=== PATIENT | male | born 1960 | race Caucasian/White ===

== ENCOUNTER → 2023-04-11 08:13 | Outpatient (CLI) | payer OTHER, SELFPAY ==
--- NOTE | ~2023-04-11 | XR_ITS ---
XR abdomen/kub 1V 04/11/2023 08:33 Indication: Microscopic hematuria Procedure: KUB Comparison: No prior studies for comparison. Findings: Bowel pattern nonobstructive. Moderate colonic fecal loading. No renal stones are seen. The re are are brachytherapy seeds in the expected location of the prostate bed. No sclerotic lesions. Mo derate lumbar spondylosis. Impression: 1: No acute abdominal abnormality. Reviewed, dictated and finalized at location [facility] [employer] Impression: 1: No acute abdominal abnormality.
--- NOTE | ~2023-04-11 | CT_ITS ---
CT of the Abdomen and Pelvis: Indication: Microscopic hematuria Technique: 2.5 mm axial scans were obtained through the abdomen and pelvis prior to and following in travenous administration of 130 cc of Omnipaque 350. Dose reduction technique was used on this scan b y utilizing automated exposure control and iterative reconstruction technique. The dose-length produc t (DLP) was 1596.80 mGy-cm. Findings: Scans through the lung bases are unremarkable. The liver, spleen, pancreas, gallbladder, adrenals and kidneys are within normal limits. There are at herosclerotic calcifications of the aorta. No lymphadenopathy. No bowel obstruction or bowel wall thickening. There is no evidence to suggest acute appendicitis. Images through the pelvis were performed. Urinary bladder unremarkable. Prostate gland radiation seed s present. No ascites. Impression: No distinct etiology for hematuria identified. Prostate gland radiation seeds. Reviewed, dictated and finalized at [facility]. [employer] Impression: No distinct etiology for hematuria identified. Prostate gland radiation seeds.
[2023-04-11 09:06] LABS: Estimated Glomerular Filt Rate > 60
== END ==
PROVIDERS: PCP Urology; Visit Provider Urology
DX: R31.29 Other microscopic hematuria (principal)
CPT/HCPCS: 74018; 74178; Q9967

== ENCOUNTER 2024-07-03 05:47 | Observation (INO) | payer MEDICARE, OTHER, SELFPAY ==
[2024-07-03] VITALS (45 sets, daily range): BP systolic 129–225; BP diastolic 68–93; PULSE 76–106; RESP 14–29; TEMP 36.6–36.9; O2SAT 90–99; BMI 28.3
--- NOTE | ~2024-07-03 | XR_ITS ---
EXAMINATION: XR chest 2V 07/03/2024 06:37 INDICATION: Shortness of breath and chest pain PROCEDURE: 2 view chest COMPARISON: 12/19/2005 FINDINGS: The lungs are clear. The cardiomediastinal silhouette is within normal limits. There are no pleural effusions. There is no pneumothorax suspected. IMPRESSION: 1: NO ACUTE CARDIOPULMONARY DISEASE. Reviewed, dictated and finalized at location A. ATOLOGIST MANAGING PARTNER
--- NOTE | ~2024-07-03 | CT_ITS ---
EXAMINATION: CTA chest PE protocol DATE: 07/04/2024 09:23 INDICATION: Chest pain and shortness of breath TECHNIQUE: Computed tomography (CT) pulmonary angiogram of the chest was performed with 100 mL Omnipa que-350 intravenous contrast. Additional 3D reconstructions utilizing coronal maximum intensity proje ction (MIP) were performed. Automated exposure control and iterative reconstruction technique were em ployed. The dose-length product was 296.17 mGy-cm. COMPARISON: None FINDINGS: No pulmonary embolism. There is diffuse bronchial wall thickening in both lungs. Mild at dependent pr edominant mosaic attenuation with some linear opacities in both lungs without significant associated septal line thickening and with favor atelectasis over pneumonia or mild pulmonary edema. No pleural effusion. Heart size normal. Atherosclerotic coronary artery calcifications. No pericardial effusion. Thoracic aortic caliber with no dissection. Visualized upper abdomen is unremarkable. Mild thoracic spondylosis with bridging osteophytes at multiple levels consistent with diffuse idiopathic skeletal hyperostosis (DISH). IMPRESSION: 1. Bilateral diffuse mild bronchial wall thickening which could be seen with bronchitis/bronchiolitis , reactive air disease/asthma or related to mild pulmonary edema. 2. Dependent predominant mosaic attenuation with mild groundglass opacities and would favor atelectas is over mild pulmonary edema or pneumonia. 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 Bilateral diffuse mild bronchial wall thickening which could be seen with br onchitis/bronchiolitis, reactive air disease/asthma or related to mild pulmonar y edema. 2. Dependent predominant mosaic attenuation with mild groundglass opacities and would favor atelectasis over mild pulmonary edema or pneumonia.
--- OUTSIDE RECORDS SUMMARY | 2024-07-03 05:49 | XMS_ITS | Referral Summary ---
Author Organization [facility] B Address [address] [place] [address] Care Team Providers Care Outside Sales Consultant Name Role Phone Dev Burrell MD Unavailable Phillip Schafer MD Unavailable [phone] Star Ellis MD Unavailable Ally Mcghee MD Primary Care Provider [phone] Mary Anne Rodriguez MD Unavailable [phone] Dimitrios Mccrary MD Unavailable [phone] Encounters Date Type Department Care Team Description 07/02/2024 Telephone [facility] Surgery [address] [facility] [address] Floor 1 [place] [address] Dimitrios Mccrary MD 07/01/2024 1:11 PM LOADING SHOVEL OILER - 07/02/2024 10:58 AM LOADING SHOVEL OILER Hospital Encounter [facility] [address] [place] [address] Dimitrios Mccrary MD Atherosclerosis of 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 (HCC) (Primary Dx) Discharge Disposition: Discharge to home or self care 07/01/2024 3:00 PM LOADING SHOVEL OILER - 07/01/2024 5:30 PM LOADING SHOVEL OILER Surgery [facility] Operating [facility] [place] [phone] Dimitrios Mccrary MD AIF Angiogram, Right Leg Run off, Angioplasty Right Popliteal Artery 07/01/2024 3:09 PM LOADING SHOVEL OILER Anesthesia Event [facility] [address] [place] [phone] Venecia Hennessy DO Devuono, Lauren Falvey, NP 06/22/2024 12:15 PM LOADING SHOVEL OILER Pre-Admission Testing [facility] Pre Anesthesia Testing [address] [place] [phone] Preoperative testing (Primary Dx) 06/19/2024 Telephone [facility] Surgery [address] [place] [phone] Dimitrios Mccrary MD Med Management 06/16/2024 11:00 AM LOADING SHOVEL OILER Ancillary Procedure [facility] Surgery [address] [place] [phone] Encounter for surgical aftercare following surgery on the circulatory system 06/16/2024 11:45 AM LOADING SHOVEL OILER Office Visit [facility] Surgery [address] [place] [phone] Eliseo Hyde PA Atherosclerosis of 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 (HCC); Claudication (HCC) 05/13/2024 Orders Only [facility] Surgery [address] [place] [phone] Dimitrios Mccrary MD Encounter for surgical aftercare following surgery on the circulatory system (Primary Dx) 05/13/2024 11:00 AM LOADING SHOVEL OILER Office Visit [facility] Surgery [address] [place] [phone] Dimitrios Mccrary MD Atherosclerosis of muckleshoot artery of left lower extremity with intermittent claudication (HCC) (Primary Dx) 04/30/2024 5:33 AM LOADING SHOVEL OILER - 05/03/2024 2:15 PM LOADING SHOVEL OILER Hospital Encounter [address] [place] [phone] Dimitrios Mccrary MD Atherosclerosis of muckleshoot artery of left lower extremity with intermittent claudication (HCC) Discharge Disposition: Discharge to home or self care 04/30/2024 7:30 AM LOADING SHOVEL OILER - 04/30/2024 12:00 PM LOADING SHOVEL OILER Surgery [facility] [address] [place] [phone] Dimitrios Mccrary MD Left Femoral Artery Endarterectomy, Left Iliac Artery Stent, Left AIF and Ateriogram 04/30/2024 7:48 AM LOADING SHOVEL OILER Anesthesia Event [facility] [address] [place] [phone] Wilma Manjarrez MD Czajkowski, Lesly June, NP 04/15/2024 Documentation [facility] [address] [place] [phone] Ligia Sun PA lower extremity vein mapping results 04/09/2024 11:45 AM LOADING SHOVEL OILER Pre-Admission Testing [facility] Pre Anesthesia Testing [address] [place] [phone] Preop testing (Primary Dx) 04/07/2024 11:19 AM LOADING SHOVEL OILER - 04/07/2024 5:13 PM LOADING SHOVEL OILER Emergency [facility] [address] [place] [phone] Richard Armstrong MD Dizziness (Primary Dx); Episode of hypertension; Urine leukocytes Discharge Disposition: Discharge to home or self care 04/07/2024 9:30 AM LOADING SHOVEL OILER Procedure visit [facility] [address] [place] [phone] Irradiation cystitis with hematuria; Soft tissue radionecrosis 04/06/2024 8:00 AM LOADING SHOVEL OILER Ancillary Procedure [facility] Surgery [address] [phone] Claudication of lower extremity (HCC); Preop examination 04/06/2024 9:30 AM LOADING SHOVEL OILER Procedure visit [facility] [address] [place] [phone] Irradiation cystitis with hematuria; Soft tissue radionecrosis 04/03/2024 9:30 AM LOADING SHOVEL OILER Procedure visit [facility] [place] [phone] Irradiation cystitis with hematuria; Soft tissue radionecrosis from Last 3 Months Allergies No known active allergies Medications metFORMIN (GLUCOPHAGE) 500 mg tablet Take 2 tablets (1,000 mg total) by mouth 2 (two) times a day with meals Active glipiZIDE (GLUCOTROL) 10 mg tabletIndications :type 2 diabetes mellitus Take 1 tablet (10 mg total) by mouth every morning Active gabapentin (NEURONTIN) 300 mg capsule Take 1 capsule (300 mg total) by mouth nightly Active aspirin 81 mg enteric coated tablet Take 1 tablet (81 mg total) by mouth nightly Active cilostazoL (PLETAL) 100 mg tabletIndications :Intermittent Claudication Take 1 tablet (100 mg total) by mouth 2 (two) times a day Active clopidogreL (PLAVIX) 75 mg tablet Take 1 tablet (75 mg total) by mouth every morning Active ciprofloxacin (CIPRO) 500 mg tablet Take 1 tablet (500 mg total) by mouth 2 (two) times a day Active tamsulosin (FLOMAX) 0.4 mg extended release capsule Take 1 capsule (0.4 mg total) by mouth nightly Active Active Problems Problem Noted Date Diagnosed Date Dizziness 04/07/2024 Episode of hypertension 04/07/2024 Urine leukocytes 04/07/2024 Atherosclerosis of muckleshoot ar eric of left lower extremity with intermittent claudication 03/26/2024 Preop examination 03/25/2024 Cystitis 01/04/2024 Hematuria 11/09/2023 History of prostate cancer 11/09/2023 Urinary retention 11/09/2023 Stricture of bulbous urethra in male 07/08/2023 Perineal lump 05/08/2023 Microscopic hematuria 05/08/2023 Claudication of lower extremity 04/08/2023 Assessment & Plan (03/25/2024 9:38 AM LOADING SHOVEL OILER): Debilitating left calf claudication with evidence of left ileo-femoral disease and SFA/popliteal stenosis. We discussed revascularization with left femoral endarterectomy, possible left iliac stent, possible left SFA/popliteal endoluminal intervention and possible fem-distal bypass. He understands and accepts the risks of surgery including infection, bleeding, arterial thrombosis, the potential for urgent reoperation and the remote risk of amputation. He consents to the procedure. We will plan to consult his Urologist, Dr. Castaneda, for assistance with his Matute catheter as needed. Atherosclerosis of muckleshoot ar eric of both lower extremities with intermittent claudication 04/08/2023 Overview (09/11/2023): Last Assessment & Plan: He has debilitating bilateral calf claudication and would like to have a more active lifestyle. He's failed a trial of Pletal with a walking regimen. We'll plan AIF angiogram with possible right SFA intervention. He understands the risks including bleeding, infection, renal insufficiency, recurrent disease requiring further intervention, lower extremity ischemia requiring urgent revascularization for limb salvage, remote risk of limb loss and need for alf follow-up. Assessment & Plan (06/17/2024 11:05 AM LOADING SHOVEL OILER): He has a progressive right in-stent popliteal artery stenosis based on velocity criteria and change in distal right leg waveforms with progressive symptoms of right calf claudication. We recommend AIF angiogram with possible right popliteal artery intervention. Assessment & Plan (10/14/2023 9:51 AM CDT): He has debilitating bilateral calf claudication and would like to have a more active lifestyle. He's failed a year+ long trial of Pletal with a walking regimen. Waveforms suggest right SFA disease and left iliofemoral disease. His left toe-brachial index is 0.24. We'll plan AIF angiogram with possible right SFA intervention/possible left iliac intervention. He understands the risks including bleeding, infection, renal insufficiency, recurrent disease requiring further intervention, lower extremity ischemia requiring urgent revascularization for limb salvage, remote risk of limb loss and need for alf follow-up. He understands the potential need for lifelong Plavix therapy if stents are placed. Assessment & Plan (04/08/2023 12:58 PM LOADING SHOVEL OILER): He has debilitating bilateral calf claudication and would like to have a more active lifestyle. He's failed a trial of Pletal with a walking regimen. We'll plan AIF angiogram with possible right SFA intervention. He understands the risks including bleeding, infection, renal insufficiency, recurrent disease requiring further intervention, lower extremity ischemia requiring urgent revascularization for limb salvage, remote risk of limb loss and need for oil heaterman follow-up. Atherosclerosis of muckleshoot ar eric of right lower extremity with intermittent claudication 04/08/2023 Carpal tunnel syndrome on right 08/15/2021 Overview (08/15/2021): Added automatically from request for surgery [id number] Lesion of right ulnar nerve 08/15/2021 Overview (08/15/2021): Added automatically from request for surgery [id number] Cubital tunnel syndrome on left 07/21/2021 Overview (07/21/2021): Added automatically from request for surgery [id number] Carpal tunnel syndrome on left 07/21/2021 Overview (07/21/2021): Added automatically from request for surgery [id number] Vascular disease 06/25/2021 Overweight with body mass index (BMI) 25.0-29.9 10/13/2015 Type 2 diabetes mellitus wit hout complication, without long-term current use of insulin ([facility]) 07/11/2011 Overview (09/11/2023): DMII WO CMP UNCNTRLD Prostate cancer 01/26/2009 Cancer Staging:Clinical stage from 01/26/2009:Stage III(T3a, N0, M0, G3-G4) - Signed by Dev Burrell MD on 04/23/2018 Immunizations Immunization Administration Dates Next Due Influenza, Unspecified 03/01/2022 Pneumococcal Conjugate PCV 13 01/12/2021 Tdap 01/12/2021 Social History Tobacco Use Types Packs/Day Years Used Date Smoking Tobacco: Former Cigarettes 2 57.2 S tarted: 1968 Passive Smoke Exposure: Past Smokeless Tobacco: Never Tobacco Cessation:Counseling Given: Not Answered Comments:Over 20 years ago Alcohol Use Standard Drinks/Week Comments No 0 (1 standard drink = 0.6 oz pur e alcohol) [facility] Utilities Answer Date Recorded In the past 12 months has th e electric, gas, oil, or water company threatened to shut off services in your home? No 05/01/2024 Social Connection and Isolat ion Panel [NHANES] Answer Date Recorded In a typical week, how many times do you talk on the phone with family, friends, or neighbors? More than three times a week 05/01/2024 How often do you get togethe r with friends or relatives? More than three times a week 05/01/2024 How often do you attend chur ch or voodoo services? More than 4 times per year 05/01/2024 Do you belong to any clubs o r organizations such as jehovah's witness groups, unions, fraternal or athletic groups, or school groups? No 05/01/2024 How often do you attend meet ings of the clubs or organizations you belong to? Never 05/01/2024 Are you , , di vorced, , never , or living with a partner? 05/01/2024 AUDIT-C Answer Date Recorded Q1: How often do you have a drink containing alc ohol? 2-4 times a month 06/22/2024 Q2: How many drinks containi ng alcohol do you have on a typical day when you are drinking? 1 or 2 06/22/2024 Q3: How often do you have si x or more drinks on one occasion? Never 06/22/2024 Overall Financial Resource Strain (CARDIA) Answe r Date Recorded How hard is it for you to pa y for the very basics like food, housing, medical care, and heating? Not very hard 05/01/2024 Hunger Vital Sign Answer Date Recorded Within the past 12 months, y ou worried that your food would run out before you got the money to buy more. Never true 05/01/20 24 Within the past 12 months, t he food you bought just didn't last and you didn't have money to get more. Never true 05/01/2024 PRAPARE - Transportation Answer Date Re corded In the past 12 months, has l ack of transportation kept you from medical appointments or from getting medications? No 04/06 In the past 12 months, has l ack of transportation kept you from meetings, work, or from getting things needed for daily living? No 05/01/2024 Housing Stability Vital Sign Answer Crow e Recorded In the last 12 months, was t here a time when you were not able to pay the mortgage or rent on time? No 05/01/2024 In the past 12 months, how m any times have you moved where you were living? 1 05/01/2024 At any time in the past 12 m [facility], were you homeless or living in a nursing home (including now)? No 05/01/2024 Personal Safety Answer Date Recorded Have you ever been in or are you currently in a harmful physical or emotional relationship or is someone making you feel afraid or unsafe? Denies 07/01/2024 Sex and Gender Information Value Date Recorded Sex Assigned at Not on file Legal Sex Male 2:12 AM LOADING SHOVEL OILER Gender Identity Not on file Sexual Orientation Not on file Last Filed Vital Signs Vital Sign Reading Time Taken Comments Blood Pressure 162/87 07/02/2024 8:27 AM LOADING SHOVEL OILER Pulse 72 07/02/2024 8:27 AM LOADING SHOVEL OILER Temperature 36.2 C (97.1 F) 07/02/2024 8:27 AM LOADING SHOVEL OILER Respiratory Rate 15 07/02/2024 8:27 AM LOADING SHOVEL OILER Oxygen Saturation 98% 07/02/2024 8:27 AM LOADING SHOVEL OILER Inhaled Oxygen Concentration - - Weight 78.6 kg (173 lb 4.5 oz) 07/01/2024 1:20 P M LOADING SHOVEL OILER Height 170.2 cm (5' 7 ) 07/01/2024 1:20 PM LOADING SHOVEL OILER Body Mass Index 27.14 07/01/2024 1:20 PM LOADING SHOVEL OILER Plan of Treatment Not on file Medical Devices Implanted Type Area C D Reactor Operator Device Identifier Shelf Expiration Date Model / Serial / Lot [employer] Viabahn 6mm 25cm 120cm Flexible Self Expand Radiopaque Stent [id number] - [id number] - [id number] Implanted:Qty: 1 on 10/31/2023 by Dimitrios Mccrary MD at [facility] Stent Right: Superficial Femoral Artery [employer] 06/04/2025 [id number] / [id number] / [employer] Viabahn 6mm 6fr 10cm 120cm Delivery System Superficial Femoral [id number] - [id number] - [id number] Implanted:Qty: 1 on 10/31/2023 by Dimitrios Mccrary MD at [facility] Stent Right: Superficial Femoral Artery [employer] 01/05/2025 [id number] / [id number] / Medtronic Inc Protege Everflex 5mm .079in 40mm 120cm Otw Delivery System Self [id number] - [id number] Implanted:Qty: 1 on 10/31/2023 by Dimitrios Mccrary MD at [facility] Stent Right: Popleteal Artery Med[employer] Inc 12/19/2024 [id number] / / [id number] Ar[employer] Ar-2324 Bcm Swivelock 4.75mm 24.5mm Self Punch Vent Shoulder [place] Suture - [id number] Implanted:Qty: 1 on 04/18/2022 by Dg Martins MD at [facility] Left: Shoulder [employer] [id number] 04/04/2025 A [id number] / / [id number] [employer] Set Implant Arthrex Fibertak Biceps Sterile Latex Free Ar-3670 - [id number] Implanted:Qty: 1 on 04/18/2022 by Dg Martins MD at [facility] Left: Shoulder [employer] Inc [id number] 08/03/2026 A R-3670 / / [id number] [employer]ife Inc Graft Patch Patch Vascular Repair 0.8x8cm 0.8x8cm Pfp0.8x8 - [id number] Implanted:Qty: 1 on 04/30/2024 by Dimitrios Mccrary MD at [facility] Left: Femoral [employer] 11/01/2025 PFP0. 8X8 / / [id number] Description:Bovine pericardi um patch Bard Peripheral Vascular Lifestent 8mm 6fr 60mm 80cm Self Expand Catheter Helical [id number] - [id number] Implanted:Qty: 1 on 04/30/2024 by Dimitrios Mccrary MD at [facility] Left: Common Iliac Artery Bard Peripheral Vascular 08/26/2025 [id number] / / [id number] Procedures Procedure Name Priority Date/Time Associated Diagnosis Comments POCT GLUCOSE DEVICE Routine 07/02/2024 6 :18 AM LOADING SHOVEL OILER EGFR Routine 07/02/2024 5:13 AM LOADING SHOVEL OILER CBC WITHOUT DIFFERENTIAL Routine 07/02/2024 5:13 AM LOADING SHOVEL OILER BASIC METABOLIC PANEL Routine 07/02/2024 5:13 AM LOADING SHOVEL OILER POCT GLUCOSE DEVICE Routine 07/01/2024 9 :03 PM LOADING SHOVEL OILER POCT ACTIVATED CLOTTING TIME, LOW RANGE Routine 07/01/2024 7:33 PM LOADING SHOVEL OILER POCT ACTIVATED CLOTTING TIME, LOW RANGE Routine 07/01/2024 6:31 PM LOADING SHOVEL OILER POCT ACTIVATED CLOTTING TIME, LOW RANGE Routine 07/01/2024 5:34 PM LOADING SHOVEL OILER POCT ACTIVATED CLOTTING TIME, LOW RANGE Routine 07/01/2024 4:31 PM LOADING SHOVEL OILER POCT GLUCOSE DEVICE Routine 07/01/2024 4 :27 PM LOADING SHOVEL OILER ANGIOGRAM LOWER EXTREMITY RIGHT IP Routine 07/01/2024 4:24 PM LOADING SHOVEL OILER SC AN PROCEDURE PLACEHOLDER Routine 07/01/2024 3:32 PM LOADING SHOVEL OILER SC AN ELECTIVE SUPRAGLOTTIC AIRWAY Routine 07/01/2024 3:32 PM LOADING SHOVEL OILER ARTERIOGRAM AORTA ILIAC - FEMORAL 07/01/2024 3:09 PM LOADING SHOVEL OILER Atherosclerosis of 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 (HCC) POCT GLUCOSE DEVICE Routine 07/01/2024 1 :34 PM LOADING SHOVEL OILER EGFR Routine 06/22/2024 2:09 PM LOADING SHOVEL OILER Preoperative testing BASIC METABOLIC PANEL Routine 06/22/2024 2:09 PM LOADING SHOVEL OILER Preoperative testing DIFFERENTIAL AUTO Routine 06/22/2024 1:2 6 PM LOADING SHOVEL OILER Preoperative testing CBC WITH AUTO DIFFERENTIAL Routine 06/22/2024 1:26 PM LOADING SHOVEL OILER Preoperative testing TYPE AND SCREEN Routine 06/22/2024 1:26 PM LOADING SHOVEL OILER Preoperative testing PROTIME-INR Routine 06/22/2024 1:26 PM LOADING SHOVEL OILER Preoperative testing APTT Routine 06/22/2024 1:26 PM LOADING SHOVEL OILER Preoperative testing HEMOGLOBIN A1C Routine 06/22/2024 1:26 PM LOADING SHOVEL OILER Preoperative testing US ARTERIAL DUPLEX LOWER EXTREMITY RIGHT LIMITED Schedule Routine, Read Routine (OP Routine) 06/16/2024 12:05 PM LOADING SHOVEL OILER Encounter for surgical aftercare following surgery on the circulatory system US ARTERIAL DOPPLER LOWER EXTREMITY BILATERAL Schedule Routine, Read Routine (OP Routine) 06/16/2024 12:05 PM LOADING SHOVEL OILER Encounter for surgical aftercare following surgery on the circulatory system POCT GLUCOSE DEVICE Routine 05/03/2024 11:58 AM LOADING SHOVEL OILER POCT GLUCOSE DEVICE Routine 05/03/2024 8 :09 AM LOADING SHOVEL OILER POCT GLUCOSE DEVICE Routine 05/03/2024 3 :14 AM LOADING SHOVEL OILER POCT GLUCOSE DEVICE Routine 05/02/2024 11:29 PM LOADING SHOVEL OILER POCT GLUCOSE DEVICE Routine 05/02/2024 8 :17 PM LOADING SHOVEL OILER POCT GLUCOSE DEVICE Routine 05/02/2024 4 :26 PM LOADING SHOVEL OILER POCT GLUCOSE DEVICE Routine 05/02/2024 12:26 PM LOADING SHOVEL OILER EGFR Routine 05/02/2024 11:13 AM LOADING SHOVEL OILER DIFFERENTIAL AUTO Routine 05/02/2024 11:13 AM LOADING SHOVEL OILER COMPREHENSIVE METABOLIC PANEL Routine 05/02/2024 11:13 AM LOADING SHOVEL OILER CBC WITH AUTO DIFFERENTIAL Routine 05/02/2024 11:13 AM LOADING SHOVEL OILER POCT GLUCOSE DEVICE Routine 05/02/2024 7 :45 AM LOADING SHOVEL OILER EGFR Routine 05/02/2024 5:21 AM LOADING SHOVEL OILER DIFFERENTIAL AUTO Routine 05/02/2024 5:2 1 AM LOADING SHOVEL OILER COMPREHENSIVE METABOLIC PANEL Routine 05/02/2024 5:21 AM LOADING SHOVEL OILER CBC WITH AUTO DIFFERENTIAL Routine 05/02/2024 5:21 AM LOADING SHOVEL OILER POCT GLUCOSE DEVICE Routine 05/02/2024 4 :01 AM LOADING SHOVEL OILER POCT GLUCOSE DEVICE Routine 05/02/2024 12:57 AM LOADING SHOVEL OILER POCT GLUCOSE DEVICE Routine 05/01/2024 9 :10 PM LOADING SHOVEL OILER POCT GLUCOSE DEVICE Routine 05/01/2024 6 :30 PM LOADING SHOVEL OILER POCT GLUCOSE DEVICE Routine 05/01/2024 4 :34 PM LOADING SHOVEL OILER POCT GLUCOSE DEVICE Routine 05/01/2024 11:49 AM LOADING SHOVEL OILER POCT GLUCOSE DEVICE Routine 05/01/2024 7 :32 AM LOADING SHOVEL OILER ECG 12-LEAD Routine 05/01/2024 5:06 AM LOADING SHOVEL OILER EGFR Routine 05/01/2024 4:34 AM LOADING SHOVEL OILER BASIC METABOLIC PANEL Routine 05/01/2024 4:34 AM LOADING SHOVEL OILER CBC WITHOUT DIFFERENTIAL Routine 05/01/2024 4:34 AM LOADING SHOVEL OILER POCT GLUCOSE DEVICE Routine 05/01/2024 3 :50 AM LOADING SHOVEL OILER POCT GLUCOSE DEVICE Routine 05/01/2024 12:37 AM LOADING SHOVEL OILER POCT GLUCOSE DEVICE Routine 04/30/2024 9 :24 PM LOADING SHOVEL OILER POCT GLUCOSE DEVICE Routine 04/30/2024 4 :21 PM LOADING SHOVEL OILER CBC WITHOUT DIFFERENTIAL STAT 04/30/2024 12:08 PM LOADING SHOVEL OILER POCT GLUCOSE DEVICE Routine 04/30/2024 11:18 AM LOADING SHOVEL OILER ANGIOGRAM LOWER EXTREMITY LEFT IP Routine 04/30/2024 10:45 AM LOADING SHOVEL OILER SURGICAL PATHOLOGY Routine 04/30/2024 10:44 AM LOADING SHOVEL OILER Atherosclerosis of [place] artery of left lower extremity with intermittent claudication (HCC) SC AN PROCEDURE PLACEHOLDER Routine 04/30/2024 8:12 AM LOADING SHOVEL OILER SC AN ELECTIVE ENDOTRACHEAL AIRWAY Routine 04/30/2024 8:12 AM LOADING SHOVEL OILER ENDARTERECTOMY WITH AIF INTERVENTION - FEMORAL ARTERY 04/30/2024 7:47 AM LOADING SHOVEL OILER Atherosclerosis of [place] artery of left lower extremity with intermittent claudication (HCC) POCT GLUCOSE DEVICE Routine 04/30/2024 7 :43 AM LOADING SHOVEL OILER B CHECK SAMPLE STAT 04/30/2024 6:25 AM LOADING SHOVEL OILER PROTIME-INR Routine 04/09/2024 12:38 PM LOADING SHOVEL OILER Preop testing APTT Routine 04/09/2024 12:38 PM LOADING SHOVEL OILER Preop testing HEMOGLOBIN A1C Routine 04/09/2024 12:38 PM LOADING SHOVEL OILER Preop testing EGFR Routine 04/09/2024 12:37 PM LOADING SHOVEL OILER Preop testing BASIC METABOLIC PANEL Routine 04/09/2024 12:37 PM LOADING SHOVEL OILER Preop testing TYPE AND SCREEN Routine 04/09/2024 12:25 PM LOADING SHOVEL OILER Preop testing URINALYSIS, MICROSCOPIC ONLY STAT 04/07/2024 1:00 PM LOADING SHOVEL OILER URINALYSIS AND REFLEX TO MICROSCOPIC AND CULTURE STAT 04/07/2024 1:00 [address] SHOV[address]ER CT HEAD WO CONTRAST ED 04/07/2024 12:59 PM LOADING SHOVEL OILER EGFR STAT 04/07/2024 12:28 PM LOADING SHOVEL OILER DIFFERENTIAL AUTO STAT 04/07/2024 12:28 PM LOADING SHOVEL OILER TROPONIN T HIGH-SENSITIVITY SERIES (BASELINE, 2HR, 4HR, 6HR) STAT 04/07/2024 12:28 PM LOADING SHOVEL OILER COMPREHENSIVE METABOLIC PANEL STAT 04/07/2024 12:28 PM LOADING SHOVEL OILER CBC WITH AUTO DIFFERENTIAL STAT 04/07/2024 12:28 PM LOADING SHOVEL OILER ECG 12-LEAD STAT 04/07/2024 10:29 AM LOADING SHOVEL OILER POCT GLUCOSE DEVICE Routine 04/07/2024 9 :52 AM LOADING SHOVEL OILER POCT GLUCOSE DEVICE Routine 04/07/2024 9 :20 AM LOADING SHOVEL OILER POCT GLUCOSE DEVICE Routine 04/06/2024 11:05 AM LOADING SHOVEL OILER US VEIN MAPPING DUPLEX LOWER EXTREMITY BILATERAL Schedule Routine, Read Routine (OP Routine) 04/06/2024 10:17 AM LOADING SHOVEL OILER Claudication of lower extremity (HCC) Preop examination POCT GLUCOSE DEVICE Routine 04/06/2024 9 :14 AM LOADING SHOVEL OILER POCT GLUCOSE DEVICE Routine 04/03/2024 11:13 AM LOADING SHOVEL OILER POCT GLUCOSE DEVICE Routine 04/03/2024 11:07 AM LOADING SHOVEL OILER POCT GLUCOSE DEVICE Routine 04/03/2024 9 :19 AM LOADING SHOVEL OILER POCT GLUCOSE DEVICE Routine 04/03/2024 9 :09 AM LOADING SHOVEL OILER CTA ABDOMINAL AORTA AND BILATERAL ILIOFEMORAL RUNOFF Schedule Routine, Read Routine (OP Routine) 01/18/2024 10:50 AM CDT Atherosclerosis of [place] artery of left lower extremity with intermittent claudication (HCC) PSA, TOTAL AND FREE Routine 04/13/2023 12:18 PM LOADING SHOVEL OILER from Last 3 Months or Most Recently Relevant to Health Maintenance Results * (ABNORMAL) POCT glucose (07/02/2024 6:18 AM LOADING SHOVEL OILER) [facility] Glucose, POC 221(H) 70 - 199 mg/dL Comment: For Glucose values <35 mg/dl when Hematocrit is >60 mg/dl,the test may not accurately detect significant hypoglycemia,and testing in the Laboratory should be considered if clinically indicated. Blood 07/02/2024 6:18 AM LOADING SHOVEL OILER 07/02/2024 6:18 AM LOADING SHOVEL OILER us Dimitrios Mccrary MD LAB POCT ORDERABLES - DEVICE F inal Result [facility] [address] Department [place] [address] * eGFR (07/02/2024 5:13 AM LOADING SHOVEL OILER) [facility] eGFR >90 >=60 mL/min/1. 73 m2 Comment: Interpretive Data Reference Interval Normal >/= 90 mL/min/1.73m2 Mildly decreased* 60 - 89 mL/min/1.73m2 Mildly to moderately decreased 45 - 59 mL/min/1.73m2 Moderately to severely decreased 30 - 44 mL/min/1.73m2 Severely decreased 15 - 29 mL/min/1.73m2 Kidney Failure < 15 mL/min/1.73m2 *Relative to young adult level Estimated glomerular filtration rate is determined by the 2020 CKD-EPI equation recommended by the National Kidney Foundation (A Unifying Approach to GFR Estimation: Recommendations of the NKF-ASK Task Force on Reassessing the Inclusion of Race in Diagnosing Kidney Disease, JASN 2020). The CKD-EPI equation should not be used for patients with unstable renal function and has not been validated in children and those over 70. Current interpretive data was last reviewed 2021. Blood 07/02/2024 5:13 AM LOADING SHOVEL OILER 07/02/2024 5:28 AM LOADING SHOVEL OILER us Dimitrios Mccrary MD LAB BLOOD ORDERABLES Final Res ult [facility] [address] Department [place] [address] * (ABNORMAL) CBC without differential (07/02/2024 5:13 AM LOADING SHOVEL OILER) [facility] WBC 6.4 3.8 - 9.9 K/cumm Hgb 12.0(L) 13.0 - 17.5 g/dL [facility] Hct 36.5(L) 38.9 - 50.3 % [facility] Plt 156 150 - 400 K/cumm [facility] MPV 11.5 9.1 - 12.3 fL [facility] RBC 4.11(L) 4.30 - 5.80 M/cumm [facility] MCV 88.8 81.3 - 96.4 fL [facility] MCH 29.2 27.1 - 33.3 pg [facility] MCHC 32.9 32.3 - 35.7 g/dL [facility] RDW CV 12.3 11.1 - 14.9 % [facility] RDW SD 40.4 35.7 - 48.1 fL [facility] NRBC abs 0.00 0.00 - 0.01 K/cumm [facility] Blood 07/02/2024 5:13 AM LOADING SHOVEL OILER 07/02/2024 5:29 AM LOADING SHOVEL OILER us Dimitrios Mccrary MD LAB BLOOD ORDERABLES Final Res ult [facility] [address] Department [place] [address] * (ABNORMAL) Basic metabolic panel (07/02/2024 5:13 AM LOADING SHOVEL OILER) Sodium 136 135 - 145 mmol/L Potassium, pl 4.4 3.3 - 4.9 mmol/L [facility] Chloride 100 97 - 110 mmol/L [facility] CO2 24 22 - 32 mmol/L [facility] Anion gap 12 2 - 15 mmol/L [facility] BUN 14 6 - 25 mg/dL [facility] Creatinine 0.90 0.80 - 1.30 mg/dL [facility] Glucose 280(H) 70 - 199 mg/dL [facility] Comment: Interpretive Data Fasting glucose >/= 126 mg/dl is diagnostic for diabetes. Fasting is defined as no caloric intake for at least 8 hours. Fasting glucose between 100 mg/dl to 125 mg/dl is diagnostic of prediabetes. In a patient with classic symptoms of hyperglycemia or hyperglycemic crisis, a random glucose >/= 200 mg/dl is diagnostic for diabetes. In the absence of unequivocal hyperglycemia, results should be confirmed by repeat testing. The classification and Diagnosis of Diabetes Diabetes Care 202; 46: S19-S40. Current interpretive data was last revised 2022. Calcium 8.8 8.5 - 10.3 mg/dL [facility] Blood 07/02/2024 5:13 AM LOADING SHOVEL OILER 07/02/2024 5:28 AM LOADING SHOVEL OILER us Dimitrios Mccrary MD LAB BLOOD ORDERABLES Final Res ult Performing Organization Address [facility] de Phone Number [facility] [address] [facility] [place] [address] * POCT glucose (07/01/2024 9:03 PM LOADING SHOVEL OILER) [facility] Glucose, POC 193 70 - 199 mg/dL Comment: For Glucose values <35 mg/dl when Hematocrit is >60 mg/dl,the test may not accurately detect significant hypoglycemia,and testing in the Laboratory should be considered if clinically indicated. Blood 07/01/2024 9:03 PM LOADING SHOVEL OILER 07/01/2024 9:03 PM LOADING SHOVEL OILER Result Sidra Mccrary MD LAB POCT ORDERABLES - DEVICE F inal Result Performing Organization Address [facility] de Phone Number [facility] [address] [facility] [place] [address] * POCT Activated clotting time, low range (07/01/2024 7:33 PM LOADING SHOVEL OILER) ACT 164 123 - 168 sec Blood 07/01/2024 7:33 PM LOADING SHOVEL OILER 07/01/2024 7:33 PM LOADING SHOVEL OILER Result Sidra Mccrary MD LAB POCT ORDERABLES - DEVICE F inal Result Performing Organization Address [facility] de Phone Number [facility] [address] [facility] [place] [address] * (ABNORMAL) POCT Activated clotting time, low range (07/01/2024 6:31 PM LOADING SHOVEL OILER) ACT 181(H) 123 - 168 sec Blood 07/01/2024 6:31 PM LOADING SHOVEL OILER 07/01/2024 6:31 PM LOADING SHOVEL OILER Result Sidra Mccrary MD LAB POCT ORDERABLES - DEVICE F inal Result Performing Organization Address [facility] Co de Phone Number [facility] [address] [place], [place] [phone] * (ABNORMAL) POCT Activated clotting time, low range (07/01/2024 5:34 PM LOADING SHOVEL OILER) ACT 197(H) 123 - 168 sec Blood 07/01/2024 5:34 PM LOADING SHOVEL OILER 07/01/2024 5:34 PM LOADING SHOVEL OILER us Dimitrios Mccrary MD LAB POCT ORDERABLES - DEVICE F inal Result Performing Organization Address [facility] Co de Phone Number [facility] [address] [facility] [place] [address] * (ABNORMAL) POCT Activated clotting time, low range (07/01/2024 4:31 PM LOADING SHOVEL OILER) ACT 255(H) 123 - 168 sec Blood 07/01/2024 4:31 PM LOADING SHOVEL OILER 07/01/2024 4:31 PM LOADING SHOVEL OILER us Dimitrios Mccrary MD LAB POCT ORDERABLES - DEVICE F inal Result Performing Organization Address [facility] Co de Phone Number [facility] [address] [place] [address] * POCT glucose (07/01/2024 4:27 PM LOADING SHOVEL OILER) [facility] Glucose, POC 97 70 - 199 mg/dL Comment: For Glucose values <35 mg/dl when Hematocrit is >60 mg/dl,the test may not accurately detect significant hypoglycemia,and testing in the Laboratory should be considered if clinically indicated. Blood 07/01/2024 4:27 PM LOADING SHOVEL OILER 07/01/2024 4:27 PM LOADING SHOVEL OILER us Dimitrios Mccrary MD LAB POCT ORDERABLES - DEVICE F inal Result [facility] [address] Department [place] [address] * IR Angiogram Lower Extremity Right (07/01/2024 4:24 PM LOADING SHOVEL OILER) Narrative KATELYN BRAVOMAGE - 07/01/2024 4:25 PM LOADING SHOVEL OILER The images from this study are not interpreted by Radiology. Please refer to the physician's procedure / OR operative note. us Dimitrios Mccrary MD IMG IR PROCEDURES Final Result Performing Organization Address [facility] Co de Phone Number CONS THIERRY * SC AN ELECTIVE SUPRAGLOTTIC AIRWAY, SC AN PROCEDURE PLACEHOLDER (07/01/2024 3:32 PM LOADING SHOVEL OILER) Narrative Gurwinder Villasenor CRNA - 07/01/2024 3:32 PM LOADING SHOVEL OILER Gurwinder Villasenor CRNA 07/01/2024 3:33 PM Airway Patient location: OR Urgency: elective Date/time: 07/01/2024 3:16 PM Indications for airway management: anesthesia Difficult airway: no Staff: Supervising provider: Venecia Hennessy DO Placed by: RESEARCH SOFTWARE ENGINEER: Gurwinder Villasenor CRNA Emergent airway documentation: Risks and benefits discussed: yes Consent obtained: yes Consent given by: patient Airway prep: Preoxygenated: yes Patient position: sniffing Mask difficulty assessment: 1 - vent by mask Sedation level during airway: GA Final airway details: Final airway type: supraglottic airway Final supraglottic airway: IGel SGA size: 4 Number of attempts: 1 Venecia Hennessy DO ANESTHESIA ORDERABLES Final Result * POCT glucose (07/01/2024 1:34 PM LOADING SHOVEL OILER) Glucose, POC 129 70 - 199 mg/dL Comment: For Glucose values <35 mg/dl when Hematocrit is >60 mg/dl,the test may not accurately detect significant hypoglycemia,and testing in the Laboratory should be considered if clinically indicated. Blood 07/01/2024 1:34 PM LOADING SHOVEL OILER 07/01/2024 1:34 PM LOADING SHOVEL OILER us Dimitrios Mccrary MD LAB POCT ORDERABLES - DEVICE F inal Result Performing Organization Address [facility] Co de Phone Number [facility] [address] [place] [address] * eGFR (06/22/2024 2:09 PM LOADING SHOVEL OILER) eGFR 90 >=60 mL/min/1. 73 m2 Comment: Interpretive Data Reference Interval Normal >/= 90 mL/min/1.73m2 Mildly decreased* 60 - 89 mL/min/1.73m2 Mildly to moderately decreased 45 - 59 mL/min/1.73m2 Moderately to severely decreased 30 - 44 mL/min/1.73m2 Severely decreased 15 - 29 mL/min/1.73m2 Kidney Failure < 15 mL/min/1.73m2 *Relative to young adult level Estimated glomerular filtration rate is determined by the 2020 CKD-EPI equation recommended by the National Kidney Foundation (A Unifying Approach to GFR Estimation: Recommendations of the NKF-ASK Task Force on Reassessing the Inclusion of Race in Diagnosing Kidney Disease, JASN 2020). The CKD-EPI equation should not be used for patients with unstable renal function and has not been validated in children and those over 70. Current interpretive data was last reviewed 2021. Blood 06/22/2024 2:09 PM LOADING SHOVEL OILER 06/22/2024 2:09 PM LOADING SHOVEL OILER us Christy Macdonald VINYL TOP INSTALLER LAB BLOOD ORDERABLES Fi nal Result Performing Organization Address [facility]/ZIP Co de Phone Number [facility] [address] Department [employer] [place], [place] [id number] * (ABNORMAL) Basic metabolic panel (06/22/2024 2:09 PM LOADING SHOVEL OILER) Pathologist [facility] Sodium 142 135 - 145 mmol/L Potassium, pl 5.4(H) 3.3 - 4.9 mmol/L [facility] Chloride 107 97 - 110 mmol/L [facility] CO2 24 22 - 32 mmol/L [facility] Anion gap 11 2 - 15 mmol/L [facility] BUN 15 6 - 25 mg/dL [facility] Creatinine 0.94 0.80 - 1.30 mg/dL [facility] Glucose 98 70 - 199 mg/dL [facility] Comment: Interpretive Data Fasting glucose >/= 126 mg/dl is diagnostic for diabetes. Fasting is defined as no caloric intake for at least 8 hours. Fasting glucose between 100 mg/dl to 125 mg/dl is diagnostic of prediabetes. In a patient with classic symptoms of hyperglycemia or hyperglycemic crisis, a random glucose >/= 200 mg/dl is diagnostic for diabetes. In the absence of unequivocal hyperglycemia, results should be confirmed by repeat testing. The classification and Diagnosis of Diabetes Diabetes Care 202; 46: S19-S40. Current interpretive data was last revised 2022. Calcium 9.6 8.5 - 10.3 mg/dL [facility] Blood 06/22/2024 2:09 PM LOADING SHOVEL OILER 06/22/2024 2:09 PM LOADING SHOVEL OILER us Christy Macdonald NP LAB BLOOD ORDERABLES Fi nal Result [facility] [address] Department [place] [address] * Differential, auto (06/22/2024 1:26 PM LOADING SHOVEL OILER) Neutrophil abs 3.0 1.5 - 6.5 K/cumm Imm gran abs 0.0 0.0 - 0.1 K/cumm [facility] Lymphocyte abs 1.8 0.8 - 3.3 K/cumm [facility] Monocyte abs 0.5 0.2 - 0.8 K/cumm [facility] Eosinophil abs 0.3 0.0 - 0.5 K/cumm [facility] Basophil abs 0.1 0.0 - 0.1 K/cumm [facility] Neutrophil pct 52.8 % [facility] Comment: Interpretive Data Percent cell count reference ranges are not reported, since discordance with absolute values may lead to misinterpretation of CBC data. Current Interpretive Data was last revised on 2017. Imm gran pct 0.4 % [facility] Comment: Interpretive Data Percent cell count reference ranges are not reported, since discordance with absolute values may lead to misinterpretation of CBC data. Current Interpretive Data was last revised on 2017. Lymphocyte pct 31.9 % [facility] Comment: Interpretive Data Percent cell count reference ranges are not reported, since discordance with absolute values may lead to misinterpretation of CBC data. Current Interpretive Data was last revised on 2017. Monocyte pct 9.1 % [facility] Comment: Interpretive Data Percent cell count reference ranges are not reported, since discordance with absolute values may lead to misinterpretation of CBC data. Current Interpretive Data was last revised on 2017. Eosinophil pct 4.9 % [facility] Comment: Interpretive Data Percent cell count reference ranges are not reported, since discordance with absolute values may lead to misinterpretation of CBC data. Current Interpretive Data was last revised on 2017. Basophil pct 0.9 % [facility] Comment: Interpretive Data Percent cell count reference ranges are not reported, since discordance with absolute values may lead to misinterpretation of CBC data. Current Interpretive Data was last revised on 2017. Blood 06/22/2024 1:26 PM LOADING SHOVEL OILER 06/22/2024 1:26 PM LOADING SHOVEL OILER us Christy Macdonald NP LAB BLOOD ORDERABLES Fi nal Result [facility] [address] Department of Laboratories [place], [place] [phone] * CBC with auto differential (06/22/2024 1:26 PM LOADING SHOVEL OILER) WBC 5.7 3.8 - 9.9 K/cumm Hgb 13.1 13.0 - 17.5 g/dL [facility] Hct 40.4 38.9 - 50.3 % [facility] Plt 192 150 - 400 K/cumm [facility] MPV 10.9 9.1 - 12.3 fL [facility] RBC 4.47 4.30 - 5.80 M/cumm [facility] MCV 90.4 81.3 - 96.4 fL [facility] MCH 29.3 27.1 - 33.3 pg [facility] MCHC 32.4 32.3 - 35.7 g/dL [facility] RDW CV 12.3 11.1 - 14.9 % [facility] RDW SD 40.4 35.7 - 48.1 fL [facility] NRBC abs 0.00 0.00 - 0.01 K/cumm [facility] Blood 06/22/2024 1:26 PM LOADING SHOVEL OILER 06/22/2024 1:26 PM LOADING SHOVEL OILER Christy Macdonald NP LAB BLOOD ORDERABLES Fi nal Result Performing Organization Address [facility] Co de Phone Number [facility] [address] [place] [address] * aPTT (06/22/2024 1:26 PM LOADING SHOVEL OILER) aPTT 37 28 - 38 sec Comment: Interpretive Data Heparin therapeutic range: 66.0 - 100.0 seconds. Range based on correlation with therapeutic heparin activity range of 0.3 - 0.7 Units/mL. Current interpretive data was last revised on 2023. Blood 06/22/2024 1:26 PM LOADING SHOVEL OILER 06/22/2024 1:26 PM LOADING SHOVEL OILER Christy Macdonald NP LAB BLOOD ORDERABLES Fi nal Result Performing Organization Address [facility] Co de Phone Number [facility] [address] [place] [address] * Protime-INR (06/22/2024 1:26 PM LOADING SHOVEL OILER) PT 11.6 9.7 - 13.0 sec INR 1.07 0.90 - 1.20 [facility] Comment: Interpretive data Oral anticoagulant therapeutic ranges: Venous thromboembolism prophylaxis or treatment: 2.0-3.0 CARDIOLOGY Standard range: 2.0-3.0 High-intensity range: 2.5-3.5 Refer to indication-specific guidelines for appropriate target ranges for prosthetic heart valve replacement. Current interpretive data was last revised on 2019. Blood 06/22/2024 1:26 PM LOADING SHOVEL OILER 06/22/2024 1:26 PM LOADING SHOVEL OILER Christy Macdonald NP LAB BLOOD ORDERABLES Fi nal Result Performing Organization Address [facility] Co de Phone Number [facility] [address] [facility] [employer] [place], [place] [phone] * Type and screen (06/22/2024 1:26 PM LOADING SHOVEL OILER) Pathologist [facility] ABO Rh O Positive Simón, indirect Negative [facility] Blood 06/22/2024 1:26 PM LOADING SHOVEL OILER 06/22/2024 1:49 PM LOADING SHOVEL OILER Narrative [facility] - 06/22/2024 2:35 PM LOADING SHOVEL OILER Is this test being ordered in advance for a procedure?->Yes Expected date of procedure:->07/01/24 Has the patient been transfused in the past 3 months?->No Christy Macdonald NP LAB BLOOD BANK TEST ORD ERABLES Final Result Performing Organization Address [facility] de Phone Number [facility] [address] [facility] [employer] [place], [place] [phone] * (ABNORMAL) Hemoglobin A1c (06/22/2024 1:26 PM LOADING SHOVEL OILER) Pathologist [facility] Hgb A1C 8.2(H) 4.0 - 5.6 % Estimated Average Glucose 189 mg/dL [facility] Comment: The ADA recommends reporting an estimated Average Glucose (eAG) with all Hemoglobin A1c results using the equation derived from a study of 507 normal and diabetic adults. Minority populations were underrepresented and children were not included. (Diabetes Care 31:0400-9412, 2008). The eAG is not equivalent to a fasting glucose. Blood 06/22/2024 1:26 PM LOADING SHOVEL OILER 06/22/2024 1:26 PM LOADING SHOVEL OILER us Christy Macdonald VINYL TOP INSTALLER LAB BLOOD ORDERABLES Fi nal Result [facility] [address] Department [place] [address] * US Arterial Duplex Lower Extremity Right Limited (06/16/2024 12:05 PM LOADING SHOVEL OILER) Anatomical Region Laterality Modality Vascular Right Ultrasound 06/16/2024 11:1 0 AM LOADING SHOVEL OILER Narrative 06/19/2024 3:30 PM LOADING SHOVEL OILER [facility] [employer] [facility] - Department of Vascular Surgery, Vascular Laboratory [address] [place] [id number] [place] Lower Extremity Arterial Duplex Report Patient Name: ALLY WISEMAN D : 1960 Study Date: 06/16/2024 11:10:55 AM Gender: M Tech: [facility] Location: [facility] Provider: DIMITRIOS MCCRARY Quality: Adequate Order Provider: DIMITRIOS MCCRARY PROCEDURES: Arterial Report: Right Lower Extremity Arterial Duplex Exam. INDICATIONS: [id number] Encounter for surgical aftercare following surgery on the circulatory system. MEASUREMENTS: Right Value Units Rt ASSISTIVE TECHNOLOGY TRAINER Dst PSV 175 cm/s Rt Profunda Prx PSV 421 cm/s Rt Superficial Femoral Prx PSV 146 cm/s Rt Superficial Femoral Mid PSV 58 cm/s Rt Superficial Femoral Dst PSV 58 cm/s Rt Pop Prx PSV 161 cm/s Rt Popliteal Artery Above Stenosis 161 cm/s Rt Popliteal Artery At Stenosis 476 cm/s Rt Post Tibial Mid PSV 13 cm/s Rt Ant Tibial Mid PSV 98 cm/s Rt Peroneal Mid PSV 62 cm/s Right Value Units FINDINGS: Performing Boat Cleaner: Dalila Hernandez, RVT, RDMS, RDCS, ACS. Right Common Femoral: The right common femoral waveform is multiphasic. Right Profunda: The right profunda waveform is multiphasic. Systolic velocity ratio in the right profunda femoral artery is 2.3 which is consistent with a 50-75% stenosis. Right Proximal Superficial Femoral Artery: The right proximal femoral artery waveform is multiphasic. Right Mid Superficial Femoral Artery: The right mid femoral artery waveform is multiphasic. Right Distal Superficial Femoral Artery: The right distal femoral artery waveform is multiphasic. PATENT SFA STENT WITH NO STENOSIS. Right Popliteal: Systolic velocity ratio in the right popliteal artery is 3 which is consistent with a 50-75% stenosis. STENOSIS IS WITHIN POPLITEAL STENT. Right Posterior Tibial: The right posterior tibial waveform is monophasic. Right Anterior Tibial: The right anterior tibial waveform is monophasic. Right Peroneal: The right peroneal artery waveform is monophasic. CONCLUSIONS: 1. A 50-75% stenosis is noted on the right: profunda femoral artery. 2. >50% stenosis within right popliteal artery stent (mid stent). 3. See SHEEBA report. HISTORY: 10-31-23 angioplasty and stent RT SFA and popliteal artery 04-30-24 LT femoral endarterectomy, LT iliac stent. PREVIOUS STUDIES: Previous study on 03-25-24 US revealed distal to RT popliteal stent 282 cm/s, RT SHEEBA 0.99, LT BOAT CLEANER SHEEBA 0.48, LT MONTY SHEEBA 0.72. DISCLAIMER: The study images and the final report will be retained in the patient chart by the Vascular Laboratory for the legally required time period. This chart constitutes the legal record of any testing performed. ATTESTATION: I have reviewed and interpreted the pertinent images and measurements of this study. I attest to the conclusions in the final report that is provided above. Electronically Signed By: Dimitrios Mccrary MD FACS 06/19/2024 3:28:44 PM LOADING SHOVEL OILER Procedure Note Dimitrios Mccrary MD - 06/19/2024 [facility] - Department of Vascular Surgery,Vascular Laboratory [address] [place], [place] [id number] [place] Lower Extremity Arterial Duplex Report Patient Name: ALLY WISEMAN D : 1960 Study Date: 06/16/2024 11:10:55 AM Gender: M Tech: DALILA Location: [facility] Provider: DIMITRIOS MCCRARY Quality: Adequate Order Provider: DIMITRIOS MCCRARY PROCEDURES: Arterial Report: Right Lower Extremity Arterial Duplex Exam. INDICATIONS: [id number] Encounter for surgical aftercare following surgery on thecirculatory system. MEASUREMENTS: Right Value Units Rt ASSISTIVE TECHNOLOGY TRAINER Dst PSV 175 cm/s Rt Profunda Prx PSV 421 cm/s Rt Superficial Femoral Prx PSV 146 cm/s Rt Superficial Femoral Mid PSV 58 cm/s Rt Superficial Femoral Dst PSV 58 cm/s Rt Pop Prx PSV 161 cm/s Rt Popliteal Artery Above Stenosis 161 cm/s Rt Popliteal Artery At Stenosis 476 cm/s Rt Post Tibial Mid PSV 13 cm/s Rt Ant Tibial Mid PSV 98 cm/s Rt Peroneal Mid PSV 62 cm/s Right Value Units FINDINGS: Performing Boat Cleaner: Dalila Hernandez, RVT, RDMS, RDCS, ACS. Right Common Femoral: The right common femoral waveform is multiphasic. Right Profunda: The right profunda waveform is multiphasic. Systolic velocity ratio in theright profunda femoral artery is 2.3 which is consistent with a 50-75% stenosis. Right Proximal Superficial Femoral Artery: The right proximal femoral artery waveform is multiphasic. Right Mid Superficial Femoral Artery: The right mid femoral artery waveform is multiphasic. Right Distal Superficial Femoral Artery: The right distal femoral artery waveform is multiphasic. PATENT SFA STENT WITH NO STENOSIS. Right Popliteal: Systolic velocity ratio in the right popliteal artery is 3 which isconsistent with a 50-75% stenosis. STENOSIS IS WITHIN POPLITEAL STENT. Right Posterior Tibial: The right posterior tibial waveform is monophasic. Right Anterior Tibial: The right anterior tibial waveform is monophasic. Right Peroneal: The right peroneal artery waveform is monophasic. CONCLUSIONS: 1. A 50-75% stenosis is noted on the right: profunda femoral artery. 2. >50% stenosis within right popliteal artery stent (mid stent). 3. See SHEEBA report. HISTORY: 10-31-23 angioplasty and stent RT SFA and popliteal artery 04-30-24 LT femoral endarterectomy, LT iliac stent. PREVIOUS STUDIES: Previous study on 03-25-24 US revealed distal to RT popliteal stent 282cm/s, RT SHEEBA 0.99, LT BOAT CLEANER SHEEBA 0.48, LT MONTY SHEEBA 0.72. DISCLAIMER: The study images and the final report will be retained in the patientchart by the Vascular Laboratory for the legally required time period. This chartconstitutes the legal record of any testing performed. ATTESTATION: I have reviewed and interpreted the pertinent images and measurements ofthis study. I attest to the conclusions in the final report that is provided above. Electronically Signed By: Dimitrios Mccrary MD FACS 06/19/2024 3:28:44 PM LOADING SHOVEL OILER us Dimitrios Mccrary MD IMG US PROCEDURES Final Result * US Arterial Doppler Lower Extremity Bilateral (06/16/2024 12:05 PM LOADING SHOVEL OILER) Anatomical Region Laterality Modality Vascular Bilateral Ultrasound 06/16/2024 11:2 8 AM LOADING SHOVEL OILER Narrative 06/19/2024 3:35 PM LOADING SHOVEL OILER [facility] - Department of Vascular Surgery, Vascular Laboratory [address] [place] [address] Lower Extremity Arterial Doppler Report Patient Name: ALLY WISEMAN D : 1960 Study Date: 06/16/2024 11:28:00 AM Gender: M Tech: Dalila Hernandez RVT, CHARY, RDM Location: [facility] Provider: DIMITRIOS MCCRARY Quality: Adequate Order Provider: DIMITRIOS MCCRARY PROCEDURES: Arterial Report: Bilateral lower extremity arterial Doppler exam at rest. INDICATIONS: Z48.812 Encounter for surgical aftercare following surgery on the circulatory system. MEASUREMENTS: Right Value Units Left Value Units Rt Brachial Pressure 184 mmHg Lt Brachial Pressure 196 mmHg Rt BOAT CLEANER Pressure 164 mmHg Lt BOAT CLEANER Pressure 162 mmHg Rt DPA Pressure 182 mmHg Lt DPA Pressure 157 mmHg Rt 1st Digit Pressure 94 mmHg Lt 1st Digit Pressure 104 mmHg Rt PT SHEEBA Resting 0.84 Lt PT SHEEBA Resting 0.83 Rt AT SHEEBA Resting 0.93 Lt AT SHEEBA Resting 0.8 Rt Digit/Arm Index 0.48 Lt Digit/Arm Index 0.53 Right Value Units Left Value Units FINDINGS: Performing Boat Cleaner: Dalila Hernandez RVT, VANNESA, RDCS, ACS. Right Common Femoral Artery Analysis: The common femoral artery waveform is monophasic with preserved sharp upstroke. Right Popliteal Artery Analysis: The popliteal artery waveform is monophasic with preserved sharp upstroke. Right Posterior Tibial Artery Analysis: The posterior tibial waveform is monophasic. Right Anterior Tibial Artery Analysis: The anterior tibial waveform is monophasic. Left Common Femoral Artery Analysis: The common femoral artery waveform is multiphasic. Left Popliteal Artery Analysis: The popliteal waveform is multiphasic. Left Posterior Tibial Artery Analysis: The posterior tibial artery waveform is monophasic with preserved sharp upstroke. Left Anterior Tibial Artery Analysis: The anterior tibial waveform is BARELY multiphasic. CONCLUSIONS: 1. The above listed right Ankle/Brachial Index at rest is within normal limits (for reference, normal resting SHEEBA is 0.90 - 1.4; SHEEBA >1.4 due to non-compressible arteries is not diagnostic). SHEEBA MAY BE FALSELY ELEVATED. 2. The above listed left Ankle/Brachial Index at rest is consistent with moderate peripheral arterial disease - claudication, (for reference, claudication range is 0.50 -0.89). 3. Bilateral Digit/Arm Indices are abnormal (for reference, abnormal CHRISTIANO is <0.6). HISTORY: 10-31-23 angioplasty and stent RT SFA and popliteal artery 04-30-24 LT femoral endarterectomy, LT iliac stent. PREVIOUS STUDIES: Previous study on 03-25-24 US revealed distal to RT popliteal stent 282 cm/s, RT SHEEBA 0.99, LT BOAT CLEANER SHEEBA 0.48, LT MONTY SHEEBA 0.72. DISCLAIMER: The study images and the final report will be retained in the patient chart by the Vascular Laboratory for the legally required time period. This chart constitutes the legal record of any testing performed. ATTESTATION: I have reviewed and interpreted the pertinent images and measurements of this study. I attest to the conclusions in the final report that is provided above. Electronically Signed By: Dimitrios Mccrary MD FACS 06/19/2024 3:35:21 PM LOADING SHOVEL OILER Procedure Note Dimitrios Mccrary MD - 06/19/2024 [facility] - Department of Vascular Surgery,Vascular Laboratory [address] [place] [id number] Lower Extremity Arterial Doppler Report Patient Name: ALLY WISEMAN D : 1960 Study Date: 06/16/2024 11:28:00 AM Gender: M Tech: Dalila Hernandez RVT, CHARY, HARLEEN Location: [facility] Provider: DIMITRIOS MCCRARY Quality: Adequate Order Provider: DIMITRIOS MCCRARY PROCEDURES: Arterial Report: Bilateral lower extremity arterial Doppler exam at rest. INDICATIONS: Z48.812 Encounter for surgical aftercare following surgery on thecirculatory system. MEASUREMENTS: Right Value Units Left Value Units Rt Brachial Pressure 184 mmHg Lt Brachial Pressure 196 mmHg Rt BOAT CLEANER Pressure 164 mmHg Lt BOAT CLEANER Pressure 162 mmHg Rt DPA Pressure 182 mmHg Lt DPA Pressure 157 mmHg Rt 1st Digit Pressure 94 mmHg Lt 1st Digit Pressure 104 mmHg Rt PT SHEEBA Resting 0.84 Lt PT SHEEBA Resting 0.83 Rt AT SHEEBA Resting 0.93 Lt AT SHEEBA Resting 0.8 Rt Digit/Arm Index 0.48 Lt Digit/Arm Index 0.53 Right Value Units Left Value Units FINDINGS: Performing Boat Cleaner: Dalila Hernandez RVT, VANNESA, RDCS, ACS. Right Common Femoral Artery Analysis: The common femoral artery waveform is monophasic with preserved sharpupstroke. Right Popliteal Artery Analysis: The popliteal artery waveform is monophasic with preserved sharpupstroke. Right Posterior Tibial Artery Analysis: The posterior tibial waveform is monophasic. Right Anterior Tibial Artery Analysis: The anterior tibial waveform is monophasic. Left Common Femoral Artery Analysis: The common femoral artery waveform is multiphasic. Left Popliteal Artery Analysis: The popliteal waveform is multiphasic. Left Posterior Tibial Artery Analysis: The posterior tibial artery waveform is monophasic with preserved sharpupstroke. Left Anterior Tibial Artery Analysis: The anterior tibial waveform is BARELY multiphasic. CONCLUSIONS: 1. The above listed right Ankle/Brachial Index at rest is within normallimits (for reference, normal resting SHEEBA is 0.90 - 1.4; SHEEBA >1.4 due tonon-compressible arteries is not diagnostic). SHEEBA MAY BE FALSELY ELEVATED. 2. The above listed left Ankle/Brachial Index at rest is consistent withmoderate peripheral arterial disease - claudication, (for reference, claudicationrange is 0.50 -0.89). 3. Bilateral Digit/Arm Indices are abnormal (for reference, abnormal DAIis <0.6). HISTORY: 10-31-23 angioplasty and stent RT SFA and popliteal artery 04-30-24 LT femoral endarterectomy, LT iliac stent. PREVIOUS STUDIES: Previous study on 03-25-24 US revealed distal to RT popliteal stent 282cm/s, RT SHEEBA 0.99, LT BOAT CLEANER SHEEBA 0.48, LT MONTY SHEEBA 0.72. DISCLAIMER: The study images and the final report will be retained in the patientchart by the Vascular Laboratory for the legally required time period. This chartconstitutes the legal record of any testing performed. ATTESTATION: I have reviewed and interpreted the pertinent images and measurements ofthis study. I attest to the conclusions in the final report that is provided above. Electronically Signed By: Dimitrios Mccrary MD [facility] 06/19/2024 3:35:21 PM LOADING SHOVEL OILER Dimitrios Mccrary MD IMG US PROCEDURES Final Result * (ABNORMAL) POCT glucose (05/03/2024 11:58 AM LOADING SHOVEL OILER) Glucose, POC 226(H) 70 - 199 mg/dL Comment: For Glucose values <35 mg/dl when Hematocrit is >60 mg/dl,the test may not accurately detect significant hypoglycemia,and testing in the Laboratory should be considered if clinically indicated. Glucose comment 1 RN/MD Notified [facility] Blood 05/03/2024 11:5 8 AM LOADING SHOVEL OILER 05/03/2024 11:58 AM LOADING SHOVEL OILER Dimitrios Mccrary MD LAB POCT ORDERABLES - DEVICE F inal Result Performing Organization Address [facility] Co de Phone Number [facility] [address] [employer] [place] [address] * POCT glucose (05/03/2024 8:09 AM LOADING SHOVEL OILER) Glucose, POC 168 70 - 199 mg/dL Comment: For Glucose values <35 mg/dl when Hematocrit is >60 mg/dl,the test may not accurately detect significant hypoglycemia,and testing in the Laboratory should be considered if clinically indicated. Blood 05/03/2024 8:09 AM LOADING SHOVEL OILER 05/03/2024 8:09 AM LOADING SHOVEL OILER Dimitrios Mccrary MD LAB POCT ORDERABLES - DEVICE F inal Result Performing Organization Address City/[facility]/ZIP Co de Phone Number [facility] [address] [place] [place] [address] * POCT glucose (05/03/2024 3:14 AM LOADING SHOVEL OILER) Glucose, POC 196 70 - 199 mg/dL Comment: For Glucose values <35 mg/dl when Hematocrit is >60 mg/dl,the test may not accurately detect significant hypoglycemia,and testing in the Laboratory should be considered if clinically indicated. Blood 05/03/2024 3:14 AM LOADING SHOVEL OILER 05/03/2024 3:14 AM LOADING SHOVEL OILER Dimitrios Mccrary MD LAB POCT ORDERABLES - DEVICE F inal Result Performing Organization Address [facility] Co de Phone Number [facility] [address] [employer] [place] [employer] [place] [address] * POCT glucose (05/02/2024 11:29 PM LOADING SHOVEL OILER) Glucose, POC 184 70 - 199 mg/dL Comment: For Glucose values <35 mg/dl when Hematocrit is >60 mg/dl,the test may not accurately detect significant hypoglycemia,and testing in the Laboratory should be considered if clinically indicated. Blood 05/02/2024 11:2 9 PM LOADING SHOVEL OILER 05/02/2024 11:29 PM LOADING SHOVEL OILER Dimitrios Mccrary MD LAB POCT ORDERABLES - DEVICE F inal Result Performing Organization Address [facility] de Phone Number [facility] [address] [facility] [place] [employer] [place] [address] * (ABNORMAL) POCT glucose (05/02/2024 8:17 PM LOADING SHOVEL OILER) Glucose, POC 215(H) 70 - 199 mg/dL Comment: For Glucose values <35 mg/dl when Hematocrit is >60 mg/dl,the test may not accurately detect significant hypoglycemia,and testing in the Laboratory should be considered if clinically indicated. Blood 05/02/2024 8:17 PM LOADING SHOVEL OILER 05/02/2024 8:17 PM LOADING SHOVEL OILER Dimitrios Mccrary MD LAB POCT ORDERABLES - DEVICE F inal Result Performing Organization Address [facility] Co de Phone Number [facility] [address] [facility] [place] [employer] [place] [address] * (ABNORMAL) POCT glucose (05/02/2024 4:26 PM LOADING SHOVEL OILER) Glucose, POC 307(H) 70 - 199 mg/dL Comment: For Glucose values <35 mg/dl when Hematocrit is >60 mg/dl,the test may not accurately detect significant hypoglycemia,and testing in the Laboratory should be considered if clinically indicated. Blood 05/02/2024 4:26 PM LOADING SHOVEL OILER 05/02/2024 4:26 PM LOADING SHOVEL OILER us Dimitrios Mccrary MD LAB POCT ORDERABLES - DEVICE F inal Result Performing Organization Address [facility] de Phone Number [facility] [address] Department of Laboratories [place], [place] [id number] * (ABNORMAL) POCT glucose (05/02/2024 12:26 PM LOADING SHOVEL OILER) [facility] Glucose, POC 317(H) 70 - 199 mg/dL Comment: For Glucose values <35 mg/dl when Hematocrit is >60 mg/dl,the test may not accurately detect significant hypoglycemia,and testing in the Laboratory should be considered if clinically indicated. Blood 05/02/2024 12:2 6 PM LOADING SHOVEL OILER 05/02/2024 12:26 PM LOADING SHOVEL OILER us Dimitrios Mccrary MD LAB POCT ORDERABLES - DEVICE F inal Result Performing Organization Address [facility] de Phone Number [facility] [address] [employer] [place] [employer] [place] [address] * eGFR (05/02/2024 11:13 AM LOADING SHOVEL OILER) [facility] eGFR >90 >=60 mL/min/1. 73 m2 Comment: Interpretive Data Reference Interval Normal >/= 90 mL/min/1.73m2 Mildly decreased* 60 - 89 mL/min/1.73m2 Mildly to moderately decreased 45 - 59 mL/min/1.73m2 Moderately to severely decreased 30 - 44 mL/min/1.73m2 Severely decreased 15 - 29 mL/min/1.73m2 Kidney Failure < 15 mL/min/1.73m2 *Relative to young adult level Estimated glomerular filtration rate is determined by the 2020 CKD-EPI equation recommended by the National Kidney Foundation (A Unifying Approach to GFR Estimation: Recommendations of the NKF-ASK Task Force on Reassessing the Inclusion of Race in Diagnosing Kidney Disease, JASN 2020). The CKD-EPI equation should not be used for patients with unstable renal function and has not been validated in children and those over 70. Current interpretive data was last reviewed 2021. Blood 05/02/2024 11:1 3 AM LOADING SHOVEL OILER 05/02/2024 12:13 PM LOADING SHOVEL OILER us Vale Diaz NP LAB BLOOD ORDERABLES Fin al Result [facility] [address] Department of Laboratories [place], [place] [id number] * (ABNORMAL) Differential, auto (05/02/2024 11:13 AM LOADING SHOVEL OILER) Neutrophil abs 3.5 1.5 - 6.5 K/cumm Imm gran abs 0.0 0.0 - 0.1 K/cumm [facility] Lymphocyte abs 2.2 0.8 - 3.3 K/cumm [facility] Monocyte abs 0.9(H) 0.2 - 0.8 K/cumm [facility] Eosinophil abs 0.4 0.0 - 0.5 K/cumm [facility] Basophil abs 0.1 0.0 - 0.1 K/cumm [facility] Neutrophil pct 49.5 % [facility] Comment: Interpretive Data Percent cell count reference ranges are not reported, since discordance with absolute values may lead to misinterpretation of CBC data. Current Interpretive Data was last revised on 2017. Imm gran pct 0.3 % [facility] Comment: Interpretive Data Percent cell count reference ranges are not reported, since discordance with absolute values may lead to misinterpretation of CBC data. Current Interpretive Data was last revised on 2017. Lymphocyte pct 31.4 % [facility] Comment: Interpretive Data Percent cell count reference ranges are not reported, since discordance with absolute values may lead to misinterpretation of CBC data. Current Interpretive Data was last revised on 2017. Monocyte pct 13.1 % [facility] Comment: Interpretive Data Percent cell count reference ranges are not reported, since discordance with absolute values may lead to misinterpretation of CBC data. Current Interpretive Data was last revised on 2017. Eosinophil pct 5.0 % [facility] Comment: Interpretive Data Percent cell count reference ranges are not reported, since discordance with absolute values may lead to misinterpretation of CBC data. Current Interpretive Data was last revised on 2017. Basophil pct 0.7 % [facility] Comment: Interpretive Data Percent cell count reference ranges are not reported, since discordance with absolute values may lead to misinterpretation of CBC data. Current Interpretive Data was last revised on 2017. Blood 05/02/2024 11:1 3 AM LOADING SHOVEL OILER 05/02/2024 12:13 PM LOADING SHOVEL OILER us Vale Diaz NP LAB BLOOD ORDERABLES Fin al Result [facility] [address] Department [place] [address] * (ABNORMAL) CBC with auto differential (05/02/2024 11:13 AM LOADING SHOVEL OILER) WBC 7.0 3.8 - 9.9 K/cumm Hgb 11.4(L) 13.0 - 17.5 g/dL [facility] Hct 34.8(L) 38.9 - 50.3 % [facility] Plt 144(L) 150 - 400 K/cumm [facility] MPV 11.8 9.1 - 12.3 fL [facility] RBC 3.75(L) 4.30 - 5.80 M/cumm [facility] MCV 92.8 81.3 - 96.4 fL [facility] MCH 30.4 27.1 - 33.3 pg [facility] MCHC 32.8 32.3 - 35.7 g/dL [facility] RDW CV 13.0 11.1 - 14.9 % [facility] RDW SD 44.1 35.7 - 48.1 fL [facility] NRBC abs 0.00 0.00 - 0.01 K/cumm [facility] Blood 05/02/2024 11:1 3 AM LOADING SHOVEL OILER 05/02/2024 12:13 PM LOADING SHOVEL OILER us Vale Diaz NP LAB BLOOD ORDERABLES Fin al Result [facility] [address] Department [place] [address] * (ABNORMAL) Comprehensive metabolic panel (05/02/2024 11:13 AM LOADING SHOVEL OILER) Sodium 139 135 - 145 mmol/L Potassium, pl 4.4 3.3 - 4.9 mmol/L [facility] Chloride 105 97 - 110 mmol/L [facility] CO2 23 22 - 32 mmol/L [facility] Anion gap 11 2 - 15 mmol/L [facility] BUN 14 6 - 25 mg/dL [facility] Creatinine 0.80 0.80 - 1.30 mg/dL [facility] Glucose 276(H) 70 - 199 mg/dL [facility] Comment: Interpretive Data Fasting glucose >/= 126 mg/dl is diagnostic for diabetes. Fasting is defined as no caloric intake for at least 8 hours. Fasting glucose between 100 mg/dl to 125 mg/dl is diagnostic of prediabetes. In a patient with classic symptoms of hyperglycemia or hyperglycemic crisis, a random glucose >/= 200 mg/dl is diagnostic for diabetes. In the absence of unequivocal hyperglycemia, results should be confirmed by repeat testing. The classification and Diagnosis of Diabetes Diabetes Care 2021; 46: S19-S40. Current interpretive data was last revised 2022. Calcium 8.4(L) 8.5 - 10.3 mg/dL [facility] Bilirubin, total 0.5 0.1 - 1.2 mg/dL [facility] Protein, pl 6.3(L) 6.5 - 8.5 g/dL [facility] Albumin 3.6 3.5 - 5.0 g/dL [facility] Alk phos 91 40 - 130 Units/L [facility] ALT 17 7 - 55 Units/L [facility] AST 16 10 - 50 Units/L [facility] Blood 05/02/2024 11:1 3 AM LOADING SHOVEL OILER 05/02/2024 12:13 PM LOADING SHOVEL OILER Vale Diaz NP LAB BLOOD ORDERABLES Fin al Result Performing Organization Address [facility] Co de Phone Number [facility] [address] Department [place] [address] * POCT glucose (05/02/2024 7:45 AM LOADING SHOVEL OILER) Glucose, POC 136 70 - 199 mg/dL Comment: For Glucose values <35 mg/dl when Hematocrit is >60 mg/dl,the test may not accurately detect significant hypoglycemia,and testing in the Laboratory should be considered if clinically indicated. Blood 05/02/2024 7:45 AM LOADING SHOVEL OILER 05/02/2024 7:45 AM LOADING SHOVEL OILER Dimitrios Mccrary MD LAB POCT ORDERABLES - DEVICE F inal Result Performing Organization Address [facility] Co de Phone Number [facility] [address] Department [place] [address] * eGFR (05/02/2024 5:21 AM LOADING SHOVEL OILER) eGFR >90 >=60 mL/min/1. 73 m2 Comment: Interpretive Data Reference Interval Normal >/= 90 mL/min/1.73m2 Mildly decreased* 60 - 89 mL/min/1.73m2 Mildly to moderately decreased 45 - 59 mL/min/1.73m2 Moderately to severely decreased 30 - 44 mL/min/1.73m2 Severely decreased 15 - 29 mL/min/1.73m2 Kidney Failure < 15 mL/min/1.73m2 *Relative to young adult level Estimated glomerular filtration rate is determined by the 2020 CKD-EPI equation recommended by the National Kidney Foundation (A Unifying Approach to GFR Estimation: Recommendations of the NKF-ASK Task Force on Reassessing the Inclusion of Race in Diagnosing Kidney Disease, JASN 2020). The CKD-EPI equation should not be used for patients with unstable renal function and has not been validated in children and those over 70. Current interpretive data was last reviewed 2021. Blood 05/02/2024 5:21 AM LOADING SHOVEL OILER 05/02/2024 6:02 AM LOADING SHOVEL OILER Vale Diaz VINYL TOP INSTALLER LAB BLOOD ORDERABLES Fin al Result [facility] [address] Department [place] [address] * Differential, auto (05/02/2024 5:21 AM LOADING SHOVEL OILER) Neutrophil abs 3.8 1.5 - 6.5 K/cumm Imm gran abs 0.0 0.0 - 0.1 K/cumm [facility] Lymphocyte abs 2.3 0.8 - 3.3 K/cumm [facility] Monocyte abs 0.8 0.2 - 0.8 K/cumm [facility] Eosinophil abs 0.3 0.0 - 0.5 K/cumm [facility] Basophil abs 0.0 0.0 - 0.1 K/cumm [facility] Neutrophil pct 52.0 % [facility] Comment: Interpretive Data Percent cell count reference ranges are not reported, since discordance with absolute values may lead to misinterpretation of CBC data. Current Interpretive Data was last revised on 2017. Imm gran pct 0.3 % [facility] Comment: Interpretive Data Percent cell count reference ranges are not reported, since discordance with absolute values may lead to misinterpretation of CBC data. Current Interpretive Data was last revised on 2017. Lymphocyte pct 31.2 % [facility] Comment: Interpretive Data Percent cell count reference ranges are not reported, since discordance with absolute values may lead to misinterpretation of CBC data. Current Interpretive Data was last revised on 2017. Monocyte pct 11.6 % [facility] Comment: Interpretive Data Percent cell count reference ranges are not reported, since discordance with absolute values may lead to misinterpretation of CBC data. Current Interpretive Data was last revised on 2017. Eosinophil pct 4.3 % [facility] Comment: Interpretive Data Percent cell count reference ranges are not reported, since discordance with absolute values may lead to misinterpretation of CBC data. Current Interpretive Data was last revised on 2017. Basophil pct 0.6 % [facility] Comment: Interpretive Data Percent cell count reference ranges are not reported, since discordance with absolute values may lead to misinterpretation of CBC data. Current Interpretive Data was last revised on 2017. Blood 05/02/2024 5:21 AM LOADING SHOVEL OILER 05/02/2024 6:02 AM LOADING SHOVEL OILER Vale Diaz NP LAB BLOOD ORDERABLES Fin al Result [facility] [address] Department [place] [address] * (ABNORMAL) CBC with auto differential (05/02/2024 5:21 AM LOADING SHOVEL OILER) WBC 7.3 3.8 - 9.9 K/cumm Hgb 11.1(L) 13.0 - 17.5 g/dL [facility] Hct 33.9(L) 38.9 - 50.3 % [facility] Plt 147(L) 150 - 400 K/cumm [facility] MPV 11.9 9.1 - 12.3 fL [facility] RBC 3.64(L) 4.30 - 5.80 M/cumm [facility] MCV 93.1 81.3 - 96.4 fL [facility] MCH 30.5 27.1 - 33.3 pg [facility] MCHC 32.7 32.3 - 35.7 g/dL [facility] RDW CV 12.8 11.1 - 14.9 % [facility] RDW SD 43.8 35.7 - 48.1 fL [facility] NRBC abs 0.00 0.00 - 0.01 K/cumm [facility] Blood 05/02/2024 5:21 AM LOADING SHOVEL OILER 05/02/2024 6:02 AM LOADING SHOVEL OILER Vale Diaz NP LAB BLOOD ORDERABLES Fin al Result [facility] [address] Department [place] [address] * (ABNORMAL) Comprehensive metabolic panel (05/02/2024 5:21 AM LOADING SHOVEL OILER) Sodium 140 135 - 145 mmol/L Potassium, pl 3.9 3.3 - 4.9 mmol/L [facility] Chloride 106 97 - 110 mmol/L [facility] CO2 25 22 - 32 mmol/L [facility] Anion gap 9 2 - 15 mmol/L [facility] BUN 17 6 - 25 mg/dL [facility] Creatinine 0.87 0.80 - 1.30 mg/dL [facility] Glucose 186 70 - 199 mg/dL [facility] Comment: Interpretive Data Fasting glucose >/= 126 mg/dl is diagnostic for diabetes. Fasting is defined as no caloric intake for at least 8 hours. Fasting glucose between 100 mg/dl to 125 mg/dl is diagnostic of prediabetes. In a patient with classic symptoms of hyperglycemia or hyperglycemic crisis, a random glucose >/= 200 mg/dl is diagnostic for diabetes. In the absence of unequivocal hyperglycemia, results should be confirmed by repeat testing. The classification and Diagnosis of Diabetes Diabetes Care 202; 46: S19-S40. Current interpretive data was last revised 2022. Calcium 8.4(L) 8.5 - 10.3 mg/dL [facility] Bilirubin, total 0.3 0.1 - 1.2 mg/dL [facility] Protein, pl 6.3(L) 6.5 - 8.5 g/dL [facility] Albumin 3.6 3.5 - 5.0 g/dL [facility] Alk phos 96 40 - 130 Units/L [facility] ALT 17 7 - 55 Units/L [facility] AST 14 10 - 50 Units/L [facility] Blood 05/02/2024 5:21 AM LOADING SHOVEL OILER 05/02/2024 6:02 AM LOADING SHOVEL OILER Vale Diaz NP LAB BLOOD ORDERABLES Fin al Result Performing Organization Address [facility] Co de Phone Number [facility] [address] [facility] [place] [address] * POCT glucose (05/02/2024 4:01 AM LOADING SHOVEL OILER) Glucose, POC 174 70 - 199 mg/dL Comment: For Glucose values <35 mg/dl when Hematocrit is >60 mg/dl,the test may not accurately detect significant hypoglycemia,and testing in the Laboratory should be considered if clinically indicated. Blood 05/02/2024 4:01 AM LOADING SHOVEL OILER 05/02/2024 4:01 AM LOADING SHOVEL OILER Dimitrios Mccrary MD LAB POCT ORDERABLES - DEVICE F inal Result Performing Organization Address [facility] Co de Phone Number [facility] [address] [facility] [place] [address] * (ABNORMAL) POCT glucose (05/02/2024 12:57 AM LOADING SHOVEL OILER) Glucose, POC 279(H) 70 - 199 mg/dL Comment: For Glucose values <35 mg/dl when Hematocrit is >60 mg/dl,the test may not accurately detect significant hypoglycemia,and testing in the Laboratory should be considered if clinically indicated. Blood 05/02/2024 12:5 7 AM LOADING SHOVEL OILER 05/02/2024 12:57 AM LOADING SHOVEL OILER Dimitrios Mccrary MD LAB POCT ORDERABLES - DEVICE F inal Result Performing Organization Address [facility] Co de Phone Number [facility] [address] [facility] [place] [address] * (ABNORMAL) POCT glucose (05/01/2024 9:10 PM LOADING SHOVEL OILER) Glucose, POC 298(H) 70 - 199 mg/dL Comment: For Glucose values <35 mg/dl when Hematocrit is >60 mg/dl,the test may not accurately detect significant hypoglycemia,and testing in the Laboratory should be considered if clinically indicated. Blood 05/01/2024 9:10 PM LOADING SHOVEL OILER 05/01/2024 9:10 PM LOADING SHOVEL OILER us Dimitrios Mccrary MD LAB POCT ORDERABLES - DEVICE F inal Result Performing Organization Address [facility] Co de Phone Number [facility] [address] [facility] [place] [address] * (ABNORMAL) POCT glucose (05/01/2024 6:30 PM LOADING SHOVEL OILER) Glucose, POC 278(H) 70 - 199 mg/dL Comment: For Glucose values <35 mg/dl when Hematocrit is >60 mg/dl,the test may not accurately detect significant hypoglycemia,and testing in the Laboratory should be considered if clinically indicated. Blood 05/01/2024 6:30 PM LOADING SHOVEL OILER 05/01/2024 6:30 PM LOADING SHOVEL OILER us Dimitrios Mccrary MD LAB POCT ORDERABLES - DEVICE F inal Result Performing Organization Address [facility] de Phone Number [facility] [address] [facility] [place] [address] * (ABNORMAL) POCT glucose (05/01/2024 4:34 PM LOADING SHOVEL OILER) Glucose, POC 303(H) 70 - 199 mg/dL Comment: For Glucose values <35 mg/dl when Hematocrit is >60 mg/dl,the test may not accurately detect significant hypoglycemia,and testing in the Laboratory should be considered if clinically indicated. Blood 05/01/2024 4:34 PM LOADING SHOVEL OILER 05/01/2024 4:34 PM LOADING SHOVEL OILER us Dimitrios Mccrary MD LAB POCT ORDERABLES - DEVICE F inal Result Performing Organization Address [facility] Co de Phone Number [facility] [address] [place] [address] * (ABNORMAL) POCT glucose (05/01/2024 11:49 AM LOADING SHOVEL OILER) Glucose, POC 274(H) 70 - 199 mg/dL Comment: For Glucose values <35 mg/dl when Hematocrit is >60 mg/dl,the test may not accurately detect significant hypoglycemia,and testing in the Laboratory should be considered if clinically indicated. Blood 05/01/2024 11:4 9 AM LOADING SHOVEL OILER 05/01/2024 11:49 AM LOADING SHOVEL OILER Dimitrios Mccrary MD LAB POCT ORDERABLES - DEVICE F inal Result Performing Organization Address [facility] Co de Phone Number [facility] [address] [facility] [employer] [place], [place] [id number] * (ABNORMAL) POCT glucose (05/01/2024 7:32 AM LOADING SHOVEL OILER) Glucose, POC 231(H) 70 - 199 mg/dL Comment: For Glucose values <35 mg/dl when Hematocrit is >60 mg/dl,the test may not accurately detect significant hypoglycemia,and testing in the Laboratory should be considered if clinically indicated. Blood 05/01/2024 7:32 AM LOADING SHOVEL OILER 05/01/2024 7:32 AM LOADING SHOVEL OILER Dimitrios Mccrary MD LAB POCT ORDERABLES - DEVICE F inal Result Performing Organization Address [facility] Co de Phone Number [facility] [address] [facility] [place] [address] * ECG 12 lead (05/01/2024 5:06 AM LOADING SHOVEL OILER) 05/01/2024 5:06 AM LOADING SHOVEL OILER Narrative [facility] - 05/01/2024 8:42 AM LOADING SHOVEL OILER Vent Rate: 92 bpm RR Interval: 646 msec SC Interval: 154 msec QRS Duration: 108 msec QT Interval: 332 msec QTC Interval: 382 msec P-R-T [place]: 1 - -22 - 52 degrees IMPRESSION: SINUS RHYTHM WITH SINUS ARRHYTHMIA INFERIOR MYOCARDIAL INFARCTION , PROBABLY OLD ABNORMAL ECG Electronically Signed By: Lucas Truong MD PhD us Francisco RKAUSE ECG ORDERABLES Final Result Performing Organization Address City/[facility]/ZIP Co de Phone Number [facility] * eGFR (05/01/2024 4:34 AM LOADING SHOVEL OILER) eGFR >90 >=60 mL/min/1. 73 m2 Comment: Interpretive Data Reference Interval Normal >/= 90 mL/min/1.73m2 Mildly decreased* 60 - 89 mL/min/1.73m2 Mildly to moderately decreased 45 - 59 mL/min/1.73m2 Moderately to severely decreased 30 - 44 mL/min/1.73m2 Severely decreased 15 - 29 mL/min/1.73m2 Kidney Failure < 15 mL/min/1.73m2 *Relative to young adult level Estimated glomerular filtration rate is determined by the 2020 CKD-EPI equation recommended by the National Kidney Foundation (A Unifying Approach to GFR Estimation: Recommendations of the NKF-ASK Task Force on Reassessing the Inclusion of Race in Diagnosing Kidney Disease, JASN 2020). The CKD-EPI equation should not be used for patients with unstable renal function and has not been validated in children and those over 70. Current interpretive data was last reviewed 2021. Blood 05/01/2024 4:34 AM LOADING SHOVEL OILER 05/01/2024 5:38 AM LOADING SHOVEL OILER us Dimitrios Mccrary MD LAB BLOOD ORDERABLES Final Res ult Performing Organization Address City/[facility]/ZIP Co de Phone Number [facility] [address] Department [place] [address] * (ABNORMAL) CBC without differential (05/01/2024 4:34 AM LOADING SHOVEL OILER) Pathologist [facility] WBC 9.5 3.8 - 9.9 K/cumm Hgb 12.5(L) 13.0 - 17.5 g/dL [facility] Hct 37.8(L) 38.9 - 50.3 % [facility] Plt 174 150 - 400 K/cumm [facility] MPV 11.7 9.1 - 12.3 fL [facility] RBC 4.11(L) 4.30 - 5.80 M/cumm [facility] MCV 92.0 81.3 - 96.4 fL [facility] MCH 30.4 27.1 - 33.3 pg [facility] MCHC 33.1 32.3 - 35.7 g/dL [facility] RDW CV 12.7 11.1 - 14.9 % [facility] RDW SD 43.3 35.7 - 48.1 fL [facility] NRBC abs 0.00 0.00 - 0.01 K/cumm [facility] Blood 05/01/2024 4:34 AM LOADING SHOVEL OILER 05/01/2024 5:38 AM LOADING SHOVEL OILER us Dimitrios Mccrary MD LAB BLOOD ORDERABLES Final Res ult [facility] [address] Department [place] [address] * (ABNORMAL) Basic metabolic panel (05/01/2024 4:34 AM LOADING SHOVEL OILER) Sodium 137 135 - 145 mmol/L Potassium, pl 4.2 3.3 - 4.9 mmol/L [facility] Chloride 103 97 - 110 mmol/L [facility] CO2 22 22 - 32 mmol/L [facility] Anion gap 12 2 - 15 mmol/L [facility] BUN 22 6 - 25 mg/dL [facility] Creatinine 0.86 0.80 - 1.30 mg/dL [facility] Glucose 298(H) 70 - 199 mg/dL [facility] Comment: Interpretive Data Fasting glucose >/= 126 mg/dl is diagnostic for diabetes. Fasting is defined as no caloric intake for at least 8 hours. Fasting glucose between 100 mg/dl to 125 mg/dl is diagnostic of prediabetes. In a patient with classic symptoms of hyperglycemia or hyperglycemic crisis, a random glucose >/= 200 mg/dl is diagnostic for diabetes. In the absence of unequivocal hyperglycemia, results should be confirmed by repeat testing. The classification and Diagnosis of Diabetes Diabetes Care 2021; 46: S19-S40. Current interpretive data was last revised 2022. Calcium 8.6 8.5 - 10.3 mg/dL [facility] Blood 05/01/2024 4:34 AM LOADING SHOVEL OILER 05/01/2024 5:38 AM LOADING SHOVEL OILER Dimitrios Mccrary MD LAB BLOOD ORDERABLES Final Res ult Performing Organization Address [facility] Co de Phone Number [facility] [address] [facility] [place] [address] * (ABNORMAL) POCT glucose (05/01/2024 3:50 AM LOADING SHOVEL OILER) Glucose, POC 240(H) 70 - 199 mg/dL Comment: For Glucose values <35 mg/dl when Hematocrit is >60 mg/dl,the test may not accurately detect significant hypoglycemia,and testing in the Laboratory should be considered if clinically indicated. Blood 05/01/2024 3:50 AM LOADING SHOVEL OILER 05/01/2024 3:50 AM LOADING SHOVEL OILER Dimitrios Mccrary MD LAB POCT ORDERABLES - DEVICE F inal Result Performing Organization Address [facility] de Phone Number [facility] [address] [facility] [employer] [place], [place] [id number] * (ABNORMAL) POCT glucose (05/01/2024 12:37 AM LOADING SHOVEL OILER) Glucose, POC 348(H) 70 - 199 mg/dL Comment: For Glucose values <35 mg/dl when Hematocrit is >60 mg/dl,the test may not accurately detect significant hypoglycemia,and testing in the Laboratory should be considered if clinically indicated. Blood 05/01/2024 12:3 7 AM LOADING SHOVEL OILER 05/01/2024 12:37 AM LOADING SHOVEL OILER Dimitrios Mccrary MD LAB POCT ORDERABLES - DEVICE F inal Result Performing Organization Address [facility] Co de Phone Number [facility] [address] [facility] [place] [address] * (ABNORMAL) POCT glucose (04/30/2024 9:24 PM LOADING SHOVEL OILER) Glucose, POC 405(H) 70 - 199 mg/dL Comment: For Glucose values <35 mg/dl when Hematocrit is >60 mg/dl,the test may not accurately detect significant hypoglycemia,and testing in the Laboratory should be considered if clinically indicated. Blood 04/30/2024 9:24 PM LOADING SHOVEL OILER 04/30/2024 9:24 PM LOADING SHOVEL OILER us Dimitrios Mccrary MD LAB POCT ORDERABLES - DEVICE F inal Result Performing Organization Address [facility] Co de Phone Number [facility] [address] [place] [address] * (ABNORMAL) POCT glucose (04/30/2024 4:21 PM LOADING SHOVEL OILER) [facility] Glucose, POC 211(H) 70 - 199 mg/dL Comment: For Glucose values <35 mg/dl when Hematocrit is >60 mg/dl,the test may not accurately detect significant hypoglycemia,and testing in the Laboratory should be considered if clinically indicated. Blood 04/30/2024 4:21 PM LOADING SHOVEL OILER 04/30/2024 4:21 PM LOADING SHOVEL OILER us Dimitrios Mccrary MD LAB POCT ORDERABLES - DEVICE F inal Result Performing Organization Address [facility] Co de Phone Number [facility] [address] [place] [address] * (ABNORMAL) CBC without differential (04/30/2024 12:08 PM LOADING SHOVEL OILER) [facility] WBC 6.9 3.8 - 9.9 K/cumm Hgb 12.5(L) 13.0 - 17.5 g/dL [facility] Hct 37.4(L) 38.9 - 50.3 % [facility] Plt 164 150 - 400 K/cumm [facility] MPV 11.3 9.1 - 12.3 fL [facility] RBC 4.13(L) 4.30 - 5.80 M/cumm [facility] MCV 90.6 81.3 - 96.4 fL [facility] MCH 30.3 27.1 - 33.3 pg [facility] MCHC 33.4 32.3 - 35.7 g/dL [facility] RDW CV 12.5 11.1 - 14.9 % [facility] RDW SD 41.6 35.7 - 48.1 fL [facility] NRBC abs 0.00 0.00 - 0.01 K/cumm [facility] Blood 04/30/2024 12:0 8 PM LOADING SHOVEL OILER 04/30/2024 12:27 PM LOADING SHOVEL OILER Dimitrios Mccrary MD LAB BLOOD ORDERABLES Final Res ult Performing Organization Address [facility]/ZIP Co de Phone Number [facility] [address] [place] [address] * (ABNORMAL) POCT glucose (04/30/2024 11:18 AM LOADING SHOVEL OILER) [facility] Signature Glucose, POC 206(H) 70 - 199 mg/dL Comment: For Glucose values <35 mg/dl when Hematocrit is >60 mg/dl,the test may not accurately detect significant hypoglycemia,and testing in the Laboratory should be considered if clinically indicated. Blood 04/30/2024 11:1 8 AM LOADING SHOVEL OILER 04/30/2024 11:18 AM LOADING SHOVEL OILER Dimitrios Mccrary MD LAB POCT ORDERABLES - DEVICE F inal Result Performing Organization Address [facility]/ZIP Co de Phone Number [facility] [address] [place] [address] * IR Angiogram Lower Extremity Left (04/30/2024 10:45 AM LOADING SHOVEL OILER) Narrative CONS [facility]IMAGE - 04/30/2024 10:45 AM LOADING SHOVEL OILER The images from this study are not interpreted by Radiology. Please refer to the physician's procedure / OR operative note. us Dimitrios Mccrary MD IMG IR PROCEDURES Final Result [facility] * Surgical pathology (04/30/2024 10:44 AM LOADING SHOVEL OILER) Tissue (Artery, plaque Atherosclerotic) 04/30/2024 10:44 AM LOADING SHOVEL OILER Comment:Placed in formalin a t the end of case Narrative PATHOLOGY [facility] - 05/01/2024 9:07 AM LOADING SHOVEL OILER [address] [address] Tele: Ruth Juan MD - Senior Linux Engineer Note to Patients: This report may contain a detailed description of human tissue sent by a health care provider to the laboratory for pathologic evaluation. The content of this report is essential for diagnosis and may provide important critical findings. This information may be unfamiliar to patients to review without a medical professional present. It is advised that the patient review this report in the presence of a health care provider who can answer questions and explain the details. SURGICAL PATHOLOGY REPORT Patient Name: ALLY WISEMAN JRYao Address: [address] [place] [id number] Gender: M : 1960 (Age: 63) Service: Vascular Location: [place] [address], Hospital #: [id number] Patient Type: [facility] IN[facility]IENT Taken: 04/30/2024 Received 04/30/2024 Reported: 05/01/2024 Physician(s): Lisseth Robbins M.D. DIAGNOSIS: Artery, left femoral-endarterectomy: - Calcific arteriosclerosis b/05/01/2024 09:07 Examining Pathologist: Greg Lam M.D. Report Reviewed and Electronically Signed By Grge Lam M.D. SPECIMEN TYPE: A: LEFT FEMORAL PLAQUE CLINICAL IMPRESSION AND HISTORY: Atherosclerosis of [place] artery of left lower extremity with intermittent claudication GROSS DESCRIPTION: Received in formalin labeled ALLY WISEMAN and left femoral plaque are multiple roldan partially calcified tissue fragments, 3 x 1 x 0.3 cm in aggregate. The specimen is sectioned and market survey representative sections are submitted in A 1 following decalcification. jxi/04/30/2024 12:38 BARRY MICROSCOPIC DESCRIPTION: Calcified plaque material is noted. Clerical Data Follows A; [id number] REPORT IMAGES AND/OR SCANNED DOCUMENTS ONLY VIEWABLE IN PDF FORMAT The immunohistochemical test(s) cited in this report, if any, was developed and its performance characteristics determined by [facility] Department. It has not been cleared or approved by the U.S. Food and Drug Administration. The FDA has determined that such clearance or approval is not necessary. This test is used for clinical purposes. It should not be regarded as investigational or for research. [facility] is certified under the Clinical Laboratory Improvement Amendments of 1988 (CLIA) as qualified to perform high complexity testing. Immunostains were performed on formalin-fixed paraffin embedded tissue using a polymer diaminobenzidine chromogen detection system. Antibodies used may include clone SP1 (rabbit monoclonal, estrogen receptor), clone 1E2 (rabbit monoclonal progesterone receptor), Ki-67 (rabbit monoclonal, 30-9), CD117 (rabbit polyclonal, c-kit), and anti-Her-2/phyllis (4B5) (rabbit monoclonal primary antibody). In the event that immunohistochemistry or special stains have been performed, attending physician has confirmed appropriateness of controls. Frozen section, operating room consultation, gross examination and dissection, and case sign out may have been performed in part or completely in the following laboratories: [facility], [address] [place] [address], [address] [place] [address]. us Dimitrios Mccrary MD LAB PATHOLOGY ORDERABLES Final Result PATHOLOGY [facility] Laboratory Receiving [address] [place] [address] * SC AN ELECTIVE ENDOTRACHEAL AIRWAY, SC AN PROCEDURE PLACEHOLDER (04/30/2024 8:12 AM LOADING SHOVEL OILER) Narrative Janis Belle CRNA - 04/30/2024 8:12 AM LOADING SHOVEL OILER Janis Belle CRNA 04/30/2024 8:12 AM Airway Patient location: OR Urgency: elective Indications for airway management: anesthesia Difficult airway: no Staff: Placed by: RESEARCH SOFTWARE ENGINEER: Janis Belle CRNA Airway prep: Preoxygenated: yes Patient position: sniffing Mask difficulty assessment: 1 - vent by mask Sedation level during airway: GA Final airway details: Final airway type: endotracheal airway Tube type: ETT ETT size: 8.0 mm Cuffed: yes Technique used for successful ETT placement: direct laryngoscopy Devices/Methods used in placement: stylet Insertion site: oral Blade type: Pete Blade size: 4 Cormack-Lehane (direct): grade IIa - partial view of glottis Cuff volume: 6 mL Cuff inflated with: air ETT to lips: 22 cm Placement verified by: auscultation and CO2 detection Airway secured with: silk tape Number of attempts: 1 us Wilma Manjarrez MD ANESTHESIA ORDERABLES Final R esult * (ABNORMAL) POCT glucose (04/30/2024 7:43 AM LOADING SHOVEL OILER) [facility] Glucose, POC 212(H) 70 - 199 mg/dL Comment: For Glucose values <35 mg/dl when Hematocrit is >60 mg/dl,the test may not accurately detect significant hypoglycemia,and testing in the Laboratory should be considered if clinically indicated. Blood 04/30/2024 7:43 AM LOADING SHOVEL OILER 04/30/2024 7:43 AM LOADING SHOVEL OILER us Dimitrios Mccrary MD LAB POCT ORDERABLES - DEVICE F inal Result Performing Organization Address City/[facility] Co de Phone Number [facility] [address] Department [place] [address] * Check Sample (04/30/2024 6:25 AM LOADING SHOVEL OILER) ABO Rh O Positive MBC HCLL OTHER 04/30/2024 6:25 AM LOADING SHOVEL OILER 04/30/2024 7:08 AM LOADING SHOVEL OILER us Gabriela Meneses VINYL TOP INSTALLER LAB BLOOD ORDERABLES Fi nal Result Performing Organization Address City/State/[facility] Co de Phone Number [facility] [address] [facility] [place] [address] MBC * aPTT (04/09/2024 12:38 PM LOADING SHOVEL OILER) aPTT 34 28 - 38 sec Comment: Interpretive Data Heparin therapeutic range: 66.0 - 100.0 seconds. Range based on correlation with therapeutic heparin activity range of 0.3 - 0.7 Units/mL. Current interpretive data was last revised on 2023. Blood 04/09/2024 12:3 8 PM LOADING SHOVEL OILER 04/09/2024 12:38 PM LOADING SHOVEL OILER Gabriela Meneses VINYL TOP INSTALLER LAB BLOOD ORDERABLES Fi nal Result Performing Organization Address [facility] de Phone Number [facility] [address] [facility] [place] [address] * Protime-INR (04/09/2024 12:38 PM LOADING SHOVEL OILER) Pathologist [facility] PT 11.7 9.7 - 13.0 sec INR 1.08 0.90 - 1.20 [facility] Comment: Interpretive data Oral anticoagulant therapeutic ranges: Venous thromboembolism prophylaxis or treatment: 2.0-3.0 CARDIOLOGY Standard range: 2.0-3.0 High-intensity range: 2.5-3.5 Refer to indication-specific guidelines for appropriate target ranges for prosthetic heart valve replacement. Current interpretive data was last revised on 2019. Blood 04/09/2024 12:3 8 PM LOADING SHOVEL OILER 04/09/2024 12:38 PM LOADING SHOVEL OILER Gabriela Meneses VINYL TOP INSTALLER LAB BLOOD ORDERABLES Fi nal Result Performing Organization Address [facility] Co de Phone Number [facility] [address] [facility] [place] [address] * (ABNORMAL) Hemoglobin A1c (04/09/2024 12:38 PM LOADING SHOVEL OILER) Hgb A1C 8.9(H) 4.0 - 5.6 % Estimated Average Glucose 209 mg/dL [facility] Comment: The ADA recommends reporting an estimated Average Glucose (eAG) with all Hemoglobin A1c results using the equation derived from a study of 507 normal and diabetic adults. Minority populations were underrepresented and children were not included. (Diabetes Care 31:6178-2080, 2008). The eAG is not equivalent to a fasting glucose. Blood 04/09/2024 12:3 8 PM LOADING SHOVEL OILER 04/09/2024 12:38 PM LOADING SHOVEL OILER us Gabriela Meneses NP LAB BLOOD ORDERABLES Fi nal Result Performing Organization Address City/[facility]/ZIP Co de Phone Number [facility] [address] Department [place] [address] * eGFR (04/09/2024 12:37 PM LOADING SHOVEL OILER) eGFR >90 >=60 mL/min/1. 73 m2 Comment: Interpretive Data Reference Interval Normal >/= 90 mL/min/1.73m2 Mildly decreased* 60 - 89 mL/min/1.73m2 Mildly to moderately decreased 45 - 59 mL/min/1.73m2 Moderately to severely decreased 30 - 44 mL/min/1.73m2 Severely decreased 15 - 29 mL/min/1.73m2 Kidney Failure < 15 mL/min/1.73m2 *Relative to young adult level Estimated glomerular filtration rate is determined by the 2020 CKD-EPI equation recommended by the National Kidney Foundation (A Unifying Approach to GFR Estimation: Recommendations of the NKF-ASK Task Force on Reassessing the Inclusion of Race in Diagnosing Kidney Disease, JASN 2020). The CKD-EPI equation should not be used for patients with unstable renal function and has not been validated in children and those over 70. Current interpretive data was last reviewed 2021. Blood 04/09/2024 12:3 7 PM LOADING SHOVEL OILER 04/09/2024 12:37 PM LOADING SHOVEL OILER us Gabriela Meneses NP LAB BLOOD ORDERABLES Fi nal Result [facility] [address] Department [place] [address] * Basic metabolic panel (04/09/2024 12:37 PM LOADING [employer]OVEL [employer]ILER) Sodium 140 135 - 145 mmol/L Potassium, pl 4.8 3.3 - 4.9 mmol/L [facility] Chloride 103 97 - 110 mmol/L [facility] CO2 26 22 - 32 mmol/L [facility] Anion gap 11 2 - 15 mmol/L [facility] BUN 17 6 - 25 mg/dL [facility] Creatinine 0.81 0.80 - 1.30 mg/dL [facility] Glucose 191 70 - 199 mg/dL [facility] Comment: Interpretive Data Fasting glucose >/= 126 mg/dl is diagnostic for diabetes. Fasting is defined as no caloric intake for at least 8 hours. Fasting glucose between 100 mg/dl to 125 mg/dl is diagnostic of prediabetes. In a patient with classic symptoms of hyperglycemia or hyperglycemic crisis, a random glucose >/= 200 mg/dl is diagnostic for diabetes. In the absence of unequivocal hyperglycemia, results should be confirmed by repeat testing. The classification and Diagnosis of Diabetes Diabetes Care 2021; 46: S19-S40. Current interpretive data was last revised 2022. Calcium 9.6 8.5 - 10.3 mg/dL [facility] Blood 04/09/2024 12:3 7 PM [employer] 04/09/2024 12:37 PM [employer] Gabriela Meneses NP LAB BLOOD ORDERABLES Fi nal Result [facility] [address] Department [place] [address] * Type and screen (04/09/2024 12:25 PM [employer]ING [employer]EL [employer]ILER) ABO Rh O Positive Simón, indirect Negative [facility] Blood 04/09/2024 12:2 5 PM [employer] 04/09/2024 12:40 PM [employer]ING [employer]EL [employer]ER Narrative [facility] - 04/09/2024 1:24 PM [employer]ING [employer]ER Is this test being ordered in advance for a procedure?->Yes Expected date of procedure:->04/30/24 Has the patient been transfused in the past 3 months?->No Gabriela Monterroso Margarettemonsepatrick ESQUEDA LAB BLOOD BANK TEST ORD ERABLES Final Result Performing Organization Address City/[facility]/ZIP Co de Phone Number [facility] [address] Department [place] [address] * (ABNORMAL) Urinalysis reflex to microscopic and culture Urine (04/07/2024 1:00 PM [employer]ING [employer]EL [employer]ILER) Color, ur Yellow Yellow Clarity, ur Clear Clear [facility] Specific gravity, ur 1.022 1.003 - 1.030 [facility] pH, urine 6.5 [facility] Comment: Interpretive Data U rine pH is affected by diet, medications, systemic acid-base disturbances, and renal tubular function. pH may affect urinary stone formation. For example, urine pH below 6.0 may help reduce the tendency for calcium phosphate stones and pH greater than 6.0 may reduce the tendency for uric acid stone formation. Source: [facility] Current Interpretive Data was last revised on 2017 Protein, ur ql 2+(A) Negative [facility] Glucose, ur ql 4+(A) Negative [facility] Ketones, ur Negative Negative [facility] Bilirubin, ur Negative Negative [facility] Blood, ur 1+(A) Negative [facility] Urobilinogen, ur <2.0 <2.0 mg/dL [facility] Nitrite, ur Positive(A) Negative [facility] Leukocyte esterase, ur Negative Negative [facility] UA reflex comment Reflex to microscopic UA will be performed. [facility] Urine 04/07/2024 1:00 PM [employer] 04/07/2024 1:23 PM [employer] Richard Armstrong MD LAB MICROBIOLOGY - GENERAL ORDERABLES Final Result Performing Organization Address City/[facility]/ZIP Co de Phone Number [facility] [address] [place] [address] * (ABNORMAL) Urinalysis, microscopic only (04/07/2024 1:00 PM LO[employer]) WBC, ur 6-10(A) 0 - 5 /HPF RBC, ur 6-10(A) 0 - 2 /HPF [facility] Bacteria, ur Trace(A) [facility] Mucous, ur Present(A) [facility] Culture Reflex Comment Reflex conditions for urine culture (WBC >10) not met. [facility] Urine 04/07/2024 1:00 PM [employer] 04/07/2024 1:22 PM LO[employer]ING [employer]ER us Richard Armstrong MD LAB URINE ORDERABLES Final Result [facility] [address] Department [place] [address] * CT Head WO Contrast (04/07/2024 12:59 PM LOADING [employer]ILER) Anatomical Region Laterality Modality Head and Neck N/A Computed Tomogra phy 04/07/2024 1:07 PM [employer] Impressions 04/07/2024 1:07 PM LOADING SH[employer]EL OIL[employer] No CT evidence of acute intracranial abnormality. Electronically signed by: Porfirio De Paz M.D. Narrative 04/07/2024 1:07 PM [employer] EXAM:CT HEAD WO CONTRAST INDICATION: Dizziness, persistent/recurrent, cardiac or vascular cause suspected COMPARISON: None TECHNIQUE: Standard noncontrast axial CT sections through the head. FINDINGS: Brain Parenchyma: Mild periventricular and subcortical white matter hypoattenuation, likely chronic microvascular ischemic changes. Mild parenchymal volume loss. No acute hemorrhage. No loss of brand-white matter differentiation. No mass, mass effect, or midline shift. Calcifications of the cavernous internal carotid arteries bilaterally. Ventricles and Sulci: Normal for age. Extra-Axial Spaces: No extra-axial fluid collection. Orbits: Intact. Paranasal Sinuses: Mild mucosal thickening of the ethmoid air cells. Mastoid Air Cells: Trace right mastoid fluid. Cranium: Intact. Extracranial Soft Tissues: No acute abnormality. Procedure Note Porfirio De Paz MD - 04/07/2024 EXAM:CT HEAD WO CONTRAST INDICATION: Dizziness, persistent/recurrent, cardiac or vascular cause suspected COMPARISON: None TECHNIQUE: Standard noncontrast axial CT sections through the head. FINDINGS: Brain Parenchyma: Mild periventricular and subcortical white matter hypoattenuation, likely chronic microvascular ischemic changes. Mild parenchymal volume loss. No acute hemorrhage. No loss of brand-white matter differentiation. No mass, mass effect, or midline shift. Calcifications of the cavernous internal carotid arteries bilaterally. Ventricles and Sulci: Normal for age. Extra-Axial Spaces: No extra-axial fluid collection. Orbits: Intact. Paranasal Sinuses: Mild mucosal thickening of the ethmoid air cells. Mastoid Air Cells: Trace right mastoid fluid. Cranium: Intact. Extracranial Soft Tissues: No acute abnormality. IMPRESSION: No CT evidence of acute intracranial abnormality. Electronically signed by: Porfirio De Paz M.D. Richard Armstrong MD IMG CT PROCEDURES Final Re sult * Troponin T high-sensitivity series (baseline, 2hr, 4hr, 6hr) (04/07/2024 12:28 PM LOADING SH[employer]EL [employer]ILER) [facility] Trop T hs 11 <=22 ng/L Comment: Interpretive Data For further hscTnT resources including the diagnostic algorithm and an aid in interpretation, copy and paste this link: https://nrl.testcatalog.org/show/hsTrop Current Interpretive Data last revised 2020. Blood 04/07/2024 12:2 8 PM [employer] 04/07/2024 12:41 PM [employer]ER Scott Wagner MD LAB BLOOD ORDERABLES Final R esult [facility] [address] Department [place] [address] * eGFR (04/07/2024 12:28 PM LOADING [employer]EL [employer]ILER) [facility] eGFR >90 >=60 mL/min/1. 73 m2 Comment: Interpretive Data Reference Interval Normal >/= 90 mL/min/1.73m2 Mildly decreased* 60 - 89 mL/min/1.73m2 Mildly to moderately decreased 45 - 59 mL/min/1.73m2 Moderately to severely decreased 30 - 44 mL/min/1.73m2 Severely decreased 15 - 29 mL/min/1.73m2 Kidney Failure < 15 mL/min/1.73m2 *Relative to young adult level Estimated glomerular filtration rate is determined by the 2020 CKD-EPI equation recommended by the National Kid[employer] (A Unifying Approach to GFR Estimation: Recommendations of the NKF-ASK Task Force on Reassessing the Inclusion of Race in Diagnosing Kidney Disease, JASN 202). The CKD-EPI equation should not be used for patients with unstable renal function and has not been validated in children and those over 70. Current interpretive data was last reviewed 2021. Blood 04/07/2024 12:2 8 PM [employer]ER 04/07/2024 12:41 PM [employer]ER us Scott Wagner MD LAB BLOOD ORDERABLES Final R esult [facility] [address] Department [place] [address] * Differential, auto (04/07/2024 12:28 PM LO[employer]ER) Neutrophil abs 3.6 1.5 - 6.5 K/cumm Imm gran abs 0.0 0.0 - 0.1 K/cumm [facility] Lymphocyte abs 1.4 0.8 - 3.3 K/cumm [facility] Monocyte abs 0.7 0.2 - 0.8 K/cumm [facility] Eosinophil abs 0.2 0.0 - 0.5 K/cumm [facility] Basophil abs 0.1 0.0 - 0.1 K/cumm [facility] Neutrophil pct 60.2 % [facility] Comment: Interpretive Data Percent cell count reference ranges are not reported, since discordance with absolute values may lead to misinterpretation of CBC data. Current Interpretive Data was last revised on 2017. Imm gran pct 0.3 % [facility] Comment: Interpretive Data Percent cell count reference ranges are not reported, since discordance with absolute values may lead to misinterpretation of CBC data. Current Interpretive Data was last revised on 2017. Lymphocyte pct 23.7 % [facility] Comment: Interpretive Data Percent cell count reference ranges are not reported, since discordance with absolute values may lead to misinterpretation of CBC data. Current Interpretive Data was last revised on 2017. Monocyte pct 12.0 % [facility] Comment: Interpretive Data Percent cell count reference ranges are not reported, since discordance with absolute values may lead to misinterpretation of CBC data. Current Interpretive Data was last revised on 2017. Eosinophil pct 3.0 % [facility] Comment: Interpretive Data Percent cell count reference ranges are not reported, since discordance with absolute values may lead to misinterpretation of CBC data. Current Interpretive Data was last revised on 2017. Basophil pct 0.8 % [facility] Comment: Interpretive Data Percent cell count reference ranges are not reported, since discordance with absolute values may lead to misinterpretation of CBC data. Current Interpretive Data was last revised on 2017. Blood 04/07/2024 12:2 8 PM [employer]ER 04/07/2024 12:41 PM [employer]ER us Scott Wagner MD LAB BLOOD ORDERABLES Final R esult [facility] [address] Department [place] [address] * CBC with auto differential (04/07/2024 12:28 PM LO[employer]ER) WBC 5.9 3.8 - 9.9 K/cumm Hgb 13.9 13.0 - 17.5 g/dL [facility] Hct 41.3 38.9 - 50.3 % [facility] Plt 171 150 - 400 K/cumm [facility] MPV 10.8 9.1 - 12.3 fL [facility] RBC 4.62 4.30 - 5.80 M/cumm [facility] MCV 89.4 81.3 - 96.4 fL [facility] MCH 30.1 27.1 - 33.3 pg [facility] MCHC 33.7 32.3 - 35.7 g/dL [facility] RDW CV 12.7 11.1 - 14.9 % [facility] RDW SD 41.5 35.7 - 48.1 fL [facility] NRBC abs 0.00 0.00 - 0.01 K/cumm [facility] Blood (Blood, Venous) 04/07/2024 12:28 PM [employer]ER 04/07/2024 12:41 PM [employer]ER us Scott Wagner MD LAB BLOOD ORDERABLES Final R esult [facility] [address] Department [place] [address] * (ABNORMAL) Comprehensive metabolic panel (04/07/2024 12:28 PM LO[employer]ING [employer]ILER) Sodium 136 135 - 145 mmol/L Potassium, pl 5.1(H) 3.3 - 4.9 mmol/L [facility] Comment:Hemolyzed; potassium value may be falsely elevated by as much as 0.3 - 0.5 mmol/L. Suggest redraw and reanalysis Chloride 102 97 - 110 mmol/L [facility] CO2 16(L) 22 - 32 mmol/L [facility] Anion gap 18(H) 2 - 15 mmol/L [facility] BUN 15 6 - 25 mg/dL [facility] Creatinine 0.70(L) 0.80 - 1.30 mg/dL [facility] Glucose 192 70 - 199 mg/dL [facility] Comment: Interpretive Data Fasting glucose >/= 126 mg/dl is diagnostic for diabetes. Fasting is defined as no caloric intake for at least 8 hours. Fasting glucose between 100 mg/dl to 125 mg/dl is diagnostic of prediabetes. In a patient with classic symptoms of hyperglycemia or hyperglycemic crisis, a random glucose >/= 200 mg/dl is diagnostic for diabetes. In the absence of unequivocal hyperglycemia, results should be confirmed by repeat testing. The classification and Diagnosis of Diabetes Diabetes Care 2021; 46: S19-S40. Current interpretive data was last revised 2022. Calcium 9.2 8.5 - 10.3 mg/dL [facility] Bilirubin, total 0.6 0.1 - 1.2 mg/dL [facility] Protein, pl 7.2 6.5 - 8.5 g/dL [facility] Albumin 4.0 3.5 - 5.0 g/dL [facility] Alk phos 104 40 - 130 Units/L [facility] ALT 21 7 - 55 Units/L [facility] AST 29 10 - 50 Units/L [facility] Comment:Slightly Hemolyzed S pecimen Blood 04/07/2024 12:2 8 PM [employer]ER 04/07/2024 12:41 PM LO[employer]ER us Scott Wagner MD LAB BLOOD ORDERABLES Final R esult Performing Organization Address City/[facility] Co de Phone Number [facility] [address] Department [place] [address] * ECG 12 lead (04/07/2024 10:29 AM LO[employer]ING [employer]ILER) 04/07/2024 10:2 9 AM [employer]ER Narrative [facility] - 04/07/2024 8:05 PM LO[employer]ING [employer]EL [employer]ER Vent Rate: 82 bpm RR Interval: 724 msec SC Interval: 158 msec QRS Duration: 103 msec QT Interval: 335 msec QTC Interval: 374 msec P-R-T [place]: 1 - -40 - 71 degrees IMPRESSION: SINUS RHYTHM LEFT AXIS DEVIATION [QRS AXIS < -30] POOR R WAVE PROGRESSION NONSPECIFIC T-WAVE ABNORMALITY ABNORMAL ECG Electronically Signed By: Caleb Roger MD us Richard Armstrong MD ECG ORDERABLES Final Resu lt Performing Organization Address [facility] Co de Phone Number [facility] Likelii [facility] * (ABNORMAL) POCT glucose (04/07/2024 9:52 AM LO[employer]ING [employer]ILER) Glucose, POC 206(H) 70 - 199 mg/dL Comment: For Glucose values <35 mg/dl when Hematocrit is >60 mg/dl,the test may not accurately detect significant hypoglycemia,and testing in the Laboratory should be considered if clinically indicated. Blood 04/07/2024 9:52 AM [employer]ER 04/07/2024 9:52 AM [employer]ER Reina Boyle NP LAB POCT ORDERABLES - DEVIC E Final Result Performing Organization Address [facility] de Phone Number [facility] [address] [place] [address] * (ABNORMAL) POCT glucose (04/07/2024 9:20 AM LOADING [employer]ILER) Glucose, POC 268(H) 70 - 199 mg/dL Comment: For Glucose values <35 mg/dl when Hematocrit is >60 mg/dl,the test may not accurately detect significant hypoglycemia,and testing in the Laboratory should be considered if clinically indicated. Blood 04/07/2024 9:20 AM [employer]ER 04/07/2024 9:20 AM [employer]ER Reina Boyle NP LAB POCT ORDERABLES - DEVIC E Final Result Performing Organization Address [facility] de Phone Number [facility] [address] [place] [address] * (ABNORMAL) POCT glucose (04/06/2024 11:05 AM LOADING SH[employer]EL OILER) Glucose, POC 202(H) 70 - 199 mg/dL Comment: For Glucose values <35 mg/dl when Hematocrit is >60 mg/dl,the test may not accurately detect significant hypoglycemia,and testing in the Laboratory should be considered if clinically indicated. Blood 04/06/2024 11:0 5 AM [employer]EL [employer]ILER 04/06/2024 11:05 AM LO[employer]ER Reina Boyle NP LAB POCT ORDERABLES - DEVIC E Final Result Performing Organization Address [facility] de Phone Number [facility] [address] [facility] [place] [address] * US Vein Mapping Duplex Lower Extremity Bilateral (04/06/2024 10:17 AM LOADING SH[employer]EL OILER) Anatomical Region Laterality Modality Vascular Bilateral Ultrasound 04/06/2024 8:03 AM LO[employer]ING SH[employer]EL [employer]ILER Narrative 04/09/2024 6:57 [address] SH[employer]ER [facility] - Department of Vascular Surgery, Vascular Laboratory [address] [place] [address] Lower Extremity Vein Mapping Report Patient Name: ALLY WISEMAN D : 1960 (63y 6m) Study Date: 04/06/2024 8:03:23 AM Gender: M Boat Cleaner: DALILA Location: [facility] Provider: ELISEO HYDE Quality: Adequate Order Provider: ELISEO HYDE PROCEDURES: Mapping Report: Bilateral Lower Extremity Saphenous Vein Mapping. INDICATIONS: I73.9 Peripheral vascular disease, unspecified and Z01.818 Encounter for other preprocedural examination. Measurements: Right Leg Left Leg Measurement Value Units Measurement Value Units Rt Sapheno-Femoral Junction 0.58 cm Lt Sapheno-Femoral Junction 0.61 cm Rt Great Saphenous Thigh - Proximal 0.40 cm Lt Great Saphenous Thigh - Proximal 0.37 cm Rt Great Saphenous Thigh - Mid 0.32 cm Lt Great Saphenous Thigh - Mid 0.28 cm Rt Great Saphenous Thigh - Distal 0.31; BRANCH cm Lt Great Saphenous Thigh - Distal 0.20; BRANCH cm Rt Great Saphenous Knee 0.35 cm Lt Great Saphenous Knee 0.25 cm Rt Great Saphenous Calf - Proximal 0.31 cm Lt Great Saphenous Calf - Proximal 0.19 cm Rt Great Saphenous Calf - Mid 0.30; BRANCH cm Lt Great Saphenous Calf - Mid 0.18 cm Rt Great Saphenous Calf - Distal 0.22; BRANCH cm Lt Great Saphenous Calf - Distal 0.17; BRANCH cm Rt Small Saphenous Proximal 0.29 cm Lt Small Saphenous Proximal 0.14 cm Rt Small Saphenous Mid 0.29 cm Lt Small Saphenous Mid 0.21; BRANCH cm Rt Small Saphenous Distal 0.26 cm Lt Small Saphenous Distal 0.19; BRANCH cm - FINDINGS: Performing Boat Cleaner: Dalila Hernandez, MARLEY, RDMS, RDCS, ACS. Bilateral: The common femoral, femoral, popliteal veins were evaluated with compression maneuvers. No evidence of deep vein thrombus by duplex, proximal to the calf. Noninvasive venous studies cannot rule out an isolated calf vein obstruction. Duplex imaging of bilateral great and small saphenous veins reveals the cross-sectional measurements noted above. No evidence of superficial vein thrombus. CONCLUSIONS: 1. Duplex imaging of bilateral great and small saphenous veins reveals the cross-sectional measurements noted above. No evidence of superficial vein thrombus. HISTORY: PAD. PREVIOUS STUDIES: No previous studies for comparison. DISCLAIMER: The study images and the final report will be retained in the patient chart by the Vascular Laboratory for the legally required time period. This chart constitutes the legal record of any testing performed. ATTESTATION: I have reviewed and interpreted the pertinent images and measurements of this study. I attest to the conclusions in the final report that is provided above. Electronically Signed By: Dimitrios Mccrary MD [facility] 04/09/2024 6:56:05 PM LOADING [employer]EL [employer]ER Procedure Note Dimitrios Mccrary MD - 04/09/2024 [facility] - Department of Vascular Surgery,Vascular Laboratory [address] [place] [address] Lower Extremity Vein Mapping Report Patient Name: ALLY WISEMAN D : 1960 (63y 6m) Study Date: 04/06/2024 8:03:23 AM Gender: M Boat Cleaner: DALILA Location: [facility] Provider: ELISEO HYDE Quality: Adequate Order Provider: ELISEO HYDE PROCEDURES: Mapping Report: Bilateral Lower Extremity Saphenous Vein Mapping. INDICATIONS: I73.9 Peripheral vascular disease, unspecified and Z01.818 Encounter forother preprocedural examination. Measurements: Right LegLeft Leg Measurement Value UnitsMeasurement Value Units Rt Sapheno-Femoral Junction 0.58 cm LtSapheno-Femoral Junction 0.61 cm Rt Great Saphenous Thigh - Proximal 0.40 cm Lt GreatSaphenous Thigh - Proximal 0.37 cm Rt Great Saphenous Thigh - Mid 0.32 cm Lt GreatSaphenous Thigh - Mid 0.28 cm Rt Great Saphenous Thigh - Distal 0.31; BRANCH cm Lt GreatSaphenous Thigh - Distal 0.20; BRANCHcm Rt Great Saphenous Knee 0.35 cm Lt GreatSaphenous Knee 0.25 cm Rt Great Saphenous Calf - Proximal 0.31 cm Lt GreatSaphenous Calf - Proximal 0.19 cm Rt Great Saphenous Calf - Mid 0.30; BRANCH cm Lt GreatSaphenous Calf - Mid 0.18 cm Rt Great Saphenous Calf - Distal 0.22; BRANCH cm Lt GreatSaphenous Calf - Distal 0.17; BRANCHcm Rt Small Saphenous Proximal 0.29 cm Lt SmallSaphenous Proximal 0.14 cm Rt Small Saphenous Mid 0.29 cm Lt SmallSaphenous Mid 0.21; BRANCH cm Rt Small Saphenous Distal 0.26 cm Lt SmallSaphenous Distal 0.19; BRANCH cm - FINDINGS: Performing Boat Cleaner: Dalila Hernandez, RVT, RDMS, RDCS, ACS. Bilateral: The common femoral, femoral, popliteal veins were evaluatedwith compression maneuvers. No evidence of deep vein thrombus by duplex, proximal to thecalf. Noninvasive venous studies cannot rule out an isolated calf vein obstruction. Dupleximaging of bilateral great and small saphenous veins reveals the cross- sectionalmeasurements noted above. No evidence of superficial vein thrombus. CONCLUSIONS: 1. Duplex imaging of bilateral great and small saphenous veins reveals the cross-sectional measurements noted above. No evidence of superficial veinthrombus. HISTORY: PAD. PREVIOUS STUDIES: No previous studies for comparison. DISCLAIMER: The study images and the final report will be retained in the patientchart by the Vascular Laboratory for the legally required time period. This chartconstitutes the legal record of any testing performed. ATTESTATION: I have reviewed and interpreted the pertinent images and measurements ofthis study. I attest to the conclusions in the final report that is provided above. Electronically Signed By: Dimitrios Mccrary MD [facility] 04/09/2024 6:56:05 PM LOADING [employer]EL [employer]ILER Eliseo KRAUSE IMG US PROCEDURES Fin al Result * (ABNORMAL) POCT glucose (04/06/2024 9:14 AM LOADING SH[employer]EL [employer]ILER) Glucose, POC 235(H) 70 - 199 mg/dL Comment: For Glucose values <35 mg/dl when Hematocrit is >60 mg/dl,the test may not accurately detect significant hypoglycemia,and testing in the Laboratory should be considered if clinically indicated. Blood 04/06/2024 9:14 AM [employer]EL [employer]ILER 04/06/2024 9:14 AM LO[employer]ING SH[employer]EL OILER Reina Boyle NP LAB POCT ORDERABLES - DEVIC E Final Result Performing Organization Address [facility] Co de Phone Number [facility] [address] [facility] [place] [address] * POCT glucose (04/03/2024 11:13 AM LOADING SH[employer]EL OILER) Glucose, POC 123 70 - 199 mg/dL Comment: For Glucose values <35 mg/dl when Hematocrit is >60 mg/dl,the test may not accurately detect significant hypoglycemia,and testing in the Laboratory should be considered if clinically indicated. Blood 04/03/2024 11:1 3 AM LO[employer] SH[employer]EL OILER 04/03/2024 11:13 AM LOADING SH[employer]EL OILER Reina Boyle NP LAB POCT ORDERABLES - DEVIC E Final Result Performing Organization Address City/[facility] Co de Phone Number [facility] [address] [facility] [place] [address] * (ABNORMAL) POCT glucose (04/03/2024 11:07 AM LOADING SHOVEL OILER) Glucose, POC 212(H) 70 - 199 mg/dL Comment: For Glucose values <35 mg/dl when Hematocrit is >60 mg/dl,the test may not accurately detect significant hypoglycemia,and testing in the Laboratory should be considered if clinically indicated. Blood 04/03/2024 11:0 7 AM [employer] SH[employer]EL OILER 04/03/2024 11:07 AM LOADING SHOVEL OILER us Reina Boyle NP LAB POCT ORDERABLES - DEVIC E Final Result Performing Organization Address [facility] Co de Phone Number [facility] [address] [facility] [employer] [place], [place] [id number] * (ABNORMAL) POCT glucose (04/03/2024 9:19 AM LOADING SHOVEL OILER) Glucose, POC 317(H) 70 - 199 mg/dL Comment: For Glucose values <35 mg/dl when Hematocrit is >60 mg/dl,the test may not accurately detect significant hypoglycemia,and testing in the Laboratory should be considered if clinically indicated. Blood 04/03/2024 9:19 AM LOADING SHOVEL OILER 04/03/2024 9:19 AM LOADING SHOVEL OILER Reina Boyle NP LAB POCT ORDERABLES - DEVIC E Final Result Performing Organization Address [facility] de Phone Number [facility] [address] [facility] [place] [address] * (ABNORMAL) POCT glucose (04/03/2024 9:09 AM LOADING SHOVEL OILER) Glucose, POC 222(H) 70 - 199 mg/dL Comment: For Glucose values <35 mg/dl when Hematocrit is >60 mg/dl,the test may not accurately detect significant hypoglycemia,and testing in the Laboratory should be considered if clinically indicated. Blood 04/03/2024 9:09 AM LOADING SHOVEL OILER 04/03/2024 9:09 AM LOADING SHOVEL OILER Reina Boyle NP LAB POCT ORDERABLES - DEVIC E Final Result Performing Organization Address [facility] Co de Phone Number [facility] [address] [facility] [employer] [place], [place] [id number] * CTA Abdominal Aorta And Bilateral Iliofemoral Runoff (01/18/2024 10:50 AM CDT) Anatomical Region Laterality Modality Body Bilateral Computed Tomogra phy 01/20/2024 9:40 AM CDT Impressions 01/21/2024 8:15 AM CDT 1. Right lower extremity: Patent right superficial femoral artery stent and patent but severely narrowed popliteal artery stent. Additional multifocal disease throughout the lower extremity. There is three-vessel arterial inflow at the level of the ankle, though note is made of an occluded proximal posterior tibial artery with distal reconstitution. 2. Left lower extremity: Severe inflow disease with severe stenosis of the proximal external iliac artery and common femoral artery which is nearly occluded and multifocal severe stenosis throughout the left lower extremity. There is three vessel arterial inflow at the level of the ankle, though the distal posterior tibial/proximal plantar artery demonstrates severe stenosis/occlusion. Dictated by: Cuauhtemoc Landa MD, PHD The radiology attending physician has personally reviewed this study, and had reviewed and/or edited this written report and agrees with it. Electronically signed by: Jodi Gregory M.D. Narrative 01/21/2024 8:15 AM CDT EXAMINATION: CT ANGIOGRAPHY OF THE ABDOMEN, PELVIS, AND LOWER EXTREMITIES WITHOUT AND WITH CONTRAST HISTORY: Claudication TECHNIQUE: CT angiography of the abdomen, pelvis, and lower extremities was performed prior to and following the uneventful intravenous administration of 120 ml Optiray-350. Vascular 3D images were generated on a dedicated workstation and also reviewed. COMPARISON: CT abdomen pelvis 01/04/2024 FINDINGS: VASCULAR FINDINGS: Abdominal Aorta and Branches: Extensive calcified atherosclerotic disease noted. Celiac axis: no significant stenosis SMA: At least moderate stenosis at the origin and noncalcified atherosclerotic disease JONNY: Moderate proximal stenosis Right renal vessels: no significant stenosis. 2 right renal arteries are noted. Left renal vessels: 2 left renal arteries are noted. Mild stenosis of the inferior artery origin. Ectasia noted at the origin of the superior artery. Infrarenal aorta: no significant stenosis. No aneurysm. Pelvic Vessels: R. Common iliac artery: Mild multifocal stenosis R. External iliac artery: Mild multifocal stenosis R. Internal iliac artery: Moderate stenosis at the origin L. Common iliac artery: Mild multifocal stenosis L. External iliac artery: Severe stenosis at the origin L. Internal iliac artery: Occluded Right Lower Extremity: R. Common femoral artery: Mild stenosis R. Profunda femoris artery: Severe stenosis/focal occlusion at the origin with reconstitution, patent distally R. Superficial femoral artery: Patent stent with severe adjacent calcified atherosclerosis and severe narrowing of the [place] vessel distally R. Popliteal artery: Multifocal severe narrowing with patent but narrowed stent R. Anterior tibial artery: Dense calcifications at the origin limiting evaluation, otherwise patent R. Tibioperoneal trunk: no significant stenosis R. Posterior tibial artery: Occluded proximally with thready distal reconstitution with multifocal severe narrowing, but patent at the ankle R. Peroneal artery: no significant stenosis R. Dorsalis pedis artery: no significant stenosis R. Plantar artery: no significant stenosis Left Lower Extremity: L. Common femoral artery: Severe near complete occlusion of the distal common femoral L. Profunda femoris artery: Severe narrowing proximally, patent distally L. Superficial femoral artery: Severe narrowing at the origin with multifocal moderate-severe narrowing distally L. Popliteal artery: Multifocal narrowing, up to severe L. Anterior tibial artery: Severe narrowing at the origin, patent distally L. Tibioperoneal trunk: Mild stenosis L. Posterior tibial artery: Occluded proximally with distal reconstitution with multifocal moderate stenosis. Severe stenosis/occlusion at the ankle L. Peroneal artery: Multifocal mild-moderate stenosis, patent at the ankle L. Dorsalis pedis artery: no significant stenosis L. Plantar artery: Multifocal narrowing NON-VASCULAR FINDINGS: Minimal left basilar atelectasis. No pleural effusion. Normal heart size and no pericardial effusion. Liver surface nodularity suggestive of fibrosis. The gallbladder is normal. No biliary duct dilation. Pancreas, spleen, adrenal glands are normal. Kidneys enhance symmetrically with no hydronephrosis. Urinary bladder is normal. Brachytherapy seeds are present prostate. Colonic diverticulosis is noted without evidence of diverticulitis. The appendix, small bowel, and stomach are normal. No abdominal or pelvic lymphadenopathy. No intra-abdominal free air or free fluid. Lower extremity soft tissues are normal. No suspicious osseous lesion. Procedure Note Jodi Gregory MD - 01/21/2024 EXAMINATION: CT ANGIOGRAPHY OF THE ABDOMEN, PELVIS, AND LOWER EXTREMITIES WITHOUT AND WITH CONTRAST HISTORY: Claudication TECHNIQUE: CT angiography of the abdomen, pelvis, and lower extremities was performed prior to and following the uneventful intravenous administration of 120 ml Optiray-350. Vascular 3D images were generated on a dedicated workstation and also reviewed. COMPARISON: CT abdomen pelvis 01/04/2024 FINDINGS: VASCULAR FINDINGS: Abdominal Aorta and Branches: Extensive calcified atherosclerotic disease noted. Celiac axis: no significant stenosis SMA: At least moderate stenosis at the origin and noncalcified atherosclerotic disease JONNY: Moderate proximal stenosis Right renal vessels: no significant stenosis. 2 right renal arteries are noted. Left renal vessels: 2 left renal arteries are noted. Mild stenosis of the inferior artery origin. Ectasia noted at the origin of the superior artery. Infrarenal aorta: no significant stenosis. No aneurysm. Pelvic Vessels: R. Common iliac artery: Mild multifocal stenosis R. External iliac artery: Mild multifocal stenosis R. Internal iliac artery: Moderate stenosis at the origin L. Common iliac artery: Mild multifocal stenosis L. External iliac artery: Severe stenosis at the origin L. Internal iliac artery: Occluded Right Lower Extremity: R. Common femoral artery: Mild stenosis R. Profunda femoris artery: Severe stenosis/focal occlusion at the origin with reconstitution, patent distally R. Superficial femoral artery: Patent stent with severe adjacent calcified atherosclerosis and severe narrowing of the [place] vessel distally R. Popliteal artery: Multifocal severe narrowing with patent but narrowed stent R. Anterior tibial artery: Dense calcifications at the origin limiting evaluation, otherwise patent R. Tibioperoneal trunk: no significant stenosis R. Posterior tibial artery: Occluded proximally with thready distal reconstitution with multifocal severe narrowing, but patent at the ankle R. Peroneal artery: no significant stenosis R. Dorsalis pedis artery: no significant stenosis R. Plantar artery: no significant stenosis Left Lower Extremity: L. Common femoral artery: Severe near complete occlusion of the distal common femoral L. Profunda femoris artery: Severe narrowing proximally, patent distally L. Superficial femoral artery: Severe narrowing at the origin with multifocal moderate-severe narrowing distally L. Popliteal artery: Multifocal narrowing, up to severe L. Anterior tibial artery: Severe narrowing at the origin, patent distally L. Tibioperoneal trunk: Mild stenosis L. Posterior tibial artery: Occluded proximally with distal reconstitution with multifocal moderate stenosis. Severe stenosis/occlusion at the ankle L. Peroneal artery: Multifocal mild-moderate stenosis, patent at the ankle L. Dorsalis pedis artery: no significant stenosis L. Plantar artery: Multifocal narrowing NON-VASCULAR FINDINGS: Minimal left basilar atelectasis. No pleural effusion. Normal heart size and no pericardial effusion. Liver surface nodularity suggestive of fibrosis. The gallbladder is normal. No biliary duct dilation. Pancreas, spleen, adrenal glands are normal. Kidneys enhance symmetrically with no hydronephrosis. Urinary bladder is normal. Brachytherapy seeds are present prostate. Colonic diverticulosis is noted without evidence of diverticulitis. The appendix, small bowel, and stomach are normal. No abdominal or pelvic lymphadenopathy. No intra-abdominal free air or free fluid. Lower extremity soft tissues are normal. No suspicious osseous lesion. IMPRESSION: 1. Right lower extremity: Patent right superficial femoral artery stent and patent but severely narrowed popliteal artery stent. Additional multifocal disease throughout the lower extremity. There is three-vessel arterial inflow at the level of the ankle, though note is made of an occluded proximal posterior tibial artery with distal reconstitution. 2. Left lower extremity: Severe inflow disease with severe stenosis of the proximal external iliac artery and common femoral artery which is nearly occluded and multifocal severe stenosis throughout the left lower extremity. There is three vessel arterial inflow at the level of the ankle, though the distal posterior tibial/proximal plantar artery demonstrates severe stenosis/occlusion. Dictated by: Cuauhtemoc Landa MD, PHD The radiology attending physician has personally reviewed this study, and had reviewed and/or edited this written report and agrees with it. Electronically signed by: Jodi Gregory M.D. Dimitrios Mccrary MD IM CT PROCEDURES Final Result * PSA, total and free (04/13/2023 12:18 PM LOADING SHOVEL OILER) PSA-free <0.1 ng/mL [facility] PSA-Total <0.10 <=4.5 ng/mL [facility] PSA-Free/Total Ratio See Footnote [facility] Comment: Ratio was not calculated because free PSA is less than 0.1 ng/mL. Ratio not calculated because clinical usefulness is not defined except in range of total PSA 4.0-10.0 ng/mL. ADDITIONAL INFORMATION The testing method is an electrochemiluminescence assay manufactured by [employer] and performed on the Modular or Senia system. Values obtained with different assay methods or kits may be different and cannot be used interchangeably. Test results cannot be interpreted as absolute evidence for the presence or absence of malignant disease. Test Performed by: [facility] [address] [place] [address] Brimming Machine Operator: Goyo Ramirez M.D. Ph.D.; CLIA# [id number] Blood 04/13/2023 12:1 8 PM LO[employer]ING [employer]EL [employer]ILER 04/13/2023 12:18 PM LOADING SHOVEL OILER us Jay Bolanos MD PhD LAB BLOOD ORDERABLE S Final Result [facility] [address] Department [place] [address] from Last 3 Months or Most Recently Relevant to Health Maintenance Insurance [facility] CHOICE PLUS MEDICARE [facility] MEDICARE [facility] Advance Directives For more information, please contact: [phone] * Full Code (Latest Code Status on File) Date Activated Date Inactivated Comments 07/01/2024 8:43 PM 07/02/2024 3:04 PM * Full Code Date Activated Date Inactivated Comments 04/30/2024 3:06 PM 05/03/2024 6:15 PM * Full Code Date Activated Date Inactivated Comments 11/09/2023 8:17 PM 11/11/2023 5:13 PM * Full Code Date Activated Date Inactivated Comments 10/31/2023 10:09 PM 11/01/2023 5:07 PM * Full Code Date Activated Date Inactivated Comments 05/09/2023 6:04 PM 05/10/2023 5:52 PM Care Teams Outside Sales Consultant Relationship Specialty [place] [id number] [facility] [address] [place] [address] PCP - General Family Practice 12/18/21 Dev Burrell MD [address] [place] [address] Consulting Physician Radiation Oncology 04/24/18 [place] [address] [address] Urology 04/24/18 [place] [address] [place] [address] Urology 04/24/18 [place] [address] [facility] [address] [place] [address] Consulting Physician Urology 04/13/23 Dimitrios Mccrary MD [address] [facility] [address] [place] [address] Surgeon Vascular Surgery 11/01/23
--- OUTSIDE RECORDS SUMMARY | 2024-07-03 05:49 | XMS_ITS | Clinical Summary ---
Author Organization [facility] System Address [address] [place] [address] Care Team Providers Care Dive Master Name Role Phone Nacho Mcghee MD Primary Care Provider [phone] Allergies No known active allergies Medications ONETOUCH VERIO test strip Use as directed 06/11/2018 Active sildenafil (VIAGRA) 100 MG tabletIndicatio ns:Male erectile disorder of organic origin Take 1 tablet (100 mg total) by mouth daily as needed for Erectile Dysfunction. 30 tablet 5 04/13/2021 Active aspirin EC (ECOTRIN) 81 MG tablet Take 1 tablet (81 mg total) by mouth daily. Active cilostazol 50 MG tablet Take 1 tablet (50 mg total) by mouth every 12 (twelve) hours. Active gabapentin 300 MG capsule Take 1 capsule (300 mg total) by mouth daily. 07/06/2021 Active meloxicam (MOBIC) 15 MG tablet 09/20/2021 Active LORazepam (ATIVAN) 1 MG tablet TAKE 1 TABLET BY MOUTH 1 HOUR BEFORE MRI DIRECTED 11/06/2023 Active clopidogrel (PLAVIX) 75 MG tablet Take 1 tablet (75 mg total) by mouth daily. 11/02/2023 11/02/19 25 Active glipiZIDE XL (GLUCOTROL XL) 10 MG 24 hr tabletIndicatio ns:Type 2 diabetes mellitus with hyperglycemia, without long-term current use of insulin (CMS/HCC HHS/HCC) TAKE 1 TABLET DAILY WITH BREAKFAST, DO NOT BREAK OR CRUSH TABLET 90 tablet 1 12/13/2023 Active metFORMIN (GLUCOPHAGE) 500 MG tabletIndicatio ns:Type 2 diabetes mellitus with hyperglycemia, without long-term current use of insulin ([facility]) TAKE 2 TABLETS TWICE A DAY WITH MEALS 360 tablet 3 03/02/2024 Active ondansetron (ZOFRAN) 4 MG tablet TAKE 1-2 TABLETS BY MOUTH EVERY 6 HOURS NEEDED FOR NAUSEA OR VOMITING 01/05/2024 Active hyoscyamine (LEVSIN/SL) 0.125 MG SL tablet DISSOLVE 1 TABLET UNDER THE TONGUE EVERY 4 HOURS NEEDED FOR CRAMPING 01/05/2024 Active HYDROcodone-jamie taminophen (NORCO) 5-325 MG tablet TAKE 1-2 TABLETS BY MOUTH EVERY 6 HOURS NEEDED FOR PAIN 01/05/2024 Active Active Problems Problem Noted Date Diagnosed Date Stricture of 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 Atherosclerosis of [place] of right lower extremity with intermittent claudication 04/08/2023 Lesion of right ulnar nerve 08/15/2021 Overview (02/27/2022): Added automatically from request for surgery [id number] Carpal tunnel syndrome on left 07/21/2021 Overview (02/27/2022): Added automatically from request for surgery [id number] Cubital tunnel syndrome on left 07/21/2021 Overview (02/27/2022): Added automatically from request for surgery [id number] Vascular disease 06/25/2021 Claudication of both lower extremities 2 Abnormal ankle brachial index (SHEEBA) 05/24/2021 History of prostate cancer 09/30/2020 Chronic left shoulder pain 09/30/2020 Diabetic peripheral neuropathy ([facility]) 06/08/2019 Type 2 diabetes mellitus wit h hyperglycemia, without long-term current use of insulin ([facility]) 06/08/2019 BMI 26.0-26.9,adult 10/13/2015 Overview (08/27/2018): Transitioned From: BMI 29.0-29.9,adult Medication management 10/13/2015 Overview (08/27/2018): Transitioned From: skilled nursing use of drug Lipoma of left lower extremity 03/16/2015 Osteopenia 03/23/2013 Male erectile disorder of organic origin 013 Essential hypertension 05/05/2012 Hypertriglyceridemia 03/18/2012 Resolved Problems Problem Noted Date Diagnosed Date Resolved Date Prostate cancer ([facility]) 10/30/2013 09/30/2020 Encounters Date Type Department Care Team Description 06/29/2024 Scan Cardia INFO SRVCS Scanned, Doc Med Group 06/26/2024 11:14 AM BLENDER MACHINE OPERATOR - 06/26/2024 11:59 PM [facility] Hospital Encounter [facility] [address] [place] [address] Christy Macdonald NP Discharge Disposition: Home or Self Care (Routine Discharge) 06/26/2024 Orders Only [facility] [address] [place] [address] Christy Macdonald NP 06/26/2024 Travel 06/01/2024 Telephone [facility] Family & Internal Medicine [facility] [address] [place] [address] Nacho Mcghee MD Forms (Parking placard) 05/14/2024 Telephone [facility] Family & Internal Medicine [facility] [id number] [place] [phone] Nacho Mcghee MD Concerns 05/12/2024 1:50 PM BLENDER MACHINE OPERATOR - 05/12/2024 11:59 PM BLENDER MACHINE OPERATOR Hospital Encounter [facility] [address] [place] [address] Mary Anne Rodriguez MD Discharge Disposition: Home or Self Care (Routine Discharge) 05/12/2024 Orders Only [facility] [address] [place] [address] Mary Anne Rodriguez MD 05/12/2024 Travel 05/03/2024 Scan [facility] HE[facility] INFO SRVCS Scanned, Doc Med Group 04/30/2024 Scan [facility] INFO SRVCS Scanned, Doc Med Group Pathology (SCAN) 04/13/2024 4:00 PM BLENDER MACHINE OPERATOR Office Visit [facility] Family & Internal Medicine [address] [phone] Nacho Mcghee MD ER F/U (He has been in a hyperbaric chamber 5 days a week for 2 hours each day due to chronic hematuria and left lower extremity decreased circulation then pt felt very dizzy ) 04/13/2024 Scan [facility] INFO SRVCS Scanned, Doc Med Group 04/13/2024 Travel 04/07/2024 Scan [facility]ALTH INFO SRVCS Scanned, Doc Med Group from Last 3 Months Immunizations Name Administration Dates Next Due Influenza Adult (Generic) 03/01/2022 Pneumococcal (Prevnar 13) 01/12/2021 Tdap (Adacel) 01/12/2021 Family History Medical History Relation Comments No Known Problems Father Diabetes Mother None Mother Relation Status Comments Father Alive Mother Social History Tobacco Use Types Packs/Day Years Used Date Smoking Tobacco: Never Cigarettes 1 30 Smokeless Tobacco: Never Tobacco Cessation:Counseling Given: No Alcohol Use Standard Drinks/Week Comments Yes 0 (1 standard drink = 0.6 oz pur e alcohol) socially AUDIT-C Answer Date Recorded Frequency of Alcohol Consumption Never 01/06/2019 Average Number of Drinks Not on file 019 Frequency of Binge Drinking Not on file 07/2018 PHQ-2 Answer Date Recorded PHQ-2 Score - If the patient scores above 3, please move on to questions 3-9 0 08/18/2021 Sex and Gender Information Value Date Recorded Sex Assigned at Male 08/12/2023 8:04 AM CDT Legal Sex Male 1:42 AM CDT Gender Identity Male 08/12/2023 8:04 AM CDT Sexual Orientation Not on file Last Filed Vital Signs Vital Sign Reading Time Taken Comments Blood Pressure 158/78 04/13/2024 4:01 PM BLENDER MACHINE OPERATOR Pulse 91 04/13/2024 4:01 PM BLENDER MACHINE OPERATOR Temperature 36.6 C (97.8 F) 04/13/2024 4:01 PM BLENDER MACHINE OPERATOR Respiratory Rate 16 04/13/2024 4:01 PM BLENDER MACHINE OPERATOR Oxygen Saturation 100% 04/13/2024 4:01 PM BLENDER MACHINE OPERATOR Inhaled Oxygen Concentration - - Weight 78.5 kg (173 lb) 04/13/2024 4:01 PM BLENDER MACHINE OPERATOR Height 171.5 cm (5' 7.5 ) 04/13/2024 4:01 PM BLENDER MACHINE OPERATOR Body Mass Index 26.7 04/13/2024 4:01 PM BLENDER MACHINE OPERATOR Plan of Treatment Health Maintenance Due Date Last Done Comments ASCVD Statin 1958 Kidney Health Evaluation 1960 Diabetes: Retinopathy Eye Exam 1976 Hepatitis C 1976 Zoster Vaccines (1 of 2) 2008 RSV Immunization or 60+ Years (1 - Risk 60-74 years 1-dose series) 2018 Pneumococcal Vaccine: 65+ Years (2 of 2 - PPSV23 or PCV20) 03/09/2021 01/12/2021 Pneumococcal Vaccine: Pediatrics (0 to 5 Years) and At-Risk Patients (6 to 64 Years) (2 of 2 - PPSV23 or PCV20) 03/09/2021 01/12/2021 ASCVD LDL 02/27/2023 02/27/2022, 05/2 05/2020, 10/10/2015 Lipid Panel 02/27/2023 02/27/2022, 2020 COVID-19 Vaccine ( season) 2024 03/27/2021, 07/22/2020, 07/01/2020 Influenza Adult (#1) 2024 03/01/2022 PHQ-2 (Physician [place]) 05/06/2024 Hemoglobin A1C 12/20/2024 06/22/2024, 12/0 09/2023, 12/05/2023, Additional history exists Colorectal Cancer Screening Colonoscopy (10 Years) 11/12/2029 11/13/2019, 11/13/2019 DTaP, Tdap and Td Vaccines (2 - Td or Tdap) 01/12/2031 01/12/2021 Meningococcal B Vaccine Aged Out No l onger eligible based on patient's age to complete this topic Meningococcal Vaccine Aged Out No shade jessica eligible based on patient's age to complete this topic RSV Immunizations Under 20 Months Aged Out No longer eligible based on patient's age to complete this topic Procedures Procedure Name Priority Date/Time Associated Diagnosis Comments BASIC METABOLIC PANEL Routine 06/26/2024 11:20 AM BLENDER MACHINE OPERATOR Preop examination URINE BACTERIA CULTURE Routine 05/12/2024 2:10 PM BLENDER MACHINE OPERATOR Urinary frequency URINALYSIS MICRO ONLY Routine 05/12/2024 2:10 PM BLENDER MACHINE OPERATOR HC URINALYSIS AUTO W/O MICRO Routine 05/12/2024 2:10 PM BLENDER MACHINE OPERATOR PATHOLOGY GENERIC (SCAN ORDER) 04/30/2024 HEMOGLOBIN, GLYCOSYLATED Routine 12/05/2023 Type 2 diabetes mellitus with hyperglycemia, without long-term current use of insulin ([facility]) LIPID PANEL Routine 02/27/2022 9:40 AM CDT Hypertriglyceridemia Essential hypertension COLONOSCOPY GENERIC (SCAN ORDER) Routine 11/13/2019 from Last 3 Months or Most Recently Relevant to Health Maintenance Results * (ABNORMAL) BASIC METABOLIC PANEL (06/26/2024 11:20 AM BLENDER MACHINE OPERATOR) GLUCOSE 194(H) 70 - 99 MG/DL 06/26/2024 11:54 AM BLENDER MACHINE OPERATOR [facility] BUN 22(H) 7 - 18 MG/DL 06/26/2024 11:54 AM [facility] CREATININE S/P/B 1.08 0.7 - 1.3 MG/DL 06/26/2024 11:54 AM [facility] SODIUM S/P/B 140 136 - 145 MMOL/L 06/26/2024 11:54 AM [facility] POTASSIUM S/P/B 4.6 3.5 - 5.1 MMOL/L 06/26/2024 11:54 AM [facility] CHLORIDE S/P/B 102 100 - 108 MMOL/L 06/26/2024 11:54 AM [facility] CO2 26.8 21 - 32 MMOL/L 06/26/2024 11:54 AM [facility] CALCIUM S/P/B 9.6 8.5 - 10.1 MG/DL 06/26/2024 11:54 AM [facility] ANION GAP 11.2 5 - 15 MMOL/L 06/26/2024 11:54 AM [facility] BUN CREATININE RATIO 20.4 6 - 26 06/26/2024 11:54 AM [facility] GFR ESTIMATE 76(L) >90 ML/MIN/1.7 3 M2 06/26/2024 11:54 AM [facility] Comment: NOTE: eGFR is not calculated for patients <18 years of age. This is an estimated GFR calculation using the new CKD EPI creatinine equation without race and so does not require a correction factor for race. This estimated GFR should not be used for calculating drug doses. 06/26/2024 11:2 0 AM [facility] us Christy Macdonald NP LABORATORY Final Result [facility] [address] [place] [address], [place] [phone] * (ABNORMAL) URINALYSIS (05/12/2024 2:10 PM BLENDER MACHINE OPERATOR) COLOR (U) YELLOW 05/13/2024 9:31 AM [facility] TRANSPARENCY HAZY 05/13/2024 9:31 AM [facility] SPECIFIC GRAVITY (U) 1.020 1.000 - 1.030 05/13/2024 9:31 AM [facility] U PH 7.0 5.0 - 9.0 05/13/2024 9:31 AM [facility] LEUKOCYTES (U) NEGATIVE NEGATIVE 05/13/2024 9:31 AM [facility] NITRITES NEGATIVE NEGATIVE 05/13/2024 9:31 AM [facility] PROTEIN RANDOM (U) TRACE(A) NEGATIVE 05/13/2024 9:31 AM [facility] GLUCOSE (U) 3+(A) NEGATIVE 05/13/2024 9:31 AM [facility] KETONES MG/DL (U) NEGATIVE NEGATIVE 05/13/2024 9:31 AM [facility] BILIRUBIN (U) NEGATIVE NEGATIVE 05/13/2024 9:31 AM [facility] BLOOD (U) 1+(A) NEGATIVE 05/13/2024 9:31 AM [facility] 05/12/2024 2:10 PM BLENDER MACHINE OPERATOR us Mary Anne Rodriguez MD URINE ORDERABLES Final Result [facility] [address] [place] [address], [place] [phone] * (ABNORMAL) URINE BACTERIA CULTURE (05/12/2024 2:10 PM BLENDER MACHINE OPERATOR) SPEC DESCRIPTION URINE, UNSPECIFIED 05/12/2024 2:18 PM BLENDER MACHINE OPERATOR [facility] SPECIAL REQUESTS NO SPECIAL REQUEST 05/12/2024 2:18 PM BLENDER MACHINE OPERATOR [facility] CULTURE RESULT >100,000 COL/ML STAPHYLOCOCCUS SAPROPHYTICUS : STAPHYLOCOCCUS SAPROPHYTICUS URINE ISOLATES TYPICALLY RESPOND TO CONCENTRATIONS ACHIEVED IN URINE OF ANTIMICROBIAL AGENTS COMMONLY USED TO TREAT UNCOMPLICATED URINARY TRACT INFECTIONS SUCH NITROFURANTOIN, TRIMETH/SULFA, OR A FLUOROQUINOLONE. SUSCEPTIBILITIES ARE NOT ROUTINELY PERFORMED. (A) 05/15/2024 8:05 AM BLENDER MACHINE OPERATOR [facility] URINE SPECIMEN / Unknown 05/12/2024 2:10 PM BLENDER MACHINE OPERATOR 05/12/2024 2:28 PM BLENDER MACHINE OPERATOR Mary Anne Rodriguez MD MICROBIOLOGY - GENERAL ORDERABLE S Final Result [facility] [address] [place] [address], [place] [phone] [facility] [address] [place] [address], [place] [phone] * URINALYSIS MICRO ONLY (05/12/2024 2:10 PM BLENDER MACHINE OPERATOR) WBC/HPF 0-5 0 - 5 /HPF 05/13/2024 9:31 AM BLENDER MACHINE OPERATOR [facility] RBC/HPF 0-5 0 - 5 /HPF 05/13/2024 9:31 AM BLENDER MACHINE OPERATOR [facility] EPI/HPF FEW /HPF 05/13/2024 9:31 AM BLENDER MACHINE OPERATOR [facility] CRYSTALS (U) MODERATE /HPF 05/13/2024 9:31 AM BLENDER MACHINE OPERATOR [facility] Comment:AMORPHOUS MATERIAL 05/12/2024 2:10 PM BLENDER MACHINE OPERATOR us Mary Anne Rodriguez MD URINE ORDERABLES Final Result [facility] () [facility] [address] [place] [address], * PATHOLOGY GENERIC (SCAN ORDER) (04/30/2024) 04/30/2024 us Doc Med Group Scanned SCANNING Final Resu lt * (ABNORMAL) LIPID PANEL (02/27/2022 9:40 AM CDT) CHOLESTEROL 178 <200 mg/dL [facility] HDL 31(L) > OR = 40 mg/dL [facility] TRIGLYCERIDES 289(H) <150 mg/dL [facility] Comment: If a non-fasting specimen was collected, consider repeat triglyceride testing on a fasting specimen if clinically indicated. Merissa et al. J. of Clin. Lipidol. 2015;9:129-169. LDL (CALCULATED) 106(H) mg/dL (calc) [facility] Comment: Reference range: <100 Desirable range <100 mg/dL for primary prevention; <70 mg/dL for patients with CHD or diabetic patients with > or = 2 CHD risk factors. LDL-C is now calculated using the Ulisses-Owens calculation, which is a validated novel method providing better accuracy than the Friedewald equation in the estimation of LDL-C. Ulisses SS et al. HUDSON. 2013;310(19): 3194-5890 (http://education.[employer]/faq/OYY480) CHOL/HDL RATIO 5.7(H) <5.0 (calc) [facility] NON HDL CHOLESTEROL 147(H) <130 mg/dL (calc) [facility] Comment: For patients with diabetes plus 1 major ASCVD risk factor, treating to a non-HDL-C goal of <100 mg/dL (LDL-C of <70 mg/dL) is considered a therapeutic option. 02/27/2022 9:40 AM CDT 02/28/2022 7:11 AM CDT us Nacho Mcghee MD LABORATORY Final Resul t [facility] [address] [phone] * COLONOSCOPY (11/13/2019) us Documents Scanned SCANNING Final Result [facility] from Last 3 Months or Most Recently Relevant to Health Maintenance Insurance [facility] Care Teams Dive Master Relationship Specialty [place] [address] [place] [address] PCP - General FAMILY PRACTICE 08/18/21
--- OUTSIDE RECORDS SUMMARY | 2024-07-03 05:49 | XMS_ITS | Encounter Summary ---
Author Organization [facility] Address [address] [place] [address] Care Team Providers Care Laborer Car Barn Name Role Phone Nacho Mcghee MD Primary Care Provider [phone] Encounter Details Date Type Department Care Team (Latest Contact Info) Description 06/29/2024 Scan [facility] HEALTH INFO SRVCS Scanned, Doc Med Group Social History Tobacco Use Types Packs/Day Years Used Date Smoking Tobacco: Never Cigarettes 1 30 Smokeless Tobacco: Never Alcohol Use Standard Drinks/Week Comments Yes 0 [...] AM CDT Sexual Orientation Not on file documented as of this encounter Plan of Treatment Not on file documented as of this encounter Visit Diagnoses Not on filedocumented in this encounter Care Teams Laborer Car Barn Relationship Specialty [place] [address] [place] [address] PCP - General FAMILY PRACTICE 08/18/21 documented as of this encounter
--- OUTSIDE RECORDS SUMMARY | 2024-07-03 05:49 | XMS_ITS | Encounter Summary ---
Author Organization [facility] Address [address] [place] [address] Phone Care Team Providers Care Telephone Switchboard Operator Name Role Phone Dev Burrell MD Unavailable Phillip Schafer MD Unavailable [phone] Star Ellis MD Unavailable [phone] Nacho Mcghee MD Primary Care Provider [phone] Mary Anne Rodriguez MD Unavailable [phone] Dimitrios Mccrary MD Unavailable [phone] Encounter Details Date Type Department Care Team (Late st Contact Info) Description 07/02/[address] [facility] [address] [place] [phone] Dimitrios Mccrary MD [address] [place] [address] Social History Tobacco Use Types Packs/Day Years Used Date Smoking Tobacco: Former Cigarettes 2 57.2 S tarted: 1968 Passive Smoke Exposure: Past Smokeless Tobacco: Never Comments:Over 20 years ago Alcohol Use Standard Drinks/Week Comments No 0 (1 standard drink = 0.6 oz pur e alcohol) [facility] Utilities Answer Date Recorded In the past [...] often do you attend chur ch or denominational services? More than 4 times per year 05/01/2024 Do you belong to any clubs o r organizations such as scientologist groups, unions, fraternal or athletic groups, or [...] time in the past 12 m [facility], were you homeless or living in a alf (including now)? No 05/01/2024 Personal Safety Answer Date Recorded Have you ever been in or are you currently in a harmful physical or emotional relationship or is someone making you feel afraid or unsafe? Denies 07/01/2024 Sex and Gender Information Value Date Recorded Sex Assigned at Not on file Legal Sex Male 2:12 AM CHEMICAL PROCESS OPERATOR Gender Identity Not on file Sexual Orientation Not on file documented as of this encounter Miscellaneous Notes * Telephone Encounter - Jolynn Herreramonse - 07/02/2024 10:53 AM CST Received call from pt to schedule POV. She can be reached at [phone]. ICAL PROCESS OPERATOR documented in this encounter Plan of Treatment Not on file documented as of this encounter Visit Diagnoses Not on filedocumented in this encounter Care Teams Telephone Switchboard Operator Relationship Specialty [place] [address] [address] PCP - General Family Practice 12/18/21 Dev Burrell MD [address] [place] [address] Consulting Physician Radiation Oncology 04/24/18 [place] [address] [place] [address] Urology 04/24/18 [place] [address] [place] [address] Urology 04/24/18 [place] [address] [place] [address] Consulting Physician Urology 04/13/23 Dimitrios Mccrary MD [address] [place] [address] Surgeon Vascular Surgery 11/01/23 documented as of this encounter
--- OUTSIDE RECORDS SUMMARY | 2024-07-03 05:49 | XMS_ITS ---
Author Organization [facility] Address [address] [place] [address] Care Team Providers Care Cork Molder Name Role Phone Dev Burrell MD Unavailable Phillip Schafer MD Unavailable [phone] Star Ellis MD Unavailable [phone] Nacho Mcghee MD Primary Care Provider [phone] Mary Anne Rodriguez MD Unavailable [phone] Dimitrios Mccrary MD Unavailable [phone] Active Problems Problem Noted Date Diagnosed Date Dizziness 04/07/2024 Episode of hypertension 04/07/2024 Urine leukocytes 04/07/2024 Atherosclerosis of [place] of left lower extremity with intermittent claudication 03/26/2024 Preop examination 03/25/2024 Cystitis 01/04/2024 Hematuria 11/09/2023 History of prostate cancer 11/09/2023 Urinary retention 11/09/2023 Stricture of bulbous urethra in male 07/08/2023 Perineal lump 05/08/2023 Microscopic hematuria 05/08/2023 Claudication of lower extremity 04/08/2023 Assessment & Plan (03/25/2024 9:38 AM HYDRO EXCAVATION OPERATOR): Debilitating left calf claudication with evidence of [...] his Mat[place] catheter as needed. Atherosclerosis of [place] of both lower extremities with [...] risk of limb loss and need for terminal supervisor follow-up. Assessment & Plan (06/17/2024 11:05 AM HYDRO EXCAVATION OPERATOR): He has a progressive right in-stent popliteal [...] risk of limb loss and need for terminal supervisor follow-up. He understands the potential need for lifelong Plavix therapy if stents are placed. Assessment & Plan (04/08/2023 12:58 PM HYDRO EXCAVATION OPERATOR): He has debilitating bilateral calf claudication and [...] risk of limb loss and need for terminal supervisor follow-up. Atherosclerosis of [place] of right lower extremity with intermittent claudication 04/08/2023 Carpal tunnel syndrome on right 08/15/2021 Overview (08/15/2021): Added automatically from request for surgery [id number] Lesion of right ulnar nerve 08/15/2021 Overview (08/15/2021): Added automatically from request for surgery [id number] Cubital tunnel syndrome on left 07/21/2021 Overview (07/21/2021): Added automatically from request for surgery [id number] Carpal tunnel syndrome on left 07/21/2021 Overview (07/21/2021): Added automatically from request for surgery [id number] Vascular disease 06/25/2021 Overweight with body mass index (BMI) 25.0-29.9 10/13/2015 Type 2 diabetes mellitus wit hout complication, without long-term current use of insulin ([facility]) 07/11/2011 Overview (09/11/2023): DMII WO CMP UNCNTRLD Prostate cancer 01/26/2009 Cancer Staging:Clinical stage from 01/26/2009:Stage III(T3a, N0, M0, G3-G4) - Signed by Dev Burrell MD on 04/23/2018 Current Treatment and Therapy Plans No current plan information found. Past Treatment and Therapy Plans No past plan information found. Radiation Treatments * Course MOBAP_MQ 04/13/2017 - 04/13/2017 Treatment Period Energy Fraction Dose Fractions Total Dose Plans Planned Prostate+sv 04/13/2017 - 04/13/2017 400 20 / 8,000 Reference Points Delivered MQ_Prostate+sv 04/13/2017 - 04/13/2017 4,000 Lifetime Dose Tracking * Chemical Lifetime Dose Automatic Entry Manual Entr y Fluoro Time 40.883 minutes 40.883 minutes 0 minutes Air kerma at the reference point (Ka,r) 1,463.566 mGy 1,463.566 mGy 0 mGy
--- OUTSIDE RECORDS SUMMARY | 2024-07-03 05:50 | XMS_ITS | Encounter Summary ---
Author Organization [facility] Healthcare Address [address] [place] [address] Care Team Providers Care Migration Specialist Name Role Phone Dev Burrell MD Unavailable [phone] Phillip Schafer MD Unavailable [phone] Star Ellis MD Unavailable [phone] Nacho Mcghee MD Primary Care Provider [phone] Mary Anne Rodriguez MD Unavailable [phone] Dimitrios Mccrary MD Unavailable [phone] Reason for Visit * Auth/Cert (Routine) Specialty Diagnoses / Procedures Referred By Judah martinez Referred To Contact Diagnoses 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 (HCC) [I70.211] Procedures MI REVSC OPN/PRQ FEM/POP W/STNT/ANGIOP SM VSL CHG ANGIOGRAPHY EXTREMITY UNILATERAL RS&I AIF Angiograma, possible Right Leg Intervention Referral ID Status Reason Start Date Expiration Date Visits Re quested Visits Authorized [id number] 1 1 Encounter Details Date Type Department Care Team (Latest Contact Info) Description 07/01/2024 1:11 PM ANALYTICAL RESEARCH CHEMIST - 07/02/2024 10:58 AM ANALYTICAL RESEARCH CHEMIST Hospital Encounter [id number] [place] [address] Dimitrios Mccrary MD [address] [place] [address] 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 More than 4 times per year 05/01/2024 Do you belong to any clubs o r organizations such as faith groups, unions, fraternal or athletic groups, or [...] any time in the past 12 m [facility], were you homeless or living in a chcf (including now)? No 05/01/2024 Personal Safety Answer Date Recorded Have you ever been in or are you currently in a harmful physical or emotional relationship or is someone making you feel afraid or unsafe? Denies 07/01/2024 Sex and Gender Information Value Date Recorded Sex Assigned at Not on file Legal Sex Male 2:12 AM ANALYTICAL RESEARCH CHEMIST Gender Identity Not on file Sexual Orientation Not on file documented as of this encounter Last Filed Vital Signs Vital Sign Reading Time Taken Comments Blood Pressure 162/87 07/02/2024 8:27 AM ANALYTICAL RESEARCH CHEMIST Pulse 72 07/02/2024 8:27 AM ANALYTICAL RESEARCH CHEMIST Temperature 36.2 C (97.1 F) 07/02/2024 8:27 AM ANALYTICAL RESEARCH CHEMIST Respiratory Rate 15 07/02/2024 8:27 AM ANALYTICAL RESEARCH CHEMIST Oxygen Saturation 98% 07/02/2024 8:27 AM ANALYTICAL RESEARCH CHEMIST Inhaled Oxygen Concentration - - Weight 78.6 kg (173 lb 4.5 oz) 07/01/2024 1:20 P M ANALYTICAL RESEARCH CHEMIST Height 170.2 cm (5' 7 ) 07/01/2024 1:20 PM ANALYTICAL RESEARCH CHEMIST Body Mass Index 27.14 07/01/2024 1:20 PM ANALYTICAL RESEARCH CHEMIST documented in this encounter Functional Status * Audit-C Score Answer Date of Assessment Author 2 06/22/2024 12:41 PM ANALYTICAL RESEARCH CHEMIST Angelina Azevedo RN * Question Answer Date of Assessment Author Q1: How often do you have a drink containing alcohol? 2-4 times a month 06/22/2024 12:41 PM Angelina Smith RN Q2: How many drinks containing alcohol do you have on a typical day when you are drinking? 1 or 2 06/22/2024 12:41 PM Angelina Smith RN Q3: How often do you have six or more drinks on one occasion? Never 06/22/2024 12:41 PM Angelina Smith RN documented as of this encounter Discharge Summaries * Azalea Kim PA - 07/02/2024 10:58 AM CST Inpatient Discharge Summary BRIEF OVERVIEW Admitting Provider: Dimitrios Mccrary MD Discharge Provider: No att. 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 DETAILS OF HOSPITAL STAY Presenting Problem/History of Present Illness: Patient is a 63 y.o. male patient of Nacho Mcghee MD He is status post left femoral endarterectomy and left iliac artery stent performed on April 30, 2024. He's had prior angioplasty and stent right superficial femoral artery and popliteal artery performed on October 31, 2023. He describes progressive right calf claudication occurring over the past month or so. He denies left leg symptoms. He remains on DAPT. Hospital Course: On 07/01/2024, Nacho underwent an AIF with right leg Runoff and Angioplasty of right popliteal artery with 4 mm standard balloon followed by 4 mm paclitaxel balloon with Dr. Dimitrios Mccrary. For further details, see operative report. Patient tolerated procedure well without complications and was taken to the surgical floor for recovery in stable condition. Patient remained hemodynamically and neurologically stable throughout admission. On 07/02/24, pt was ready/appropriate for discharge home. Groin was soft, incision(s) was/were clean, dry, and intact. Wound care instructions are listed below. Pain was well controlled. Patient's diet was advanced and they were tolerating regular diet prior to dis charge. Patient was ambulating independently, and voiding spontaneously prior to discharge. Remainder of hospital course was uneventful. Patient was discharged with instructions to follow up with surgeon in 2-3 weeks for postoperative check. Active Issues Requiring Follow-up: None Test Results Pending at Discharge: None Operative Procedures Performed: Procedure(s): AIF Angiogram, Right Leg Run off, Angioplasty Right Popliteal Artery Other Procedures: None Pertinent Test Results: None Discharge Details Physical Exam at Discharge: Discharge Condition: good Pulse: 72 Resp: 15 BP: 162/87 Temp: 36.2 ??C (97.1 ??F) Weight: 78.6 kg (173 lb 4.5 oz) Pertinent Exam Findings at Discharge: Physical Exam Constitutional: Appearance: Normal appearance. HENT: Head: Normocephalic and atraumatic. Eyes: Pupils: Pupils are equal, round, and reactive to light. Cardiovascular: Rate and Rhythm: Normal rate and regular rhythm. Pulmonary: Effort: Pulmonary effort is normal. Breath sounds: Normal breath sounds. Abdominal: General: Abdomen is flat. Palpations: Abdomen is soft. Musculoskeletal: Cervical back: Normal range of motion and neck supple. Skin: General: Skin is warm and dry. Comments: Groin puncture wound covered in clean and dry dressing. Neurological: General: No focal deficit present. Mental Status: He is alert and oriented to person, place, and time. Discharge Disposition: Discharge to home or self care Code Status at Discharge: Full Discharge Instructions: Activity Instructions Discharge Activity: Driving restrictions -Do not drive for 2 weeks until after follow up appointment with Dr. Mccrary Discharge Activity: Walking -You may walk as tolerated and climb stairs. Diet Instructions Adult Discharge Diet Diet Type: Return to previous diet Other Instructions Call provider for: Peripheral Interventions -You see any new blood on your bandage. Your groin puncture opens or has a steady stream of blood coming from it. If any of these things happen, lie down, put pressure on the site, and get help IMMEDIATELY -You have a lot of pain under your bandage, in your abdomen or in your back -Your foot becomes cold, numb or weak. Your foot changes color or tingles -Your leg becomes swollen, red, and painful -You have trouble breathing all of a sudden -You have a temperature greater than 101 degrees F Post-Discharge Dressing Care - You make shower, but please keep incision dry for 3 days. Post-Discharge Dressing Care -You may leave your incision open to air Discharge Medications: Current Medications TAKE these medications aspirin 81 mg enteric coated tablet Take 1 tablet (81 mg total) by mouth nightly cilostazoL 100 mg tablet Take 1 tablet (100 mg total) by mouth 2 (two) times a day For: intermittent claudication, a painful and temporary blockage of blood vessels Commonly known as: PLETAL ciprofloxacin 500 mg tablet Take 1 tablet (500 mg total) by mouth 2 (two) times a day Commonly known as: CIPRO clopidogreL 75 mg tablet Take 1 tablet (75 mg total) by mouth every morning Commonly known as: PLAVIX gabapentin 300 mg capsule Take 1 capsule (300 mg total) by mouth nightly Commonly known as: NEURONTIN glipiZIDE 10 mg tablet Take 1 tablet (10 mg total) by mouth every morning For: type 2 diabetes mellitus Commonly known as: GLUCOTROL metFORMIN 500 mg tablet Take 2 tablets (1,000 mg total) by mouth 2 (two) times a day with meals Commonly known as: GLUCOPHAGE tamsulosin 0.4 mg extended release capsule Take 1 capsule (0.4 mg total) by mouth nightly Commonly known as: FLOMAX Outpatient Follow-Up: Contact Information for Follow-ups Dimitrios Mccrary MD Specialty: Vascular Surgery, General Surgery Relationship: Surgeon [address] [address] Next Steps: Follow up Instructions: Follow up with Dr. Mccrary in 2-3 weeks, please call [phone] to make an appointment. Questions: Instructions for follow-up (appointment date and time): Follow up with Dr. Mccrary in 2-3 weeks, please call [phone] to make an appointment. To provider: DIMITRIOS MCCRARY YTICAL RESEARCH CHEMIST documented in this encounter Medications at Time of Discharge aspirin 81 mg enteric coated tablet Take 1 tablet (81 mg total) by mouth nightly cilostazoL (PLETAL) 100 mg tabletIndications: Intermittent Claudication Take 1 tablet (100 mg total) by mouth 2 (two) times a day ciprofloxacin (CIPRO) 500 mg tablet Take 1 tablet (500 mg total) by mouth 2 (two) times a day clopidogreL (PLAVIX) 75 mg tablet Take 1 tablet (75 mg total) by mouth every morning gabapentin (NEURONTIN) 300 mg capsule Take 1 capsule (300 mg total) by mouth nightly glipiZIDE (GLUCOTROL) 10 mg tabletIndications: type 2 diabetes mellitus Take 1 tablet (10 mg total) by mouth every morning metFORMIN (GLUCOPHAGE) 500 mg tablet Take 2 tablets (1,000 mg total) by mouth 2 (two) times a day with meals tamsulosin (FLOMAX) 0.4 mg extended release capsule Take 1 capsule (0.4 mg total) by mouth nightly documented as of this encounter Discharge Disposition Disposition Code Departure Means Destination Comment s Discharge to home or self care documented in this encounter H&P Notes * Dimitrios Mccrary MD - 07/01/2024 10:28 AM CST Nacho Moon Jr. HISTORY AND PHYSICAL 07/01/2024 OV: I have personally taken a history, examined the patient and determined the assessmentand plan as outlined below. Chief Complaint. Right calf pain HPI. Patient is a 63 y.o. male patient of Nacho Mcghee MD He is status post left femoral endarterectomy and left iliac artery stent performed on April 30, 2024. He's had prior angioplasty and stent right superficial femoral artery and popliteal artery performed on October 31, 2023. He describes progressive right calf claudication occurring over the past month or so. He denies left leg symptoms. He remains on DAPT. 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 (HCC) Hyperlipidemia Hypertension IBS (irritable bowel syndrome) Malignant neoplasm of prostate (HCC) Type 2 diabetes mellitus (HCC) Past Surgical History: Procedure Laterality Date AORTIC ILIAC FEMORIAL ANGIOGRAM INTERVENTION Right x3 BRACHYTHERAPY prostate CARPAL TUNNEL RELEASE Bilateral CYSTOSCOPY W/ INTERNAL URETHROTOMY 08/21/2023 Direct Vision Internal Urethrotomy ROTATOR CUFF REPAIR Bilateral HOME MEDICATIONS : aspirin 81 mg enteric coated tablet cilostazoL (PLETAL) 100 mg tablet ciprofloxacin (CIPRO) 500 mg tablet clopidogreL (PLAVIX) 75 mg tablet gabapentin (NEURONTIN) 300 mg capsule glipiZIDE (GLUCOTROL) 10 mg tablet metFORMIN (GLUCOPHAGE) 500 mg tablet tamsulosin (FLOMAX) 0.4 mg extended release capsule No Known Allergies Social History Tobacco Use Smoking status: Former Current packs/day: 2.00 Average packs/day: 2.0 packs/day for 57.2 years (114.3 ttl pk-yrs) Types: Cigarettes Start date: 1967 Passive exposure: Past Smokeless tobacco: Never Tobacco comments: Over 20 years ago Substance and Sexual Activity Drug use: Never Sexual activity: Defer Alcohol Use: Not At Risk (06/22/2024) AUDIT-C Frequency of Alcohol Consumption: 2-4 times a month Average Number of Drinks: 1 or 2 Frequency of Binge Drinking: Never Recent Concern: Alcohol Use - Alcohol Misuse (04/30/2024) AUDIT-C Frequency of Alcohol Consumption: 2-3 times a week Average Number of Drinks: 3 or 4 Frequency of Binge Drinking: Never Family History Family history unknown: Yes Review of Systems. Otherwise negative for cardiac, pulmonary, GI, G.U.,musculoskeletal, skin, neurological, psychiatric, endocrine, hematologic, lymphatic, HEENT symptoms except as otherwise stated. Physical Exam. Well-developed, well nourished white male in no acute distress. Carotid upstrokes are full and brisk. There are no carotid bruits. Radial pulses are symmetric. Sclera are clear. The thyroid is not enlarged. There is no cervical lymphadenopathy. Chest is clear. Cardiac exam shows a regular rate and rhythm. There are no murmurs, rubs or gallops. The abdomen is soft and not tender. There are no masses or aneurysms. Femoral pulses are two plus bilaterally. There is no femoral lymphadenopathy. There are palpable pulses all the way down bilaterally. There's no swelling. Both feet arepink and warm without ischemic lesion. There are no gross neurological deficits. Radiology and Laboratory. Lower extremity arterial Doppler demonstrates an SHEEBA on the right of 0.93. The left SHEEBA is 0.83. The right toe pressure is 94 and the left is 104. Right leg duplex scan demonstrates a popliteal stenosis with a PSV of 4.76 m/s. In March 2024, the [place] right popliteal artery distal to the stent had a velocity of 2.82 m/s. Impression and Recommendations. He has a progressive right in-stent popliteal artery stenosis basedon velocity criteria and change in distal right leg waveforms with progressive symptoms of right calf claudication. I recommend AIF angiogram with possible right popliteal artery intervention. He wants to proceed. He understands the risks of bleeding, infection, arterial thrombosis, renal insufficiency, possibility of urgent surgery, remote possibility of limb amputation and need for serial follow-up. He consents to the procedure. Dimitrios Mccrary MD, FACS YTICAL RESEARCH CHEMIST documented in this encounter Miscellaneous Notes * Plan of Care - Ginger Azevedo RN - 07/02/2024 10:43 AM CST Problem: Lack of Knowledge Goal: Ability to develop a pain control plan will improve Outcome: Progressing Flowsheets (Taken 07/02/2024 1042) Ability to develop a pain control plan will improve: Explain causes of pain and how long pain can be expected to last Educate pain scale for assessing level of pain Problem: Medication Goal: Satisfaction with pain management medication regimen will improve Outcome: Progressing Flowsheets (Taken 07/02/2024 1042) Satisfaction with pain management medication regimen will improve: Assess satisfaction with pain management regimen Goals: Clinical Goals for the Shift: vss, pain control Summary: vss, pt denies c/I pain, L groin soft, clean, dry and intact YTICAL RESEARCH CHEMIST * Op Note - Dimitrios Mccrary MD - 07/01/2024 3:00 PM CST OPERATIVE REPORT SURGEON Dimitrios Mccrary MD I was present for the entire operation. No surgical corsetier was scrubbed on the case. Surgical Team: Surgeons and Role: * Dimitrios Mccrary MD - Primary Anesthesiologist: Venecia Hennessy DO; Catarina Larose MD BLOOD BANK CALENDAR CONTROL CLERK: Gurwinder Villasenor CRNA; Lissette Guerra CRNA; David Paniagua CRNA Boiler Tester: Karyn Laguerre RN Scrub: Juan David Jimenez [facility] Boiler Tester: Poly Salazar RN PREOPERATIVE DIAGNOSIS Right leg claudication POSTOPERATIVE DIAGNOSIS Same PROCEDURE 1. AIF with right leg Runoff 2. Angioplasty of right popliteal artery with 4 mm standard balloon followed by 4 mm paclitaxel balloon IMPLANTS Nothing was implanted during the procedure ANESTHESIA General. COMPLICATIONS None. BRIEF CLINICAL HISTORY He is a 63 y.o. year old patient of Nacho Savage MD with severe peripheral vascular disease. He is status post a left femoral endarterectomy left iliac artery stent in April. He has had prior angioplasty and stenting of his right superficial femoral and popliteal artery in October. He has developed progressive right calf claudication over the last month. Lower extremity arterial Doppler show an ankle-brachial index on the right of 0.93 and on the left of 0.83. Duplex scan shows a high-grade right popliteal stenosis with a peak systolic velocity of 4.76 m/sec. In March, the peaksystolic velocity in the popliteal was 2.82 m/sec. I have recommended an angiogram and possible inte rvention. He comes in for that procedure.. FINDINGS Aortography demonstrated the aorta to be widely patent. Both renal arteries were widely patent. Right leg: The right common iliac artery was widely patent. The right internal external iliac arteries were widely patent. The right common femoral artery had some irregular stenoses but no high-grade lesions. The profundus femoral artery were large vessels and collateralized down the leg. The superficial femoral artery was patent. There was a stent in the superficial femoral artery beginning just below the lesser trochanter and extending down to the end of the adductor canal. It was widely patent. The popliteal artery from the adductor canal to just below the joint space was irregular. Therewas a previously placed stent across the joint which had a high-grade in stent stenosis. There was also a stenosis in the popliteal artery just beyond the previously placed SFA stent. There was 2 vessel runoff below the knee. Left leg: The left common iliac artery had a previously placed stent that was widely patent. The more distal vessels were not studied in the absence of symptoms. In summary, the right leg ischemia secondary to severe disease in the popliteal artery both above the knee and in a previously placed right popliteal stent. I thought we could intervene percutaneously. The disease was angioplastied with a 4 mm standard balloon followed by a 4 mm paclitaxel balloon.Final images demonstrated marked improvement in the stenosis with good flow down the leg. He tolerated the procedure well. He received a total of 22.5 cc of Optiray. PROCEDURE The patient was prepped and draped in a standard fashion under general anesthesia. Sterile ultrasound exam of the left femoral artery was performed and saved images were recorded for placement in thepatient's medical record. The femoral artery was patent with evidence of a previous left femoral end arterectomy and patch angioplasty. Under continuous ultrasound guidance and local anesthetic, micropuncture access was obtained to the mid left common femoral artery with direct visualization of needle entry into the patent vessel. A guidewire was passed. The guidewire tract was dilated with a 5 Chilean sheath and introducer. The angiogram catheter was passed over the wire and positioned at the 1st lumbar vertebral body. An aortogram was performed. The catheter was pulled down to the aortic bifurcation and used to select the right common iliac artery and advanced over a wire to the right distal external iliac artery. An angiogram of the right leg was then performed using digital subtraction angiography in a sequential fashion the groin to the foot. We then upsized the sheath to a long 5 Chilean sheath was placed up and over the bifurcation. Using puff injections through the sheath we localized the right popliteal stenosis and passed a wire across it. We then heparinized the patient with 5000 units of heparin. We positioned a 4 mm x 150 mm balloon extending from the previous SFA stent above the knee down to the distal end of the popliteal stent across the knee. It was inflated to nominal atmospheres for 2 minutes. Follow-up angiograms were performed. We then positioned a 4 mm x 150 mm paclitaxel balloon across the angioplasty site and inflated to nominal atmospheres for 3 minutes. Follow-up angiograms were performed. The sheath was pulled back and exchanged for short 5 Chilean sheath. It was sewn in place. Sterile dressings were applied. The patient was transferred to recovery in good condition. DIMITRIOS MCCRARY MD YTICAL RESEARCH CHEMIST documented in this encounter Plan of Treatment Not on file documented as of this encounter Procedures Procedure Name Priority Date/Time Associated Diagnosis Comments POCT GLUCOSE DEVICE Routine 07/02/2024 6 :18 AM ANALYTICAL RESEARCH CHEMIST EGFR Routine 07/02/2024 5:13 AM ANALYTICAL RESEARCH CHEMIST CBC WITHOUT DIFFERENTIAL Routine 07/02/2024 5:13 AM ANALYTICAL RESEARCH CHEMIST BASIC METABOLIC PANEL Routine 07/02/2024 5:13 AM ANALYTICAL RESEARCH CHEMIST POCT GLUCOSE DEVICE Routine 07/01/2024 9 :03 PM ANALYTICAL RESEARCH CHEMIST POCT ACTIVATED CLOTTING TIME, LOW RANGE Routine 07/01/2024 7:33 PM ANALYTICAL RESEARCH CHEMIST POCT ACTIVATED CLOTTING TIME, LOW RANGE Routine 07/01/2024 6:31 PM ANALYTICAL RESEARCH CHEMIST POCT ACTIVATED CLOTTING TIME, LOW RANGE Routine 07/01/2024 5:34 PM ANALYTICAL RESEARCH CHEMIST POCT ACTIVATED CLOTTING TIME, LOW RANGE Routine 07/01/2024 4:31 PM ANALYTICAL RESEARCH CHEMIST POCT GLUCOSE DEVICE Routine 07/01/2024 4 :27 PM ANALYTICAL RESEARCH CHEMIST ANGIOGRAM LOWER EXTREMITY RIGHT IP Routine 07/01/2024 4:24 PM ANALYTICAL RESEARCH CHEMIST ARTERIOGRAM AORTA ILIAC - FEMORAL 07/01/2024 3:09 PM ANALYTICAL RESEARCH CHEMIST Atherosclerosis of [place]neb[place] artery of right lower extremity with intermittent claudication (HCC) POCT GLUCOSE DEVICE Routine 07/01/2024 1 :34 PM ANALYTICAL RESEARCH CHEMIST documented in this encounter Results * (ABNORMAL) POCT glucose (07/02/2024 6:18 AM ANALYTICAL RESEARCH CHEMIST) [facility] Signature Glucose, POC 221(H) 70 - 199 mg/dL Comment: For Glucose values <35 mg/dl when Hematocrit is >60 mg/dl,the test may not accurately detect significant hypoglycemia,and testing in the Laboratory should be considered if clinically indicated. Blood 07/02/2024 6:18 AM ANALYTICAL RESEARCH CHEMIST 07/02/2024 6:18 AM ANALYTICAL RESEARCH CHEMIST us Dimitrios Mccrary MD LAB POCT ORDERABLES - DEVICE F inal Result Performing Organization Address [facility] Co de Phone Number [facility] [address] [place] [address] * eGFR (07/02/2024 5:13 AM ANALYTICAL RESEARCH CHEMIST) eGFR >90 >=60 mL/min/1. 73 m2 Comment: [...] data was last reviewed 2021. Blood 07/02/2024 5:1 3 AM ANALYTICAL RESEARCH CHEMIST 07/02/2024 5:28 AM ANALYTICAL RESEARCH CHEMIST us Dimitrios Mccrary MD LAB BLOOD ORDERABLES Final Res ult Performing Organization Address [facility]/ZIP Co de Phone Number [facility] [address] [place] [address] * (ABNORMAL) CBC without differential (07/02/2024 5:13 AM ANALYTICAL RESEARCH CHEMIST) Pathologist [facility] WBC 6.4 3.8 - 9.9 K/cumm Hgb 12.0(L) 13.0 - 17.5 g/dL [facility] Hct 36.5(L) 38.9 - 50.3 % [facility] Plt 156 150 - 400 K/cumm [facility] MPV 11.5 9.1 - 12.3 fL [facility] RBC 4.11(L) 4.30 - 5.80 M/cumm [facility] MCV 88.8 81.3 - 96.4 fL [facility] [facility] MCH 29.2 27.1 - 33.3 pg [facility] MCHC 32.9 32.3 - 35.7 g/dL [facility] RDW CV 12.3 11.1 - 14.9 % [facility] RDW SD 40.4 35.7 - 48.1 fL [facility] NRBC abs 0.00 0.00 - 0.01 K/cumm [facility] Blood 07/02/2024 5:13 AM ANALYTICAL RESEARCH CHEMIST 07/02/2024 5:29 AM ANALYTICAL RESEARCH CHEMIST us Dimitrios Mccrary MD LAB BLOOD ORDERABLES Final Res ult [facility] [address] Department [place] [address] * (ABNORMAL) Basic metabolic panel (07/02/2024 5:13 AM ANALYTICAL RESEARCH CHEMIST) Sodium 136 135 - 145 mmol/L Potassium, pl 4.4 3.3 - 4.9 mmol/L [facility] Chloride 100 97 - 110 mmol/L [facility] CO2 24 22 - 32 mmol/L [facility] Anion gap 12 2 - 15 mmol/L [facility] BUN 14 6 - 25 mg/dL [facility] Creatinine 0.90 0.80 - 1.30 mg/dL [facility] Glucose 280(H) 70 - 199 mg/dL [facility] Comment: Interpretive Data Fasting glucose >/= 126 [...] 2022. Calcium 8.8 8.5 - 10.3 mg/dL [facility] Blood 07/02/2024 5:13 AM ANALYTICAL RESEARCH CHEMIST 07/02/2024 5:28 AM ANALYTICAL RESEARCH CHEMIST Dimitrios Mccrary MD LAB BLOOD ORDERABLES Final Res ult Performing Organization Address [facility] Co de Phone Number [facility] [address] Department of [place] [place], [place] [id number] * POCT glucose (07/01/2024 9:03 PM ANALYTICAL RESEARCH CHEMIST) [facility] Glucose, POC 193 70 - 199 mg/dL Comment: For Glucose values <35 mg/dl when Hematocrit is >60 mg/dl,the test may not accurately detect significant hypoglycemia,and testing in the Laboratory should be considered if clinically indicated. Blood 07/01/2024 9:03 PM ANALYTICAL RESEARCH CHEMIST 07/01/2024 9:03 PM ANALYTICAL RESEARCH CHEMIST Dimitrios Mccrary MD LAB POCT ORDERABLES - DEVICE F inal Result Performing Organization Address [facility] Co de Phone Number [facility] [address] Department of [place] [place], [place] [phone] * POCT Activated clotting time, low range (07/01/2024 7:33 PM ANALYTICAL RESEARCH CHEMIST) ACT 164 123 - 168 sec Blood 07/01/2024 7:33 PM ANALYTICAL RESEARCH CHEMIST 07/01/2024 7:33 PM ANALYTICAL RESEARCH CHEMIST Dimitrios Mccrary MD LAB POCT ORDERABLES - DEVICE F inal Result Performing Organization Address [facility] Co de Phone Number [facility] [address] Department of [place], [place] [phone] * (ABNORMAL) POCT Activated clotting time, low range (07/01/2024 6:31 PM ANALYTICAL RESEARCH CHEMIST) ACT 181(H) 123 - 168 sec Blood 07/01/2024 6:31 PM ANALYTICAL RESEARCH CHEMIST 07/01/2024 6:31 PM ANALYTICAL RESEARCH CHEMIST us Dimitrios Mccrary MD LAB POCT ORDERABLES - DEVICE F inal Result Performing Organization Address [facility] de Phone Number [facility] [address] [facility] [place], [place] [phone] * (ABNORMAL) POCT Activated clotting time, low range (07/01/2024 5:34 PM ANALYTICAL RESEARCH CHEMIST) ACT 197(H) 123 - 168 sec Blood 07/01/2024 5:34 PM ANALYTICAL RESEARCH CHEMIST 07/01/2024 5:34 PM ANALYTICAL RESEARCH CHEMIST Result [facility] us Dimitrios Mccrary MD LAB POCT ORDERABLES - DEVICE F inal Result Performing Organization Address [facility] de Phone Number [facility] [address] [place] [address] * (ABNORMAL) POCT Activated clotting time, low range (07/01/2024 4:31 PM ANALYTICAL RESEARCH CHEMIST) [facility] Signature ACT 255(H) 123 - 168 sec Blood 07/01/2024 4:31 PM ANALYTICAL RESEARCH CHEMIST 07/01/2024 4:31 PM ANALYTICAL RESEARCH CHEMIST Result [facility] us Dimitrios Mccrary MD LAB POCT ORDERABLES - DEVICE F inal Result Performing Organization Address [facility] de Phone Number [facility] [address] [facility] [place], [place] [phone] * POCT glucose (07/01/2024 4:27 PM ANALYTICAL RESEARCH CHEMIST) [facility] Glucose, POC 97 70 - 199 mg/dL Comment: For Glucose values <35 mg/dl when Hematocrit is >60 mg/dl,the test may not accurately detect significant hypoglycemia,and testing in the Laboratory should be considered if clinically indicated. Blood 07/01/2024 4:27 PM ANALYTICAL RESEARCH CHEMIST 07/01/2024 4:27 PM ANALYTICAL RESEARCH CHEMIST Result [facility] us Dimitrios Mccrary MD LAB POCT ORDERABLES - DEVICE F inal Result Performing Organization Address [facility] Co de Phone Number [facility] [address] Department [place] [address] * IR Angiogram Lower Extremity Right (07/01/2024 4:24 PM ANALYTICAL RESEARCH CHEMIST) Narrative CONS SCIMAGE - 07/01/2024 4:25 PM ANALYTICAL RESEARCH CHEMIST The images from this study are not interpreted by Radiology. Please refer to the physician's procedure / OR operative note. us Dimitrios Mccrary MD IMG IR PROCEDURES Final Result Performing Organization Address [facility] Co ri Phone Number [facility] * POCT glucose (07/01/2024 1:34 PM ANALYTICAL RESEARCH CHEMIST) [facility] Glucose, POC 129 70 - 199 mg/dL Comment: For Glucose values <35 mg/dl when Hematocrit is >60 mg/dl,the test may not accurately detect significant hypoglycemia,and testing in the Laboratory should be considered if clinically indicated. Blood 07/01/2024 1:34 PM ANALYTICAL RESEARCH CHEMIST 07/01/2024 1:34 PM ANALYTICAL RESEARCH CHEMIST Result [facility] us Dimitrios Mccrary MD LAB POCT ORDERABLES - DEVICE F inal Result Performing Organization Address [facility] Co de Phone Number [facility] [address] Department [place] [address] documented in this encounter Visit Diagnoses Diagnosis Atherosclerosis of [place] artery of right lower extremity with intermittent claudication (HCC)- Primary Atherosclerosis of [place] artery of right lower extremity with intermittent claudication (HCC) documented in this encounter Admitting Diagnoses Diagnosis Atherosclerosis of [place] artery of right lower extremity with intermittent claudication (HCC) documented in this encounter Administered Medications Inactive Administered Medications - up to 3 most recent administrations Medication Order MAR Action Action Date Dose Rate Site acetaminophen (TYLENOL) tablet 1,000 mg 1,000 mg, oral, Once, On Sat07/01/24 at 1400, For 1 dose, Pre-Op, Indications: Pre-Emptive AnalgesiaIndications:Pre-Em ptive Analgesia Given 07/01/2024 1:32 PM ANALYTICAL RESEARCH CHEMIST 1,000 mg aspirin enteric coated tablet 81 mg 81 mg, oral, Nightly, First dose on Sat07/01/24 at 2115, Do not crush, chew, cut, dissolve, open or otherwise manipulate tablet/capsule. Given 07/01/2024 9:00 PM ANALYTICAL RESEARCH CHEMIST 81 mg ceFAZolin (ANCEF) 1 gram/10 mL in sterile water (premix) 1,000 mg 1,000 mg, intravenous, at 200 mL/hr, Administer over 3 Minutes, Every 8 hours, First dose on Sat07/01/24 at 2200, For 2 doses, Start 8 hours after pre-op dose., Indications: Prophylaxis, SurgicalIndications:Prophyl axis, Surgical Given 07/02/2024 5:30 AM ANALYTICAL RESEARCH CHEMIST 1,000 mg 200 mL/hr Given 07/01/2024 9:15 PM ANALYTICAL RESEARCH CHEMIST 1,000 mg 200 mL/hr cilostazoL (PLETAL) tablet 100 mg 100 mg, oral, 2 times daily, First dose on Sat07/01/24 at 2115, Indications: Intermittent ClaudicationIndications:Intermittent Claudication Given 07/02/2024 9:23 AM ANALYTICAL RESEARCH CHEMIST 100 mg Given 07/01/2024 9:07 PM ANALYTICAL RESEARCH CHEMIST 100 mg clopidogreL (PLAVIX) tablet 75 mg 75 mg, oral, Every morning, First dose on Rosa 07/02/24 at 0900 Given 07/02/2024 9:23 AM ANALYTICAL RESEARCH CHEMIST 75 mg dextrose (D10W) 10% bolus 250 mL 250 mL, intravenous, at 1,000 mL/hr, Administer over 15 Minutes, Every 15 min PRN, blood glucose less than 70 mg/dL and UNABLE to swallow/take PO glucose/juice., Starting on Sat07/01/24 at 2042, After treatment for hypoglycemia, recheck BG followed by treatment every 15 minutes until the BG is greater than 100 mg/dL. Then check BG 1 hour post treatment. If BG is less than 100 mg/dL, repeat Q15 minute BG checks and treatment. Call MD for each episode of hypoglycemia., Indications: hypoglycemic disorderIndications:hypogly cemic disorder dextrose (GLUTOSE) 40 % gel 15 g 15 g, oral, Every 15 min PRN, low blood sugar, blood glucose less than 70 mg/dL, Starting on Sat07/01/24 at 2042, If patient is alert and able to eat/drink, give 15 gm glucose or one juice (4 fluid ounces) NOT ORANGE JUICE. After treatment for hypoglycemia, recheck BG followed by treatment every 15 minutes until the BG is greater than 100 mg/dL. Then check BG 1 hour post-treatment. If BG is less than 100 mg/dL, repeat Q15 minute BG checks and treatment. Call MD for each episode of hypoglycemia. RUBBERIZING MECHANIC STATES GLUTOSE-15 CONTAINS GLUCOSE 40% W/W (50% W/V), Indications: hypoglycemic disorderIndications:hypogly cemic disorder dimenhyDRINATE (DRAMAMINE) tablet 25 mg 25 mg, oral, Once, On Sat07/01/24 at 1400, For 1 dose, Pre-Op, Indications: Prevention of Nausea and VomitingIndications:Prevent ion of Nausea and Vomiting Given 07/01/2024 1:32 PM ANALYTICAL RESEARCH CHEMIST 25 mg enoxaparin (LOVENOX) syringe 40 mg 40 mg, subcutaneous, Daily (for enoxaparin), First dose on Sat07/01/24 at 2114, Indications: Deep Vein Thrombosis PreventionIndications:Deep Vein Thrombosis Prevention Given 07/01/2024 9:00 PM ANALYTICAL RESEARCH CHEMIST 40 mg Left Lower Abdomen gabapentin (NEURONTIN) capsule 300 mg 300 mg, oral, Once, On Sat07/01/24 at 1400, For 1 dose, Pre-Op, Indications: Pre-Emptive AnalgesiaIndications:Pre-Em ptive Analgesia Given 07/01/2024 1:33 PM ANALYTICAL RESEARCH CHEMIST 300 mg insulin lispro (HumaLOG, ADMELOG) 100 unit/mL injection 0-5 Units 0-5 Units, subcutaneous, 3 times daily with meals, First dose on Sat07/02/24 at 0800, Blood glucose mg/dL: 149 or less: No insulin 150-199: add 1 unit 200-249: add 2 units 250-299: add 3 units 300-349: add 4 units and notify physician for adjustment of insulin orders. 350-399: add 5 units and notify physician for adjustment of insulin orders. Over 400: Notify physician for adjustment of insulin orders. Do NOT hold for NPO Status, Indications: Stress HyperglycemiaIndications:St ress Hyperglycemia Given 07/02/2024 6:22 AM ANALYTICAL RESEARCH CHEMIST 2 Units Left Lower Abdomen labetaloL (NORMODYNE,TRANDATE) injection 5 mg 5 mg, intravenous, at 30 mL/hr, Administer over 2 Minutes, Every 10 min PRN, high blood pressure, Starting on Sat07/01/24 at 1841, For 4 doses, Phase I, Max cumulative dose 20 mg. Dose if systolic blood pressure greater than 180 AND heart rate greater than 70. Given 07/01/2024 7:55 PM ANALYTICAL RESEARCH CHEMIST 5 mg 30 mL/hr Given 07/01/2024 7:40 PM ANALYTICAL RESEARCH CHEMIST 5 mg 30 mL/hr Given 07/01/2024 6:48 PM ANALYTICAL RESEARCH CHEMIST 5 mg 30 mL/hr oxyCODONE (ROXICODONE) tablet 5 mg 5 mg, oral, Every 4 hours PRN, 2nd line for pain, Starting on Sat07/01/24 at 2043, May administer 1 hour after 1st line analgesic agent for uncontrolled or increasing pain., Indications: PainIndications:Pain Given 07/02/2024 10:52 AM ANALYTICAL RESEARCH CHEMIST 5 mg Given 07/02/2024 4:20 AM ANALYTICAL RESEARCH CHEMIST 5 mg Given 07/02/2024 12:24 AM ANALYTICAL RESEARCH CHEMIST 5 mg oxyCODONE (ROXICODONE) tablet 5 mg 5 mg, oral, As needed, 1st line for pain, Starting on Sat07/01/24 at 1841, For 2 doses, Phase I, 1st ORAL choice for pain, when the patient is able to tolerate PO medications. May repeat in 1 hour if pain is uncontrolled or increasing after 1st dose., Indications: PainIndications:Pain Given 07/01/2024 6:48 PM ANALYTICAL RESEARCH CHEMIST 5 mg sodium chloride 0.9% flush 0.5-20 mL 0.5-20 mL, intra-catheter, Every 8 hours scheduled, First dose on Sat07/01/24 at 2200, Flush volume based on line type and size. , Indications: FlushingIndications:Flushing Given 07/02/2024 5:30 AM ANALYTICAL RESEARCH CHEMIST 10 mL Given 07/01/2024 9:01 PM ANALYTICAL RESEARCH CHEMIST 10 mL sodium chloride 0.9% infusion 100 mL/hr, intravenous, Continuous, Starting on Sat07/01/24 at 2115, Phase I & Post-op Floor, May discontinue when tolerating PO (more than 250 mL in 8 hours) New Bag 07/01/2024 9:00 PM ANALYTICAL RESEARCH CHEMIST 100 mL/hr 100 mL/hr tamsulosin (FLOMAX) extended release capsule 0.4 mg 0.4 mg, oral, Nightly, First dose on Sat07/01/24 at 2115, Do not crush, chew, cut, dissolve, open or otherwise manipulate tablet/capsule. Given 07/01/2024 9:00 PM ANALYTICAL RESEARCH CHEMIST 0.4 mg documented in this encounter Active and Recently Administered Medications Times are shown in ANALYTICAL RESEARCH CHEMIST. Scheduled Medication Order 06/30/2024 07/01/2024 07/02/2024 acetaminophen (TYLENOL) tablet 1,000 mg (COMPLETED) 1,000 mg, oral, Once, On Sat07/01/24 at 1400, For 1 dose, Pre-Op, Indications: Pre-Emptive Analgesia 1332 (Given - Provider: Julieth Browne RN) aspirin enteric coated tablet 81 mg 81 mg, oral, Nightly, First dose on Sat07/01/24 at 2115, Do not crush, chew, cut, dissolve, open or otherwise manipulate tablet/capsule. 2100 (Given - Provider: Sarah Painting RN) ceFAZolin (ANCEF) 1 gram/10 mL in sterile water (premix) 1,000 mg (COMPLETED) 1,000 mg, intravenous, at 200 mL/hr, Administer over 3 Minutes, Every 8 hours, First dose on Sat07/01/24 at 2200, For 2 doses, Start 8 hours after pre-op dose., Indications: Prophylaxis, Surgical 2114 (Given - Provider: Sarah Painting RN) 0530 (Given - Provider: Sarah Painting RN) ceFAZolin (ANCEF) 2,000 mg/20 mL in sterile water (premix) 2,000 mg (COMPLETED) 2,000 mg, intravenous, at 400 mL/hr, Administer over 3 Minutes, Once, On Sat07/01/24 at 1400, For 1 dose, Pre-Op, Administer within 60 minutes of incision., Indications: Prophylaxis, Surgical 1515 (Given - Provider: Gurwinder Villasenor CRNA) cilostazoL (PLETAL) tablet 100 mg 100 mg, oral, 2 times daily, First dose on Sat07/01/24 at 2115, Indications: Intermittent Claudication 2106 (Given - Provider: Sarah Painting RN) 922 (Given - Provider: Ginger Azevedo, CASH) clopidogreL (PLAVIX) tablet 75 mg 75 mg, oral, Every morning, First dose on Sat07/02/24 at 0900 0923 (Given - Provid er: Ginger Azevedo RN) dimenhyDRINATE (DRAMAMINE) tablet 25 mg (COMPLETED) 25 mg, oral, Once, On Sat07/01/24 at 1400, For 1 dose, Pre-Op, Indications: Prevention of Nausea and Vomiting 1332 (Given - Provider: Julieth Browne, CASH) enoxaparin (LOVENOX) syringe 40 mg 40 mg, subcutaneous, Daily (for enoxaparin), First dose on Sat07/01/24 at 2115, Indications: Deep Vein Thrombosis Prevention 2100 (Given - Provider: Sarah Painting RN) gabapentin (NEURONTIN) capsule 300 mg (COMPLETED) 300 mg, oral, Once, On Sat07/01/24 at 1400, For 1 dose, Pre-Op, Indications: Pre-Emptive Analgesia 1333 (Given - Provider: Julieth Browne, CASH) gabapentin (NEURONTIN) capsule 300 mg 300 mg, oral, Nightly, First dose on Sat07/02/24 at 2100 insulin lispro (HumaLOG, ADMELOG) 100 unit/mL injection 0-4 Units 0-4 Units, subcutaneous, Nightly, First dose on Sat07/01/24 at 2115, Blood glucose mg/dL: 199 or less: No insulin 200-249: add 1 unit 250-299: add 2 units 300-349: add 3 units and notify physician for adjustment of insulin orders. 350-399: add 4 units and notify physician for adjustment of insulin orders. Over 400: Notify physician for adjustment of insulin orders. Do NOT hold for NPO Status, Indications: Stress Hyperglycemia 2107 (Not Given - Provider: Sarah Painting RN - Reason: Order parameters not met) insulin lispro (HumaLOG, ADMELOG) 100 unit/mL injection 0-5 Units 0-5 Units, subcutaneous, 3 times daily with meals, First dose on Rosa 07/02/24 at 0800, Blood glucose mg/dL: 149 or less: No insulin 150-199: add 1 unit 200-249: add 2 units 250-299: add 3 units 300-349: add 4 units and notify physician for adjustment of insulin orders. 350-399: add 5 units and notify physician for adjustment of insulin orders. Over 400: Notify physician for adjustment of insulin orders. Do NOT hold for NPO Status, Indications: Stress Hyperglycemia 06 (Given - Provid er: Sarah Painting RN) sodium chloride 0.9% flush 0.5-20 mL 0.5-20 mL, intra-catheter, Every 8 hours scheduled, First dose on Sat07/01/24 at 2200, Flush volume based on line type and size. , Indications: Flushing 2100 (Given - Provider: Sarah Painting RN) 0530 (Given - Provider: Sarah Painting RN) tamsulosin (FLOMAX) extended release capsule 0.4 mg 0.4 mg, oral, Nightly, First dose on Sat07/01/24 at 2115, Do not crush, chew, cut, dissolve, open or otherwise manipulate tablet/capsule. 2100 (Given - Provider: Sarah Painting RN) Continuous Medication Order 06/30/2024 07/01/2024 07/02/2024 sodium chloride 0.9% infusion 100 mL/hr, intravenous, Continuous, Starting on Sat07/01/24 at 2115, Phase I & Post-op Floor, May discontinue when tolerating PO (more than 250 mL in 8 hours) 2100 (New Bag - Provider: Sarah Painting RN) 1504 (Due: Stopped) PRN Medication Order 06/30/2024 07/01/2024 07/02/2024 acetaminophen (TYLENOL) tablet 650 mg 650 mg, oral, Every 4 hours PRN, 1st line for pain, Starting on Sat07/01/24 at 2042, Indications: Pain Carrier Fluids for Secondary Infusion - 0.9% Sodium Chloride 30 mL, intravenous, As needed, For priming tubing and/or flushing, Starting on Sat07/01/24 at 2042, 0-250 ml/hr to flush line after IV infusions when no maintenance IV ordered. Infuse 30mL at the same rate as the secondary infusion. Run as primary IV, not intended for KVO. dextrose (D10W) 10% bolus 250 mL(Linked Group 1) 250 mL, intravenous, at 1,000 mL/hr, Administer over 15 Minutes, Every 15 min PRN, blood glucose less than 70 mg/dL and UNABLE to swallow/take PO glucose/juice., Starting on Sat07/01/24 at 2042, After treatment for hypoglycemia, recheck BG followed by treatment every 15 minutes until the BG is greater than 100 mg/dL. Then check BG 1 hour post treatment. If BG is less than 100 mg/dL, repeat Q15 minute BG checks and treatment. Call MD for each episode of hypoglycemia., Indications: hypoglycemic disorder dextrose (GLUTOSE) 40 % gel 15 g(Linked Group 1) 15 g, oral, Every 15 min PRN, low blood sugar, blood glucose less than 70 mg/dL, Starting on Sat07/01/24 at 2042, If patient is alert and able to eat/drink, give 15 gm glucose or one juice (4 fluid ounces) NOT ORANGE JUICE. After treatment for hypoglycemia, recheck BG followed by treatment every 15 minutes until the BG is greater than 100 mg/dL. Then check BG 1 hour post-treatment. If BG is less than 100 mg/dL, repeat Q15 minute BG checks and treatment. Call MD for each episode of hypoglycemia. RUBBERIZING MECHANIC STATES GLUTOSE-15 CONTAINS GLUCOSE 40% W/W (50% W/V), Indications: hypoglycemic disorder glucagon injection 1 mg 1 mg, intramuscular, Every 30 min PRN, low blood sugar, blood glucose less than 70 mg/dL AND no IV access AND unable to take PO glucose/juice., Starting on Sat07/01/24 at 2042, After Glucagon is administered, position patient on side if possible to avoid aspiration. Obtain IV access. Follow glucagon treatment with glucose treatment or IV dextrose. After treatment for hypoglycemia, recheck BG followed by treatment every 15 minutes until the BG is greater than 100 mg/dL. Then check BG 1 hour post treatment. If BG is less than 100 mg/dL, repeat Q15 minute BG checks and treatment. Call MD for each episode of hypoglycemia. Reconstitute 1 mg vial with 1 mL SWFI. Use immediately following reconstitution. ioversoL (OPTIRAY 320) injection (CANCELED) As needed, Starting on Sat07/01/24 at 1616, Intra-Op 1616 (Given - Provider: Dimitrios Mccrary MD) labetaloL (NORMODYNE,TRANDATE) injection 5 mg (CANCELED) 5 mg, intravenous, at 30 mL/hr, Administer over 2 Minutes, Every 10 min PRN, high blood pressure, Starting on Sat07/01/24 at 1841, For 4 doses, Phase I, Max cumulative dose 20 mg. Dose if systolic blood pressure greater than 180 AND heart rate greater than 70. 184 (Given - Provider: Prabhjot Day RN)1939 (Given - Provider: Prabhjot Day RN)1954 (Given - Provider: Taylor Sherman RN) lidocaine (XYLOCAINE) 10 mg/mL (1 %) injection (CANCELED) As needed, Starting on Sat07/01/24 at 1540, Intra-Op, Indications: Administration of Local Anesthesia 154 (Given - Provider: Dimitrios Mccrary MD) oxyCODONE (ROXICODONE) tablet 5 mg 5 mg, oral, Every 4 hours PRN, 2nd line for pain, Starting on Sat07/01/24 at 2043, May administer 1 hour after 1st line analgesic agent for uncontrolled or increasing pain., Indications: Pain 0024 (Given - Provid er: Sarah Painting RN)0420 (Given - Provider: Sarah Painting RN)1052 (Given - Provider: Ginger Azevedo RN) oxyCODONE (ROXICODONE) tablet 5 mg (CANCELED) 5 mg, oral, As needed, 1st line for pain, Starting on Sat07/01/24 at 1841, For 2 doses, Phase I, 1st ORAL choice for pain, when the patient is able to tolerate PO medications. May repeat in 1 hour if pain is uncontrolled or increasing after 1st dose., Indications: Pain 184 (Given - Provider: Prabhjot Day RN) papaverine 60 mg, heparin 10,000 Units in electrolyte-A (PLASMA-LYTE) 1,000 mL irrigation solution (CANCELED) As needed, Starting on Sat07/01/24 at 1524, Intra-Op 1524 (Given - Provider: Dimitrios Mccrary MD - Comment: on field PRN) sodium chloride 0.9% flush 0.5-20 mL 0.5-20 mL, intra-catheter, As needed, line care, Starting on Sat07/01/24 at 2042, Flush volume based on line type and size. Flush before and after each use. , Indications: Flushing Linked Groups Order Group 1: dextrose (GLUTOSE) 40 % gel 15 gJump to med 15 g, oral, Every 15 min PRN, low blood sugar, blood glucose less than 70 mg/dL, Starting on Sat07/01/24 at 2042, If patient is alert and able to eat/drink, give 15 gm glucose or one juice (4 fluid ounces) NOT ORANGE JUICE. After treatment for hypoglycemia, recheck BG followed by treatment every 15 minutes until the BG is greater than 100 mg/dL. Then check BG 1 hour post-treatment. If BG is less than 100 mg/dL, repeat Q15 minute BG checks and treatment. Call MD for each episode of hypoglycemia. RUBBERIZING MECHANIC STATES GLUTOSE-15 CONTAINS GLUCOSE 40% W/W (50% W/V), Indications: hypoglycemic disorder Or dextrose (D10W) 10% bolus 250 mLJump to med 250 mL, intravenous, at 1,000 mL/hr, Administer over 15 Minutes, Every 15 min PRN, blood glucose less than 70 mg/dL and UNABLE to swallow/take PO glucose/juice., Starting on Sat07/01/24 at 2042, After treatment for hypoglycemia, recheck BG followed by treatment every 15 minutes until the BG is greater than 100 mg/dL. Then check BG 1 hour post treatment. If BG is less than 100 mg/dL, repeat Q15 minute BG checks and treatment. Call MD for each episode of hypoglycemia., Indications: hypoglycemic disorder documented in this encounter Orders Medications Ordered That Bernardo ht Not Have Been Administered Count Last Ordered Date First Ordered Date acetaminophen (TYLENOL) tablet 650 mg 1 albuterol 2.5 mg /3 mL (0.08 3 %) nebulizer solution 2.5 mg 1 07/01/2024 Carrier Fluids for Secondary Infusion - 0.9% Sodium Chloride 3 07/01/2024 ceFAZolin (ANCEF) 2,000 mg/2 0 mL in sterile water (premix) 2,000 mg 07/01/2024 dextrose (D10W) 10% bolus 250 mL 07/01/19 dextrose (GLUTOSE) 40 % gel 15 g 07/01/19 diphenhydrAMINE (BENADRYL) 5 0 mg/mL injection 12.5 mg 07/01/2024 fentaNYL (SUBLIMAZE) preserv ative free injection 25 mcg 07/01/2024 fentaNYL (SUBLIMAZE) preserv ative free injection 50 mcg 07/01/2024 gabapentin (NEURONTIN) capsule 300 mg glucagon injection 1 mg 07/01/2024 haloperidol lactate (HALDOL) injection 1 mg 07/01/2024 HYDROmorphone (DILAUDID) injection 0.2 mg 07/01/2024 HYDROmorphone (DILAUDID) injection 0.4 mg 07/01/2024 insulin lispro (HumaLOG, ADM ELOG) 100 unit/mL injection 0-4 Units 07/01/2024 insulin lispro (HumaLOG, ADM ELOG) 100 unit/mL injection 0-5 Units 07/01/2024 ioversoL (OPTIRAY 320) injection 07/01/19 lidocaine (PF) (XYLOCAINE) 1 0 mg/mL (1 %) preservative free injection 2-10 mg 07/01/2024 lidocaine (XYLOCAINE) 10 mg/ mL (1 %) injection 07/01/2024 meperidine (DEMEROL) preserv ative free injection 12.5 mg 07/01/2024 naloxone (NARCAN) 0.4 mg/mL injection 0.04-0.4 mg 07/01/2024 ondansetron (ZOFRAN) injection 4 mg 07/01 papaverine 60 mg, heparin 10 ,000 Units in electrolyte-A (PLASMA-LYTE) 1,000 mL irrigation solution 07/01/2024 racepinephrine (ASTHMANEFRIN ) 2.25 % nebulizer solution 0.5 mL 07/01/2024 sodium chloride 0.9% flush 0.5-20 mL 06/07 Lab Orders Without Results Count Last Ordered D ate First Ordered Date POCT GLUCOSE DEVICE 2 07/02/2024 07/01/19 25 Diet Count Last Ordered Date First Orde red Date ADULT DISCHARGE DIET 1 07/02/2024 Nursing Count Last Ordered Date First Orde red Date DISCHARGE ACTIVITY 2 07/02/2024 DISCHARGE CALL PROVIDER 1 07/02/2024 DISCHARGE DRESSING 2 07/02/2024 FOLLOW UP WITH ESTABLISHED PROVIDER 1 07/02 Admission Count Last Ordered Date First Orde red Date INITIATE OUTPATIENT IN A BED 1 07/01/2024 Transfer Count Last Ordered Date First Orde red Date TRANSFER PATIENT TO NEW UNIT 1 07/01/2024 Discharge Count Last Ordered Date First Orde red Date DISCHARGE PATIENT 1 07/02/2024 documented in this encounter Care Teams Migration Specialist Relationship Specialty [place] [id number] [address] PCP - General Family Practice 12/18/21 Dev Burrell MD [address] [place] [address] Consulting Physician Radiation Oncology 04/24/18 [place] [address] [place] [address] Urology 04/24/18 [place] [address] [address] Urology 04/24/18 [place] [address] [address] Consulting Physician Urology 04/13/23 Dimitrios Mccrary MD [address] [facility] [address] [place] [address] Surgeon Vascular Surgery 11/01/23 documented as of this encounter
--- OUTSIDE RECORDS SUMMARY | 2024-07-03 05:50 | XMS_ITS | Continuity of Care Document ---
Author Organization [facility] Address [address] [place] [address] Phone Care Team Providers Care Final Inspector Balance Wheel Name Role Phone Dg Martins MD Unavailable Unavailable Allergies, Adverse Reactions, Alerts Substance Reaction Status Criticality No Known Allergies Active No Inform ation Medications Medication Instructions Dosage Effective Dates (start - stop) Status Comments MELOXICAM TABS 15MG TAKE 1 TABLET DAILY - Active Valium 10 mg tablet take 1 tablet by oral route 45 minutes prior to procedure for claustrophobia - Active Flomax 0.4 mg capsule Take 1 capsule (0.4 mg total) by mouth daily. - Active OneTouch Verio test strips Use as directed - Active metformin 500 mg tablet take 1 tablet by oral route 2 times every day with morning and evening meals 500 MG - Active glipizide ER 2.5 mg tablet, extended release 24 hr take 2 tablet by oral route every day with breakfast 5 MG - Active cilostazol 50 mg tablet take 1 tablet by oral route 2 times every day 1/2 hour before or 2 hours after breakfast and dinner 50 MG - Active aspirin 81 mg tablet,delayed release take 1 tablet by oral route every day 81 MG - Active Viagra 25 mg tablet take 1 tablet by oral route every day as needed approximately 1 hour before sexual activity 25 MG - Active meloxicam 15 mg tablet take 1 tablet by oral route every day 15 MG - No Longer Active Procedures Procedure Date X-ray exam knee, 4+ views Office/outpatient visit,est, mod 2022 X-ray exam shoulder complete, minimum 2 views Office/outpatient visit,est, mod 2022 Global/Postop followup visit Henrry Sling With Waist Strap, Off The She lf Global/Postop followup visit Biceps Tenodesis Arthroscopic Rotator Cuff Repair 2021 Debridement Extensive X-ray exam knee, 1 or 2 views 2 X-ray exam both knees, standing 022 X-ray exam knee, 1 or 2 views 2 Office/outpatient visit,est, mod 2021 Office/outpatient visit,est, mod 2021 Asp/inject major joint or bursa w/o US g uidance Kenalog 40mg/mL MRI Upper extr joint, w/o contrast X-ray exam shoulder complete, minimum 2 views Office/outpatient visit,est, mod 2021 Kenalog 40mg/mL Asp/inject major joint or bursa w/o US g uidance Global/Postop followup visit Neuroplasty Ulnar Nerve Elbow 2 Carpal tunnel release Global/Postop followup visit Neuroplasty Ulnar Nerve Elbow 2 Carpal tunnel release Office/outpatient visit,new, mod 2021 Advance Directives Directive Yes / No Effective Date File Name No Information Encounters Encounter Description Practice Location Reason(s) For Visit Diagnoses Date Provider Providers Copied on Encounter [facility], [address] [facility], [place], [place], [id number], [place] tel:[phone] [facility] No Information 3 Eliezer Conte. [address] [facility], [place], [address], [place]. tel:[phone] Office/outpa tient visit,est, mod [facility], [address], [id number], [place] tel:[phone] [facility] bilat knees (chief complaint) Pain in left kneePain in right knee 3 Aurelia gaines. [address] [address], [place], [place], [id number], [place]. tel:[phone] Referring Provider: Dg Reeder, [address] [place] [address], [place], [address]. tel:[phone] [facility], [address] [place] [address], [id number], [place] tel:[phone] [facility] No Information 3 Eliezer Conte. [address] [address], [place], [address], [place]. tel:[phone] Office/outpa tient visit,est, mod [facility], [address] [address], [place], [place], [id number], [place] tel:[phone] [facility] Right shoulder pain (chief complaint)Le ft shoulder scope (chief complaint) Pain in right shoulderImpin gement syndrome of right shoulderBicip ital tendinitis, right shoulder 3 Eliezer Conte. [address] [facility] [address], [place], [address], [place]. tel:[phone] [facility], [address], [id number], [place] tel:[phone] [facility] second postop (chief complaint) Bicipital tendinitis, left shoulderIncom plete rotator cuff rupture of left shoulder, not specified as traumaticEnco unter for other orthopedic aftercare 0 3 Eliezer Conte. [address] [address], [place], [address], [place]. tel:[phone] [facility], [address] [address], [place], [place], [id number], [place] tel:[phone] [facility] Incomplete rotator cuff rupture of left shoulder, not specified as traumatic 3 Martinsricha Conte. [address] [facility] [facility] [address], [place], [address], [place]. tel:[phone] [facility], [address], [id number], [place] tel:[phone] [facility] first postop (chief complaint) Bicipital tendinitis, left shoulderIncom plete rotator cuff rupture of left shoulder, not specified as traumaticEnco unter for other orthopedic aftercare 2 Martins Dg. [address] [address], [place], [address], [place]. tel:[phone] [facility], [address], [id number], [place] tel:[phone] [facility] Incomplete rotator cuff rupture of left shoulder, not specified as traumaticBici pital tendinitis, left shoulder 2 Martins Dg. [address] [facility], [facility] [address], [place], [address], [place]. tel:[phone] [facility], [address], [id number], [place] tel:[phone] [facility] Bicipital tendinitis, left shoulderIncom plete rotator cuff rupture of left shoulder, not specified as traumatic 2 Martins Dg. [address] [facility] [address], [place], [address], [place]. tel:[phone] Office/outpa tient visit,est, mod [facility], [address], [id number], [place] tel:[phone] [facility] césar knee (chief complaint) Pain in right kneePain in left knee 2 Delvin Mitchell. [address] [facility], [place], [place], [id number], [place]. tel:[phone] Office/outpa tient visit,est, [facility], [address] [facility] [address], [place], [place], [id number], [place] tel:[phone] [facility] left shoulder (chief complaint) Body mass index (BMI) 27.0-27.9, adultBicipita l tendinitis, left shoulder 2 Eliezer Conte. [address] [facility], [address], [place], [address], [place]. tel:[phone] [facility], [address] [facility] [address], [place], [place], [id number], [place] tel:[phone] [facility] Pain in left shoulder 2 [facility]. [address] [facility], [place], [place], [id number], [place]. tel:[phone] Referring Provider: Dg Reeder, [address] [facility] [address], [place], [address]. tel:[phone] [facility], [address] [facility] [address], [place], [place], [id number], [place] tel:[phone] [facility] left shoulder (chief complaint) Bicipital tendinitis, left shoulder 2 Eliezer Conte. [address] [facility], [place], [address], [place]. tel:[phone] Office/outpa tient visit,est, [facility], [address] [facility] [address], [place], [place], [id number], [place] tel:[phone] [facility] left shoulder pain. (chief complaint) Pain in left shoulderBicip ital tendinitis, left shoulder 2 Eliezer Conte. [address] [facility], [address], [place], [address], [place]. tel:[phone] [facility], [address] [facility] [address], [place], [place], [id number], [place] tel:[phone] [facility] Right upper extremity (chief complaint) Lesion of ulnar nerve, right upper limbCarpal tunnel syndrome, right upper limb September- 2 Telma Mujica. [address] [facility], [place], [place], [id number], [place]. tel:[phone] [facility], [address] [facility], [place], [place], [id number], [place] tel:[phone] [facility] No Information 2 [place]. [address] [facility], [address], [place], [place], [id number], [place]. tel:[phone] [facility], [address] [address], [place], [place], [id number], [place] tel:[phone] [facility] Left upper extremity (chief complaint) Carpal tunnel syndrome, left upper limbLesion of ulnar nerve, left upper limb Aug- 2 Telma Mujica. [address] [facility], [place], [place], [id number], [place]. tel:[phone] [facility], [address] [address], [place], [place], [id number], [place] tel:[phone] [facility] No Information 0 2 [place]. [address] [facility], [place], [place], [id number], [place]. tel:[phone] [facility], [address] [facility] [address], [place], [place], [id number], [place] tel:[phone] [facility] No Information 2 2 [place]. [address] [facility], [place], [place], [address], [place]. tel:[phone] Office/outpa tient visit,[place], [place] [facility], [address] [facility] [address], [place], [place], [id number], [place] tel:[phone] [facility] bilateral upper extremities (chief complaint) Lesion of ulnar nerve, left upper limbCarpal tunnel syndrome, left upper limbLesion of ulnar nerve, right upper limbCarpal tunnel syndrome, right upper limb Mar-0 2 [facility]. [address] [facility], [address], [place], [place], [id number], [place]. tel:[phone] Family History Family Member Type Diagnosis Age At Onset Mother Problem (finding) Diabetes Payers Payer name Insurance type Covered green party ID lyndon ruiz(s) [facility] [id number] Social History Type Description Quantity Date Captured Comments Sex Male Smoking Status No Information Chief Complaint And Reason For Visit No Information Reason For Referral Reason For Referral No Information Plan Of Treatment Date Type Action Status Goal Dietary management education , guidance, and counseling completed Referral Ordered: X-ray exam knee, 3 views LT knee ordered Referral Ordered: X-ray exam knee, 4+ views RT knee ordered Referral Ordered: X-ray exam shoulder complete, minimum 2 views RT ordered Referral Ordered: MRI Upper extr joint, w/o contrast RT shoulder Appointment date/timeframe: 12/07/2022 ordered Referral Ordered: X-ray exam knee, 1 or 2 views LT knee ordered Referral Ordered: X-ray exam both knees, standing ordered Referral Ordered: X-ray exam knee, 1 or 2 views RT knee ordered Referral Ordered: MRI Upper extr joint, w/o contrast LT shoulder Appointment date/timeframe: 11/21/2021 ordered Referral Ordered: X-ray exam shoulder complete, minimum 2 views LT ordered History Of Present Illness Encounter Date Complaint History Of Prese nt Illness yvette Griffith is a 62 y ear-old male who presents to the office for evaluation of bilateral knee pain. Right shoulder pain Left shoulder scope second postop Interval history : Mr. Moon is a very pleasant 61-year-old male who presents for his second postop visit about 6 weeks status post left shoulder arthroscopic rotator cuff repair (subscapularis), extensive debridement, biceps tenodesis. Date of surgery 04/18/2022. Overall he is doing very well. He has no focal concerns or complaints. He really has no pain. He says all the pain from preop is gone. He is very happy with his outcome thus far. No concerns with his incision. I think he has been moving his arm more than recommended. first postop Mr. Moon is a very pleasant 61-year-old male who presents for his first postop visit 2 weeks status post left shoulder arthroscopic rotator cuff repair (subscapularis), extensive debridement, biceps tenodesis. Date of surgery 04/18/2022. Overall he is doing well. His pain is well-controlled. He is off oxycodone. No concerns with his incision. Denies numbness, tingling, or weakness to the left hand. He has been compliant in his sling and home exercises. césar knee Nacho presents with césar knee left shoulder Mr. Moon is a very pleasant 61-year-old right-hand dominant male who presents for followup evaluation of several months of chronic, atraumatic left shoulder pain. I last saw him about a month ago. I have been following him for several months now. He had an MRI after last visit. He is here for results and next steps. He notes no significant improvement in his symptoms. He has been working hard in physical therapy. He has taken a full course of Meloxicam. I performed a subacromial steroid injection 3.5 months ago. This worked for awhile, but has worn off. He is interested in further definitive intervention. He is also interested in another steroid injection today before pursuing surgery. left shoulder Mr. Moon is a very pleasant 61-year-old, [id number] male who presents for follow up evaluation of his chronic, atraumatic left shoulder pain. I last saw about 2 and 1/2 months ago. I diagnosed him with rotator cuff tendinitis, possible tear. I performed a subacromial steroid injection. He has been in physical therapy. He has taken a full dose of Meloxicam. He did feel interval, intermittent improvement in his shoulder symptoms. He felt his shoulder was significantly improved for about 2 months. Unfortunately, his shoulder pain has returned over the last several weeks. He locates the pain laterally over the deltoid. It is hard to hold anything. It is painful with overhead activity. He has pain at night. left shoulder pain. Patient is a pleasant 60-year-old, right-hand dominant male, who presents for initial evaluation of years of atraumatic left shoulder pain. He denies injury or inciting event. This has been going on for a long time. It is worsening recently. He has pain at night, and pain with overhead activity. He locates the pain laterally over his deltoid. He has had no treatment or evaluation for his left shoulder--no therapy, no steroid injections, no anti-inflammatories. Of note, he does have a history of a contralateral rotator cuff repair in [place] by Dr. Cyr. He is doing okay with respect to his right shoulder, but still has right shoulder issues. He is recently status post bilateral cubital tunnel and carpal tunnel releases with Dr. Moon. Right upper extremity Nacho is 2 weeks out from a right ulnar nerve decompression through the cubital tunnel (in situ) and an open right carpal tunnel release. The right hand paresthesias are improving. He is nearly 6 weeks out from an open left carpal tunnel release and a left ulnar nerve decompression through the cubital tunnel (in situ). His left hand paresthesias, strength, and function are all improving. He is pleased with his progress. He returns for follow-up. Left upper extremity Nacho is 2 weeks out from a left ulnar nerve decompression through the cubital tunnel (in situ) and an open left carpal tunnel release on July 28, 2021. The left hand pain, stiffness, and paresthesias are improving. He returns for follow-up. bilateral upper extremities Scott mayer presents to the office today on July 06, 2021. He is here because of bilateral upper extremity pain and paresthesias. He reports that his symptoms have been present for about 15 years. However, they have been particularly worse for the past 6-12 months. Nacho reports that the symptoms wake him up at night. He rates his pain a 10 on a scale of 0-10. He describes the pain as aching, constant, dull, occasional, sharp, stabbing, and throbbing. He also reports catching, decreased motion, difficulty falling asleep, locking, night pain, numbness, spasms, stiffness, tenderness, tingling, and weakness. Nacho had electrodiagnostic studies performed for both upper extremities by Dr. Ligia Claudio MD on June 12, 2021. The results were interpreted as e lectrodiagnostic evidence for severe carpal tunnel syndrome, bilateral upper extremities. 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 The patient also has generalized neuropathy from his diabetes Nacho is here today for further evaluation and treatment of both upper extremities. Functional Status Date Functional Assessmen t No Information Instructions Date Instruction Additional Infor jemalalex Dietary management e ducation, guidance, and counseling Related to Body mass index [BMI] 27.0-27.9, adult Giving encouragement to exercise Related to Body mass index [BMI] 27.0-27.9, adult Assessments Type Assessment Date No Information Patient Care Teams Name Effective Dates (start - stop) Status Members No Information
--- OUTSIDE RECORDS SUMMARY | 2024-07-03 05:50 | XMS_ITS | Encounter Summary ---
Author Organization [facility] Address [address] [place] [address] Care Team Providers Care Water Tanker Driver Name Role Phone Jay Alanis MD Primary Care Provider [phone] Nacho Mcghee MD Primary Care Provider [phone] Encounter Details Date Type Department Care Team (Late st Contact Info) Description 11/09/2019 Prep for Procedure [facility] [address] [place] [address] Duy Lopez MD [address] [id number] Social History Tobacco Use Types Packs/Day Years Used Date Smoking Tobacco: Former Smokeless Tobacco: Never Alcohol Use Standard Drinks/Week Comments Yes 0 (1 standard drink = 0.6 oz pur e alcohol) socially AUDIT-C Answer Date Recorded Frequency of Alcohol Consumption Never 01/06/2019 Average Number of Drinks Not on file 019 Frequency of Binge Drinking Not on file 07/2018 Sex and Gender Information Value Date Recorded Sex Assigned at Male 08/12/2023 8:04 AM CDT Legal Sex Male 1:42 AM CDT Gender Identity Male 08/12/2023 8:04 AM CDT Sexual Orientation Not on file COVID-19 Exposure Response Date Recorded In the last month, have you been in contact with someone who was confirmed or suspected to have Coronavirus / COVID-19? No / Unsure 11/11/2019 10:03 AM CDT documented as of this encounter Plan of Treatment Not on file documented as of this encounter Results * PRE-SURGICAL/PRE-PROCEDURE CORONAVIRUS (COVID 19) (11/11/2019 10:12 AM CDT) CORONAVIRUS SARS COV 2 PCR (RESP) NOT DETECTED NOT DETECTED 11/13/2019 4:04 AM CDT [facility] Comment: A Not Detected (negative) test result for this test means that SARS- CoV-2 RNA was not present in the specimen above the limit of detection. A negative result does not rule out the possibility of COVID-19 and should not be used as the sole basis for treatment or patient management decisions. If COVID-19 is still suspected, based on exposure history together with other clinical findings, re-testing should be considered in consultation with public health authorities. Laboratory test results should always be considered in the context of clinical observations and epidemiological data in making a final diagnosis and patient management decisions. Please review the Fact Sheets and FDA authorized labeling available for health care providers and patients using the following websites: https://[email or web address]/home/Covid-19/HCP/NAAT/fact-sheet2 https://[email or web address]/home/Covid-19/Patients/NAAT/ fact-sheet2 This test has been authorized by the FDA under an Emergency Use Authorization (EUA) for use by authorized laboratories. Due to the current public health emergency, [facility] is receiving a high volume of samples from a wide variety of swabs and media for COVID-19 testing. In order to serve patients during this public health crisis, samples from appropriate clinical sources are being tested. Negative test results derived from specimens received in non-commercially manufactured viral collection and transport media, or in media and sample collection kits not yet authorized by FDA for COVID-19 testing should be cautiously evaluated and the patient potentially subjected to extra precautions such as additional clinical monitoring, including collection of an additional specimen. Methodology: Nucleic Acid Amplification Test (NAAT) includes PCR or TMA Additional information about COVID-19 can be found at the [facility] website: www.[email or web address]/Covid19. Test performed at [facility] [place] [address] [place] [address] Director: NADYA HANDLEY DO,MPH NASOPHARYNGEAL SWAB / Unknown 11/11/2019 10:12 AM CDT us Duy Lopez MD MICROBIOLOGY - GENERAL ORDERABLE S Final Result [facility] [address] [place] [address], documented in this encounter Visit Diagnoses Diagnosis Preop testing- Primary Preoperative examination, unspecified documented in this encounter Additional Health Concerns Infection Onset Date Last Indicated Resolved Time COVID-19 Rule Out 11/11/2019 11/11/2019 11/13/2019 4:04 AM CDT documented as of this encounter Care Teams Water Tanker Driver Relationship Specialty Start Date End Date Jay Alanis MD PCP - General INTERNAL MEDICINE 08/27/18 08/17/21 [place] [address] [place] [address] PCP - General FAMILY PRACTICE 08/18/21 documented as of this encounter
--- OUTSIDE RECORDS SUMMARY | 2024-07-03 05:50 | XMS_ITS | Clinical Summary ---
Author Organization [facility] Address [address] [place] [address] Care Team Providers Care Adult Education Instructor Name Role Phone Dev Burrell MD Unavailable [phone] Phillip Schafer MD Unavailable [phone] Star Ellis MD Unavailable [phone] Ally Mcghee MD Primary Care Provider [phone] Mary Anne Rodriguez MD Unavailable [phone] Dimitrios Mccrary MD Unavailable [phone] Allergies No known active allergies Medications metFORMIN [...] hypertension 04/07/2024 Urine leukocytes 04/07/2024 Atherosclerosis of mechoopda ar eric of left lower extremity with intermittent claudication 03/26/2024 Preop examination 03/25/2024 Cystitis 01/04/2024 Hematuria 11/09/2023 History of prostate cancer 11/09/2023 Urinary retention 11/09/2023 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 Atherosclerosis of mechoopda ar eric of both lower extremities with [...] risk of limb loss and need for ferry terminal supervisor follow-up. Assessment & Plan (06/17/2024 11:05 AM TRAVEL ACCOMMODATIONS RATER): He has a progressive right in-stent popliteal [...] loss and need for care home follow-up. He understands the potential need for lifelong Plavix therapy if stents are placed. Assessment & Plan (04/08/2023 12:58 PM TRAVEL ACCOMMODATIONS RATER): He has debilitating bilateral calf claudication and [...] need for care home follow-up. Atherosclerosis of mechoopda ar eric of right lower extremity with intermittent claudication 04/08/2023 Carpal tunnel syndrome on right 08/15/2021 Overview (08/15/2021): Added automatically from request for surgery [id number] Lesion of right ulnar nerve 08/15/2021 Overview (08/15/2021): Added automatically from request for surgery [id number] Cubital tunnel syndrome on left 07/21/2021 Overview (07/21/2021): Added automatically from request for surgery [id number] Carpal tunnel syndrome on left 07/21/2021 Overview (07/21/2021): Added automatically from request for surgery [id number] Vascular disease 06/25/2021 Overweight with body mass index (BMI) 25.0-29.9 10/13/2015 Type 2 diabetes mellitus wit hout complication, without long-term current use of insulin ([facility]/HCC) 07/11/2011 Overview (09/11/2023): DMII WO CMP UNCNTRLD Prostate cancer 01/26/2009 Cancer Staging:Clinical stage from 01/26/2009:Stage III(T3a, N0, M0, G3-G4) - Signed by Dev Burrell MD on 04/23/2018 Encounters Date Type Department Care Team Description 07/02/[address] [facility] [address] [facility] Floor 1 [place] [phone] Dimitrios Mccrary MD 07/01/2024 3:09 PM TRAVEL ACCOMMODATIONS RATER Anesthesia Event [facility] Operating Room [address] [place] [phone] Venecia Hennessy DO Devuono, Lauren Falvey, DHEERAJ 07/01/2024 3:00 PM TRAVEL ACCOMMODATIONS RATER - 07/01/2024 5:30 PM TRAVEL ACCOMMODATIONS RATER Surgery [facility] Operating Room [address] [place] [address] [phone] Dimitrios Mccrary MD AIF Angiogram, Right Leg Run off, Angioplasty Right Popliteal Artery 07/01/2024 1:11 PM TRAVEL ACCOMMODATIONS RATER - 07/02/2024 10:58 AM TRAVEL ACCOMMODATIONS RATER Hospital Encounter [address] [phone] Dimitrios Mccrary MD Atherosclerosis of mechoopda artery of right lower extremity with intermittent claudication (HCC) (Primary Dx) Discharge Disposition: Discharge to home or self care 06/22/2024 12:15 PM TRAVEL ACCOMMODATIONS RATER Pre-Admission Testing [facility] Pre Anesthesia Testing [address] [place] [phone] Preoperative testing (Primary Dx) 06/19/[address] [facility] [address] [place] [phone] Dimitrios Mccrary MD Med Management 06/16/2024 11:45 AM TRAVEL ACCOMMODATIONS RATER Office Visit [facility] [address] [place] [phone] Eliseo Hyde PA Atherosclerosis of mechoopda artery of right lower extremity with intermittent claudication (HCC); Claudication (HCC) 06/16/2024 11:00 AM TRAVEL ACCOMMODATIONS RATER Ancillary Procedure [facility] [address] [place] [address] [phone] Encounter for surgical aftercare following surgery on the circulatory system 05/13/2024 11:00 AM TRAVEL ACCOMMODATIONS RATER Office Visit [facility] [address] [place] [phone] Dimitrios Mccrary MD Atherosclerosis of mechoopda artery of left lower extremity with intermittent claudication (HCC) (Primary Dx) 05/13/[address] [facility] [address] [place] [phone] Dimitrios Mccrary MD Encounter for surgical aftercare following surgery on the circulatory system (Primary Dx) 04/30/2024 7:48 AM TRAVEL ACCOMMODATIONS RATER Anesthesia Event [facility] Operating Room [address] [place] [phone] Wilma Manjarrez MD Czajkowski, Lesly June, NP 04/30/2024 7:30 AM TRAVEL ACCOMMODATIONS RATER - 04/30/2024 12:00 PM TRAVEL ACCOMMODATIONS RATER Surgery [facility] Operating Room [address] [place] [phone] Dimitrios Mccrary MD Left Femoral Artery Endarterectomy, Left Iliac Artery Stent, Left AIF and Ateriogram 04/30/2024 5:33 AM TRAVEL ACCOMMODATIONS RATER - 05/03/2024 2:15 PM TRAVEL ACCOMMODATIONS RATER Hospital Encounter [address] [phone] Dimitrios Mccrary MD Atherosclerosis of mechoopda artery of left lower extremity with intermittent claudication (HCC) Discharge Disposition: Discharge to home or self care 04/15/[address] [facility] [address] [phone] Ligia Sun PA lower extremity vein mapping results 04/09/2024 11:45 AM TRAVEL ACCOMMODATIONS RATER Pre-Admission Testing [facility] Pre Anesthesia Testing [address] [place] [phone] Preop testing (Primary Dx) 04/07/2024 11:19 AM TRAVEL ACCOMMODATIONS RATER - 04/07/2024 5:13 PM TRAVEL ACCOMMODATIONS RATER Emergency [facility] Emergency Department [address] [place] [phone] Richard Armstrong MD Dizziness (Primary Dx); Episode of hypertension; Urine leukocytes Discharge Disposition: Discharge to home or self care 04/07/2024 9:30 AM TRAVEL ACCOMMODATIONS RATER Procedure visit [facility] [address] [place] [phone] Irradiation cystitis with hematuria; Soft tissue radionecrosis 04/06/2024 9:30 AM TRAVEL ACCOMMODATIONS RATER Procedure visit [facility] [address] [place] [phone] Irradiation cystitis with hematuria; Soft tissue radionecrosis 04/06/2024 8:00 AM TRAVEL ACCOMMODATIONS RATER Ancillary Procedure [facility] [address] [phone] Claudication of lower extremity (HCC); Preop examination 04/03/2024 9:30 AM TRAVEL ACCOMMODATIONS RATER Procedure visit [facility] [address] [place] [phone] Irradiation cystitis with hematuria; Soft tissue radionecrosis from Last 3 Months Immunizations Immunization Administration Dates Next Due Influenza, Unspecified 03/01/2022 Pneumococcal Conjugate PCV 13 01/12/2021 Tdap 01/12/2021 Surgical History Surgery Date Site/Laterality Comments BRACHYTHERAPY prostate ROTATOR CUFF REPAIR Bilateral CYSTOSCOPY W/ INTERNAL URETHROTOMY 08/21/2023 Direct Vision Internal Urethrotomy CARPAL TUNNEL RELEASE Bilateral AORTIC ILIAC FEMORIAL ANGIOGRAM INTERVENTION Right x3 Medical History Medical History Date Comments Malignant neoplasm of prostate (HCC) Hyperlipidemia Hypertension Type 2 diabetes mellitus (HCC) Atherosclerosis of mechoopda ar eric of both lower extremities with intermittent claudication (HCC) IBS (irritable bowel syndrome) Social History Tobacco Use Types Packs/Day Years Used Date Smoking Tobacco: Former Cigarettes 2 57.2 S tarted: 1967 Passive Smoke Exposure: Past Smokeless Tobacco: Never Tobacco Cessation:Counseling Given: Not Answered Comments:Over 20 years ago Alcohol Use Standard Drinks/Week Comments No 0 (1 standard drink = 0.6 oz pur e alcohol) [facility] Utilities Answer Date Recorded In the [...] often do you attend chur ch or muslim services? More than 4 times per year 05/01/2024 Do you belong to any clubs o r organizations such as sabianist groups, unions, fraternal or athletic groups, or [...] any time in the past 12 [facility], were you homeless or living in a long term (including now)? No 05/01/2024 Personal Safety Answer Date Recorded Have you ever been in or are you currently in a harmful physical or emotional relationship or is someone making you feel afraid or unsafe? Denies 07/01/2024 Sex and Gender Information Value Date Recorded Sex Assigned at Not on file Legal Sex Male 2:12 AM TRAVEL ACCOMMODATIONS RATER Gender Identity Not on file Sexual Orientation Not on file Obstetrics History Last Filed Vital Signs Vital Sign Reading Time Taken Comments Blood Pressure 162/87 07/02/2024 8:27 AM TRAVEL ACCOMMODATIONS RATER Pulse 72 07/02/2024 8:27 AM TRAVEL ACCOMMODATIONS RATER Temperature 36.2 C (97.1 F) 07/02/2024 8:27 AM TRAVEL ACCOMMODATIONS RATER Respiratory Rate 15 07/02/2024 8:27 AM TRAVEL ACCOMMODATIONS RATER Oxygen Saturation 98% 07/02/2024 8:27 AM TRAVEL ACCOMMODATIONS RATER Inhaled Oxygen Concentration - - Weight 78.6 kg (173 lb 4.5 oz) 07/01/2024 1:20 P M TRAVEL ACCOMMODATIONS RATER Height 170.2 cm (5' 7 ) 07/01/2024 1:20 PM TRAVEL ACCOMMODATIONS RATER Body Mass Index 27.14 07/01/2024 1:20 PM TRAVEL ACCOMMODATIONS RATER Plan of Treatment Health Maintenance Due Date Last Done Comments Albumin Creatinine Ratio, Urine 1958 Colon Cancer Screening-Colonoscopy 1958 Depression Screening 1958 Hepatitis C Screening 1958 Dilated Eye Exam 1958 Foot Exam 1958 Hepatitis B Screening 1976 Zoster Vaccine (1 of 2) 2008 Pneumococcal vaccine 65+ (2 of 2 - PPSV23) 03/09/2021 01/12/2021 Lipid Panel 02/27/2023 02/27/2022 Well Visit 65+ 09/24/2023 Covid-19 Vaccine (4 - 2023-2 5 season) 2024 03/27/2021, 07/22/2020, 07/01/2020 Influenza Vaccine (#1) 2024 03/01/2022 Hemoglobin A1C 12/20/2024 06/22/2024, 12/0 09/2023, 10/24/2023 Prostate Cancer Screening-PSA 04/13/2025 04/13/2023, 04/24/2018 Fall Risk Assessment 07/02/2025 07/02/2024 eGFR 07/02/2025 07/02/2024, 06/06, 05/02/2024, Additional history exists DTaP/Tdap/Td Vaccine (2 - Td or Tdap) 01/12/2031 01/12/2021 Abdominal Aortic Aneurysm (A AA) Screen Completed 01/18/2024, 01/04/2024 Medical Devices Implanted Type Area Tying In Machine Operator Device Identifier Shelf Expiration Date Model / Serial / Lot [employer] Viabahn 6mm 25cm 120cm Flexible Self Expand Radiopaque Stent [id number] - [id number] - [id number] Implanted:Qty: 1 on 10/31/2023 by Dimitrios Mccrary MD at [facility] Stent Right: Superficial Femoral Artery [employer] 06/04/2025 [id number] / [id number] / [employer] Viabahn 6mm 6fr 10cm 120cm Delivery System Superficial Femoral [id number] - [id number] - [id number] Implanted:Qty: 1 on 10/31/2023 by Dimitrios Mccrary MD at [facility] Stent Right: Superficial Femoral Artery [employer] 01/05/2025 [id number] / [id number] / Med[employer] Protege Everflex 5mm .079in 40mm 120cm Otw Delivery System Self [id number] - [id number] Implanted:Qty: 1 on 10/31/2023 by Dimitrios Mccrary MD at [facility] Stent Right: Popleteal Artery [employer] 12/19/2024 [id number] / / [id number] Ar[employer] Ar-2324 Bcm [place]ivelock 4.75mm 24.5mm Self Punch Vent Shoulder [place] Suture - [id number] Implanted:Qty: 1 on 04/18/2022 by Dg Martins MD at [facility] Left: Shoulder [employer] [id number] 04/04/2025 A [id number] CM / / [id number] [employer] Set Implant Arthrex Fibertak Biceps Sterile Latex Free Ar-3670 - [id number] Implanted:Qty: 1 on 04/18/2022 by Dg Martins MD at [facility] Left: Shoulder [employer] [id number] 08/03/2026 A R-3670 / / [id number] [employer]ife [employer] Graft Patch Patch Vascular Repair 0.8x8cm 0.8x8cm Pfp0.8x8 - [id number] Implanted:Qty: 1 on 04/30/2024 by Dimitrios Mccrary MD at [facility] Left: Femoral [employer] 11/01/2025 PFP0. 8X8 / / [id number] Description:Bovine pericardi um patch Bard Peripheral Vascular Lifestent 8mm 6fr 60mm 80cm Self Expand Catheter Helical [id number] - [id number] Implanted:Qty: 1 on 04/30/2024 by Dimitrios Mccrary MD at [facility] Left: Common Iliac Artery Bard Peripheral Vascular 08/26/2025 [id number] / / [id number] Procedures Procedure Name Priority Date/Time Associated Diagnosis Comments POCT GLUCOSE DEVICE Routine 07/02/2024 6 :18 AM TRAVEL ACCOMMODATIONS RATER EGFR Routine 07/02/2024 5:13 AM TRAVEL ACCOMMODATIONS RATER CBC WITHOUT DIFFERENTIAL Routine 07/02/2024 5:13 AM TRAVEL ACCOMMODATIONS RATER BASIC METABOLIC PANEL Routine 07/02/2024 5:13 AM TRAVEL ACCOMMODATIONS RATER POCT GLUCOSE DEVICE Routine 07/01/2024 9 :03 PM TRAVEL ACCOMMODATIONS RATER POCT ACTIVATED CLOTTING TIME, LOW RANGE Routine 07/01/2024 7:33 PM TRAVEL ACCOMMODATIONS RATER POCT ACTIVATED CLOTTING TIME, LOW RANGE Routine 07/01/2024 6:31 PM TRAVEL ACCOMMODATIONS RATER POCT ACTIVATED CLOTTING TIME, LOW RANGE Routine 07/01/2024 5:34 PM TRAVEL ACCOMMODATIONS RATER POCT ACTIVATED CLOTTING TIME, LOW RANGE Routine 07/01/2024 4:31 PM TRAVEL ACCOMMODATIONS RATER POCT GLUCOSE DEVICE Routine 07/01/2024 4 :27 PM TRAVEL ACCOMMODATIONS RATER ANGIOGRAM LOWER EXTREMITY RIGHT IP Routine 07/01/2024 4:24 PM TRAVEL ACCOMMODATIONS RATER IA AN PROCEDURE PLACEHOLDER Routine 07/01/2024 3:32 PM TRAVEL ACCOMMODATIONS RATER IA AN ELECTIVE SUPRAGLOTTIC AIRWAY Routine 07/01/2024 3:32 PM TRAVEL ACCOMMODATIONS RATER ARTERIOGRAM AORTA ILIAC - FEMORAL 07/01/2024 3:09 PM TRAVEL ACCOMMODATIONS RATER Atherosclerosis of mechoopda artery of right lower extremity with intermittent claudication (HCC) POCT GLUCOSE DEVICE Routine 07/01/2024 1 :34 PM TRAVEL ACCOMMODATIONS RATER EGFR Routine 06/22/2024 2:09 PM TRAVEL ACCOMMODATIONS RATER Preoperative testing BASIC METABOLIC PANEL Routine 06/22/2024 2:09 PM TRAVEL ACCOMMODATIONS RATER Preoperative testing DIFFERENTIAL AUTO Routine 06/22/2024 1:2 6 PM TRAVEL ACCOMMODATIONS RATER Preoperative testing CBC WITH AUTO DIFFERENTIAL Routine 06/22/2024 1:26 PM TRAVEL ACCOMMODATIONS RATER Preoperative testing TYPE AND SCREEN Routine 06/22/2024 1:26 PM TRAVEL ACCOMMODATIONS RATER Preoperative testing PROTIME-INR Routine 06/22/2024 1:26 PM TRAVEL ACCOMMODATIONS RATER Preoperative testing APTT Routine 06/22/2024 1:26 PM TRAVEL ACCOMMODATIONS RATER Preoperative testing HEMOGLOBIN A1C Routine 06/22/2024 1:26 PM TRAVEL ACCOMMODATIONS RATER Preoperative testing US ARTERIAL DUPLEX LOWER EXTREMITY RIGHT LIMITED Schedule Routine, Read Routine (OP Routine) 06/16/2024 12:05 PM TRAVEL ACCOMMODATIONS RATER Encounter for surgical aftercare following surgery on the circulatory system US ARTERIAL DOPPLER LOWER EXTREMITY BILATERAL Schedule Routine, Read Routine (OP Routine) 06/16/2024 12:05 PM TRAVEL ACCOMMODATIONS RATER Encounter for surgical aftercare following surgery on the circulatory system POCT GLUCOSE DEVICE Routine 05/03/2024 11:58 AM TRAVEL ACCOMMODATIONS RATER POCT GLUCOSE DEVICE Routine 05/03/2024 8 :09 AM TRAVEL ACCOMMODATIONS RATER POCT GLUCOSE DEVICE Routine 05/03/2024 3 :14 AM TRAVEL ACCOMMODATIONS RATER POCT GLUCOSE DEVICE Routine 05/02/2024 11:29 PM TRAVEL ACCOMMODATIONS RATER POCT GLUCOSE DEVICE Routine 05/02/2024 8 :17 PM TRAVEL ACCOMMODATIONS RATER POCT GLUCOSE DEVICE Routine 05/02/2024 4 :26 PM TRAVEL ACCOMMODATIONS RATER POCT GLUCOSE DEVICE Routine 05/02/2024 12:26 PM TRAVEL ACCOMMODATIONS RATER EGFR Routine 05/02/2024 11:13 AM TRAVEL ACCOMMODATIONS RATER DIFFERENTIAL AUTO Routine 05/02/2024 11:13 AM TRAVEL ACCOMMODATIONS RATER COMPREHENSIVE METABOLIC PANEL Routine 05/02/2024 11:13 AM TRAVEL ACCOMMODATIONS RATER CBC WITH AUTO DIFFERENTIAL Routine 05/02/2024 11:13 AM TRAVEL ACCOMMODATIONS RATER POCT GLUCOSE DEVICE Routine 05/02/2024 7 :45 AM TRAVEL ACCOMMODATIONS RATER EGFR Routine 05/02/2024 5:21 AM TRAVEL ACCOMMODATIONS RATER DIFFERENTIAL AUTO Routine 05/02/2024 5:2 1 AM TRAVEL ACCOMMODATIONS RATER COMPREHENSIVE METABOLIC PANEL Routine 05/02/2024 5:21 AM TRAVEL ACCOMMODATIONS RATER CBC WITH AUTO DIFFERENTIAL Routine 05/02/2024 5:21 AM TRAVEL ACCOMMODATIONS RATER POCT GLUCOSE DEVICE Routine 05/02/2024 4 :01 AM TRAVEL ACCOMMODATIONS RATER POCT GLUCOSE DEVICE Routine 05/02/2024 12:57 AM TRAVEL ACCOMMODATIONS RATER POCT GLUCOSE DEVICE Routine 05/01/2024 9 :10 PM TRAVEL ACCOMMODATIONS RATER POCT GLUCOSE DEVICE Routine 05/01/2024 6 :30 PM TRAVEL ACCOMMODATIONS RATER POCT GLUCOSE DEVICE Routine 05/01/2024 4 :34 PM TRAVEL ACCOMMODATIONS RATER POCT GLUCOSE DEVICE Routine 05/01/2024 11:49 AM TRAVEL ACCOMMODATIONS RATER POCT GLUCOSE DEVICE Routine 05/01/2024 7 :32 AM TRAVEL ACCOMMODATIONS RATER ECG 12-LEAD Routine 05/01/2024 5:06 AM TRAVEL ACCOMMODATIONS RATER EGFR Routine 05/01/2024 4:34 AM TRAVEL ACCOMMODATIONS RATER BASIC METABOLIC PANEL Routine 05/01/2024 4:34 AM TRAVEL ACCOMMODATIONS RATER CBC WITHOUT DIFFERENTIAL Routine 05/01/2024 4:34 AM TRAVEL ACCOMMODATIONS RATER POCT GLUCOSE DEVICE Routine 05/01/2024 3 :50 AM TRAVEL ACCOMMODATIONS RATER POCT GLUCOSE DEVICE Routine 05/01/2024 12:37 AM TRAVEL ACCOMMODATIONS RATER POCT GLUCOSE DEVICE Routine 04/30/2024 9 :24 PM TRAVEL ACCOMMODATIONS RATER POCT GLUCOSE DEVICE Routine 04/30/2024 4 :21 PM TRAVEL ACCOMMODATIONS RATER CBC WITHOUT DIFFERENTIAL STAT 04/30/2024 12:08 PM TRAVEL ACCOMMODATIONS RATER POCT GLUCOSE DEVICE Routine 04/30/2024 11:18 AM TRAVEL ACCOMMODATIONS RATER ANGIOGRAM LOWER EXTREMITY LEFT IP Routine 04/30/2024 10:45 AM TRAVEL ACCOMMODATIONS RATER SURGICAL PATHOLOGY Routine 04/30/2024 10:44 AM TRAVEL ACCOMMODATIONS RATER Atherosclerosis of mechoopda artery of left lower extremity with intermittent claudication (HCC) IA AN PROCEDURE PLACEHOLDER Routine 04/30/2024 8:12 AM TRAVEL ACCOMMODATIONS RATER IA AN ELECTIVE ENDOTRACHEAL AIRWAY Routine 04/30/2024 8:12 AM TRAVEL ACCOMMODATIONS RATER ENDARTERECTOMY WITH AIF INTERVENTION - FEMORAL ARTERY 04/30/2024 7:47 AM TRAVEL ACCOMMODATIONS RATER Atherosclerosis of mechoopda artery of left lower extremity with intermittent claudication (HCC) POCT GLUCOSE DEVICE Routine 04/30/2024 7 :43 AM TRAVEL ACCOMMODATIONS RATER B CHECK SAMPLE STAT 04/30/2024 6:25 AM TRAVEL ACCOMMODATIONS RATER PROTIME-INR Routine 04/09/2024 12:38 PM TRAVEL ACCOMMODATIONS RATER Preop testing APTT Routine 04/09/2024 12:38 PM TRAVEL ACCOMMODATIONS RATER Preop testing HEMOGLOBIN A1C Routine 04/09/2024 12:38 PM TRAVEL ACCOMMODATIONS RATER Preop testing EGFR Routine 04/09/2024 12:37 PM TRAVEL ACCOMMODATIONS RATER Preop testing BASIC METABOLIC PANEL Routine 04/09/2024 12:37 PM TRAVEL ACCOMMODATIONS RATER Preop testing TYPE AND SCREEN Routine 04/09/2024 12:25 PM TRAVEL ACCOMMODATIONS RATER Preop testing URINALYSIS, MICROSCOPIC ONLY STAT 04/07/2024 1:00 PM TRAVEL ACCOMMODATIONS RATER URINALYSIS AND REFLEX TO MICROSCOPIC AND CULTURE STAT 04/07/2024 1:00 PM TRA[address] ACCOMMODATIONS R[address] CT HEAD WO CONTRAST ED 04/07/2024 12:59 PM TRAVEL ACCOMMODATIONS RATER EGFR STAT 04/07/2024 12:28 PM TRAVEL ACCOMMODATIONS RATER DIFFERENTIAL AUTO STAT 04/07/2024 12:28 PM TRAVEL ACCOMMODATIONS RATER TROPONIN T HIGH-SENSITIVITY SERIES (BASELINE, 2HR, 4HR, 6HR) STAT 04/07/2024 12:28 PM TRAVEL ACCOMMODATIONS RATER COMPREHENSIVE METABOLIC PANEL STAT 04/07/2024 12:28 PM TRAVEL ACCOMMODATIONS RATER CBC WITH AUTO DIFFERENTIAL STAT 04/07/2024 12:28 PM TRAVEL ACCOMMODATIONS RATER ECG 12-LEAD STAT 04/07/2024 10:29 AM TRAVEL ACCOMMODATIONS RATER POCT GLUCOSE DEVICE Routine 04/07/2024 9 :52 AM TRAVEL ACCOMMODATIONS RATER POCT GLUCOSE DEVICE Routine 04/07/2024 9 :20 AM TRAVEL ACCOMMODATIONS RATER POCT GLUCOSE DEVICE Routine 04/06/2024 11:05 AM TRAVEL ACCOMMODATIONS RATER US VEIN MAPPING DUPLEX LOWER EXTREMITY BILATERAL Schedule Routine, Read Routine (OP Routine) 04/06/2024 10:17 AM TRAVEL ACCOMMODATIONS RATER Claudication of lower extremity (HCC) Preop examination POCT GLUCOSE DEVICE Routine 04/06/2024 9 :14 AM TRAVEL ACCOMMODATIONS RATER POCT GLUCOSE DEVICE Routine 04/03/2024 11:13 AM TRAVEL ACCOMMODATIONS RATER POCT GLUCOSE DEVICE Routine 04/03/2024 11:07 AM TRAVEL ACCOMMODATIONS RATER POCT GLUCOSE DEVICE Routine 04/03/2024 9 :19 AM TRAVEL ACCOMMODATIONS RATER POCT GLUCOSE DEVICE Routine 04/03/2024 9 :09 AM TRAVEL ACCOMMODATIONS RATER CTA ABDOMINAL AORTA AND BILATERAL ILIOFEMORAL RUNOFF Schedule Routine, Read Routine (OP Routine) 01/18/2024 10:50 AM CDT Atherosclerosis of mechoopda artery of left lower extremity with intermittent claudication (HCC) PSA, TOTAL AND FREE Routine 04/13/2023 12:18 PM TRAVEL ACCOMMODATIONS RATER from Last 3 Months or Most Recently Relevant to Health Maintenance Results * (ABNORMAL) POCT glucose (07/02/2024 6:18 AM TRAVEL ACCOMMODATIONS RATER) Glucose, POC 221(H) 70 - 199 mg/dL Comment: For Glucose values <35 mg/dl when Hematocrit is >60 mg/dl,the test may not accurately detect significant hypoglycemia,and testing in the Laboratory should be considered if clinically indicated. Blood 07/02/2024 6:18 AM TRAVEL ACCOMMODATIONS RATER 07/02/2024 6:18 AM TRAVEL ACCOMMODATIONS RATER us Dimitrios Mccrary MD LAB POCT ORDERABLES - DEVICE F inal Result [facility] [address] Department [place] [address] * eGFR (07/02/2024 5:13 AM TRAVEL ACCOMMODATIONS RATER) eGFR >90 >=60 mL/min/1. 73 m2 Comment: [...] last reviewed 2021. Blood 07/02/2024 5:13 AM TRAVEL ACCOMMODATIONS RATER 07/02/2024 5:28 AM TRAVEL ACCOMMODATIONS RATER us Dimitrios Mccrary MD LAB BLOOD ORDERABLES Final Res ult [facility] [address] Department [place] [address] * (ABNORMAL) CBC without differential (07/02/2024 5:13 AM TRAVEL ACCOMMODATIONS RATER) WBC 6.4 3.8 - 9.9 K/cumm Hgb 12.0(L) 13.0 - 17.5 g/dL [facility] Hct 36.5(L) 38.9 - 50.3 % [facility] Plt 156 150 - 400 K/cumm [facility] MPV 11.5 9.1 - 12.3 fL [facility] RBC 4.11(L) 4.30 - 5.80 M/cumm [facility] MCV 88.8 81.3 - 96.4 fL [facility] MCH 29.2 27.1 - 33.3 pg [facility] MCHC 32.9 32.3 - 35.7 g/dL [facility] RDW CV 12.3 11.1 - 14.9 % [facility] RDW SD 40.4 35.7 - 48.1 fL [facility] NRBC abs 0.00 0.00 - 0.01 K/cumm [facility] Blood 07/02/2024 5:13 AM TRAVEL ACCOMMODATIONS RATER 07/02/2024 5:29 AM TRAVEL ACCOMMODATIONS RATER Dimitrios Mccrary MD LAB BLOOD ORDERABLES Final Res ult Performing Organization Address [facility]/ZIP Co de Phone Number [facility] [address] [place] [address] * (ABNORMAL) Basic metabolic panel (07/02/2024 5:13 AM TRAVEL ACCOMMODATIONS RATER) Pathologist [facility] Sodium 136 135 - 145 mmol/L Potassium, pl 4.4 3.3 - 4.9 mmol/L [facility] Chloride 100 97 - 110 mmol/L [facility] CO2 24 22 - 32 mmol/L [facility] Anion gap 12 2 - 15 mmol/L [facility] BUN 14 6 - 25 mg/dL [facility] Creatinine 0.90 0.80 - 1.30 mg/dL [facility] Glucose 280(H) 70 - 199 mg/dL [facility] Comment: Interpretive Data Fasting glucose >/= 126 [...] 2022. Calcium 8.8 8.5 - 10.3 mg/dL [facility] Blood 07/02/2024 5:13 AM TRAVEL ACCOMMODATIONS RATER 07/02/2024 5:28 AM TRAVEL ACCOMMODATIONS RATER Dimitrios Mccrary MD LAB BLOOD ORDERABLES Final Res ult Performing Organization Address [facility]/ZIP Co de Phone Number [facility] [address] [employer] [address] * POCT glucose (07/01/2024 9:03 PM TRAVEL ACCOMMODATIONS RATER) [facility] Glucose, POC 193 70 - 199 mg/dL Comment: For Glucose values <35 mg/dl when Hematocrit is >60 mg/dl,the test may not accurately detect significant hypoglycemia,and testing in the Laboratory should be considered if clinically indicated. Blood 07/01/2024 9:03 PM TRAVEL ACCOMMODATIONS RATER 07/01/2024 9:03 PM TRAVEL ACCOMMODATIONS RATER Dimitrios Mccrary MD LAB POCT ORDERABLES - DEVICE F inal Result Performing Organization Address City/[facility]/ZIP Co de Phone Number [facility] [address] [facility] [employer] [place] [address] * POCT Activated clotting time, low range (07/01/2024 7:33 PM TRAVEL ACCOMMODATIONS RATER) [facility] ACT 164 123 - 168 sec Blood 07/01/2024 7:33 PM TRAVEL ACCOMMODATIONS RATER 07/01/2024 7:33 PM TRAVEL ACCOMMODATIONS RATER Dimitrios Mccrary MD LAB POCT ORDERABLES - DEVICE F inal Result Performing Organization Address [facility] Co de Phone Number [facility] [address] [facility] [employer] [place] [address] * (ABNORMAL) POCT Activated clotting time, low range (07/01/2024 6:31 PM TRAVEL ACCOMMODATIONS RATER) [facility] ACT 181(H) 123 - 168 sec Blood 07/01/2024 6:31 PM TRAVEL ACCOMMODATIONS RATER 07/01/2024 6:31 PM TRAVEL ACCOMMODATIONS RATER Dimitrios Mccrary MD LAB POCT ORDERABLES - DEVICE F inal Result Performing Organization Address [facility] Co de Phone Number [facility] [address] [facility] [employer] [place] [address] * (ABNORMAL) POCT Activated clotting time, low range (07/01/2024 5:34 PM TRAVEL ACCOMMODATIONS RATER) ACT 197(H) 123 - 168 sec Blood 07/01/2024 5:34 PM TRAVEL ACCOMMODATIONS RATER 07/01/2024 5:34 PM TRAVEL ACCOMMODATIONS RATER us Dimitrios Mccrary MD LAB POCT ORDERABLES - DEVICE F inal Result Performing Organization Address [facility] Co de Phone Number [facility] [address] [facility] [employer] [place] [address] * (ABNORMAL) POCT Activated clotting time, low range (07/01/2024 4:31 PM TRAVEL ACCOMMODATIONS RATER) ACT 255(H) 123 - 168 sec Blood 07/01/2024 4:31 PM TRAVEL ACCOMMODATIONS RATER 07/01/2024 4:31 PM TRAVEL ACCOMMODATIONS RATER us Dimitrios Mccrary MD LAB POCT ORDERABLES - DEVICE F inal Result Performing Organization Address [facility] Co de Phone Number [facility] [address] [facility] [employer] [place] [address] * POCT glucose (07/01/2024 4:27 PM TRAVEL ACCOMMODATIONS RATER) Pathologist [facility] Glucose, POC 97 70 - 199 mg/dL Comment: For Glucose values <35 mg/dl when Hematocrit is >60 mg/dl,the test may not accurately detect significant hypoglycemia,and testing in the Laboratory should be considered if clinically indicated. Blood 07/01/2024 4:27 PM TRAVEL ACCOMMODATIONS RATER 07/01/2024 4:27 PM TRAVEL ACCOMMODATIONS RATER us Dimitrios Mccrary MD LAB POCT ORDERABLES - DEVICE F inal Result Performing Organization Address [facility] Co de Phone Number [facility] [address] Department [employer] [place] [address] * IR Angiogram Lower Extremity Right (07/01/2024 4:24 PM TRAVEL ACCOMMODATIONS RATER) Narrative CON[facility] SCIMAGE - 07/01/2024 4:25 PM TRAVEL ACCOMMODATIONS RATER The images from this study are not interpreted by Radiology. Please refer to the physician's procedure / OR operative note. Dimitrios Mccrary MD IMG IR PROCEDURES Final Result Performing Organization Address [facility] Co de Phone Number [facility] * IA AN ELECTIVE SUPRAGLOTTIC AIRWAY, IA AN PROCEDURE PLACEHOLDER (07/01/2024 3:32 PM TRAVEL ACCOMMODATIONS RATER) Narrative Gurwinder Villasenor CRNA - 07/01/2024 3:32 PM TRAVEL ACCOMMODATIONS RATER Gurwinder Villasenor CRNA 07/01/2024 3:33 PM Airway Patient location: OR Urgency: elective Date/time: 07/01/2024 3:16 PM Indications for airway management: anesthesia Difficult airway: no Staff: Supervising provider: Venecia Hennessy DO Placed by: MORTGAGE ADVISOR: Gurwinder Villasenor CRNA Emergent airway documentation: Risks and benefits discussed: yes Consent obtained: yes Consent given by: patient Airway prep: Preoxygenated: yes Patient position: sniffing Mask difficulty assessment: 1 - vent by mask Sedation level during airway: GA Final airway details: Final airway type: supraglottic airway Final supraglottic airway: IGel SGA size: 4 Number of attempts: [address] [facility] Venecia Hennessy DO ANESTHESIA ORDERABLES Final Result * POCT glucose (07/01/2024 1:34 PM TRAVEL ACCOMMODATIONS RATER) Glucose, POC 129 70 - 199 mg/dL Comment: For Glucose values <35 mg/dl when Hematocrit is >60 mg/dl,the test may not accurately detect significant hypoglycemia,and testing in the Laboratory should be considered if clinically indicated. Blood 07/01/2024 1:34 PM TRAVEL ACCOMMODATIONS RATER 07/01/2024 1:34 PM TRAVEL ACCOMMODATIONS RATER Dimitrios Mccrary MD LAB POCT ORDERABLES - DEVICE F inal Result Performing Organization Address [facility]/ZIP Co de Phone Number [facility] [address] Department [place] [address] * eGFR (06/22/2024 2:09 PM TRAVEL ACCOMMODATIONS RATER) Pathologist [facility] eGFR 90 >=60 mL/min/1. 73 m2 Comment: [...] last reviewed 2021. Blood 06/22/2024 2:09 PM TRAVEL ACCOMMODATIONS RATER 06/22/2024 2:09 PM TRAVEL ACCOMMODATIONS RATER Christy Macdonald NP LAB BLOOD ORDERABLES nal Result [facility] [address] Department [place] [address] * (ABNORMAL) Basic metabolic panel (06/22/2024 2:09 PM TRAVEL ACCOMMODATIONS RATER) [facility] Sodium 142 135 - 145 mmol/L Potassium, pl 5.4(H) 3.3 - 4.9 mmol/L [facility] Chloride 107 97 - 110 mmol/L [facility] CO2 24 22 - 32 mmol/L [facility] Anion gap 11 2 - 15 mmol/L [facility] BUN 15 6 - 25 mg/dL [facility] Creatinine 0.94 0.80 - 1.30 mg/dL [facility] Glucose 98 70 - 199 mg/dL [facility] Comment: Interpretive Data Fasting glucose >/= 126 [...] 2022. Calcium 9.6 8.5 - 10.3 mg/dL [facility] Blood 06/22/2024 2:09 PM TRAVEL ACCOMMODATIONS RATER 06/22/2024 2:09 PM TRAVEL ACCOMMODATIONS RATER us Christy Macdonald NP LAB BLOOD ORDERABLES Fi nal Result [facility] [address] Department [place] [address] * Differential, auto (06/22/2024 1:26 PM TRAVEL ACCOMMODATIONS RATER) Neutrophil abs 3.0 1.5 - 6.5 K/cumm Imm gran abs 0.0 0.0 - 0.1 K/cumm [facility] Lymphocyte abs 1.8 0.8 - 3.3 K/cumm [facility] Monocyte abs 0.5 0.2 - 0.8 K/cumm [facility] Eosinophil abs 0.3 0.0 - 0.5 K/cumm [facility] Basophil abs 0.1 0.0 - 0.1 K/cumm [facility] Neutrophil pct 52.8 % [facility] Comment: Interpretive Data Percent cell count reference ranges are not reported, since discordance with absolute values may lead to misinterpretation of CBC data. Current Interpretive Data was last revised on 2017. Imm gran pct 0.4 % [facility] Comment: Interpretive Data Percent cell count reference ranges are not reported, since discordance with absolute values may lead to misinterpretation of CBC data. Current Interpretive Data was last revised on 2017. Lymphocyte pct 31.9 % [facility] Comment: Interpretive Data Percent cell count reference ranges are not reported, since discordance with absolute values may lead to misinterpretation of CBC data. Current Interpretive Data was last revised on 2017. Monocyte pct 9.1 % [facility] Comment: Interpretive Data Percent cell count reference ranges are not reported, since discordance with absolute values may lead to misinterpretation of CBC data. Current Interpretive Data was last revised on 2017. Eosinophil pct 4.9 % [facility] Comment: Interpretive Data Percent cell count reference ranges are not reported, since discordance with absolute values may lead to misinterpretation of CBC data. Current Interpretive Data was last revised on 2017. Basophil pct 0.9 % [facility] Comment: Interpretive Data Percent cell count reference ranges are not reported, since discordance with absolute values may lead to misinterpretation of CBC data. Current Interpretive Data was last revised on 2017. Blood 06/22/2024 1:26 PM TRAVEL ACCOMMODATIONS RATER 06/22/2024 1:26 PM TRAVEL ACCOMMODATIONS RATER us Christy Macdonald NP LAB BLOOD ORDERABLES Fi nal Result [facility] [address] Department [place] [address] * CBC with auto differential (06/22/2024 1:26 PM TRAVEL ACCOMMODATIONS RATER) WBC 5.7 3.8 - 9.9 K/cumm Hgb 13.1 13.0 - 17.5 g/dL [facility] Hct 40.4 38.9 - 50.3 % [facility] Plt 192 150 - 400 K/cumm [facility] MPV 10.9 9.1 - 12.3 fL [facility] RBC 4.47 4.30 - 5.80 M/cumm [facility] MCV 90.4 81.3 - 96.4 fL [facility] MCH 29.3 27.1 - 33.3 pg [facility] MCHC 32.4 32.3 - 35.7 g/dL [facility] RDW CV 12.3 11.1 - 14.9 % [facility] RDW SD 40.4 35.7 - 48.1 fL [facility] NRBC abs 0.00 0.00 - 0.01 K/cumm [facility] Blood 06/22/2024 1:26 PM TRAVEL ACCOMMODATIONS RATER 06/22/2024 1:26 PM TRAVEL ACCOMMODATIONS RATER Christy Macdonald BEAUTY SPECIALIST LAB BLOOD ORDERABLES Fi nal Result Performing Organization Address [facility] Co de Phone Number [facility] [address] [facility] [employer] [place] [address] * aPTT (06/22/2024 1:26 PM TRAVEL ACCOMMODATIONS RATER) aPTT 37 28 - 38 sec Comment: Interpretive Data Heparin therapeutic range: 66.0 - 100.0 seconds. Range based on correlation with therapeutic heparin activity range of 0.3 - 0.7 Units/mL. Current interpretive data was last revised on 2023. Blood 06/22/2024 1:26 PM TRAVEL ACCOMMODATIONS RATER 06/22/2024 1:26 PM TRAVEL ACCOMMODATIONS RATER Christy Macdonald BEAUTY SPECIALIST LAB BLOOD ORDERABLES Fi nal Result Performing Organization Address [facility] Co de Phone Number [facility] [address] [employer] [place] [address] * Protime-INR (06/22/2024 1:26 PM TRAVEL ACCOMMODATIONS RATER) PT 11.6 9.7 - 13.0 sec INR 1.07 0.90 - 1.20 [facility] Comment: Interpretive data Oral anticoagulant therapeutic ranges: Venous thromboembolism prophylaxis or treatment: 2.0-3.0 CARDIOLOGY Standard range: 2.0-3.0 High-intensity range: 2.5-3.5 Refer to indication-specific guidelines for appropriate target ranges for prosthetic heart valve replacement. Current interpretive data was last revised on 2019. Blood 06/22/2024 1:26 PM TRAVEL ACCOMMODATIONS RATER 06/22/2024 1:26 PM TRAVEL ACCOMMODATIONS RATER Christy Macdonald NP LAB BLOOD ORDERABLES Fi nal Result Performing Organization Address [facility] Co de Phone Number [facility] [address] Department [employer] [place] [address] * Type and screen (06/22/2024 1:26 PM TRAVEL ACCOMMODATIONS RATER) [facility] ABO Rh O Positive Simón, indirect Negative [facility] Blood 06/22/2024 1:26 PM TRAVEL ACCOMMODATIONS RATER 06/22/2024 1:49 PM TRAVEL ACCOMMODATIONS RATER Narrative [facility] - 06/22/2024 2:35 PM TRAVEL ACCOMMODATIONS RATER Is this test being ordered in advance for a procedure?->Yes Expected date of procedure:->07/01/24 Has the patient been transfused in the past 3 months?->No Result [facility] Christy Macdonald NP LAB BLOOD BANK TEST ORD ERABLES Final Result Performing Organization Address [facility] de Phone Number [facility] [address] Department [employer] [place] [address] * (ABNORMAL) Hemoglobin A1c (06/22/2024 1:26 PM TRAVEL ACCOMMODATIONS RATER) [facility] Hgb A1C 8.2(H) 4.0 - 5.6 % Estimated Average Glucose 189 mg/dL [facility] Comment: The ADA recommends reporting an estimated Average Glucose (eAG) with all Hemoglobin A1c results using the equation derived from a study of 507 normal and diabetic adults. Minority populations were underrepresented and children were not included. (Diabetes Care 31:4517-9788, 2008). The eAG is not equivalent to a fasting glucose. Blood 06/22/2024 1:26 PM TRAVEL ACCOMMODATIONS RATER 06/22/2024 1:26 PM TRAVEL ACCOMMODATIONS RATER Christy Macdonald NP LAB BLOOD ORDERABLES Fi nal Result Performing Organization Address [facility] Co de Phone Number [facility] [address] Department [employer] [place], [place] [id number] * US Arterial Duplex Lower Extremity Right Limited (06/16/2024 12:05 PM TRAVEL ACCOMMODATIONS RATER) Anatomical Region Laterality Modality Vascular Right Ultrasound 06/16/2024 11:1 0 AM TRAVEL ACCOMMODATIONS RATER Narrative 06/19/2024 3:30 PM TRAVEL ACCOMMODATIONS RATER [facility] - Department of Vascular Surgery, Vascular Laboratory [address] [place] [address] [employer] Lower Extremity Arterial Duplex Report Patient Name: ALLY WISEMAN D : 1960 Study Date: 06/16/2024 11:10:55 AM Gender: M Tech: ARPAN Location: [facility] Provider: DIMITRIOS MCCRARY Quality: Adequate Order Provider: DIMITRIOS MCCRARY PROCEDURES: Arterial Report: Right Lower Extremity Arterial Duplex Exam. INDICATIONS: Z48.812 Encounter for surgical aftercare following surgery on the circulatory system. MEASUREMENTS: Right Value Units Rt SOLAR PANEL TECHNICIAN Dst PSV 175 cm/s Rt Profunda Prx [...] 62 cm/s Right Value Units FINDINGS: Performing Biomedical Photographer: Arpan Hernandez, MELLT, RDMS, RDCS, ACS. Right Common Femoral: The [...] stent 282 cm/s, RT SHEEBA 0.99, LT HSE ADVISOR SHEEBA 0.48, LT MONTY SHEEBA 0.72. DISCLAIMER: [...] above. Electronically Signed By: Dimitrios Mccrary MD [facility] 06/19/2024 3:28:44 PM TRAVEL ACCOMMODATIONS RATER Procedure Note Dimitrios Mccrary MD - 06/19/[address] [facility] - Department of Vascular Surgery,Vascular Laboratory [address] [place] [address] [employer] Lower Extremity Arterial Duplex Report Patient Name: ALLY WISEMAN D : 1960 Study Date: 06/16/2024 11:10:55 AM Gender: M Tech: [facility] Location: [facility] Provider: DIMITRIOS MCCRARY Quality: Adequate Order Provider: DIMITRIOS MCCRARY PROCEDURES: Arterial Report: Right Lower Extremity Arterial Duplex Exam. INDICATIONS: Z48.812 Encounter for surgical aftercare following [facility]. MEASUREMENTS: Right Value Units Rt SOLAR PANEL TECHNICIAN Dst PSV 175 cm/s Rt Profunda Prx [...] 62 cm/s Right Value Units FINDINGS: Performing Biomedical Photographer: Arpan Hernandez, MARLEY, RDMS, RDCS, ACS. Right Common Femoral: The [...] popliteal stent 282cm/s, RT SHEEBA 0.99, LT HSE ADVISOR SHEEBA 0.48, LT MONTY SHEEBA 0.72. DISCLAIMER: [...] above. Electronically Signed By: Dimitrios Mccrary MD [facility] 06/19/2024 3:28:44 PM TRAVEL ACCOMMODATIONS RATER us Dimitrios Mccrary MD IM US PROCEDURES Final Result * US Arterial Doppler Lower Extremity Bilateral (06/16/2024 12:05 PM TRAVEL ACCOMMODATIONS RATER) Anatomical Region Laterality Modality Vascular Bilateral Ultrasound 06/16/2024 11:2 8 AM TRAVEL ACCOMMODATIONS RATER Narrative 06/19/2024 3:35 PM TRAVEL ACCOMMODATIONS RATER [facility] - Department of Vascular Surgery, Vascular Laboratory [address] [place] [address] Lower Extremity Arterial Doppler Report Patient Name: ALLY WISEMAN D : 1960 Study Date: 06/16/2024 11:28:00 AM Gender: M Tech: rApan Hernandez RVT, CHARY, RDM Location: [facility] Provider: DIMITRIOS MCCRARY Quality: Adequate Order Provider: DIMITRIOS MCCRARY PROCEDURES: Arterial Report: Bilateral lower extremity arterial Doppler exam at rest. INDICATIONS: Z48.812 Encounter for surgical aftercare following surgery on the circulatory system. MEASUREMENTS: Right Value Units Left Value Units Rt Brachial Pressure 184 mmHg Lt Brachial Pressure 196 mmHg Rt HSE ADVISOR Pressure 164 mmHg Lt HSE ADVISOR Pressure 162 mmHg Rt DPA Pressure 182 mmHg Lt DPA Pressure 157 mmHg Rt 1st Digit Pressure 94 mmHg Lt 1st Digit Pressure 104 mmHg Rt PT SHEEBA Resting 0.84 Lt PT SHEEBA Resting 0.83 Rt AT SHEEBA Resting 0.93 Lt AT SHEEBA Resting 0.8 Rt Digit/Arm Index 0.48 Lt Digit/Arm Index 0.53 Right Value Units Left Value Units FINDINGS: Performing Biomedical Photographer: Arpan Hernandez RVT, VANNESA, RDTERRANCE, ACS. Right Common Femoral Artery Analysis: The [...] stent 282 cm/s, RT SHEEBA 0.99, LT HSE ADVISOR SHEEBA 0.48, LT MONTY SHEEBA 0.72. DISCLAIMER: [...] Dimitrios Mccrary MD FACS 06/19/2024 3:35:21 PM TRAVEL ACCOMMODATIONS RATER Procedure Note Dimitrios Mccrary MD - 06/19/2024 [employer] - Department of Vascular Surgery,Vascular Laboratory [address] [place] [address] Lower Extremity Arterial Doppler Report Patient Name: ALLY WISEMAN D : 1960 Study Date: 06/16/2024 11:28:00 AM Gender: M Tech: Arpan Hernandez RVT, CHARY, RDM Location: [facility] Provider: DIMITRIOS MCCRARY Quality: Adequate Order Provider: DIMITRIOS MCCRARY PROCEDURES: Arterial Report: Bilateral lower extremity arterial Doppler exam at rest. INDICATIONS: Z48.812 Encounter for surgical aftercare following surgery on thecirculatory system. MEASUREMENTS: Right Value Units Left Value Units Rt Brachial Pressure 184 mmHg Lt Brachial Pressure 196 mmHg Rt HSE ADVISOR Pressure 164 mmHg Lt HSE ADVISOR Pressure 162 mmHg Rt DPA Pressure 182 mmHg Lt DPA Pressure 157 mmHg Rt 1st Digit Pressure 94 mmHg Lt 1st Digit Pressure 104 mmHg Rt PT SHEEBA Resting 0.84 Lt PT SHEEBA Resting 0.83 Rt AT SHEEBA Resting 0.93 Lt AT SHEEBA Resting 0.8 Rt Digit/Arm Index 0.48 Lt Digit/Arm Index 0.53 Right Value Units Left Value Units FINDINGS: Performing Biomedical Photographer: Arpan Hernandez RVT, VANNESA, RDCS, ACS. Right Common [...] popliteal stent 282cm/s, RT SHEEBA 0.99, LT HSE ADVISOR SHEEBA 0.48, LT MONTY SHEEBA 0.72. DISCLAIMER: [...] above. Electronically Signed By: Dimitrios Mccrary MD [facility] 06/19/2024 3:35:21 PM TRAVEL ACCOMMODATIONS RATER us Dimitrios Mccrary MD [facility] PROCEDURES Final Result * (ABNORMAL) POCT glucose (05/03/2024 11:58 AM TRAVEL ACCOMMODATIONS RATER) Glucose, POC 226(H) 70 - 199 mg/dL Comment: For Glucose values <35 mg/dl when Hematocrit is >60 mg/dl,the test may not accurately detect significant hypoglycemia,and testing in the Laboratory should be considered if clinically indicated. Glucose comment 1 RN/MD Notified [facility] Blood 05/03/2024 11:5 8 AM TRAVEL ACCOMMODATIONS RATER 05/03/2024 11:58 AM TRAVEL ACCOMMODATIONS RATER us Dimitrios Mccrary MD LAB POCT ORDERABLES - DEVICE F inal Result Performing Organization Address [facility] de Phone Number [facility] [address] Department [place] [address] * POCT glucose (05/03/2024 8:09 AM TRAVEL ACCOMMODATIONS RATER) Glucose, POC 168 70 - 199 mg/dL Comment: For Glucose values <35 mg/dl when Hematocrit is >60 mg/dl,the test may not accurately detect significant hypoglycemia,and testing in the Laboratory should be considered if clinically indicated. Blood 05/03/2024 8:09 AM TRAVEL ACCOMMODATIONS RATER 05/03/2024 8:09 AM TRAVEL ACCOMMODATIONS RATER Result Sidra Mccrary MD LAB POCT ORDERABLES - DEVICE F inal Result Performing Organization Address [facility] de Phone Number [facility] [address] Department [place] [address] * POCT glucose (05/03/2024 3:14 AM TRAVEL ACCOMMODATIONS RATER) Glucose, POC 196 70 - 199 mg/dL Comment: For Glucose values <35 mg/dl when Hematocrit is >60 mg/dl,the test may not accurately detect significant hypoglycemia,and testing in the Laboratory should be considered if clinically indicated. Blood 05/03/2024 3:14 AM TRAVEL ACCOMMODATIONS RATER 05/03/2024 3:14 AM TRAVEL ACCOMMODATIONS RATER Result Sidra Mccrary MD LAB POCT ORDERABLES - DEVICE F inal Result Performing Organization Address [facility] de Phone Number [facility] [address] [place] [address] * POCT glucose (05/02/2024 11:29 PM TRAVEL ACCOMMODATIONS RATER) Glucose, POC 184 70 - 199 mg/dL Comment: For Glucose values <35 mg/dl when Hematocrit is >60 mg/dl,the test may not accurately detect significant hypoglycemia,and testing in the Laboratory should be considered if clinically indicated. Blood 05/02/2024 11:2 9 PM TRAVEL ACCOMMODATIONS RATER 05/02/2024 11:29 PM TRAVEL ACCOMMODATIONS RATER Dimitrios Mccrary MD LAB POCT ORDERABLES - DEVICE F inal Result Performing Organization Address [facility] Co de Phone Number [facility] [address] [facility] [employer] [place] [address] * (ABNORMAL) POCT glucose (05/02/2024 8:17 PM TRAVEL ACCOMMODATIONS RATER) Glucose, POC 215(H) 70 - 199 mg/dL Comment: For Glucose values <35 mg/dl when Hematocrit is >60 mg/dl,the test may not accurately detect significant hypoglycemia,and testing in the Laboratory should be considered if clinically indicated. Blood 05/02/2024 8:17 PM TRAVEL ACCOMMODATIONS RATER 05/02/2024 8:17 PM TRAVEL ACCOMMODATIONS RATER Dimitrios Mccrary MD LAB POCT ORDERABLES - DEVICE F inal Result Performing Organization Address City/[facility] Co de Phone Number [facility] [address] [facility] [employer] [place] [address] * (ABNORMAL) POCT glucose (05/02/2024 4:26 PM TRAVEL ACCOMMODATIONS RATER) Glucose, POC 307(H) 70 - 199 mg/dL Comment: For Glucose values <35 mg/dl when Hematocrit is >60 mg/dl,the test may not accurately detect significant hypoglycemia,and testing in the Laboratory should be considered if clinically indicated. Blood 05/02/2024 4:26 PM TRAVEL ACCOMMODATIONS RATER 05/02/2024 4:26 PM TRAVEL ACCOMMODATIONS RATER us Dimitrios Mccrary MD LAB POCT ORDERABLES - DEVICE F inal Result Performing Organization Address [facility] de Phone Number [facility] [address] Department of [employer] [address] * (ABNORMAL) POCT glucose (05/02/2024 12:26 PM TRAVEL ACCOMMODATIONS RATER) Pathologist [facility] Glucose, POC 317(H) 70 - 199 mg/dL Comment: For Glucose values <35 mg/dl when Hematocrit is >60 mg/dl,the test may not accurately detect significant hypoglycemia,and testing in the Laboratory should be considered if clinically indicated. Blood 05/02/2024 12:2 6 PM TRAVEL ACCOMMODATIONS RATER 05/02/2024 12:26 PM TRAVEL ACCOMMODATIONS RATER us Dimitrios Mccrary MD LAB POCT ORDERABLES - DEVICE F inal Result Performing Organization Address [facility] de Phone Number [facility] [address] Department [place] [address] * eGFR (05/02/2024 11:13 AM TRAVEL ACCOMMODATIONS RATER) [facility] eGFR >90 >=60 mL/min/1. 73 m2 Comment: [...] reviewed 2021. Blood 05/02/2024 11:1 3 AM TRAVEL ACCOMMODATIONS RATER 05/02/2024 12:13 PM TRAVEL ACCOMMODATIONS RATER us Vale Diaz NP LAB BLOOD ORDERABLES Fin al Result [facility] [address] Department [place] [address] * (ABNORMAL) Differential, auto (05/02/2024 11:13 AM TRAVEL ACCOMMODATIONS RATER) Neutrophil abs 3.5 1.5 - 6.5 K/cumm Imm gran abs 0.0 0.0 - 0.1 K/cumm [facility] Lymphocyte abs 2.2 0.8 - 3.3 K/cumm [facility] Monocyte abs 0.9(H) 0.2 - 0.8 K/cumm [facility] Eosinophil abs 0.4 0.0 - 0.5 K/cumm [facility] Basophil abs 0.1 0.0 - 0.1 K/cumm [facility] Neutrophil pct 49.5 % [facility] Comment: Interpretive Data Percent cell count reference ranges are not reported, since discordance with absolute values may lead to misinterpretation of CBC data. Current Interpretive Data was last revised on 2017. Imm gran pct 0.3 % [facility] Comment: Interpretive Data Percent cell count reference ranges are not reported, since discordance with absolute values may lead to misinterpretation of CBC data. Current Interpretive Data was last revised on 2017. Lymphocyte pct 31.4 % [facility] Comment: Interpretive Data Percent cell count reference ranges are not reported, since discordance with absolute values may lead to misinterpretation of CBC data. Current Interpretive Data was last revised on 2017. Monocyte pct 13.1 % [facility] Comment: Interpretive Data Percent cell count reference ranges are not reported, since discordance with absolute values may lead to misinterpretation of CBC data. Current Interpretive Data was last revised on 2017. Eosinophil pct 5.0 % [facility] Comment: Interpretive Data Percent cell count reference ranges are not reported, since discordance with absolute values may lead to misinterpretation of CBC data. Current Interpretive Data was last revised on 2017. Basophil pct 0.7 % [facility] Comment: Interpretive Data Percent cell count reference ranges are not reported, since discordance with absolute values may lead to misinterpretation of CBC data. Current Interpretive Data was last revised on 2017. Blood 05/02/2024 11:1 3 AM TRAVEL ACCOMMODATIONS RATER 05/02/2024 12:13 PM TRAVEL ACCOMMODATIONS RATER Vale Diaz [employer] LAB BLOOD ORDERABLES Fin al Result [facility] [address] Department [place] [address] * (ABNORMAL) CBC with auto differential (05/02/2024 11:13 AM TRAVEL ACCOMMODATIONS RATER) WBC 7.0 3.8 - 9.9 K/cumm Hgb 11.4(L) 13.0 - 17.5 g/dL [facility] Hct 34.8(L) 38.9 - 50.3 % [facility] Plt 144(L) 150 - 400 K/cumm [facility] MPV 11.8 9.1 - 12.3 fL [facility] RBC 3.75(L) 4.30 - 5.80 M/cumm [facility] MCV 92.8 81.3 - 96.4 fL [facility] MCH 30.4 27.1 - 33.3 pg [facility] MCHC 32.8 32.3 - 35.7 g/dL [facility] RDW CV 13.0 11.1 - 14.9 % [facility] RDW SD 44.1 35.7 - 48.1 fL [facility] NRBC abs 0.00 0.00 - 0.01 K/cumm [facility] Blood 05/02/2024 11:1 3 AM TRAVEL ACCOMMODATIONS RATER 05/02/2024 12:13 PM TRAVEL ACCOMMODATIONS RATER Vale Diaz NP LAB BLOOD ORDERABLES Fin al Result [facility] [address] Department [place] [address] * (ABNORMAL) Comprehensive metabolic panel (05/02/2024 11:13 AM TRAVEL ACCOMMODATIONS RATER) Sodium 139 135 - 145 mmol/L Potassium, pl 4.4 3.3 - 4.9 mmol/L [facility] Chloride 105 97 - 110 mmol/L [facility] CO2 23 22 - 32 mmol/L [facility] Anion gap 11 2 - 15 mmol/L [facility] BUN 14 6 - 25 mg/dL [facility] Creatinine 0.80 0.80 - 1.30 mg/dL [facility] Glucose 276(H) 70 - 199 mg/dL [facility] Comment: Interpretive Data Fasting glucose >/= 126 [...] 2022. Calcium 8.4(L) 8.5 - 10.3 mg/dL [facility] Bilirubin, total 0.5 0.1 - 1.2 mg/dL [facility] Protein, pl 6.3(L) 6.5 - 8.5 g/dL [facility] Albumin 3.6 3.5 - 5.0 g/dL [facility] Alk phos 91 40 - 130 Units/L [facility] ALT 17 7 - 55 Units/L [facility] AST 16 10 - 50 Units/L [facility] Blood 05/02/2024 11:1 3 AM TRAVEL ACCOMMODATIONS RATER 05/02/2024 12:13 PM TRAVEL ACCOMMODATIONS RATER Vale Diaz NP LAB BLOOD ORDERABLES Fin al Result Performing Organization Address [facility]/ZIP Co de Phone Number [facility] [address] Department [place] [address] * POCT glucose (05/02/2024 7:45 AM TRAVEL ACCOMMODATIONS RATER) Glucose, POC 136 70 - 199 mg/dL Comment: For Glucose values <35 mg/dl when Hematocrit is >60 mg/dl,the test may not accurately detect significant hypoglycemia,and testing in the Laboratory should be considered if clinically indicated. Blood 05/02/2024 7:45 AM TRAVEL ACCOMMODATIONS RATER 05/02/2024 7:45 AM TRAVEL ACCOMMODATIONS RATER us Dimitrios Mccrary MD LAB POCT ORDERABLES - DEVICE F inal Result Performing Organization Address [facility] Co de Phone Number [facility] [address] Department [place] [address] * eGFR (05/02/2024 5:21 AM TRAVEL ACCOMMODATIONS RATER) Pathologist [facility] eGFR >90 >=60 mL/min/1. 73 m2 Comment: [...] last reviewed 2021. Blood 05/02/2024 5:21 AM TRAVEL ACCOMMODATIONS RATER 05/02/2024 6:02 AM TRAVEL ACCOMMODATIONS RATER us Vale Diaz NP LAB BLOOD ORDERABLES Fin al Result [facility] [address] Department [place] [address] * Differential, auto (05/02/2024 5:21 AM TRAVEL ACCOMMODATIONS RATER) Neutrophil abs 3.8 1.5 - 6.5 K/cumm Imm gran abs 0.0 0.0 - 0.1 K/cumm [facility] Lymphocyte abs 2.3 0.8 - 3.3 K/cumm [facility] Monocyte abs 0.8 0.2 - 0.8 K/cumm [facility] Eosinophil abs 0.3 0.0 - 0.5 K/cumm [facility] Basophil abs 0.0 0.0 - 0.1 K/cumm [facility] Neutrophil pct 52.0 % [facility] Comment: Interpretive Data Percent cell count reference ranges are not reported, since discordance with absolute values may lead to misinterpretation of CBC data. Current Interpretive Data was last revised on 2017. Imm gran pct 0.3 % [facility] Comment: Interpretive Data Percent cell count reference ranges are not reported, since discordance with absolute values may lead to misinterpretation of CBC data. Current Interpretive Data was last revised on 2017. Lymphocyte pct 31.2 % [facility] Comment: Interpretive Data Percent cell count reference ranges are not reported, since discordance with absolute values may lead to misinterpretation of CBC data. Current Interpretive Data was last revised on 2017. Monocyte pct 11.6 % [facility] Comment: Interpretive Data Percent cell count reference ranges are not reported, since discordance with absolute values may lead to misinterpretation of CBC data. Current Interpretive Data was last revised on 2017. Eosinophil pct 4.3 % [facility] Comment: Interpretive Data Percent cell count reference ranges are not reported, since discordance with absolute values may lead to misinterpretation of CBC data. Current Interpretive Data was last revised on 2017. Basophil pct 0.6 % [facility] Comment: Interpretive Data Percent cell count reference ranges are not reported, since discordance with absolute values may lead to misinterpretation of CBC data. Current Interpretive Data was last revised on 2017. Blood 05/02/2024 5:21 AM TRAVEL ACCOMMODATIONS RATER 05/02/2024 6:02 AM TRAVEL ACCOMMODATIONS RATER Vale Diaz NP LAB BLOOD ORDERABLES Fin al Result Performing Organization Address [facility] Co de Phone Number [facility] [address] [employer] [place], [place] [id number] * (ABNORMAL) CBC with auto differential (05/02/2024 5:21 AM TRAVEL ACCOMMODATIONS RATER) WBC 7.3 3.8 - 9.9 K/cumm Hgb 11.1(L) 13.0 - 17.5 g/dL [facility] Hct 33.9(L) 38.9 - 50.3 % [facility] Plt 147(L) 150 - 400 K/cumm [facility] MPV 11.9 9.1 - 12.3 fL [facility] RBC 3.64(L) 4.30 - 5.80 M/cumm [facility] MCV 93.1 81.3 - 96.4 fL [facility] MCH 30.5 27.1 - 33.3 pg [facility] MCHC 32.7 32.3 - 35.7 g/dL [facility] RDW CV 12.8 11.1 - 14.9 % [facility] RDW SD 43.8 35.7 - 48.1 fL [facility] NRBC abs 0.00 0.00 - 0.01 K/cumm [facility] Blood 05/02/2024 5:21 AM TRAVEL ACCOMMODATIONS RATER 05/02/2024 6:02 AM TRAVEL ACCOMMODATIONS RATER Vale Diaz NP LAB BLOOD ORDERABLES Fin al Result Performing Organization Address [facility] Co de Phone Number [facility] [address] Department [employer] [place], [place] [id number] * (ABNORMAL) Comprehensive metabolic panel (05/02/2024 5:21 AM TRAVEL ACCOMMODATIONS RATER) Sodium 140 135 - 145 mmol/L Potassium, pl 3.9 3.3 - 4.9 mmol/L [facility] Chloride 106 97 - 110 mmol/L [facility] CO2 25 22 - 32 mmol/L [facility] Anion gap 9 2 - 15 mmol/L [facility] BUN 17 6 - 25 mg/dL [facility] Creatinine 0.87 0.80 - 1.30 mg/dL [facility] Glucose 186 70 - 199 mg/dL [facility] Comment: Interpretive Data Fasting glucose >/= 126 [...] 2022. Calcium 8.4(L) 8.5 - 10.3 mg/dL [facility] Bilirubin, total 0.3 0.1 - 1.2 mg/dL [facility] Protein, pl 6.3(L) 6.5 - 8.5 g/dL [facility] Albumin 3.6 3.5 - 5.0 g/dL [facility] Alk phos 96 40 - 130 Units/L [facility] ALT 17 7 - 55 Units/L [facility] AST 14 10 - 50 Units/L [facility] Blood 05/02/2024 5:21 AM TRAVEL ACCOMMODATIONS RATER 05/02/2024 6:02 AM TRAVEL ACCOMMODATIONS RATER us Vale Diaz NP LAB BLOOD ORDERABLES Fin al Result [facility] [address] Department [place] [address] * POCT glucose (05/02/2024 4:01 AM TRAVEL ACCOMMODATIONS RATER) Glucose, POC 174 70 - 199 mg/dL Comment: For Glucose values <35 mg/dl when Hematocrit is >60 mg/dl,the test may not accurately detect significant hypoglycemia,and testing in the Laboratory should be considered if clinically indicated. Blood 05/02/2024 4:01 AM TRAVEL ACCOMMODATIONS RATER 05/02/2024 4:01 AM TRAVEL ACCOMMODATIONS RATER us Dimitrios Mccrary MD LAB POCT ORDERABLES - DEVICE F inal Result Performing Organization Address [facility] de Phone Number [facility] [address] [facility] [employer] [place], [place] [phone] * (ABNORMAL) POCT glucose (05/02/2024 12:57 AM TRAVEL ACCOMMODATIONS RATER) Glucose, POC 279(H) 70 - 199 mg/dL Comment: For Glucose values <35 mg/dl when Hematocrit is >60 mg/dl,the test may not accurately detect significant hypoglycemia,and testing in the Laboratory should be considered if clinically indicated. Blood 05/02/2024 12:5 7 AM TRAVEL ACCOMMODATIONS RATER 05/02/2024 12:57 AM TRAVEL ACCOMMODATIONS RATER Result Sidra Mccrary MD LAB POCT ORDERABLES - DEVICE F inal Result Performing Organization Address [facility] de Phone Number [facility] [address] [facility] [employer] [place] [address] * (ABNORMAL) POCT glucose (05/01/2024 9:10 PM TRAVEL ACCOMMODATIONS RATER) Glucose, POC 298(H) 70 - 199 mg/dL Comment: For Glucose values <35 mg/dl when Hematocrit is >60 mg/dl,the test may not accurately detect significant hypoglycemia,and testing in the Laboratory should be considered if clinically indicated. Blood 05/01/2024 9:10 PM TRAVEL ACCOMMODATIONS RATER 05/01/2024 9:10 PM TRAVEL ACCOMMODATIONS RATER us Dimitrios Mccrary MD LAB POCT ORDERABLES - DEVICE F inal Result Performing Organization Address [facility] de Phone Number [facility] [address] [facility] [employer] [place], [place] [id number] * (ABNORMAL) POCT glucose (05/01/2024 6:30 PM TRAVEL ACCOMMODATIONS RATER) Glucose, POC 278(H) 70 - 199 mg/dL Comment: For Glucose values <35 mg/dl when Hematocrit is >60 mg/dl,the test may not accurately detect significant hypoglycemia,and testing in the Laboratory should be considered if clinically indicated. Blood 05/01/2024 6:30 PM TRAVEL ACCOMMODATIONS RATER 05/01/2024 6:30 PM TRAVEL ACCOMMODATIONS RATER Dimitrios Mccrary MD LAB POCT ORDERABLES - DEVICE F inal Result Performing Organization Address [facility] de Phone Number [facility] [address] [facility] [employer] [place] [address] * (ABNORMAL) POCT glucose (05/01/2024 4:34 PM TRAVEL ACCOMMODATIONS RATER) Glucose, POC 303(H) 70 - 199 mg/dL Comment: For Glucose values <35 mg/dl when Hematocrit is >60 mg/dl,the test may not accurately detect significant hypoglycemia,and testing in the Laboratory should be considered if clinically indicated. Blood 05/01/2024 4:34 PM TRAVEL ACCOMMODATIONS RATER 05/01/2024 4:34 PM TRAVEL ACCOMMODATIONS RATER us Dimitrios Mccrary MD LAB POCT ORDERABLES - DEVICE F inal Result Performing Organization Address [facility] de Phone Number [facility] [address] [facility] [employer] [place] [address] * (ABNORMAL) POCT glucose (05/01/2024 11:49 AM TRAVEL ACCOMMODATIONS RATER) Glucose, POC 274(H) 70 - 199 mg/dL Comment: For Glucose values <35 mg/dl when Hematocrit is >60 mg/dl,the test may not accurately detect significant hypoglycemia,and testing in the Laboratory should be considered if clinically indicated. Blood 05/01/2024 11:4 9 AM TRAVEL ACCOMMODATIONS RATER 05/01/2024 11:49 AM TRAVEL ACCOMMODATIONS RATER Result [facility] Dimitrios Mccrary MD LAB POCT ORDERABLES - DEVICE F inal Result Performing Organization Address [facility] Co de Phone Number [facility] [address] [facility] [place] [address] * (ABNORMAL) POCT glucose (05/01/2024 7:32 AM TRAVEL ACCOMMODATIONS RATER) [facility] Signature Glucose, POC 231(H) 70 - 199 mg/dL Comment: For Glucose values <35 mg/dl when Hematocrit is >60 mg/dl,the test may not accurately detect significant hypoglycemia,and testing in the Laboratory should be considered if clinically indicated. Blood 05/01/2024 7:32 AM TRAVEL ACCOMMODATIONS RATER 05/01/2024 7:32 AM TRAVEL ACCOMMODATIONS RATER Result [facility] Dimitrios Mccrary MD LAB POCT ORDERABLES - DEVICE F inal Result Performing Organization Address [facility] de Phone Number [facility] [address] [facility] [employer] [place] [address] * ECG 12 lead (05/01/2024 5:06 AM TRAVEL ACCOMMODATIONS RATER) 05/01/2024 5:06 AM TRAVEL ACCOMMODATIONS RATER Narrative [facility] - 05/01/2024 8:42 AM TRAVEL ACCOMMODATIONS RATER Vent Rate: 92 bpm RR Interval: 646 msec IA Interval: 154 msec QRS Duration: 108 msec QT Interval: 332 msec QTC Interval: 382 msec P-R-T Alba: 1 - -22 - 52 degrees IMPRESSION: SINUS RHYTHM WITH SINUS ARRHYTHMIA INFERIOR MYOCARDIAL INFARCTION , PROBABLY OLD ABNORMAL ECG Electronically Signed By: Lucas Truong MD PhD Result [facility] [place] KRAUSE ECG ORDERABLES Final Result Performing Organization Address [facility] Co de Phone Number [facility] [employer] [facility] * eGFR (05/01/2024 4:34 AM TRAVEL ACCOMMODATIONS RATER) [facility] eGFR >90 >=60 mL/min/1. 73 m2 Comment: [...] last reviewed 2021. Blood 05/01/2024 4:34 AM TRAVEL ACCOMMODATIONS RATER 05/01/2024 5:38 AM TRAVEL ACCOMMODATIONS RATER us Dimitrios Mccrary MD LAB BLOOD ORDERABLES Final Res ult [facility] [address] Department [place] [address] * (ABNORMAL) CBC without differential (05/01/2024 4:34 AM TRAVEL ACCOMMODATIONS RATER) [facility] WBC 9.5 3.8 - 9.9 K/cumm Hgb 12.5(L) 13.0 - 17.5 g/dL [facility] Hct 37.8(L) 38.9 - 50.3 % [facility] Plt 174 150 - 400 K/cumm [facility] MPV 11.7 9.1 - 12.3 fL [facility] RBC 4.11(L) 4.30 - 5.80 M/cumm [facility] MCV 92.0 81.3 - 96.4 fL [facility] MCH 30.4 27.1 - 33.3 pg [facility] MCHC 33.1 32.3 - 35.7 g/dL [facility] RDW CV 12.7 11.1 - 14.9 % [facility] RDW SD 43.3 35.7 - 48.1 fL [facility] NRBC abs 0.00 0.00 - 0.01 K/cumm [facility] Blood 05/01/2024 4:34 AM TRAVEL ACCOMMODATIONS RATER 05/01/2024 5:38 AM TRAVEL ACCOMMODATIONS RATER Dimitrios Mccrary MD LAB BLOOD ORDERABLES Final Res ult [facility] [address] Department [place] [address] * (ABNORMAL) Basic metabolic panel (05/01/2024 4:34 AM TRAVEL ACCOMMODATIONS RATER) Sodium 137 135 - 145 mmol/L Potassium, pl 4.2 3.3 - 4.9 mmol/L [facility] Chloride 103 97 - 110 mmol/L [facility] CO2 22 22 - 32 mmol/L [facility] Anion gap 12 2 - 15 mmol/L [facility] BUN 22 6 - 25 mg/dL [facility] Creatinine 0.86 0.80 - 1.30 mg/dL [facility] Glucose 298(H) 70 - 199 mg/dL [facility] Comment: Interpretive Data Fasting glucose >/= 126 [...] 2022. Calcium 8.6 8.5 - 10.3 mg/dL [facility] Blood 05/01/2024 4:34 AM TRAVEL ACCOMMODATIONS RATER 05/01/2024 5:38 AM TRAVEL ACCOMMODATIONS RATER us Dimitrios Mccrary MD LAB BLOOD ORDERABLES Final Res ult Performing Organization Address [facility] Co de Phone Number [facility] [address] [facility] [employer] [place], [place] [phone] * (ABNORMAL) POCT glucose (05/01/2024 3:50 AM TRAVEL ACCOMMODATIONS RATER) Glucose, POC 240(H) 70 - 199 mg/dL Comment: For Glucose values <35 mg/dl when Hematocrit is >60 mg/dl,the test may not accurately detect significant hypoglycemia,and testing in the Laboratory should be considered if clinically indicated. Blood 05/01/2024 3:50 AM TRAVEL ACCOMMODATIONS RATER 05/01/2024 3:50 AM TRAVEL ACCOMMODATIONS RATER Dimitrios Mccrary MD LAB POCT ORDERABLES - DEVICE F inal Result Performing Organization Address [facility] Co de Phone Number [facility] [address] [facility] [employer] [place], [place] [phone] * (ABNORMAL) POCT glucose (05/01/2024 12:37 AM TRAVEL ACCOMMODATIONS RATER) Glucose, POC 348(H) 70 - 199 mg/dL Comment: For Glucose values <35 mg/dl when Hematocrit is >60 mg/dl,the test may not accurately detect significant hypoglycemia,and testing in the Laboratory should be considered if clinically indicated. Blood 05/01/2024 12:3 7 AM TRAVEL ACCOMMODATIONS RATER 05/01/2024 12:37 AM TRAVEL ACCOMMODATIONS RATER Dimitrios Mccrary MD LAB POCT ORDERABLES - DEVICE F inal Result Performing Organization Address [facility] Co de Phone Number NICOLE [facility] [address] Maciel Mireles [facility] [employer] [place], [place] [phone] * (ABNORMAL) POCT glucose (04/30/2024 9:24 PM TRAVEL ACCOMMODATIONS RATER) Glucose, POC 405(H) 70 - 199 mg/dL Comment: For Glucose values <35 mg/dl when Hematocrit is >60 mg/dl,the test may not accurately detect significant hypoglycemia,and testing in the Laboratory should be considered if clinically indicated. Blood 04/30/2024 9:24 PM TRAVEL ACCOMMODATIONS RATER 04/30/2024 9:24 PM TRAVEL ACCOMMODATIONS RATER Dimitrios Mccrary MD LAB POCT ORDERABLES - DEVICE F inal Result Performing Organization Address [facility] Co de Phone Number [facility] [address] [facility] [employer] [place], [place] [phone] * (ABNORMAL) POCT glucose (04/30/2024 4:21 PM TRAVEL ACCOMMODATIONS RATER) [facility] Glucose, POC 211(H) 70 - 199 mg/dL Comment: For Glucose values <35 mg/dl when Hematocrit is >60 mg/dl,the test may not accurately detect significant hypoglycemia,and testing in the Laboratory should be considered if clinically indicated. Blood 04/30/2024 4:21 PM TRAVEL ACCOMMODATIONS RATER 04/30/2024 4:21 PM TRAVEL ACCOMMODATIONS RATER Dimitrios Mccrary MD LAB POCT ORDERABLES - DEVICE F inal Result Performing Organization Address [facility] de Phone Number [facility] [address] [facility] [employer] [place], [place] [phone] * (ABNORMAL) CBC without differential (04/30/2024 12:08 PM TRAVEL ACCOMMODATIONS RATER) [facility] WBC 6.9 3.8 - 9.9 K/cumm Hgb 12.5(L) 13.0 - 17.5 g/dL [facility] Hct 37.4(L) 38.9 - 50.3 % [facility] Plt 164 150 - 400 K/cumm [facility] MPV 11.3 9.1 - 12.3 fL [facility] RBC 4.13(L) 4.30 - 5.80 M/cumm [facility] MCV 90.6 81.3 - 96.4 fL [facility] MCH 30.3 27.1 - 33.3 pg [facility] MCHC 33.4 32.3 - 35.7 g/dL [facility] RDW CV 12.5 11.1 - 14.9 % [facility] RDW SD 41.6 35.7 - 48.1 fL [facility] NRBC abs 0.00 0.00 - 0.01 K/cumm [facility] Blood 04/30/2024 12:0 8 PM TRAVEL ACCOMMODATIONS RATER 04/30/2024 12:27 PM TRAVEL ACCOMMODATIONS RATER us Dimitrios Mccrary MD LAB BLOOD ORDERABLES Final Res ult Performing Organization Address [facility] Co de Phone Number [facility] [address] Department of [employer] [place], [place] [phone] * (ABNORMAL) POCT glucose (04/30/2024 11:18 AM TRAVEL ACCOMMODATIONS RATER) [facility] Signature Glucose, POC 206(H) 70 - 199 mg/dL Comment: For Glucose values <35 mg/dl when Hematocrit is >60 mg/dl,the test may not accurately detect significant hypoglycemia,and testing in the Laboratory should be considered if clinically indicated. Blood 04/30/2024 11:1 8 AM TRAVEL ACCOMMODATIONS RATER 04/30/2024 11:18 AM TRAVEL ACCOMMODATIONS RATER Result Sidra Mccrary MD LAB POCT ORDERABLES - DEVICE F inal Result Performing Organization Address [facility] Co de Phone Number [facility] [address] Department of [employer] [place], [place] [phone] * IR Angiogram Lower Extremity Left (04/30/2024 10:45 AM TRAVEL ACCOMMODATIONS RATER) Narrative [facility]IMAGE - 04/30/2024 10:45 AM TRAVEL ACCOMMODATIONS RATER The images from this study are not interpreted by Radiology. Please refer to the physician's procedure / OR operative note. us Dimitrios Mccrary MD IMG IR PROCEDURES Final Result Performing Organization Address [facility] Co de Phone Number [facility] * Surgical pathology (04/30/2024 10:44 AM TRAVEL ACCOMMODATIONS RATER) Tissue (Artery, plaque Atherosclerotic) 04/30/2024 10:44 AM TRAVEL ACCOMMODATIONS RATER Comment:Placed in formalin a t the end of case Narrative PATHOLOGY [facility] - 05/01/2024 9:07 AM TRAVEL ACCOMMODATIONS RATER [address] [address] Tele: Ruth Juan MD - Picture Enlarger Note to Patients: This report may contain [...] REPORT Patient Name: ALLY WISEMAN JRYao Address: [address] [place] [address] Gender: M : 1960 (Age: 63) Service: Vascular Location: [place] [address], Hospital #: [id number] [place] [facility] [place]: 04/30/2024 Received 04/30/2024 Reported: 05/01/2024 Physician(s): Lisseth Robbins M.D. DIAGNOSIS: Artery, left femoral-endarterectomy: - Calcific arteriosclerosis esb/05/01/2024 09:07 Examining Pathologist: Greg Lam M.D. Report Reviewed and Electronically Signed By Greg Lam M.D. 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 The specimen is sectioned and food service representative sections are submitted in A 1 following decalcification. jxi/04/30/2024 12:38 ,JXI MICROSCOPIC DESCRIPTION: Calcified plaque material is noted. Clerical Data Follows A; [id number] REPORT IMAGES AND/OR SCANNED DOCUMENTS ONLY VIEWABLE IN PDF FORMAT The immunohistochemical test(s) cited in this report, if any, was developed and its performance characteristics determined by [facility] Pathology Department. It has not been cleared or approved by the U.S. Food and Drug Administration. The FDA has determined that such clearance or approval is not necessary. This test is used for clinical purposes. It should not be regarded as investigational or for research. [facility] Laboratory is certified under the Clinical Laboratory [...] part or completely in the following laboratories: [facility], [address] [place] [address], [address] [place] [address]. us Dimitrios Mccrary MD LAB PATHOLOGY ORDERABLES Final Result PATHOLOGY [facility] Laboratory Receiving [address] [place] [address] * IA AN ELECTIVE ENDOTRACHEAL AIRWAY, IA AN PROCEDURE PLACEHOLDER (04/30/2024 8:12 AM TRAVEL ACCOMMODATIONS RATER) Narrative Janis Belle CRNA - 04/30/2024 8:12 AM TRAVEL ACCOMMODATIONS RATER Janis Belle CRNA 04/30/2024 8:12 AM Airway Patient location: OR Urgency: elective Indications for airway management: anesthesia Difficult airway: no Staff: Placed by: MORTGAGE ADVISOR: Janis Belle CRNA Airway prep: Preoxygenated: yes [...] * (ABNORMAL) POCT glucose (04/30/2024 7:43 AM TRAVEL ACCOMMODATIONS RATER) Glucose, POC 212(H) 70 - 199 mg/dL Comment: For Glucose values <35 mg/dl when Hematocrit is >60 mg/dl,the test may not accurately detect significant hypoglycemia,and testing in the Laboratory should be considered if clinically indicated. Blood 04/30/2024 7:43 AM TRAVEL ACCOMMODATIONS RATER 04/30/2024 7:43 AM TRAVEL ACCOMMODATIONS RATER us Dimitrios Mccrary MD LAB POCT ORDERABLES - DEVICE F inal Result Performing Organization Address City/[facility] Co de Phone Number JASMINGRAYSON [facility] [address] Department of [employer] [place], [place] [phone] * Check Sample (04/30/2024 6:25 AM TRAVEL ACCOMMODATIONS RATER) ABO Rh O Positive MBC HCLL OTHER 04/30/2024 6:25 AM TRAVEL ACCOMMODATIONS RATER 04/30/2024 7:08 AM TRAVEL ACCOMMODATIONS RATER us Gabriela Meneses NP LAB BLOOD ORDERABLES Fi nal Result Performing Organization Address City/[facility]/ZIP Co de Phone Number NICOLE [facility] [address] Department [place] [address] MBC * aPTT (04/09/2024 12:38 PM TRAVEL ACCOMMODATIONS RATER) Pathologist [facility] aPTT 34 28 - 38 sec Comment: Interpretive Data Heparin therapeutic range: 66.0 - 100.0 seconds. Range based on correlation with therapeutic heparin activity range of 0.3 - 0.7 Units/mL. Current interpretive data was last revised on 2023. Blood 04/09/2024 12:3 8 PM TRAVEL ACCOMMODATIONS RATER 04/09/2024 12:38 PM TRAVEL ACCOMMODATIONS RATER [facility] Kriss Meneses NP LAB BLOOD ORDERABLES Fi nal Result Performing Organization Address [facility] de Phone Number [facility] [address] [employer] [place] [address] * Protime-INR (04/09/2024 12:38 PM TRAVEL ACCOMMODATIONS RATER) PT 11.7 9.7 - 13.0 sec INR 1.08 0.90 - 1.20 [facility] Comment: Interpretive data Oral anticoagulant therapeutic ranges: Venous thromboembolism prophylaxis or treatment: 2.0-3.0 CARDIOLOGY Standard range: 2.0-3.0 High-intensity range: 2.5-3.5 Refer to indication-specific guidelines for appropriate target ranges for prosthetic heart valve replacement. Current interpretive data was last revised on 2019. Blood 04/09/2024 12:3 8 PM TRAVEL ACCOMMODATIONS RATER 04/09/2024 12:38 PM TRAVEL ACCOMMODATIONS RATER [facility] LAB BLOOD ORDERABLES nal Result Performing Organization Address [facility] de Phone Number [facility] [address] [facility] [employer] [place] [address] * (ABNORMAL) Hemoglobin A1c (04/09/2024 12:38 PM TRAVEL ACCOMMODATIONS RATER) Hgb A1C 8.9(H) 4.0 - 5.6 % Estimated Average Glucose 209 mg/dL [facility] Comment: The ADA recommends reporting an estimated Average Glucose (eAG) with all Hemoglobin A1c results using the equation derived from a study of 507 normal and diabetic adults. Minority populations were underrepresented and children were not included. (Diabetes Care 31:7971-3818, 2008). The eAG is not equivalent to a fasting glucose. Blood 04/09/2024 12:3 8 PM TRAVEL ACCOMMODATIONS RATER 04/09/2024 12:38 PM TRAVEL ACCOMMODATIONS RATER Gabriela Kriss Meneses BEAUTY SPECIALIST LAB BLOOD ORDERABLES Fi nal Result Performing Organization Address City/[facility]/ZIP Co de Phone Number NICOLE [facility] [address] Department [place] [address] * eGFR (04/09/2024 12:37 PM TRAVEL ACCOMMODATIONS RATER) eGFR >90 >=60 mL/min/1. 73 m2 Comment: [...] reviewed 2021. Blood 04/09/2024 12:3 7 PM TRAVEL ACCOMMODATIONS RATER 04/09/2024 12:37 PM TRAVEL ACCOMMODATIONS RATER Gabriela Meneses NP LAB BLOOD ORDERABLES Fi nal Result Performing Organization Address City/[facility]/ZIP Co de Phone Number NICOLE [facility] [address] Department of [employer] [place], [place] [phone] * Basic metabolic panel (04/09/2024 12:37 PM TRAVEL ACCOMMODATIONS RATER) Pathologist [facility] Sodium 140 135 - 145 mmol/L Potassium, pl 4.8 3.3 - 4.9 mmol/L [facility] Chloride 103 97 - 110 mmol/L [facility] CO2 26 22 - 32 mmol/L [facility] Anion gap 11 2 - 15 mmol/L [facility] BUN 17 6 - 25 mg/dL [facility] Creatinine 0.81 0.80 - 1.30 mg/dL [facility] Glucose 191 70 - 199 mg/dL [facility] Comment: Interpretive Data Fasting glucose >/= 126 [...] 2022. Calcium 9.6 8.5 - 10.3 mg/dL [facility] Blood 04/09/2024 12:3 7 PM TRAVEL ACCOMMODATIONS RATER 04/09/2024 12:37 PM TRAVEL ACCOMMODATIONS RATER Gabriela Meneses NP LAB BLOOD ORDERABLES Fi nal Result [facility] [address] Department [place] [address] * Type and screen (04/09/2024 12:25 PM TRAVEL ACCOMMODATIONS RATER) ABO Rh O Positive Simón, indirect Negative [facility] Blood 04/09/2024 12:2 5 PM TRAVEL ACCOMMODATIONS RATER 04/09/2024 12:40 PM TRAVEL ACCOMMODATIONS RATER Narrative [facility] - 04/09/2024 1:24 PM TRAVEL ACCOMMODATIONS RATER Is this test being ordered in advance for a procedure?->Yes Expected date of procedure:->04/30/24 Has the patient been transfused in the past 3 months?->No Gabriela Meneses NP LAB BLOOD BANK TEST ORD ERABLES Final Result [facility] [address] Department [place] [address] * (ABNORMAL) Urinalysis reflex to microscopic and culture Urine (04/07/2024 1:00 PM TRAVEL ACCOMMODATIONS RATER) Color, ur Yellow Yellow Clarity, ur Clear Clear [facility] Specific gravity, ur 1.022 1.003 - 1.030 [facility] pH, urine 6.5 [facility] Comment: Interpretive Data U rine pH is affected by diet, medications, systemic acid-base disturbances, and renal tubular function. pH may affect urinary stone formation. For example, urine pH below 6.0 may help reduce the tendency for calcium phosphate stones and pH greater than 6.0 may reduce the tendency for uric acid stone formation. Source: [facility] Current Interpretive Data was last revised on 2017 Protein, ur ql 2+(A) Negative [facility] Glucose, ur ql 4+(A) Negative [facility] Ketones, ur Negative Negative [facility] Bilirubin, ur Negative Negative [facility] Blood, ur 1+(A) Negative [facility] Urobilinogen, ur <2.0 <2.0 mg/dL [facility] Nitrite, ur Positive(A) Negative [facility] Leukocyte esterase, ur Negative Negative [facility] UA reflex comment Reflex to microscopic UA will be performed. [facility] Urine 04/07/2024 1:00 PM TRAVEL ACCOMMODATIONS RATER 04/07/2024 1:23 PM TRAVEL ACCOMMODATIONS RATER us Richard Armstrong MD LAB MICROBIOLOGY - GENERAL ORDERABLES Final Result [facility] [address] Department [place] [address] * (ABNORMAL) Urinalysis, microscopic only (04/07/2024 1:00 PM TRAVEL ACCOMMODATIONS RATER) WBC, ur 6-10(A) 0 - 5 /HPF RBC, ur 6-10(A) 0 - 2 /HPF [facility] Bacteria, ur Trace(A) [facility] Mucous, ur Present(A) [facility] Culture Reflex Comment Reflex conditions for urine culture (WBC >10) not met. [facility] Urine 04/07/2024 1:00 PM TRAVEL ACCOMMODATIONS RATER 04/07/2024 1:22 PM TRAVEL ACCOMMODATIONS RATER Richard Armstrong MD LAB URINE ORDERABLES Final Result [facility] [address] [place] Department [place] [address] * CT Head WO Contrast (04/07/2024 12:59 PM TRAVEL ACCOMMODATIONS RATER) Anatomical Region Laterality Modality Head and Neck N/A Computed Tomogra phy 04/07/2024 1:07 PM TRAVEL ACCOMMODATIONS RATER Impressions 04/07/2024 1:07 PM TRAVEL ACCOMMODATIONS RATER No CT evidence of acute intracranial abnormality. Electronically signed by: Porfirio De Paz M.D. Narrative 04/07/2024 1:07 PM TRAVEL ACCOMMODATIONS RATER EXAM:CT HEAD WO CONTRAST INDICATION: Dizziness, persistent/recurrent, [...] (baseline, 2hr, 4hr, 6hr) (04/07/2024 12:28 PM TRAVEL ACCOMMODATIONS RATER) Trop T hs 11 <=22 ng/L Comment: Interpretive Data For further hscTnT resources including the diagnostic algorithm and an aid in interpretation, copy and paste this link: [email or web address].testcatalog.org/show/hsTrop Current Interpretive Data last revised 2020. Blood 04/07/2024 12:2 8 PM TRAVEL ACCOMMODATIONS RATER 04/07/2024 12:41 PM TRAVEL ACCOMMODATIONS RATER Scott Wagner MD LAB BLOOD ORDERABLES Final R esult [facility] [address] Department [place] [address] * eGFR (04/07/2024 12:28 PM TRAVEL ACCOMMODATIONS RATER) eGFR >90 >=60 mL/min/1. 73 m2 Comment: [...] reviewed 2021. Blood 04/07/2024 12:2 8 PM TRAVEL ACCOMMODATIONS RATER 04/07/2024 12:41 PM TRAVEL ACCOMMODATIONS RATER us Scott Wagner MD LAB BLOOD ORDERABLES Final R esult [facility] [address] Department [place] [address] * Differential, auto (04/07/2024 12:28 PM TRAVEL ACCOMMODATIONS RATER) Neutrophil abs 3.6 1.5 - 6.5 K/cumm Imm gran abs 0.0 0.0 - 0.1 K/cumm [facility] Lymphocyte abs 1.4 0.8 - 3.3 K/cumm [facility] Monocyte abs 0.7 0.2 - 0.8 K/cumm [facility] Eosinophil abs 0.2 0.0 - 0.5 K/cumm [facility] Basophil abs 0.1 0.0 - 0.1 K/cumm [facility] Neutrophil pct 60.2 % [facility] Comment: Interpretive Data Percent cell count reference ranges are not reported, since discordance with absolute values may lead to misinterpretation of CBC data. Current Interpretive Data was last revised on 2017. Imm gran pct 0.3 % [facility] Comment: Interpretive Data Percent cell count reference ranges are not reported, since discordance with absolute values may lead to misinterpretation of CBC data. Current Interpretive Data was last revised on 2017. Lymphocyte pct 23.7 % [facility] Comment: Interpretive Data Percent cell count reference ranges are not reported, since discordance with absolute values may lead to misinterpretation of CBC data. Current Interpretive Data was last revised on 2017. Monocyte pct 12.0 % [facility] Comment: Interpretive Data Percent cell count reference ranges are not reported, since discordance with absolute values may lead to misinterpretation of CBC data. Current Interpretive Data was last revised on 2017. Eosinophil pct 3.0 % [facility] Comment: Interpretive Data Percent cell count reference ranges are not reported, since discordance with absolute values may lead to misinterpretation of CBC data. Current Interpretive Data was last revised on 2017. Basophil pct 0.8 % [facility] Comment: Interpretive Data Percent cell count reference ranges are not reported, since discordance with absolute values may lead to misinterpretation of CBC data. Current Interpretive Data was last revised on 2017. Blood 04/07/2024 12:2 8 PM TRAVEL ACCOMMODATIONS RATER 04/07/2024 12:41 PM TRAVEL ACCOMMODATIONS RATER us Scott Wagner MD LAB BLOOD ORDERABLES Final R esult [facility] [address] Department [place] [address] * CBC with auto differential (04/07/2024 12:28 PM TRAVEL ACCOMMODATIONS RATER) WBC 5.9 3.8 - 9.9 K/cumm Hgb 13.9 13.0 - 17.5 g/dL [facility] Hct 41.3 38.9 - 50.3 % [facility] Plt 171 150 - 400 K/cumm [facility] MPV 10.8 9.1 - 12.3 fL [facility] RBC 4.62 4.30 - 5.80 M/cumm [facility] MCV 89.4 81.3 - 96.4 fL [facility] MCH 30.1 27.1 - 33.3 pg [facility] MCHC 33.7 32.3 - 35.7 g/dL [facility] RDW CV 12.7 11.1 - 14.9 % [facility] RDW SD 41.5 35.7 - 48.1 fL [facility] NRBC abs 0.00 0.00 - 0.01 K/cumm [facility] Blood (Blood, Venous) 04/07/2024 12:28 PM TRAVEL ACCOMMODATIONS RATER 04/07/2024 12:41 PM TRAVEL ACCOMMODATIONS RATER us Scott Wagner MD LAB BLOOD ORDERABLES Final R esult [facility] [address] [place] Department [place] [address] * (ABNORMAL) Comprehensive metabolic panel (04/07/2024 12:28 PM TRAVEL ACCOMMODATIONS RATER) Sodium 136 135 - 145 mmol/L Potassium, pl 5.1(H) 3.3 - 4.9 mmol/L [facility] Comment:Hemolyzed; potassium value may be falsely elevated by as much as 0.3 - 0.5 mmol/L. Suggest redraw and reanalysis Chloride 102 97 - 110 mmol/L [facility] CO2 16(L) 22 - 32 mmol/L [facility] Anion gap 18(H) 2 - 15 mmol/L [facility] BUN 15 6 - 25 mg/dL [facility] Creatinine 0.70(L) 0.80 - 1.30 mg/dL [facility] Glucose 192 70 - 199 mg/dL [facility] Comment: Interpretive Data Fasting glucose >/= 126 [...] 2022. Calcium 9.2 8.5 - 10.3 mg/dL [facility] Bilirubin, total 0.6 0.1 - 1.2 mg/dL [facility] Protein, pl 7.2 6.5 - 8.5 g/dL [facility] Albumin 4.0 3.5 - 5.0 g/dL [facility] Alk phos 104 40 - 130 Units/L [facility] ALT 21 7 - 55 Units/L [facility] AST 29 10 - 50 Units/L [facility] Comment:Slightly Hemolyzed S pecimen Blood 04/07/2024 12:2 8 PM TRAVEL ACCOMMODATIONS RATER 04/07/2024 12:41 PM TRAVEL ACCOMMODATIONS RATER Scott Wagner MD LAB BLOOD ORDERABLES Final R esult Performing Organization Address City/[facility]/ZIP Co de Phone Number [facility] [address] Department [place] [address] * ECG 12 lead (04/07/2024 10:29 AM TRAVEL ACCOMMODATIONS RATER) 04/07/2024 10:2 9 AM TRAVEL ACCOMMODATIONS RATER Narrative [facility] - 04/07/2024 8:05 PM TRAVEL ACCOMMODATIONS RATER Vent Rate: 82 bpm RR Interval: 724 msec IA Interval: 158 msec QRS Duration: 103 msec QT Interval: 335 msec QTC Interval: 374 msec P-R-T Alba: 1 - -40 - 71 degrees IMPRESSION: SINUS RHYTHM LEFT AXIS DEVIATION [QRS AXIS < -30] POOR R WAVE PROGRESSION NONSPECIFIC T-WAVE ABNORMALITY ABNORMAL ECG Electronically Signed By: Caleb Roger MD Richard Armstrong MD ECG ORDERABLES Final Resu lt Performing Organization Address City/[facility]/ZIP Co de Phone Number [facility] * (ABNORMAL) POCT glucose (04/07/2024 9:52 AM TRAVEL ACCOMMODATIONS RATER) Glucose, POC 206(H) 70 - 199 mg/dL Comment: For Glucose values <35 mg/dl when Hematocrit is >60 mg/dl,the test may not accurately detect significant hypoglycemia,and testing in the Laboratory should be considered if clinically indicated. Blood 04/07/2024 9:52 AM TRAVEL ACCOMMODATIONS RATER 04/07/2024 9:52 AM TRAVEL ACCOMMODATIONS RATER us Reina Boyle NP LAB POCT ORDERABLES - DEVIC E Final Result Performing Organization Address [facility] Co de Phone Number [facility] [address] [facility] [employer] [place], [place] [id number] * (ABNORMAL) POCT glucose (04/07/2024 9:20 AM TRAVEL ACCOMMODATIONS RATER) Glucose, POC 268(H) 70 - 199 mg/dL Comment: For Glucose values <35 mg/dl when Hematocrit is >60 mg/dl,the test may not accurately detect significant hypoglycemia,and testing in the Laboratory should be considered if clinically indicated. Blood 04/07/2024 9:20 AM TRAVEL ACCOMMODATIONS RATER 04/07/2024 9:20 AM TRAVEL ACCOMMODATIONS RATER Reina Boyle NP LAB POCT ORDERABLES - DEVIC E Final Result Performing Organization Address [facility] de Phone Number [facility] [address] [facility] [employer] [place] [address] * (ABNORMAL) POCT glucose (04/06/2024 11:05 AM TRAVEL ACCOMMODATIONS RATER) Glucose, POC 202(H) 70 - 199 mg/dL Comment: For Glucose values <35 mg/dl when Hematocrit is >60 mg/dl,the test may not accurately detect significant hypoglycemia,and testing in the Laboratory should be considered if clinically indicated. Blood 04/06/2024 11:0 5 AM TRAVEL ACCOMMODATIONS RATER 04/06/2024 11:05 AM TRAVEL ACCOMMODATIONS RATER Reina Boyle NP LAB POCT ORDERABLES - DEVIC E Final Result Performing Organization Address [facility] de Phone Number [facility] [address] [facility] [employer] [place], [place] [id number] * US Vein Mapping Duplex Lower Extremity Bilateral (04/06/2024 10:17 AM TRAVEL ACCOMMODATIONS RATER) Anatomical Region Laterality Modality Vascular Bilateral Ultrasound 04/06/2024 8:03 AM TRAVEL ACCOMMODATIONS RATER Narrative 04/09/2024 6:57 PM TRAVEL ACCOMMODATIONS RATER [facility] - Department of Vascular Surgery, Vascular Laboratory [address] [place] [id number] Lower Extremity Vein Mapping Report Patient Name: ALLY WISEMAN D : 1960 (63y 6m) Study Date: 04/06/2024 8:03:23 AM Gender: M Biomedical Photographer: ARPAN Location: [facility] Provider: ELISEO HYDE Quality: Adequate Order Provider: [...] Distal 0.19; BRANCH cm - FINDINGS: Performing Biomedical Photographer: Arpan Hernandez, RVT, RDMS, RDCS, ACS. Bilateral: The [...] Electronically Signed By: Dimitrios Mccrary MD FACS 04/09/2024 6:56:05 PM TRAVEL ACCOMMODATIONS RATER Procedure Note Dimitrios Mccrary MD - 04/09/[address] [facility] - Department of Vascular Surgery,Vascular Laboratory [address] [place] [address] Lower Extremity Vein Mapping Report Patient Name: ALLY WISEMAN D : 1960 (63y 6m) Study Date: 04/06/2024 8:03:23 AM Gender: M Biomedical Photographer: ARPAN Location: [facility] Provider: ELISEO HYDE Quality: Adequate Order Provider: [...] Distal 0.19; BRANCH cm - FINDINGS: Performing Biomedical Photographer: Arpan Hernandez, MELLT, RDMS, RDCS, ACS. Bilateral: The common femoral, [...] Electronically Signed By: Dimitrios Mccrary MD FACS 04/09/2024 6:56:05 PM TRAVEL ACCOMMODATIONS RATER Eliseo KRAUSE IMG US PROCEDURES Fin al Result * (ABNORMAL) POCT glucose (04/06/2024 9:14 AM TRAVEL ACCOMMODATIONS RATER) [facility] Glucose, POC 235(H) 70 - 199 mg/dL Comment: For Glucose values <35 mg/dl when Hematocrit is >60 mg/dl,the test may not accurately detect significant hypoglycemia,and testing in the Laboratory should be considered if clinically indicated. Blood 04/06/2024 9:14 AM TRAVEL ACCOMMODATIONS RATER 04/06/2024 9:14 AM TRAVEL ACCOMMODATIONS RATER Reina Boyle NP LAB POCT ORDERABLES - DEVIC E Final Result Performing Organization Address [facility] Co de Phone Number [facility] [address] [place] [address] * POCT glucose (04/03/2024 11:13 AM TRAVEL ACCOMMODATIONS RATER) Glucose, POC 123 70 - 199 mg/dL Comment: For Glucose values <35 mg/dl when Hematocrit is >60 mg/dl,the test may not accurately detect significant hypoglycemia,and testing in the Laboratory should be considered if clinically indicated. Blood 04/03/2024 11:1 3 AM TRAVEL ACCOMMODATIONS RATER 04/03/2024 11:13 AM TRAVEL ACCOMMODATIONS RATER Reina Boyle NP LAB POCT ORDERABLES - DEVIC E Final Result Performing Organization Address [facility] de Phone Number [facility] [address] [place] [address] * (ABNORMAL) POCT glucose (04/03/2024 11:07 AM TRAVEL ACCOMMODATIONS RATER) Glucose, POC 212(H) 70 - 199 mg/dL Comment: For Glucose values <35 mg/dl when Hematocrit is >60 mg/dl,the test may not accurately detect significant hypoglycemia,and testing in the Laboratory should be considered if clinically indicated. Blood 04/03/2024 11:0 7 AM TRAVEL ACCOMMODATIONS RATER 04/03/2024 11:07 AM TRAVEL ACCOMMODATIONS RATER Reina Boyle NP LAB POCT ORDERABLES - DEVIC E Final Result Performing Organization Address [facility] Co de Phone Number [facility] [address] [place] [address] * (ABNORMAL) POCT glucose (04/03/2024 9:19 AM TRAVEL ACCOMMODATIONS RATER) Glucose, POC 317(H) 70 - 199 mg/dL Comment: For Glucose values <35 mg/dl when Hematocrit is >60 mg/dl,the test may not accurately detect significant hypoglycemia,and testing in the Laboratory should be considered if clinically indicated. Blood 04/03/2024 9:19 AM TRAVEL ACCOMMODATIONS RATER 04/03/2024 9:19 AM TRAVEL ACCOMMODATIONS RATER Reina Boyle NP LAB POCT ORDERABLES - DEVIC E Final Result Performing Organization Address [facility] Co de Phone Number [facility] [address] [facility] [employer] [place], [place] [id number] * (ABNORMAL) POCT glucose (04/03/2024 9:09 AM TRAVEL ACCOMMODATIONS RATER) Glucose, POC 222(H) 70 - 199 mg/dL Comment: For Glucose values <35 mg/dl when Hematocrit is >60 mg/dl,the test may not accurately detect significant hypoglycemia,and testing in the Laboratory should be considered if clinically indicated. Blood 04/03/2024 9:09 AM TRAVEL ACCOMMODATIONS RATER 04/03/2024 9:09 AM TRAVEL ACCOMMODATIONS RATER Reina Boyle NP LAB POCT ORDERABLES - DEVIC E Final Result Performing Organization Address [facility] de Phone Number [facility] [address] [facility] [employer] [place] [address] * CTA Abdominal Aorta And Bilateral Iliofemoral [...] calcified atherosclerosis and severe narrowing of the mechoopda vessel distally R. Popliteal artery: Multifocal severe [...] calcified atherosclerosis and severe narrowing of the mechoopda vessel distally R. Popliteal artery: Multifocal severe [...] by: Jodi Gregory M.D. Dimitrios Mccrary MD IMG CT PROCEDURES Final Result * PSA, total and free (04/13/2023 12:18 PM TRAVEL ACCOMMODATIONS RATER) PSA-free <0.1 ng/mL [facility] PSA-Total <0.10 <=4.5 ng/mL [facility] PSA-Free/Total Ratio See Footnote [facility] Comment: Ratio was not calculated because free PSA is less than 0.1 ng/mL. Ratio not calculated because clinical usefulness is not defined except in range of total PSA 4.0-10.0 ng/mL. ADDITIONAL INFORMATION The testing method is an electrochemiluminescence assay manufactured by [employer] and performed on the Modular or Senia system. Values obtained with different assay methods or kits may be different and cannot be used interchangeably. Test results cannot be interpreted as absolute evidence for the presence or absence of malignant disease. Test Performed by: [address] [address] Flat Sorter Processor: Goyo Ramirez M.D. Ph.D.; CLIA# [id number] Blood 04/13/2023 12:1 8 PM TRAVEL ACCOMMODATIONS RATER 04/13/2023 12:18 PM TRAVEL ACCOMMODATIONS RATER us Jay Bolanos MD PhD LAB BLOOD ORDERABLE S Final Result [facility] [address] [place] Department [place] [address] from Last 3 Months or Most Recently Relevant to Health Maintenance Insurance [facility] CHOICE [facility] HMO/PPO Address: [address] [address] [place] [address] MEDICARE [facility] MEDICARE [facility] Advance Directives For more information, please contact: [phone] * Full Code (Latest Code Status on [...] 6:04 PM 05/10/2023 5:52 PM Care Teams Adult Education Instructor Relationship Specialty [place] [address] [facility] [address] [place] [address] PCP - General Family Practice 12/18/21 Dev Burrell MD [address] [place] [address] Consulting Physician Radiation Oncology 04/24/18 [place] [address] [facility] [address] [place] [address] Urology 04/24/18 [place] [address] [facility] [address] [place] [address] Urology 04/24/18 [place] [address] [place] [address] Consulting Physician Urology 04/13/23 Dimitrios Mccrary MD [address] [facility] [address] [place] [address] Surgeon Vascular Surgery 11/01/23
--- NOTE | 2024-07-03 05:52 | ECG_ITS ---
Test Date: 2024-07-03 05:56:11 Measurements Intervals Griffin Rate: 102 P: 52 ID: 144 QRS: -35 QRSD: 104 T: 69 QT: 315 QTc: 412 Interpretive Statements SINUS TACHYCARDIA LEFT AXIS DEVIATION PATTERN CONSISTENT WITH PULMONARY DISEASE CONSIDER INFERIOR INFARCT, AGE INDETERMINATE BORDERLINE ST-T WAVE ABNORMALITY- HIGH LATERAL LEADS BASELINE ARTIFACT- I, III, AVR, AVL, V1, V6 ABNORMAL ECG No previous ECG available for comparison Electronically Signed On 07-03-2024 10:30:46 BALL SORTER by Stiven Liao D.O.
[2024-07-03 06:01] LABS: Basophils Percent Auto 0.7 % (0.2-1.2); Eosinophils Absolute Auto 0.3 K/mm3 (0-0.3); Eosinophils Percent Auto 4.6 % (0-4.4); Hematocrit 40.3 % (42.0-52.0); Hemoglobin 13.2 g/dL (14.0-18.0); Immature Granulocyte Absolute 0.03 K/mm3 (0.00-0.031); Immature Granulocyte Percent A 0.5 % (0-0.5); Lymphocytes Absolute Auto 2.18 K/mm3 (0.9-3.2); Lymphocytes Percent Auto 36.8 % (18.3-44.2); Mean Corpuscular HGB Conc 32.8 g/dl (32-36); Mean Corpuscular Hemoglobin 29.7 pg (26-34); Mean Corpuscular Volume 90.6 fl (80-100); Monocytes Absolute Auto 0.6 K/mm3 (0.1-0.6); Monocytes Percent Auto 9.4 % (2.6-8.5); Neutrophils Absolute Auto 2.9 K/mm3 (1.3-6.7); Platelet Count Result 159 k/mm3 (150-375); Red Blood Count 4.45 M/mm3 (4.6-6.20); Red Cell Distribution Width 12.4 % (11.5-14.5); White Blood Count 5.9 K/mm3 (4.5-10.0)
[2024-07-03] MEDS: ASPIRIN 81 MG CHEWABLE TABLET 324 MG PO (06:02)
[2024-07-03 06:20] LABS: Partial Thromboplastin Time 31.4 Seconds (22.3-36.8); Prothrombin Time 13.2 Seconds (11.1-14.7)
[2024-07-03 06:21] LABS: Alanine Aminotransferase 20 U/L (6-50); Albumin Level 4.4 g/dL (3.5-5.1); Alkaline Phosphatase 108 U/L (38-126); Anion Gap 10 mmol/L (4-12); Aspartate Amino Transferase 23 U/L (17-59); Bilirubin,Total 0.6 mg/dL (0.2-1.3); Blood Urea Nitrogen 18 mg/dL (9-20); Calcium 9.4 mg/dL (8.4-10.2); Carbon Dioxide 29 mmol/L (22-30); Chloride 102 mmol/L (98-107); Estimated Glomerular Filt Rate > 60; Glucose 192 mg/dL (65-110); Lipase 188 U/L (23-300); Potassium 4.2 mmol/L (3.4-5.0); Sodium 141 mmol/L (137-145)
[2024-07-03 06:33] LABS: Troponin I 0.018 ng/mL (0.000-0.034)
--- NOTE | 2024-07-03 07:06 | ED_ITS ---
HPI - Chest Pain General Chief Complaint: Chest Pain Stated Complaint: chest pain Time Seen by Provider: 07/03/24 07:05 Source: patient Mode of arrival: ambulatory Limitations: no limitations History of Present Illness HPI narrative: 63 years old white male came to the ED with shortness of breath and and chest pain History of diabetes, peripheral vascular disorder, status post stent placement left lower extremity few days ago, status post open up old stent in the right lower extremity 2 days ago, was hospitalized for 1 day at [facility] and got discharged yesterday. At 4:30 a.m. this morning workup with shortness of breath and chest pain associated with postnasal discharge and productive cough of clear phlegm. He denies any fever or chills or nausea or vomiting Patient currently on aspirin and Plavix. Patient probably got intubated during anesethia for the lower extremity vascular management Related Data Home Medications ?Medication ?Instructions ?Recorded ?Confirmed ?Last Taken ?Type blood sugar diagnostic (OneTouch 10/28/20 07/03/24 Unknown History Verio test strips) metformin 500 mg tablet 1,000 mg PO BID 10/28/20 07/03/24 07/02/24 17:00 History pen needle, diabetic 31 gauge x 10/28/20 07/03/24 Unknown History 1/ (Unifine Pentips Plus) sildenafil 100 mg tablet 100 mg PO DAILY PRN erectile 10/28/20 07/03/24 Unknown History dysfunction glipizide 5 mg tablet 10 mg PO DAILY 11/09/20 07/03/24 07/02/24 08:00 History aspirin 81 mg tablet,delayed 81 mg PO HS 07/03/24 07/03/24 07/02/24 20:00 History release (Adult Aspirin Regimen) cilostazol 100 mg tablet 100 mg PO BID 07/03/24 07/03/24 07/02/24 17:00 History ciprofloxacin HCl 500 mg tablet 500 mg PO BID 07/03/24 07/03/24 07/02/24 21:00 History clopidogrel 75 mg tablet 75 mg PO .AM 07/03/24 07/03/24 07/02/24 09:00 History gabapentin 300 mg capsule 300 mg PO HS 07/03/24 07/03/24 07/02/24 21:00 History tamsulosin 0.4 mg capsule 0.4 mg PO HS 07/03/24 07/03/24 07/02/24 20:00 History Allergies Allergy/AdvReac Type Severity Reaction Status Date / Time No Known Allergies Allergy Verified 07/03/24 12:46 Review of Systems 2 Review of Systems: All systems reviewed & are unremarkable except as noted in HPI and below PMFSH Family History Family History Mother Family history of diabetes mellitus in first degree relative Other Diabetes mellitus Social History Social History Smoking status: Former smoker Tobacco type: cigarettes Smoking end date: 05/06/94 Alcohol intake: current Substance use: never Substance use type: does not use Do You Feel Safe in your Home?: Yes Lack of Transportation: No Lack of Food: Never True Current Housing: I Have Housing Concerned About Future Housing: Decline to Answer Difficulty Paying Gas/Electric Bills: No Difficulty Paying for Meds: No Currently Unemployed: No Education: Trade/Vocational Certificate Difficulty w/ Childcare or Family Care: No Gender identity (if verbalized by the patient): Male Spiritual care concerns: No Exam 2 Narrative: General appearance: Well-developed, well-nourished Skin: Normal color left groin dressing Head: Normocephalic, nontraumatic Eyes: Clear conjunctiva ENT: Oropharynx normal, ears normal, nose normal Neck: Supple, nontender Chest and respiratory: Airway patent, no respiratory distress, no accessory muscle use Heart: Regular rate/rhythm Abdomen: Soft, nontender, no organomegaly, quiet bowel sounds Vascular: Normal peripheral pulses, normal capillary refill. Musculoskeletal: Normal range of motion, nontender back Neurologic: Alert and oriented ?3, FIELD MARKETING ASSOCIATE is normal as tested, no gross motor deficit Course Consultations Consultation #1: DR HUTCHINSON Date: 07/03/24 Vital Signs Vital signs: Vital Signs Pulse Rate 106 H 07/03/24 05:50 Respiratory Rate 18 07/03/24 05:50 Blood Pressure 225/93 H 07/03/24 05:50 Pulse Oximetry 95 07/03/24 05:50 Oxygen Delivery Room Air 07/03/24 05:50 Temperature 36.8 C 07/03/24 18:36 Pulse Rate 87 07/03/24 18:36 Respiratory Rate 14 07/03/24 18:36 Blood Pressure 166/76 H 07/03/24 18:36 Pulse Oximetry 96 07/03/24 18:36 Oxygen Delivery Nasal Cannula 07/03/24 08:43 Oxygen Flow Rate 2 07/03/24 08:43 MDM - Chest Pain MDM Narrative Medical decision making narrative: Patient wake up with shortness of breath and chest pain Vital signs showing blood pressure 225/93, heart rate of 106, respiration 18 otherwise within normal limit Physical examination showing a patient with intermittent productive cough of clear sputum Differential diagnosis include viral infection, pneumonia, coronary artery disease, pulmonary embolism, electrolyte imbalance, dehydration, status post orotracheal intubation 2 days ago Blood workup today includes CBC, CMP, BNP, troponin, D-dimer showed blood glucose of 192, 2nd troponin is higher than the 1st 1, 0.035 otherwise within normal limit The travel physical therapist on-call came to the ED, evaluated the patient and agreed with our plan Blood gas on room air showed Chest x-ray showed no acute abnormalities EKG on arrival showed sinus tachycardia at 1:02 a.m. beats per min Admit to hospitalist for chest pain and dyspnea Differential Diagnosis Differential diagnosis: Likely other (As above) Medical Records Data Attestation: I reviewed the patient's medical records. Lab Data Attestation: I reviewed the patient's lab results. 07/03/24 05:56 07/03/24 05:56 Labs: Lab Results 07/03/24 07/03/24 07/03/24 Range/Units 05:55 05:56 08:58 WBC 5.9 (4.5-10.0) K/mm3 RBC 4.45 L (4.6-6.20) M/mm3 Hgb 13.2 L (14.0-18.0) g/dL Hct 40.3 L (42.0-52.0) % MCV 90.6 (80-100) fl MCH 29.7 (26-34) pg MCHC 32.8 (32-36) g/dl RDW 12.4 (11.5-14.5) % Plt Count 159 (150-375) k/mm3 MPV 11.0 H (7.4-10.4) fl Immature Gran % (Auto) 0.5 (0-0.5) % Neut % (Auto) 48.0 (45.5-73.1) % Lymph % (Auto) 36.8 (18.3-44.2) % [place] % (Auto) 9.4 H (2.6-8.5) % Eos % (Auto) 4.6 H (0-4.4) % Baso % (Auto) 0.7 (0.2-1.2) % Lymph # (Auto) 2.18 (0.9-3.2) K/mm3 [place] # (Auto) 0.6 (0.1-0.6) K/mm3 Eos # (Auto) 0.3 (0-0.3) K/mm3 Baso # (Auto) 0.0 (0.0-0.1) K/mm3 Abs Immat Gran (auto) 0.03 (0.00-0.031) K/mm3 Absolute Neuts (auto) 2.9 (1.3-6.7) K/mm3 Absolute Nucleated RBC 0.000 (0.0-0.012) K/mm3 Nucleated RBC % 0.0 (0.0-0.2) % PT 13.2 (11.1-14.7) Seconds INR 1.0 APTT 31.4 (22.3-36.8) Seconds D-Dimer < 0.27 (<0.48) ug/mL Sodium 141 (137-145) mmol/L Potassium 4.2 (3.4-5.0) mmol/L Chloride 102 (98-107) mmol/L Carbon Dioxide 29 (22-30) mmol/L Anion Gap 10 (4-12) mmol/L BUN 18 (9-20) mg/dL Creatinine 0.88 (0.7-1.3) mg/dL Estim Creat Clear Calc Not Reportable Estimated GFR > 60 (59 - ) Glucose 192 H (65-110) mg/dL Calcium 9.4 (8.4-10.2) mg/dL Total Bilirubin 0.6 (0.2-1.3) mg/dL AST 23 (17-59) U/L ALT 20 (6-50) U/L Alkaline Phosphatase 108 (38-126) U/L Troponin I 0.018 0.035 H* D (0.000-0.034) ng/mL NT-Pro-B Natriuret Pep 132 H (19.9-100) pg/mL Total Protein 8.0 (6.3-8.2) g/dL Albumin 4.4 (3.5-5.1) g/dL Lipase 188 (23-300) U/L Influenza A (RT-PCR) Negative (Negative) Influenza B (RT-PCR) Negative (Negative) RSV (RT-PCR) Negative (Negative) SARS-CoV-2 RNA (RT-PCR) Negative (Negative) ABG Data ABG results: 07/03/24 09:01 Puncture Site Left radial ABG pH 7.406 ABG pCO2 40.3 ABG pO2 72.0 L ABG PO2/FiO2 Ratio 3.43 ABG HCO3 24.7 ABG O2 Saturation 94.6 L ABG O2 Content 17.6 ABG Base Excess 0.1 A-a Gradient 29.5 Oxyhemoglobin 93.9 Total Hemoglobin 13.3 O2 Delivery Device Room air O2 Liters/Min 0.0 FiO2 21 Imaging Data Radiologist's impression: Impressions Chest X-Ray 07/03/24 06:43 IMPRESSION: 1: NO ACUTE CARDIOPULMONARY DISEASE. ECG Data EKG #1: Attestation: I personally reviewed and interpreted this ECG as follows: ECG completion date: 07/03/24 Interpretation: Sinus tachycardia at 102 beats per minute, left axis deviation, pattern consistent with pulmonary disease, no old EKG available for comparison, nonspecific ST T-wave abnormality Critical Care Time Critical Care Time Critical Care Time: No Discharge Plan Discharge Clinical Impression: Chest pain Patient Disposition: Still a Patient Condition: Guarded Prognosis Quality HEART score for chest pain patients History: highly suspicioius ECG: non specific repolarization disturbance/LBTB/PM Age: > or = to 65 years Risk factors: > or = to 3 risk factors of atherosclerotic disease Troponin: < or = to 1x normal limit Heart score: 7
--- OUTSIDE RECORDS SUMMARY | 2024-07-03 07:37 | XMS_ITS | Clinical Summary ---
Author Organization [facility] Address [address] [place] [address] Care Team Providers Care Rotary Drier Name Role Phone Nacho Mcghee MD Primary Care Provider [phone] Allergies No known active allergies Medications ONETOUCH [...] hyperglycemia, without long-term current use of insulin ([facility]) TAKE 2 TABLETS TWICE A DAY [...] hematuria 05/08/2023 Perineal lump 05/08/2023 Atherosclerosis of eastern shoshone ar eric of both lower extremities with [...] risk of limb loss and need for fpc follow-up. Atherosclerosis of eastern shoshone ar eric of right lower extremity with intermittent claudication 04/08/2023 Lesion of right ulnar nerve 08/15/2021 Overview (02/27/2022): Added automatically from request for surgery [id number] Carpal tunnel syndrome on left 07/21/2021 Overview (02/27/2022): Added automatically from request for surgery [id number] Cubital tunnel syndrome on left 07/21/2021 Overview (02/27/2022): Added automatically from request for surgery [id number] Vascular disease 06/25/2021 Claudication of both lower extremities 2 Abnormal ankle brachial index ([facility]) 05/24/2021 History of prostate cancer 09/30/2020 Chronic left shoulder pain 09/30/2020 Diabetic peripheral neuropathy ([facility]) 06/08/2019 Type 2 diabetes mellitus wit h hyperglycemia, without long-term current use of insulin ([facility]) 06/08/2019 BMI 26.0-26.9,adult 10/13/2015 Overview (08/27/2018): Transitioned From: BMI 29.0-29.9,adult Medication management 10/13/2015 Overview (08/27/2018): Transitioned From: [facility] use of drug Lipoma of left lower extremity 03/16/2015 Osteopenia 03/23/2013 Male erectile disorder of organic origin 013 Essential hypertension 05/05/2012 Hypertriglyceridemia 03/18/2012 Resolved Problems Problem Noted Date Diagnosed Date Resolved Date Prostate cancer ([facility]) 10/30/2013 09/30/2020 Encounters Date Type Department Care Team Description 06/29/2024 Scan [facility] INFO SRVCS Scanned, [facility] 06/26/2024 11:14 AM PRESSROOM WORKER - 06/26/2024 11:59 PM [facility] Hospital Encounter [facility] [address] [place] [address] Christy Macdonald NP Discharge Disposition: Home or Self Care (Routine Discharge) 06/26/2024 Orders Only [facility] [address] [place] [address] Christy Macdonald NP 06/26/2024 Travel 06/01/2024 Telephone [facility] [address] [place] [address] Nacho Mcghee MD Forms (Parking placard) 05/14/2024 Telephone [facility] [id number] [place] [phone] Nacho Mcghee MD Concerns 05/12/2024 1:50 PM PRESSROOM WORKER - 05/12/2024 11:59 PM PRESSROOM WORKER Hospital Encounter [facility] [address] [place] [address] Mary Anne Rodriguez MD Discharge Disposition: Home or Self Care (Routine Discharge) 05/12/2024 Orders Only [facility] [address] [place] [address] Mary Anne Rodriguez MD 05/12/2024 Travel 05/03/2024 Scan [facility] Scanned, [facility] 04/30/2024 Scan [facility]VCS Scanned, [facility] Pathology (SCAN) 04/13/2024 4:00 PM PRESSROOM WORKER Office Visit [facility] [address] [phone] Nacho Mcghee MD ER F/U (He has [...] Comments Blood Pressure 158/78 04/13/2024 4:01 PM PRESSROOM WORKER Pulse 91 04/13/2024 4:01 PM PRESSROOM WORKER Temperature 36.6 C (97.8 F) 04/13/2024 4:01 PM PRESSROOM WORKER Respiratory Rate 16 04/13/2024 4:01 PM PRESSROOM WORKER Oxygen Saturation 100% 04/13/2024 4:01 PM PRESSROOM WORKER Inhaled Oxygen Concentration - - Weight 78.5 kg (173 lb) 04/13/2024 4:01 PM PRESSROOM WORKER Height 171.5 cm (5' 7.5 ) 04/13/2024 4:01 PM PRESSROOM WORKER Body Mass Index 26.7 04/13/2024 4:01 PM PRESSROOM WORKER Plan of Treatment Health Maintenance Due Date [...] Influenza Adult (#1) 2024 03/01/2022 PHQ-2 (Physician Teller) 05/06/2024 Hemoglobin A1C 12/20/2024 06/22/2024, 12/0 09/2023, [...] BASIC METABOLIC PANEL Routine 06/26/2024 11:20 AM PRESSROOM WORKER Preop examination URINE BACTERIA CULTURE Routine 05/12/2024 2:10 PM PRESSROOM WORKER Urinary frequency URINALYSIS MICRO ONLY Routine 05/12/2024 2:10 PM PRESSROOM WORKER HC URINALYSIS AUTO W/O MICRO Routine 05/12/2024 2:10 PM PRESSROOM WORKER PATHOLOGY GENERIC (SCAN ORDER) 04/30/2024 HEMOGLOBIN, GLYCOSYLATED Routine 12/05/2023 Type 2 diabetes mellitus with hyperglycemia, without long-term current use of insulin ([facility]) LIPID PANEL Routine 02/27/2022 9:40 AM CDT Hypertriglyceridemia Essential hypertension COLONOSCOPY GENERIC (SCAN ORDER) Routine 11/13/2019 from Last 3 Months or Most Recently Relevant to Health Maintenance Results * (ABNORMAL) BASIC METABOLIC PANEL (06/26/2024 11:20 AM PRESSROOM WORKER) GLUCOSE 194(H) 70 - 99 MG/DL 06/26/2024 11:54 AM PRESSROOM WORKER [facility] BUN 22(H) 7 - 18 MG/DL 06/26/2024 11:54 AM [facility] CREATININE S/P/B 1.08 0.7 - 1.3 MG/DL 06/26/2024 11:54 AM [facility] SODIUM S/P/B 140 136 - 145 MMOL/L 06/26/2024 11:54 AM [facility] POTASSIUM S/P/B 4.6 3.5 - 5.1 MMOL/L 06/26/2024 11:54 AM [facility] CHLORIDE S/P/B 102 100 - 108 MMOL/L 06/26/2024 11:54 AM [facility] CO2 26.8 21 - 32 MMOL/L 06/26/2024 11:54 AM [facility] CALCIUM S/P/B 9.6 8.5 - 10.1 MG/DL 06/26/2024 11:54 AM [facility] ANION GAP 11.2 5 - 15 MMOL/L 06/26/2024 11:54 AM [facility] BUN CREATININE RATIO 20.4 6 - 26 06/26/2024 11:54 AM [facility] GFR ESTIMATE 76(L) >90 ML/MIN/1.7 3 M2 06/26/2024 11:54 AM [facility] Comment: NOTE: eGFR is not calculated for patients <18 years of age. This is an estimated GFR calculation using the new CKD EPI creatinine equation without race and so does not require a correction factor for race. This estimated GFR should not be used for calculating drug doses. 06/26/2024 11:2 0 AM [facility] us Christy Macdonald NP LABORATORY Final Result [facility] [address] [place] [address], [place] [phone] * (ABNORMAL) URINALYSIS (05/12/2024 2:10 PM PRESSROOM WORKER) COLOR (U) YELLOW 05/13/2024 9:31 AM [facility] TRANSPARENCY HAZY 05/13/2024 9:31 AM [facility] SPECIFIC GRAVITY (U) 1.020 1.000 - 1.030 05/13/2024 9:31 AM [facility] U PH 7.0 5.0 - 9.0 05/13/2024 9:31 AM [facility] LEUKOCYTES (U) NEGATIVE NEGATIVE 05/13/2024 9:31 AM [facility] NITRITES NEGATIVE NEGATIVE 05/13/2024 9:31 AM [facility] PROTEIN RANDOM (U) TRACE(A) NEGATIVE 05/13/2024 9:31 AM [facility] GLUCOSE (U) 3+(A) NEGATIVE 05/13/2024 9:31 AM [facility] KETONES MG/DL (U) NEGATIVE NEGATIVE 05/13/2024 9:31 AM [facility] BILIRUBIN (U) NEGATIVE NEGATIVE 05/13/2024 9:31 AM [facility] BLOOD (U) 1+(A) NEGATIVE 05/13/2024 9:31 AM [facility] 05/12/2024 2:10 PM PRESSROOM WORKER us Mary Anne Rodriguez MD URINE ORDERABLES Final Result [facility] [address] [place] [address], [place] [phone] * (ABNORMAL) URINE BACTERIA CULTURE (05/12/2024 2:10 PM PRESSROOM WORKER) SPEC DESCRIPTION URINE, UNSPECIFIED 05/12/2024 2:18 PM PRESSROOM WORKER [facility] SPECIAL REQUESTS NO SPECIAL REQUEST 05/12/2024 2:18 PM PRESSROOM WORKER [facility] CULTURE RESULT >100,000 COL/ML STAPHYLOCOCCUS SAPROPHYTICUS : STAPHYLOCOCCUS SAPROPHYTICUS URINE ISOLATES TYPICALLY RESPOND TO CONCENTRATIONS ACHIEVED IN URINE OF ANTIMICROBIAL AGENTS COMMONLY USED TO TREAT UNCOMPLICATED URINARY TRACT INFECTIONS SUCH NITROFURANTOIN, TRIMETH/SULFA, OR A FLUOROQUINOLONE. SUSCEPTIBILITIES ARE NOT ROUTINELY PERFORMED. (A) 05/15/2024 8:[address] [facility] URINE SPECIMEN / Unknown 05/12/2024 2:10 PM PRESSROOM WORKER 05/12/2024 2:28 PM PRESSROOM WORKER Mary Anne Rodriguez MD MICROBIOLOGY - GENERAL ORDERABLE S Final Result [facility] [address] [place] [address], [place] [phone] [facility] [address] [place] [address], [place] [phone] * URINALYSIS MICRO ONLY (05/12/2024 2:10 PM PRESSROOM WORKER) WBC/HPF 0-5 0 - 5 /HPF 05/13/2024 9:31 AM PRESSROOM WORKER [facility] RBC/HPF 0-5 0 - 5 /HPF 05/13/2024 9:31 AM PRESSROOM WORKER [facility] EPI/HPF FEW /HPF 05/13/2024 9:31 AM PRESSROOM WORKER [facility] CRYSTALS (U) MODERATE /HPF 05/13/2024 9:31 AM PRESSROOM WORKER [facility] Comment:AMORPHOUS MATERIAL 05/12/2024 2:10 PM PRESSROOM WORKER us Mary Anne Rodriguez MD URINE ORDERABLES Final Result [facility] () [facility] [address] [place] [address], * PATHOLOGY GENERIC (SCAN ORDER) (04/30/2024) 04/30/2024 [...] LDL-C. Ulisses SS et al. HUDSON. 2013;310(19): 5972-7375 (http://education.Oxyntix/faq/LJJ189) CHOL/HDL RATIO 5.7(H) <5.0 (calc) [facility] [...] t [facility] [address] [address] [phone] * COLONOSCOPY (11/13/2019) us Documents Scanned SCANNING Final Result [facility] ONBASE from Last 3 Months or Most Recently Relevant to Health Maintenance Insurance [facility] MEDICARE Care Teams Rotary Drier Relationship Specialty [place] [address] [place] [address] PCP - General FAMILY PRACTICE 08/18/21
--- OUTSIDE RECORDS SUMMARY | 2024-07-03 07:37 | XMS_ITS | Continuity of Care Document ---
Author Organization [facility] Address [address] [place] [address] Phone Care Team Providers Care Fire Department Battalion Chief Name Role Phone Dg Martins MD Unavailable [...] Provider Providers Copied on Encounter [facility], [address] [facility], [place], [place], [id number], [place] tel:[phone] [facility] No Information 3 Eliezer Conte. [address], [address], [place], [address], [place]. tel:[phone] Office/outpa tient visit,est, mod [facility], [address], [id number], [place] tel:[phone] [facility] bilat knees (chief complaint) Pain in left kneePain in right knee 3 Aurelia gaines. [address] [address], [place], [place], [id number], [place]. tel:[phone] Referring Provider: Dg Reeder, [address] [place] [address], [place], [address]. tel:[phone] [facility], [address] [place] [address], [id number], [place] tel:[phone] [facility] No Information 3 Eliezer Conte. [address] [address], [place], [address], [place]. tel:[phone] Office/outpa tient visit,est, mod [facility], [address] [address], [place], [place], [id number], [place] tel:[phone] [facility] Right shoulder pain (chief complaint)Le ft shoulder scope (chief complaint) Pain in right shoulderImpin gement syndrome of right shoulderBicip ital tendinitis, right shoulder 3 Eliezer Conte. [address] [facility], [address] [address], [place], [address], [place]. tel:[phone] [facility], [address], [id number], [place] tel:[phone] [facility] second postop (chief complaint) Bicipital tendinitis, left shoulderIncom plete rotator cuff rupture of left shoulder, not specified as traumaticEnco unter for other orthopedic aftercare 0 3 Eliezer Conte. [address] [address], [place], [address], [place]. tel:[phone] [facility], [address] [address], [place], [place], [id number], [place] tel:[phone] [facility] Incomplete rotator cuff rupture of left shoulder, not specified as traumatic 3 Martinsricha Conte. [address] [facility], [facility] [address], [place], [address], [place]. tel:[phone] [facility], [address], [id number], [place] tel:[phone] [facility] first postop (chief complaint) Bicipital tendinitis, left shoulderIncom plete rotator cuff rupture of left shoulder, not specified as traumaticEnco unter for other orthopedic aftercare 2 Martins Dg. [address] [address], [place], [address], [place]. tel:[phone] [facility], [address], [id number], [place] tel:[phone] [facility] Incomplete rotator cuff rupture of left shoulder, not specified as traumaticBici pital tendinitis, left shoulder 2 Martins Dg. [address] [facility], [facility] [address], [place], [address], [place]. tel:[phone] [facility], [address], [id number], [place] tel:[phone] [facility] Bicipital tendinitis, left shoulderIncom plete rotator cuff rupture of left shoulder, not specified as traumatic 2 Martins Dg. [address] [facility], [address] [address], [place], [address], [place]. tel:[phone] Office/outpa tient visit,est, mod [facility], [address], [id number], [place] tel:[phone] [facility] césar knee (chief complaint) Pain in right kneePain in left knee 2 Delvin Mitchell. [address] [facility], [address], [place], [place], [id number], [place]. tel:[phone] Office/outpa tient visit,est, [facility], [address] [facility] [address], [place], [place], [id number], [place] tel:[phone] [facility] left shoulder (chief complaint) Body mass index (BMI) 27.0-27.9, adultBicipita l tendinitis, left shoulder 2 Eliezer Conte. [address] [facility] [address], [address], [place], [address], [place]. tel:[phone] [facility], [address] [facility] [address], [place], [place], [id number], [place] tel:[phone] [facility] Pain in left shoulder 2 [facility]. [address] [facility], [address], [place], [place], [id number], [place]. tel:[phone] Referring Provider: Dg Reeder, [address] [facility] [address], [place], [address]. tel:[phone] [facility], [address] [facility] [address], [place], [place], [id number], [place] tel:[phone] [facility] left shoulder (chief complaint) Bicipital tendinitis, left shoulder 2 Eliezer Conte. [address] [facility], [address], [place], [address], [place]. tel:[phone] Office/outpa tient visit,est, [facility], [address] [facility] [address], [place], [place], [id number], [place] tel:[phone] [facility] left shoulder pain. (chief complaint) Pain in left shoulderBicip ital tendinitis, left shoulder 2 Eliezer Conte. [address] [facility], [address], [place], [address], [place]. tel:[phone] [facility], [address] [facility] [address], [place], [place], [id number], [place] tel:[phone] [facility] Right upper extremity (chief complaint) Lesion of ulnar nerve, right upper limbCarpal tunnel syndrome, right upper limb September- 2 Telma Mujica. [address], [address], [place], [place], [id number], [place]. tel:[phone] [facility], [address], [place], [place], [id number], [place] tel:[phone] [facility] No Information 2 [place]. [address], [address], [place], [place], [id number], [place]. tel:[phone] [facility], [address] [address], [place], [place], [id number], [place] tel:[phone] [facility] Left upper extremity (chief complaint) Carpal tunnel syndrome, left upper limbLesion of ulnar nerve, left upper limb Aug- 2 Telma Mujica. [address] [facility], [address], [place], [place], [id number], [place]. tel:[phone] [facility], [address] [address], [place], [place], [id number], [place] tel:[phone] [facility] No Information 0 2 [place]. [address] [facility], [address], [place], [place], [id number], [place]. tel:[phone] [facility], [address] [facility] [address], [place], [place], [id number], [place] tel:[phone] [facility] No Information 2 2 [place]. [address] [facility], [address], [place], [place], [id number], [place]. tel:[phone] Office/outpa tient visit,[place] [facility], [address] [facility] [address], [place], [place], [id number], [place] tel:[phone] [facility] bilateral upper extremities (chief complaint) Lesion of ulnar nerve, left upper limbCarpal tunnel syndrome, left upper limbLesion of ulnar nerve, right upper limbCarpal tunnel syndrome, right upper limb Mar-0 2 [facility] Goyo. [address], [address], [place], [place], [id number], [place]. tel:[phone] Family History Family Member Type Diagnosis Age At Onset Mother Problem (finding) Diabetes Payers Payer name Insurance type Covered constitution party ID lyndon ruiz(s) [facility] [id number] Social History Type Description Quantity Date [...] Mr. Moon is a very pleasant 61-year-old, [id number] male who presents for follow up evaluation [...] of a contralateral rotator cuff repair in [place] by Dr. Cyr. He is doing okay [...] No Information Instructions Date Instruction Additional Infor carmen Giving encouragement to exercise Related to Body mass index [BMI] 27.0-27.9, adult Dietary management e ducation, guidance, and counseling Related to Body mass index [BMI] 27.0-27.9, adult Assessments Type Assessment Date No Information Patient Care Teams Name Effective Dates (start - stop) Status Members No Information
--- OUTSIDE RECORDS SUMMARY | 2024-07-03 07:37 | XMS_ITS | Encounter Summary ---
Author Organization [facility] Address [address] [place] [address] Phone Care Team Providers Care Mercury Cell Cleaner Name Role Phone Dev Burrell MD Unavailable [phone] Phillip Schafer MD Unavailable [phone] Star Ellis MD Unavailable Nacho Mcghee MD Primary Care Provider [phone] Mary Anne Rodriguez MD Unavailable [phone] Dimitrios Mccrary MD Unavailable [phone] Encounter Details Date Type Department Care Team (Late st Contact Info) Description 07/02/2024 Telephone [facility] Surgery [address] [facility] Floor 1 [place] [phone] Dimitrios Mccrary MD [address] [facility] [address] [place] [address] Social History Tobacco Use Types Packs/Day Years Used Date Smoking Tobacco: Former Cigarettes 2 57.2 S tarted: 1968 Passive Smoke Exposure: Past Smokeless Tobacco: Never Comments:Over 20 years ago Alcohol Use Standard Drinks/Week Comments No 0 (1 standard drink = 0.6 oz pur e alcohol) [facility] Utilities Answer Date Recorded In [...] often do you attend chur ch or roman catholic services? 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 She can be reached at [phone]. ETIC TRAINER documented in this encounter Plan of Treatment Not on file documented as of this encounter Visit Diagnoses Not on filedocumented in this encounter Care Teams Mercury Cell Cleaner Relationship Specialty [place] [address] [address] [address] PCP - General Family Practice 12/18/21 Dev Burrell MD [address] [place] [address] Consulting Physician Radiation Oncology 04/24/18 [place] [address] [place] [address] Urology 04/24/18 [place] [address] [place] [address] Urology 04/24/18 [place] [address] [place] [address] Consulting Physician Urology 04/13/23 Dimitrios Mccrary MD [address] [place] [address] Surgeon Vascular Surgery 11/01/23 documented as of this encounter
--- OUTSIDE RECORDS SUMMARY | 2024-07-03 07:37 | XMS_ITS ---
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 Atherosclerosis of [place] ar eric of both lower extremities with [...] risk of limb loss and need for termite technician follow-up. Assessment & Plan (06/17/2024 11:05 AM ABSEILING INSTRUCTOR): He has a progressive right in-stent popliteal [...] risk of limb loss and need for termite technician follow-up. He understands the potential need for lifelong Plavix therapy if stents are placed. Assessment & Plan (04/08/2023 12:58 PM ABSEILING INSTRUCTOR): He has debilitating bilateral calf claudication and [...] risk of limb loss and need for termite technician follow-up. Atherosclerosis of [place] ar [place]ic of right lower extremity with intermittent claudication 04/08/2023 Carpal tunnel syndrome on right 08/15/2021 Overview (08/15/2021): Added automatically from request for surgery [id number] Lesion of right ulnar nerve 08/15/2021 Overview (08/15/2021): Added automatically from request for surgery [id number] Cubital tunnel syndrome on left 07/21/2021 Overview (07/21/2021): Added automatically from request for surgery [id number] Carpal tunnel syndrome on left 07/21/2021 Overview (07/21/2021): Added automatically from request for surgery [id number] Vascular disease 06/25/2021 Overweight with body mass index (BMI) 25.0-29.9 10/13/2015 Type 2 diabetes mellitus wit hout complication, without long-term current use of insulin ([facility] 07/11/2011 Overview (09/11/2023): DMII WO CMP UNCNTRLD [...]
--- OUTSIDE RECORDS SUMMARY | 2024-07-03 07:37 | XMS_ITS | Encounter Summary ---
Author Organization [facility] Address [address] [place] [address] Care Team Providers Care Exercise Scientist Name Role Phone Nacho Mcghee MD Primary Care Provider [phone] Encounter Details Date Type Department Care Team [...] on filedocumented in this encounter Care Teams Exercise Scientist Relationship Specialty [place] [address] [place] [address] PCP - General FAMILY PRACTICE 08/18/21 documented as of this encounter
--- OUTSIDE RECORDS SUMMARY | 2024-07-03 07:38 | XMS_ITS | Clinical Summary ---
Author Organization [facility] B Address [address] [place] [address] Care Team Providers Care Livestock Slaughterer Name Role Phone Dev Burrell MD Unavailable Phillip Schafer MD Unavailable [phone] Star Ellis MD Unavailable [phone] Ally Mcghee MD Primary Care Provider [phone] Mary Anne Rodriguez MD Unavailable [phone] Dimitrios Mccrary MD Unavailable [phone] Allergies No known active allergies Medications [...] hypertension 04/07/2024 Urine leukocytes 04/07/2024 Atherosclerosis of [place] eric of left lower extremity with intermittent claudication 03/26/2024 Preop examination 03/25/2024 Cystitis 01/04/2024 Hematuria 11/09/2023 History of prostate cancer 11/09/2023 Urinary retention 11/09/2023 Stricture of bulbous urethra in male 07/08/2023 Perineal lump 05/08/2023 Microscopic hematuria 05/08/2023 Claudication of lower extremity 04/08/2023 Assessment & Plan (03/25/2024 9:38 AM FLOAT REMOVER): Debilitating left calf claudication with evidence of [...] his Mat[place] catheter as needed. Atherosclerosis of [place] ar [place]ic of both lower extremities with [...] of limb loss and need for terminal make up operator follow-up. Assessment & Plan (06/17/2024 11:05 AM FLOAT REMOVER): He has a progressive right in-stent popliteal [...] risk of limb loss and need for longterm follow-up. He understands the potential need for lifelong Plavix therapy if stents are placed. Assessment & Plan (04/08/2023 12:58 PM FLOAT REMOVER): He has debilitating bilateral calf claudication and [...] risk of limb loss and need for longterm follow-up. Atherosclerosis of [place] ar [place]ic of right lower extremity with intermittent claudication 04/08/2023 Carpal tunnel syndrome on right 08/15/2021 Overview (08/15/2021): Added automatically from request for surgery [id number] Lesion of right ulnar nerve 08/15/2021 Overview (08/15/2021): Added automatically from request for surgery [id number] Cubital tunnel syndrome on left 07/21/2021 Overview (07/21/2021): Added automatically from request for surgery [id number] Carpal tunnel syndrome on left 07/21/2021 Overview (07/21/2021): Added automatically from request for surgery [id number] Vascular disease 06/25/2021 Overweight with body mass index (BMI) 25.0-29.9 10/13/2015 Type 2 diabetes mellitus wit hout complication, without long-term current use of insulin ([facility]/HCC) 07/11/2011 Overview (09/11/2023): DMII WO CMP UNCNTRLD Prostate cancer 01/26/2009 Cancer Staging:Clinical stage from 01/26/2009:Stage III(T3a, N0, M0, G3-G4) - Signed by Dev Burrell MD on 04/23/2018 Encounters Date Type Department Care Team Description 07/02/2024 Telephone [facility] Surgery [address] [place] [phone] Dimitrios Mccrary MD 07/01/2024 3:09 PM FLOAT REMOVER Anesthesia Event [facility] Operating Room [address] [place] [phone] Venecia Hennessy DO Devuono, Lauren Falvey, DHEERAJ 07/01/2024 3:00 PM FLOAT REMOVER - 07/01/2024 5:30 PM FLOAT REMOVER Surgery [facility] Operating Room [address] [place] [phone] Dimitrios Mccrary MD AIF Angiogram, Right Leg Run off, Angioplasty Right Popliteal Artery 07/01/2024 1:11 PM FLOAT REMOVER - 07/02/2024 10:58 AM FLOAT REMOVER Hospital Encounter [address] [phone] Dimitrios Mccrary MD Atherosclerosis of [place] artery of right lower extremity with intermittent claudication (HCC) (Primary Dx) Discharge Disposition: Discharge to home or self care 06/22/2024 12:15 PM FLOAT REMOVER Pre-Admission Testing [facility] Pre Anesthesia Testing [address] [place] [phone] Preoperative testing (Primary Dx) 06/19/2024 Telephone [facility] Surgery [address] [place] [phone] Dimitrios Mccrary MD Med Management 06/16/2024 11:45 AM FLOAT REMOVER Office Visit [facility] Surgery [address] [place] [phone] Eliseo Hyde PA Atherosclerosis of [place] artery of right lower extremity with intermittent claudication (HCC); Claudication (HCC) 06/16/2024 11:00 AM FLOAT REMOVER Ancillary Procedure [facility] Surgery [address] [place] [phone] Encounter for surgical aftercare following surgery on the circulatory system 05/13/2024 11:00 AM FLOAT REMOVER Office Visit [facility] Surgery [address] [place] [phone] Dimitrios Mccrary MD Atherosclerosis of [place] artery of left lower extremity with intermittent claudication (HCC) (Primary Dx) 05/13/2024 Orders Only [facility] Surgery [address] [place] [phone] Dimitrios Mccrary MD Encounter for surgical aftercare following surgery on the circulatory system (Primary Dx) 04/30/2024 7:48 AM FLOAT REMOVER Anesthesia Event [facility] Operating Room [address] [place] [phone] Wilma Manjarrez MD Czajkowski, Lesly June, NP 04/30/2024 7:30 AM FLOAT REMOVER - 04/30/2024 12:00 PM FLOAT REMOVER Surgery [facility] Operating Room [address] [place] [phone] Dimitrios Mccrary MD Left Femoral Artery Endarterectomy, Left Iliac Artery Stent, Left AIF and Ateriogram 04/30/2024 5:33 AM FLOAT REMOVER - 05/03/2024 2:15 PM FLOAT REMOVER Hospital Encounter [address] [phone] Dimitrios Mccrary MD Atherosclerosis of [place] artery of left lower extremity with intermittent claudication (HCC) Discharge Disposition: Discharge to home or self care 04/15/2024 Documentation [facility] Surgery [address] [phone] Ligia Sun PA lower extremity vein mapping results 04/09/2024 11:45 AM FLOAT REMOVER Pre-Admission Testing [facility] Pre Anesthesia Testing [address] [place] [phone] Preop testing (Primary Dx) 04/07/2024 11:19 AM FLOAT REMOVER - 04/07/2024 5:13 PM FLOAT REMOVER Emergency [facility] Emergency Department [address] [place] [phone] Richard Armstrong MD Dizziness (Primary Dx); Episode of hypertension; Urine leukocytes Discharge Disposition: Discharge to home or self care 04/07/2024 9:30 AM FLOAT REMOVER Procedure visit [facility] [address] [place] [phone] Irradiation cystitis with hematuria; Soft tissue radionecrosis 04/06/2024 9:30 AM FLOAT REMOVER Procedure visit [facility] [address] [place] [phone] Irradiation cystitis with hematuria; Soft tissue radionecrosis 04/06/2024 8:00 AM FLOAT REMOVER Ancillary Procedure [facility] Surgery [address] [phone] Claudication of lower extremity (HCC); Preop examination 04/03/2024 9:30 AM FLOAT REMOVER Procedure visit [facility] [address] [place] [phone] Irradiation cystitis with hematuria; Soft tissue radionecrosis [...] Type 2 diabetes mellitus (HCC) Atherosclerosis of [place]ic of both lower extremities with [...] 0.6 oz pur e alcohol) [facility] Utilities Answer Date Recorded In the [...] often do you attend chur ch or uatsdin services? More than 4 times per year 05/01/2024 Do you belong to any clubs o r organizations such as confucianism groups, unions, fraternal or athletic groups, or [...] any time in the past 12 m [facility], were you homeless or living in a [place] health care facility (including now)? No 05/01/2024 Personal Safety Answer Date Recorded Have you ever been in or are you currently in a harmful physical or emotional relationship or is someone making you feel afraid or unsafe? Denies 07/01/2024 Sex and Gender Information Value Date Recorded Sex Assigned at Not on file Legal Sex Male 2:12 AM FLOAT REMOVER Gender Identity Not on file Sexual Orientation Not on file Obstetrics History Last Filed Vital Signs Vital Sign Reading Time Taken Comments Blood Pressure 162/87 07/02/2024 8:27 AM FLOAT REMOVER Pulse 72 07/02/2024 8:27 AM FLOAT REMOVER Temperature 36.2 C (97.1 F) 07/02/2024 8:27 AM FLOAT REMOVER Respiratory Rate 15 07/02/2024 8:27 AM FLOAT REMOVER Oxygen Saturation 98% 07/02/2024 8:27 AM FLOAT REMOVER Inhaled Oxygen Concentration - - Weight 78.6 kg (173 lb 4.5 oz) 07/01/2024 1:20 P M FLOAT REMOVER Height 170.2 cm (5' 7 ) 07/01/2024 1:20 PM FLOAT REMOVER Body Mass Index 27.14 07/01/2024 1:20 PM FLOAT REMOVER Plan of Treatment Health Maintenance Due Date [...] 01/18/2024, 01/04/2024 Medical Devices Implanted Type Area Mash Tub Cooker Device Identifier Shelf Expiration Date Model / Serial / Lot [employer] Viabahn 6mm 25cm 120cm Flexible Self Expand Radiopaque Stent [id number] - [id number] - [id number] Implanted:Qty: 1 on 10/31/2023 by Dimitrios Mccrary MD at [facility] Stent Right: Superficial Femoral Artery [employer] 06/04/2025 [id number] / [id number] / [employer] Viabahn 6mm 6fr 10cm 120cm Delivery System Superficial Femoral [id number] - [id number] - [id number] Implanted:Qty: 1 on 10/31/2023 by Dimitrios Mccrary MD at [facility] Stent Right: Superficial Femoral Artery [employer] 01/05/2025 [id number] / [id number] / Medtronic Inc Protege Everflex 5mm .079in 40mm 120cm Otw Delivery System Self [id number] - [id number] Implanted:Qty: 1 on 10/31/2023 by Dimitrios Mccrary MD at [facility] Stent Right: Popleteal Artery Medtronic Inc 12/19/2024 [id number] / / [id number] Arthrex Inc Ar-2324 Bcm Swivelock 4.75mm 24.5mm Self Punch Vent Shoulder [place] Suture - [id number] Implanted:Qty: 1 on 04/18/2022 by Dg Martins MD at [facility] Left: Shoulder [employer] Inc [id number] 04/04/2025 A [id number] CM / / [id number] Arthrex Inc Set Implant Arthrex Fibertak Biceps Sterile Latex Free Ar-3670 - [id number] Implanted:Qty: 1 on 04/18/2022 by Dg Martins MD at [facility] Left: Shoulder [employer] Inc [id number] 08/03/2026 A R-3670 / / [id number] Cryolife Inc Graft Patch Patch Vascular Repair 0.8x8cm 0.8x8cm Pfp0.8x8 - [id number] Implanted:Qty: 1 on 04/30/2024 by Dimitrios Mccrary MD at [facility] Left: Femoral [employer] 11/01/2025 PFP0. 8X8 / / [id number] Description:Bovine pericardi um patch Bard Peripheral Vascular Lifestent 8mm 6fr 60mm 80cm Self Expand Catheter Helical [id number] - [id number] Implanted:Qty: 1 on 04/30/2024 by Dimitrios Mccrary MD at [facility] Left: Common Iliac Artery Bard Peripheral Vascular 08/26/2025 [id number] / / [id number] Procedures Procedure Name Priority Date/Time Associated Diagnosis Comments POCT GLUCOSE DEVICE Routine 07/02/2024 6 :18 AM FLOAT REMOVER EGFR Routine 07/02/2024 5:13 AM FLOAT REMOVER CBC WITHOUT DIFFERENTIAL Routine 07/02/2024 5:13 AM FLOAT REMOVER BASIC METABOLIC PANEL Routine 07/02/2024 5:13 AM FLOAT REMOVER POCT GLUCOSE DEVICE Routine 07/01/2024 9 :03 PM FLOAT REMOVER POCT ACTIVATED CLOTTING TIME, LOW RANGE Routine 07/01/2024 7:33 PM FLOAT REMOVER POCT ACTIVATED CLOTTING TIME, LOW RANGE Routine 07/01/2024 6:31 PM FLOAT REMOVER POCT ACTIVATED CLOTTING TIME, LOW RANGE Routine 07/01/2024 5:34 PM FLOAT REMOVER POCT ACTIVATED CLOTTING TIME, LOW RANGE Routine 07/01/2024 4:31 PM FLOAT REMOVER POCT GLUCOSE DEVICE Routine 07/01/2024 4 :27 PM FLOAT REMOVER ANGIOGRAM LOWER EXTREMITY RIGHT IP Routine 07/01/2024 4:24 PM FLOAT REMOVER MT AN PROCEDURE PLACEHOLDER Routine 07/01/2024 3:32 PM FLOAT REMOVER MT AN ELECTIVE SUPRAGLOTTIC AIRWAY Routine 07/01/2024 3:32 PM FLOAT REMOVER ARTERIOGRAM AORTA ILIAC - FEMORAL 07/01/2024 3:09 PM FLOAT REMOVER Atherosclerosis of [place] artery of right lower extremity with intermittent claudication (HCC) POCT GLUCOSE DEVICE Routine 07/01/2024 1 :34 PM FLOAT REMOVER EGFR Routine 06/22/2024 2:09 PM FLOAT REMOVER Preoperative testing BASIC METABOLIC PANEL Routine 06/22/2024 2:09 PM FLOAT REMOVER Preoperative testing DIFFERENTIAL AUTO Routine 06/22/2024 1:2 6 PM FLOAT REMOVER Preoperative testing CBC WITH AUTO DIFFERENTIAL Routine 06/22/2024 1:26 PM FLOAT REMOVER Preoperative testing TYPE AND SCREEN Routine 06/22/2024 1:26 PM FLOAT REMOVER Preoperative testing PROTIME-INR Routine 06/22/2024 1:26 PM FLOAT REMOVER Preoperative testing APTT Routine 06/22/2024 1:26 PM FLOAT REMOVER Preoperative testing HEMOGLOBIN A1C Routine 06/22/2024 1:26 PM FLOAT REMOVER Preoperative testing US ARTERIAL DUPLEX LOWER EXTREMITY RIGHT LIMITED Schedule Routine, Read Routine (OP Routine) 06/16/2024 12:05 PM FLOAT REMOVER Encounter for surgical aftercare following surgery on the circulatory system US ARTERIAL DOPPLER LOWER EXTREMITY BILATERAL Schedule Routine, Read Routine (OP Routine) 06/16/2024 12:05 PM FLOAT REMOVER Encounter for surgical aftercare following surgery on the circulatory system POCT GLUCOSE DEVICE Routine 05/03/2024 11:58 AM FLOAT REMOVER POCT GLUCOSE DEVICE Routine 05/03/2024 8 :09 AM FLOAT REMOVER POCT GLUCOSE DEVICE Routine 05/03/2024 3 :14 AM FLOAT REMOVER POCT GLUCOSE DEVICE Routine 05/02/2024 11:29 PM FLOAT REMOVER POCT GLUCOSE DEVICE Routine 05/02/2024 8 :17 PM FLOAT REMOVER POCT GLUCOSE DEVICE Routine 05/02/2024 4 :26 PM FLOAT REMOVER POCT GLUCOSE DEVICE Routine 05/02/2024 12:26 PM FLOAT REMOVER EGFR Routine 05/02/2024 11:13 AM FLOAT REMOVER DIFFERENTIAL AUTO Routine 05/02/2024 11:13 AM FLOAT REMOVER COMPREHENSIVE METABOLIC PANEL Routine 05/02/2024 11:13 AM FLOAT REMOVER CBC WITH AUTO DIFFERENTIAL Routine 05/02/2024 11:13 AM FLOAT REMOVER POCT GLUCOSE DEVICE Routine 05/02/2024 7 :45 AM FLOAT REMOVER EGFR Routine 05/02/2024 5:21 AM FLOAT REMOVER DIFFERENTIAL AUTO Routine 05/02/2024 5:2 1 AM FLOAT REMOVER COMPREHENSIVE METABOLIC PANEL Routine 05/02/2024 5:21 AM FLOAT REMOVER CBC WITH AUTO DIFFERENTIAL Routine 05/02/2024 5:21 AM FLOAT REMOVER POCT GLUCOSE DEVICE Routine 05/02/2024 4 :01 AM FLOAT REMOVER POCT GLUCOSE DEVICE Routine 05/02/2024 12:57 AM FLOAT REMOVER POCT GLUCOSE DEVICE Routine 05/01/2024 9 :10 PM FLOAT REMOVER POCT GLUCOSE DEVICE Routine 05/01/2024 6 :30 PM FLOAT REMOVER POCT GLUCOSE DEVICE Routine 05/01/2024 4 :34 PM FLOAT REMOVER POCT GLUCOSE DEVICE Routine 05/01/2024 11:49 AM FLOAT REMOVER POCT GLUCOSE DEVICE Routine 05/01/2024 7 :32 AM FLOAT REMOVER ECG 12-LEAD Routine 05/01/2024 5:06 AM FLOAT REMOVER EGFR Routine 05/01/2024 4:34 AM FLOAT REMOVER BASIC METABOLIC PANEL Routine 05/01/2024 4:34 AM FLOAT REMOVER CBC WITHOUT DIFFERENTIAL Routine 05/01/2024 4:34 AM FLOAT REMOVER POCT GLUCOSE DEVICE Routine 05/01/2024 3 :50 AM FLOAT REMOVER POCT GLUCOSE DEVICE Routine 05/01/2024 12:37 AM FLOAT REMOVER POCT GLUCOSE DEVICE Routine 04/30/2024 9 :24 PM FLOAT REMOVER POCT GLUCOSE DEVICE Routine 04/30/2024 4 :21 PM FLOAT REMOVER CBC WITHOUT DIFFERENTIAL STAT 04/30/2024 12:08 PM FLOAT REMOVER POCT GLUCOSE DEVICE Routine 04/30/2024 11:18 AM FLOAT REMOVER ANGIOGRAM LOWER EXTREMITY LEFT IP Routine 04/30/2024 10:45 AM FLOAT REMOVER SURGICAL PATHOLOGY Routine 04/30/2024 10:44 AM FLOAT REMOVER Atherosclerosis of [place] artery of left lower extremity with intermittent claudication (HCC) MT AN PROCEDURE PLACEHOLDER Routine 04/30/2024 8:12 AM FLOAT REMOVER MT AN ELECTIVE ENDOTRACHEAL AIRWAY Routine 04/30/2024 8:12 AM FLOAT REMOVER ENDARTERECTOMY WITH AIF INTERVENTION - FEMORAL ARTERY 04/30/2024 7:47 AM FLOAT REMOVER Atherosclerosis of [place] artery of left lower extremity with intermittent claudication (HCC) POCT GLUCOSE DEVICE Routine 04/30/2024 7 :43 AM FLOAT REMOVER B CHECK SAMPLE STAT 04/30/2024 6:25 AM FLOAT REMOVER PROTIME-INR Routine 04/09/2024 12:38 PM FLOAT REMOVER Preop testing APTT Routine 04/09/2024 12:38 PM FLOAT REMOVER Preop testing HEMOGLOBIN A1C Routine 04/09/2024 12:38 PM FLOAT REMOVER Preop testing EGFR Routine 04/09/2024 12:37 PM FLOAT REMOVER Preop testing BASIC METABOLIC PANEL Routine 04/09/2024 12:37 PM FLOAT REMOVER Preop testing TYPE AND SCREEN Routine 04/09/2024 12:25 PM FLOAT REMOVER Preop testing URINALYSIS, MICROSCOPIC ONLY STAT 04/07/2024 1:00 PM FLOAT REMOVER URINALYSIS AND REFLEX TO MICROSCOPIC AND CULTURE STAT 04/07/2024 1:[address] HEAD WO CONTRAST ED 04/07/2024 12:59 PM FLOAT REMOVER EGFR STAT 04/07/2024 12:28 PM FLOAT REMOVER DIFFERENTIAL AUTO STAT 04/07/2024 12:28 PM FLOAT REMOVER TROPONIN T HIGH-SENSITIVITY SERIES (BASELINE, 2HR, 4HR, 6HR) STAT 04/07/2024 12:28 PM FLOAT REMOVER COMPREHENSIVE METABOLIC PANEL STAT 04/07/2024 12:28 PM FLOAT REMOVER CBC WITH AUTO DIFFERENTIAL STAT 04/07/2024 12:28 PM FLOAT REMOVER ECG 12-LEAD STAT 04/07/2024 10:29 AM FLOAT REMOVER POCT GLUCOSE DEVICE Routine 04/07/2024 9 :52 AM FLOAT REMOVER POCT GLUCOSE DEVICE Routine 04/07/2024 9 :20 AM FLOAT REMOVER POCT GLUCOSE DEVICE Routine 04/06/2024 11:05 AM FLOAT REMOVER US VEIN MAPPING DUPLEX LOWER EXTREMITY BILATERAL Schedule Routine, Read Routine (OP Routine) 04/06/2024 10:17 AM FLOAT REMOVER Claudication of lower extremity (HCC) Preop examination POCT GLUCOSE DEVICE Routine 04/06/2024 9 :14 AM FLOAT REMOVER POCT GLUCOSE DEVICE Routine 04/03/2024 11:13 AM FLOAT REMOVER POCT GLUCOSE DEVICE Routine 04/03/2024 11:07 AM FLOAT REMOVER POCT GLUCOSE DEVICE Routine 04/03/2024 9 :19 AM FLOAT REMOVER POCT GLUCOSE DEVICE Routine 04/03/2024 9 :09 AM FLOAT REMOVER CTA ABDOMINAL AORTA AND BILATERAL ILIOFEMORAL RUNOFF Schedule Routine, Read Routine (OP Routine) 01/18/2024 10:50 AM CDT Atherosclerosis of [place] artery of left lower extremity with intermittent claudication (HCC) PSA, TOTAL AND FREE Routine 04/13/2023 12:18 PM FLOAT REMOVER from Last 3 Months or Most Recently Relevant to Health Maintenance Results * (ABNORMAL) POCT glucose (07/02/2024 6:18 AM FLOAT REMOVER) Glucose, POC 221(H) 70 - 199 mg/dL Comment: For Glucose values <35 mg/dl when Hematocrit is >60 mg/dl,the test may not accurately detect significant hypoglycemia,and testing in the Laboratory should be considered if clinically indicated. Blood 07/02/2024 6:18 AM FLOAT REMOVER 07/02/2024 6:18 AM FLOAT REMOVER us Dimitrios Mccrary MD LAB POCT ORDERABLES - DEVICE F inal Result [facility] [address] Department [place] [address] * eGFR (07/02/2024 5:13 AM FLOAT REMOVER) eGFR >90 >=60 mL/min/1. 73 m2 Comment: [...] last reviewed 2021. Blood 07/02/2024 5:13 AM FLOAT REMOVER 07/02/2024 5:28 AM FLOAT REMOVER us Dimitrios Mccrary MD LAB BLOOD ORDERABLES Final Res ult [facility] [address] [place] [address] * (ABNORMAL) CBC without differential (07/02/2024 5:13 AM FLOAT REMOVER) WBC 6.4 3.8 - 9.9 K/cumm Hgb 12.0(L) 13.0 - 17.5 g/dL [facility] Hct 36.5(L) 38.9 - 50.3 % [facility] Plt 156 150 - 400 K/cumm [facility] MPV 11.5 9.1 - 12.3 fL [facility] RBC 4.11(L) 4.30 - 5.80 M/cumm [facility] MCV 88.8 81.3 - 96.4 fL [facility] MCH 29.2 27.1 - 33.3 pg [facility] MCHC 32.9 32.3 - 35.7 g/dL [facility] RDW CV 12.3 11.1 - 14.9 % [facility] RDW SD 40.4 35.7 - 48.1 fL [facility] NRBC abs 0.00 0.00 - 0.01 K/cumm [facility] Blood 07/02/2024 5:13 AM FLOAT REMOVER 07/02/2024 5:29 AM FLOAT REMOVER Dimitrios Mccrary MD LAB BLOOD ORDERABLES Final Res ult Performing Organization Address [facility]/ZIP Co de Phone Number [facility] [address] [place] [address] * (ABNORMAL) Basic metabolic panel (07/02/2024 5:13 AM FLOAT REMOVER) Pathologist [facility] Sodium 136 135 - 145 mmol/L Potassium, pl 4.4 3.3 - 4.9 mmol/L [facility] Chloride 100 97 - 110 mmol/L [facility] CO2 24 22 - 32 mmol/L [facility] Anion gap 12 2 - 15 mmol/L [facility] BUN 14 6 - 25 mg/dL [facility] Creatinine 0.90 0.80 - 1.30 mg/dL [facility] Glucose 280(H) 70 - 199 mg/dL [facility] Comment: Interpretive Data Fasting glucose [...] 2022. Calcium 8.8 8.5 - 10.3 mg/dL [facility] Blood 07/02/2024 5:13 AM FLOAT REMOVER 07/02/2024 5:28 AM FLOAT REMOVER Dimitrios Mccrary MD LAB BLOOD ORDERABLES Final Res ult Performing Organization Address [facility]/ZIP Co de Phone Number [facility] [address] [place] [address] * POCT glucose (07/01/2024 9:03 PM FLOAT REMOVER) [facility] Glucose, POC 193 70 - 199 mg/dL Comment: For Glucose values <35 mg/dl when Hematocrit is >60 mg/dl,the test may not accurately detect significant hypoglycemia,and testing in the Laboratory should be considered if clinically indicated. Blood 07/01/2024 9:03 PM FLOAT REMOVER 07/01/2024 9:03 PM FLOAT REMOVER Dimitrios Mccrary MD LAB POCT ORDERABLES - DEVICE F inal Result Performing Organization Address City/[facility]/ZIP Co de Phone Number [facility] [address] [facility] [place] [address] * POCT Activated clotting time, low range (07/01/2024 7:33 PM FLOAT REMOVER) [facility] ACT 164 123 - 168 sec Blood 07/01/2024 7:33 PM FLOAT REMOVER 07/01/2024 7:33 PM FLOAT REMOVER Dimitrios Mccrary MD LAB POCT ORDERABLES - DEVICE F inal Result Performing Organization Address [facility] Co de Phone Number [facility] [address] [facility] [place] [place] [address] * (ABNORMAL) POCT Activated clotting time, low range (07/01/2024 6:31 PM FLOAT REMOVER) [facility] ACT 181(H) 123 - 168 sec Blood 07/01/2024 6:31 PM FLOAT REMOVER 07/01/2024 6:31 PM FLOAT REMOVER Dimitrios Mccrary MD LAB POCT ORDERABLES - DEVICE F inal Result Performing Organization Address [facility] Co de Phone Number [facility] [address] [facility] [place] [place] [address] * (ABNORMAL) POCT Activated clotting time, low range (07/01/2024 5:34 PM FLOAT REMOVER) ACT 197(H) 123 - 168 sec Blood 07/01/2024 5:34 PM FLOAT REMOVER 07/01/2024 5:34 PM FLOAT REMOVER us Dimitrios Mccrary MD LAB POCT ORDERABLES - DEVICE F inal Result Performing Organization Address [facility] Co de Phone Number [facility] [address] [facility] [place] [address] * (ABNORMAL) POCT Activated clotting time, low range (07/01/2024 4:31 PM FLOAT REMOVER) ACT 255(H) 123 - 168 sec Blood 07/01/2024 4:31 PM FLOAT REMOVER 07/01/2024 4:31 PM FLOAT REMOVER us Dimitrios Mccrary MD LAB POCT ORDERABLES - DEVICE F inal Result Performing Organization Address [facility] Co de Phone Number [facility] [address] [facility] [place] [address] * POCT glucose (07/01/2024 4:27 PM FLOAT REMOVER) Pathologist [facility] Glucose, POC 97 70 - 199 mg/dL Comment: For Glucose values <35 mg/dl when Hematocrit is >60 mg/dl,the test may not accurately detect significant hypoglycemia,and testing in the Laboratory should be considered if clinically indicated. Blood 07/01/2024 4:27 PM FLOAT REMOVER 07/01/2024 4:27 PM FLOAT REMOVER us Dimitrios Mccrary MD LAB POCT ORDERABLES - DEVICE F inal Result Performing Organization Address [facility] Co de Phone Number [facility] [address] [place] [address] * IR Angiogram Lower Extremity Right (07/01/2024 4:24 PM FLOAT REMOVER) Narrative CONS SCIMAGE - 07/01/2024 4:25 PM FLOAT REMOVER The images from this study are not interpreted by Radiology. Please refer to the physician's procedure / OR operative note. Dimitrios Mccrary MD IMG IR PROCEDURES Final Result Performing Organization Address [facility] Co de Phone Number CONS SCIMAGE * MT AN ELECTIVE SUPRAGLOTTIC AIRWAY, MT AN PROCEDURE PLACEHOLDER (07/01/2024 3:32 PM FLOAT REMOVER) Narrative Gurwinder Villasenor CRNA - 07/01/2024 3:32 PM FLOAT REMOVER Gurwinder Villasenor CRNA 07/01/2024 3:33 PM Airway Patient location: OR Urgency: elective Date/time: 07/01/2024 3:16 PM Indications for airway management: anesthesia Difficult airway: no Staff: Supervising provider: Venecia Hennessy DO Placed by: VIDEO NETWORK ENGINEER: Gurwinder Villasenor CRNA Emergent airway documentation: Risks and benefits discussed: yes Consent obtained: yes Consent given by: patient Airway prep: Preoxygenated: yes Patient position: sniffing Mask difficulty assessment: 1 - vent by mask Sedation level during airway: GA Final airway details: Final airway type: supraglottic airway Final supraglottic airway: IGel SGA size: 4 Number of attempts: 1 Result [facility] Venecia Hennessy DO ANESTHESIA ORDERABLES Final Result * POCT glucose (07/01/2024 1:34 PM FLOAT REMOVER) Glucose, POC 129 70 - 199 mg/dL Comment: For Glucose values <35 mg/dl when Hematocrit is >60 mg/dl,the test may not accurately detect significant hypoglycemia,and testing in the Laboratory should be considered if clinically indicated. Blood 07/01/2024 1:34 PM FLOAT REMOVER 07/01/2024 1:34 PM FLOAT REMOVER Dimitrios Mccrary MD LAB POCT ORDERABLES - DEVICE F inal Result Performing Organization Address [facility]/ZIP Co de Phone Number [facility] [address] [place] [address] * eGFR (06/22/2024 2:09 PM FLOAT REMOVER) Pathologist [facility] eGFR 90 >=60 mL/min/1. 73 m2 Comment: [...] last reviewed 2021. Blood 06/22/2024 2:09 PM FLOAT REMOVER 06/22/2024 2:09 PM FLOAT REMOVER Christy Macdonald NP LAB BLOOD ORDERABLES nal Result [facility] [address] [place] [address] * (ABNORMAL) Basic metabolic panel (06/22/2024 2:09 PM FLOAT REMOVER) [facility] Sodium 142 135 - 145 mmol/L Potassium, pl 5.4(H) 3.3 - 4.9 mmol/L [facility] Chloride 107 97 - 110 mmol/L [facility] CO2 24 22 - 32 mmol/L [facility] Anion gap 11 2 - 15 mmol/L [facility] BUN 15 6 - 25 mg/dL [facility] Creatinine 0.94 0.80 - 1.30 mg/dL [facility] Glucose 98 70 - 199 mg/dL [facility] Comment: Interpretive Data Fasting glucose [...] 2022. Calcium 9.6 8.5 - 10.3 mg/dL [facility] Blood 06/22/2024 2:09 PM FLOAT REMOVER 06/22/2024 2:09 PM FLOAT REMOVER us Christy Macdonald NP LAB BLOOD ORDERABLES Fi nal Result [facility] [address] [place] [address] * Differential, auto (06/22/2024 1:26 PM FLOAT REMOVER) Neutrophil abs 3.0 1.5 - 6.5 K/cumm Imm gran abs 0.0 0.0 - 0.1 K/cumm [facility] Lymphocyte abs 1.8 0.8 - 3.3 K/cumm [facility] Monocyte abs 0.5 0.2 - 0.8 K/cumm [facility] Eosinophil abs 0.3 0.0 - 0.5 K/cumm [facility] Basophil abs 0.1 0.0 - 0.1 K/cumm [facility] Neutrophil pct 52.8 % [facility] Comment: Interpretive Data Percent cell count reference ranges are not reported, since discordance with absolute values may lead to misinterpretation of CBC data. Current Interpretive Data was last revised on 2017. Imm gran pct 0.4 % [facility] Comment: Interpretive Data Percent cell count reference ranges are not reported, since discordance with absolute values may lead to misinterpretation of CBC data. Current Interpretive Data was last revised on 2017. Lymphocyte pct 31.9 % [facility] Comment: Interpretive Data Percent cell count reference ranges are not reported, since discordance with absolute values may lead to misinterpretation of CBC data. Current Interpretive Data was last revised on 2017. Monocyte pct 9.1 % [facility] Comment: Interpretive Data Percent cell count reference ranges are not reported, since discordance with absolute values may lead to misinterpretation of CBC data. Current Interpretive Data was last revised on 2017. Eosinophil pct 4.9 % [facility] Comment: Interpretive Data Percent cell count reference ranges are not reported, since discordance with absolute values may lead to misinterpretation of CBC data. Current Interpretive Data was last revised on 2017. Basophil pct 0.9 % [facility] Comment: Interpretive Data Percent cell count reference ranges are not reported, since discordance with absolute values may lead to misinterpretation of CBC data. Current Interpretive Data was last revised on 2017. Blood 06/22/2024 1:26 PM FLOAT REMOVER 06/22/2024 1:26 PM FLOAT REMOVER us Christy Macdonald NP LAB BLOOD ORDERABLES Fi nal Result [facility] [address] [place] [address] * CBC with auto differential (06/22/2024 1:26 PM FLOAT REMOVER) WBC 5.7 3.8 - 9.9 K/cumm Hgb 13.1 13.0 - 17.5 g/dL [facility] Hct 40.4 38.9 - 50.3 % [facility] Plt 192 150 - 400 K/cumm [facility] MPV 10.9 9.1 - 12.3 fL [facility] RBC 4.47 4.30 - 5.80 M/cumm [facility] MCV 90.4 81.3 - 96.4 fL [facility] MCH 29.3 27.1 - 33.3 pg [facility] MCHC 32.4 32.3 - 35.7 g/dL [facility] RDW CV 12.3 11.1 - 14.9 % [facility] RDW SD 40.4 35.7 - 48.1 fL [facility] NRBC abs 0.00 0.00 - 0.01 K/cumm [facility] Blood 06/22/2024 1:26 PM FLOAT REMOVER 06/22/2024 1:26 PM FLOAT REMOVER Christy Macdonald GRAIN OILSEED OR PASTURE FARM MANAGER LAB BLOOD ORDERABLES Fi nal Result Performing Organization Address [facility] Co de Phone Number [facility] [address] [facility] [place] [address] * aPTT (06/22/2024 1:26 PM FLOAT REMOVER) aPTT 37 28 - 38 sec Comment: Interpretive Data Heparin therapeutic range: 66.0 - 100.0 seconds. Range based on correlation with therapeutic heparin activity range of 0.3 - 0.7 Units/mL. Current interpretive data was last revised on 2023. Blood 06/22/2024 1:26 PM FLOAT REMOVER 06/22/2024 1:26 PM FLOAT REMOVER Christy Macdonald GRAIN OILSEED OR PASTURE FARM MANAGER LAB BLOOD ORDERABLES Fi nal Result Performing Organization Address [facility] Co de Phone Number [facility] [address] [place] [address] * Protime-INR (06/22/2024 1:26 PM FLOAT REMOVER) PT 11.6 9.7 - 13.0 sec INR 1.07 0.90 - 1.20 [facility] Comment: Interpretive data Oral anticoagulant therapeutic ranges: Venous thromboembolism prophylaxis or treatment: 2.0-3.0 CARDIOLOGY Standard range: 2.0-3.0 High-intensity range: 2.5-3.5 Refer to indication-specific guidelines for appropriate target ranges for prosthetic heart valve replacement. Current interpretive data was last revised on 2019. Blood 06/22/2024 1:26 PM FLOAT REMOVER 06/22/2024 1:26 PM FLOAT REMOVER Christy Macdonald NP LAB BLOOD ORDERABLES Fi nal Result Performing Organization Address [facility] Co de Phone Number [facility] [address] [place] [address] * Type and screen (06/22/2024 1:26 PM FLOAT REMOVER) [facility] ABO Rh O Positive Simón, indirect Negative [facility] Blood 06/22/2024 1:26 PM FLOAT REMOVER 06/22/2024 1:49 PM FLOAT REMOVER Narrative [facility] - 06/22/2024 2:35 PM FLOAT REMOVER Is this test being ordered in advance for a procedure?->Yes Expected date of procedure:->07/01/24 Has the patient been transfused in the past 3 months?->No Result [facility] Christy Macdonald NP LAB BLOOD BANK TEST ORD ERABLES Final Result Performing Organization Address [facility] de Phone Number [facility] [address] [place] [address] * (ABNORMAL) Hemoglobin A1c (06/22/2024 1:26 PM FLOAT REMOVER) [facility] Hgb A1C 8.2(H) 4.0 - 5.6 % Estimated Average Glucose 189 mg/dL [facility] Comment: The ADA recommends reporting an estimated Average Glucose (eAG) with all Hemoglobin A1c results using the equation derived from a study of 507 normal and diabetic adults. Minority populations were underrepresented and children were not included. (Diabetes Care 31:6102-0259, 2008). The eAG is not equivalent to a fasting glucose. Blood 06/22/2024 1:26 PM FLOAT REMOVER 06/22/2024 1:26 PM FLOAT REMOVER Christy Macdonald NP LAB BLOOD ORDERABLES Fi nal Result Performing Organization Address [facility] Co de Phone Number [facility] [address] Department [employer] [place], [place] [id number] * US Arterial Duplex Lower Extremity Right Limited (06/16/2024 12:05 PM FLOAT REMOVER) Anatomical Region Laterality Modality Vascular Right Ultrasound 06/16/2024 11:1 0 AM FLOAT REMOVER Narrative 06/19/2024 3:30 PM FLOAT REMOVER [facility] - Department of Vascular Surgery, Vascular Laboratory [address] [place] [address] [place] Lower Extremity Arterial Duplex Report Patient Name: ALLY WISEMAN D : 1960 Study Date: 06/16/2024 11:10:55 AM Gender: M Tech: ARPAN Location: [facility] Provider: DIMITRIOS MCCRARY Quality: Adequate Order Provider: DIMITRIOS MCCRARY PROCEDURES: Arterial Report: Right Lower Extremity Arterial Duplex Exam. INDICATIONS: Z48.812 Encounter for surgical aftercare following surgery on the circulatory system. MEASUREMENTS: Right Value Units Rt BUSINESS OFFICE MANAGER Dst PSV 175 cm/s Rt Profunda Prx [...] 62 cm/s Right Value Units FINDINGS: Performing Computer Methods Analyst: Arpan Hernandez, MELLT, RDMS, RDCS, ACS. Right [...] stent 282 cm/s, RT SHEEBA 0.99, LT FACING BASTER JUMPBASTING SHEEBA 0.48, LT MONTY SHEEBA 0.72. DISCLAIMER: [...] above. Electronically Signed By: Dimitrios Mccrary MD [facility] 06/19/2024 3:28:44 PM FLOAT REMOVER Procedure Note Dimitrios Mccrary MD - 06/19/2024 [facility] - Department of Vascular Surgery,Vascular Laboratory [address] [place] [address] [place] Lower Extremity Arterial Duplex Report Patient Name: ALLY WISEMAN D : 1960 Study Date: 06/16/2024 11:10:55 AM Gender: M Tech: [facility] Location: [facility] Provider: DIMITRIOS MCCRARY Quality: Adequate Order Provider: DIMITRIOS MCCRARY PROCEDURES: Arterial Report: Right Lower Extremity Arterial Duplex Exam. INDICATIONS: Z48.812 [facility] surgical [facility]care [facility] MEASUREMENTS: Right Value Units Rt BUSINESS OFFICE MANAGER Dst PSV 175 cm/s Rt Profunda Prx [...] 62 cm/s Right Value Units FINDINGS: Performing Computer Methods Analyst: Arpan Hernandez, MARLEY, RDMS, RDCS, ACS. Right [...] popliteal stent 282cm/s, RT SHEEBA 0.99, LT FACING BASTER JUMPBASTING SHEEBA 0.48, LT MONTY SHEEBA 0.72. DISCLAIMER: [...] above. Electronically Signed By: Dimitrios Mccrary MD [facility] 06/19/2024 3:28:44 PM FLOAT REMOVER us Dimitrios Mccrary MD IM US PROCEDURES Final Result * US Arterial Doppler Lower Extremity Bilateral (06/16/2024 12:05 PM FLOAT REMOVER) Anatomical Region Laterality Modality Vascular Bilateral Ultrasound 06/16/2024 11:2 8 AM FLOAT REMOVER Narrative 06/19/2024 3:35 PM FLOAT REMOVER [facility] - Department of Vascular Surgery, Vascular Laboratory [address] [place] [address] Lower Extremity Arterial Doppler Report Patient Name: ALLY WISEMAN D : 1960 Study Date: 06/16/2024 11:28:00 AM Gender: M Tech: Arpan Hernandez RVT, CHARY, RDM Location: [facility] Provider: DIMITRIOS MCCRARY Quality: Adequate Order Provider: DIMITRIOS MCCRARY PROCEDURES: Arterial Report: Bilateral lower extremity arterial Doppler exam at rest. INDICATIONS: Z48.812 Encounter for surgical aftercare following surgery on the circulatory system. MEASUREMENTS: Right Value Units Left Value Units Rt Brachial Pressure 184 mmHg Lt Brachial Pressure 196 mmHg Rt FACING BASTER JUMPBASTING Pressure 164 mmHg Lt FACING BASTER JUMPBASTING Pressure 162 mmHg Rt DPA Pressure 182 mmHg Lt DPA Pressure 157 mmHg Rt 1st Digit Pressure 94 mmHg Lt 1st Digit Pressure 104 mmHg Rt PT SHEEBA Resting 0.84 Lt PT SHEEBA Resting 0.83 Rt AT SHEEBA Resting 0.93 Lt AT SHEEBA Resting 0.8 Rt Digit/Arm Index 0.48 Lt Digit/Arm Index 0.53 Right Value Units Left Value Units FINDINGS: Performing Computer Methods Analyst: Arpan Hernandez RVT, VANNESA, RDTERRANCE, ACS. Right [...] stent 282 cm/s, RT SHEEBA 0.99, LT FACING BASTER JUMPBASTING SHEEBA 0.48, LT MONTY SHEEBA 0.72. DISCLAIMER: [...] Dimitrios Mccrary MD FACS 06/19/2024 3:35:21 PM FLOAT REMOVER Procedure Note Dimitrios Mccrary MD - 06/19/2024 [facility] - Department of Vascular Surgery,Vascular Laboratory [address] [place] [address] Lower Extremity Arterial Doppler Report Patient Name: ALLY WISEMAN D : 1960 Study Date: 06/16/2024 11:28:00 AM Gender: M Tech: Arpan Hernandez RVT, CHARY, RDM Location: [facility] Provider: DIMITRIOS MCCRARY Quality: Adequate Order Provider: DIMITRIOS MCCRARY PROCEDURES: Arterial Report: Bilateral lower extremity arterial Doppler exam at rest. INDICATIONS: Z48.812 Encounter for surgical aftercare following surgery on thecirculatory system. MEASUREMENTS: Right Value Units Left Value Units Rt Brachial Pressure 184 mmHg Lt Brachial Pressure 196 mmHg Rt FACING BASTER JUMPBASTING Pressure 164 mmHg Lt FACING BASTER JUMPBASTING Pressure 162 mmHg Rt DPA Pressure 182 mmHg Lt DPA Pressure 157 mmHg Rt 1st Digit Pressure 94 mmHg Lt 1st Digit Pressure 104 mmHg Rt PT SHEEBA Resting 0.84 Lt PT SHEEBA Resting 0.83 Rt AT SHEEBA Resting 0.93 Lt AT SHEEBA Resting 0.8 Rt Digit/Arm Index 0.48 Lt Digit/Arm Index 0.53 Right Value Units Left Value Units FINDINGS: Performing Computer Methods Analyst: Arpan Hernandez RVT, VANNESA, RDCS, ACS. Right [...] popliteal stent 282cm/s, RT SHEEBA 0.99, LT FACING BASTER JUMPBASTING SHEEBA 0.48, LT MONTY SHEEBA 0.72. DISCLAIMER: [...] above. Electronically Signed By: Dimitrios Mccrary MD [facility] 06/19/2024 3:35:21 PM FLOAT REMOVER us Dimitrios Mccrary MD [facility] [place] [place] US PROCEDURES Final Result * (ABNORMAL) POCT glucose (05/03/2024 11:58 AM FLOAT REMOVER) Glucose, POC 226(H) 70 - 199 mg/dL Comment: For Glucose values <35 mg/dl when Hematocrit is >60 mg/dl,the test may not accurately detect significant hypoglycemia,and testing in the Laboratory should be considered if clinically indicated. Glucose comment 1 RN/MD Notified [facility] Blood 05/03/2024 11:5 8 AM FLOAT REMOVER 05/03/2024 11:58 AM FLOAT REMOVER us Dimitrios Mccrary MD LAB POCT ORDERABLES - DEVICE F inal Result Performing Organization Address [facility] de Phone Number [facility] [address] [place] [address] * POCT glucose (05/03/2024 8:09 AM FLOAT REMOVER) Glucose, POC 168 70 - 199 mg/dL Comment: For Glucose values <35 mg/dl when Hematocrit is >60 mg/dl,the test may not accurately detect significant hypoglycemia,and testing in the Laboratory should be considered if clinically indicated. Blood 05/03/2024 8:09 AM FLOAT REMOVER 05/03/2024 8:09 AM FLOAT REMOVER Result Sidra Mccrary MD LAB POCT ORDERABLES - DEVICE F inal Result Performing Organization Address [facility] de Phone Number [facility] [address] [place] [address] * POCT glucose (05/03/2024 3:14 AM FLOAT REMOVER) Glucose, POC 196 70 - 199 mg/dL Comment: For Glucose values <35 mg/dl when Hematocrit is >60 mg/dl,the test may not accurately detect significant hypoglycemia,and testing in the Laboratory should be considered if clinically indicated. Blood 05/03/2024 3:14 AM FLOAT REMOVER 05/03/2024 3:14 AM FLOAT REMOVER Result Sidra Mccrary MD LAB POCT ORDERABLES - DEVICE F inal Result Performing Organization Address [facility] de Phone Number [facility] [address] [place] [address] * POCT glucose (05/02/2024 11:29 PM FLOAT REMOVER) Glucose, POC 184 70 - 199 mg/dL Comment: For Glucose values <35 mg/dl when Hematocrit is >60 mg/dl,the test may not accurately detect significant hypoglycemia,and testing in the Laboratory should be considered if clinically indicated. Blood 05/02/2024 11:2 9 PM FLOAT REMOVER 05/02/2024 11:29 PM FLOAT REMOVER Dimitrios Mccrary MD LAB POCT ORDERABLES - DEVICE F inal Result Performing Organization Address [facility] Co de Phone Number [facility] [address] [facility] [place] [address] * (ABNORMAL) POCT glucose (05/02/2024 8:17 PM FLOAT REMOVER) Glucose, POC 215(H) 70 - 199 mg/dL Comment: For Glucose values <35 mg/dl when Hematocrit is >60 mg/dl,the test may not accurately detect significant hypoglycemia,and testing in the Laboratory should be considered if clinically indicated. Blood 05/02/2024 8:17 PM FLOAT REMOVER 05/02/2024 8:17 PM FLOAT REMOVER Dimitrios Mccrary MD LAB POCT ORDERABLES - DEVICE F inal Result Performing Organization Address [facility] Co de Phone Number [facility] [address] [facility] [place] [place] [address] * (ABNORMAL) POCT glucose (05/02/2024 4:26 PM FLOAT REMOVER) Glucose, POC 307(H) 70 - 199 mg/dL Comment: For Glucose values <35 mg/dl when Hematocrit is >60 mg/dl,the test may not accurately detect significant hypoglycemia,and testing in the Laboratory should be considered if clinically indicated. Blood 05/02/2024 4:26 PM FLOAT REMOVER 05/02/2024 4:26 PM FLOAT REMOVER us Dimitrios Mccrary MD LAB POCT ORDERABLES - DEVICE F inal Result Performing Organization Address [facility] de Phone Number [facility] [address] [place] [address] * (ABNORMAL) POCT glucose (05/02/2024 12:26 PM FLOAT REMOVER) Pathologist [facility] Glucose, POC 317(H) 70 - 199 mg/dL Comment: For Glucose values <35 mg/dl when Hematocrit is >60 mg/dl,the test may not accurately detect significant hypoglycemia,and testing in the Laboratory should be considered if clinically indicated. Blood 05/02/2024 12:2 6 PM FLOAT REMOVER 05/02/2024 12:26 PM FLOAT REMOVER us Dimitrios Mccrary MD LAB POCT ORDERABLES - DEVICE F inal Result Performing Organization Address [facility] de Phone Number [facility] [address] [place] [address] * eGFR (05/02/2024 11:13 AM FLOAT REMOVER) [facility] eGFR >90 >=60 mL/min/1. 73 m2 [...] reviewed 2021. Blood 05/02/2024 11:1 3 AM FLOAT REMOVER 05/02/2024 12:13 PM FLOAT REMOVER us Vale Diaz NP LAB BLOOD ORDERABLES Fin al Result [facility] [address] [place] [address] * (ABNORMAL) Differential, auto (05/02/2024 11:13 AM FLOAT REMOVER) Neutrophil abs 3.5 1.5 - 6.5 K/cumm Imm gran abs 0.0 0.0 - 0.1 K/cumm [facility] Lymphocyte abs 2.2 0.8 - 3.3 K/cumm [facility] Monocyte abs 0.9(H) 0.2 - 0.8 K/cumm [facility] Eosinophil abs 0.4 0.0 - 0.5 K/cumm [facility] Basophil abs 0.1 0.0 - 0.1 K/cumm [facility] Neutrophil pct 49.5 % [facility] Comment: Interpretive Data Percent cell count reference ranges are not reported, since discordance with absolute values may lead to misinterpretation of CBC data. Current Interpretive Data was last revised on 2017. Imm gran pct 0.3 % [facility] Comment: Interpretive Data Percent cell count reference ranges are not reported, since discordance with absolute values may lead to misinterpretation of CBC data. Current Interpretive Data was last revised on 2017. Lymphocyte pct 31.4 % [facility] Comment: Interpretive Data Percent cell count reference ranges are not reported, since discordance with absolute values may lead to misinterpretation of CBC data. Current Interpretive Data was last revised on 2017. Monocyte pct 13.1 % [facility] Comment: Interpretive Data Percent cell count reference ranges are not reported, since discordance with absolute values may lead to misinterpretation of CBC data. Current Interpretive Data was last revised on 2017. Eosinophil pct 5.0 % [facility] Comment: Interpretive Data Percent cell count reference ranges are not reported, since discordance with absolute values may lead to misinterpretation of CBC data. Current Interpretive Data was last revised on 2017. Basophil pct 0.7 % [facility] Comment: Interpretive Data Percent cell count reference ranges are not reported, since discordance with absolute values may lead to misinterpretation of CBC data. Current Interpretive Data was last revised on 2017. Blood 05/02/2024 11:1 3 AM FLOAT REMOVER 05/02/2024 12:13 PM FLOAT REMOVER Vale Diaz GRAIN OILSEED OR PASTURE FARM MANAGER LAB BLOOD ORDERABLES Fin al Result [facility] [address] Department [place] [address] * (ABNORMAL) CBC with auto differential (05/02/2024 11:13 AM FLOAT REMOVER) WBC 7.0 3.8 - 9.9 K/cumm Hgb 11.4(L) 13.0 - 17.5 g/dL [facility] Hct 34.8(L) 38.9 - 50.3 % [facility] Plt 144(L) 150 - 400 K/cumm [facility] MPV 11.8 9.1 - 12.3 fL [facility] RBC 3.75(L) 4.30 - 5.80 M/cumm [facility] MCV 92.8 81.3 - 96.4 fL [facility] MCH 30.4 27.1 - 33.3 pg [facility] MCHC 32.8 32.3 - 35.7 g/dL [facility] RDW CV 13.0 11.1 - 14.9 % [facility] RDW SD 44.1 35.7 - 48.1 fL [facility] NRBC abs 0.00 0.00 - 0.01 K/cumm [facility] Blood 05/02/2024 11:1 3 AM FLOAT REMOVER 05/02/2024 12:13 PM FLOAT REMOVER Vale Diaz NP LAB BLOOD ORDERABLES Fin al Result [facility] [address] [address] Maciel Mireles [place] [address] * (ABNORMAL) Comprehensive metabolic panel (05/02/2024 11:13 AM FLOAT REMOVER) Sodium 139 135 - 145 mmol/L Potassium, pl 4.4 3.3 - 4.9 mmol/L [facility] Chloride 105 97 - 110 mmol/L [facility] CO2 23 22 - 32 mmol/L [facility] Anion gap 11 2 - 15 mmol/L [facility] BUN 14 6 - 25 mg/dL [facility] Creatinine 0.80 0.80 - 1.30 mg/dL [facility] Glucose 276(H) 70 - 199 mg/dL [facility] Comment: Interpretive Data Fasting glucose [...] 2022. Calcium 8.4(L) 8.5 - 10.3 mg/dL [facility] Bilirubin, total 0.5 0.1 - 1.2 mg/dL [facility] Protein, pl 6.3(L) 6.5 - 8.5 g/dL [facility] Albumin 3.6 3.5 - 5.0 g/dL [facility] Alk phos 91 40 - 130 Units/L [facility] ALT 17 7 - 55 Units/L [facility] AST 16 10 - 50 Units/L [facility] Blood 05/02/2024 11:1 3 AM FLOAT REMOVER 05/02/2024 12:13 PM FLOAT REMOVER Vale Diaz NP LAB BLOOD ORDERABLES Fin al Result Performing Organization Address [facility]/ZIP Co de Phone Number [facility] [address] Department [place] [address] * POCT glucose (05/02/2024 7:45 AM FLOAT REMOVER) Glucose, POC 136 70 - 199 mg/dL Comment: For Glucose values <35 mg/dl when Hematocrit is >60 mg/dl,the test may not accurately detect significant hypoglycemia,and testing in the Laboratory should be considered if clinically indicated. Blood 05/02/2024 7:45 AM FLOAT REMOVER 05/02/2024 7:45 AM FLOAT REMOVER us Dimitrios Mccrary MD LAB POCT ORDERABLES - DEVICE F inal Result Performing Organization Address [facility] Co de Phone Number [facility] [address] Department [place] [address] * eGFR (05/02/2024 5:21 AM FLOAT REMOVER) Pathologist [facility] eGFR >90 >=60 mL/min/1. 73 m2 Comment: [...] last reviewed 2021. Blood 05/02/2024 5:21 AM FLOAT REMOVER 05/02/2024 6:02 AM FLOAT REMOVER us Vale Diaz NP LAB BLOOD ORDERABLES Fin al Result [facility] [address] Department [place] [address] * Differential, auto (05/02/2024 5:21 AM FLOAT REMOVER) Neutrophil abs 3.8 1.5 - 6.5 K/cumm Imm gran abs 0.0 0.0 - 0.1 K/cumm [facility] Lymphocyte abs 2.3 0.8 - 3.3 K/cumm [facility] Monocyte abs 0.8 0.2 - 0.8 K/cumm [facility] Eosinophil abs 0.3 0.0 - 0.5 K/cumm [facility] Basophil abs 0.0 0.0 - 0.1 K/cumm [facility] Neutrophil pct 52.0 % [facility] Comment: Interpretive Data Percent cell count reference ranges are not reported, since discordance with absolute values may lead to misinterpretation of CBC data. Current Interpretive Data was last revised on 2017. Imm gran pct 0.3 % [facility] Comment: Interpretive Data Percent cell count reference ranges are not reported, since discordance with absolute values may lead to misinterpretation of CBC data. Current Interpretive Data was last revised on 2017. Lymphocyte pct 31.2 % [facility] Comment: Interpretive Data Percent cell count reference ranges are not reported, since discordance with absolute values may lead to misinterpretation of CBC data. Current Interpretive Data was last revised on 2017. Monocyte pct 11.6 % [facility] Comment: Interpretive Data Percent cell count reference ranges are not reported, since discordance with absolute values may lead to misinterpretation of CBC data. Current Interpretive Data was last revised on 2017. Eosinophil pct 4.3 % [facility] Comment: Interpretive Data Percent cell count reference ranges are not reported, since discordance with absolute values may lead to misinterpretation of CBC data. Current Interpretive Data was last revised on 2017. Basophil pct 0.6 % [facility] Comment: Interpretive Data Percent cell count reference ranges are not reported, since discordance with absolute values may lead to misinterpretation of CBC data. Current Interpretive Data was last revised on 2017. Blood 05/02/2024 5:21 AM FLOAT REMOVER 05/02/2024 6:02 AM FLOAT REMOVER Vale Diaz NP LAB BLOOD ORDERABLES Fin al Result Performing Organization Address [facility] Co de Phone Number [facility] [address] [place], [place] [phone] * (ABNORMAL) CBC with auto differential (05/02/2024 5:21 AM FLOAT REMOVER) WBC 7.3 3.8 - 9.9 K/cumm Hgb 11.1(L) 13.0 - 17.5 g/dL [facility] Hct 33.9(L) 38.9 - 50.3 % [facility] Plt 147(L) 150 - 400 K/cumm [facility] MPV 11.9 9.1 - 12.3 fL [facility] RBC 3.64(L) 4.30 - 5.80 M/cumm [facility] MCV 93.1 81.3 - 96.4 fL [facility] MCH 30.5 27.1 - 33.3 pg [facility] MCHC 32.7 32.3 - 35.7 g/dL [facility] RDW CV 12.8 11.1 - 14.9 % [facility] RDW SD 43.8 35.7 - 48.1 fL [facility] NRBC abs 0.00 0.00 - 0.01 K/cumm [facility] Blood 05/02/2024 5:21 AM FLOAT REMOVER 05/02/2024 6:02 AM FLOAT REMOVER Vale Diaz NP LAB BLOOD ORDERABLES Fin al Result Performing Organization Address [facility] Co de Phone Number [facility] [address] Department [employer] [facility] [place], [place] [phone] * (ABNORMAL) Comprehensive metabolic panel (05/02/2024 5:21 AM FLOAT REMOVER) Sodium 140 135 - 145 mmol/L Potassium, pl 3.9 3.3 - 4.9 mmol/L [facility] Chloride 106 97 - 110 mmol/L [facility] CO2 25 22 - 32 mmol/L [facility] Anion gap 9 2 - 15 mmol/L [facility] BUN 17 6 - 25 mg/dL [facility] Creatinine 0.87 0.80 - 1.30 mg/dL [facility] Glucose 186 70 - 199 mg/dL [facility] Comment: Interpretive Data Fasting glucose [...] 2022. Calcium 8.4(L) 8.5 - 10.3 mg/dL [facility] Bilirubin, total 0.3 0.1 - 1.2 mg/dL [facility] Protein, pl 6.3(L) 6.5 - 8.5 g/dL [facility] Albumin 3.6 3.5 - 5.0 g/dL [facility] Alk phos 96 40 - 130 Units/L [facility] ALT 17 7 - 55 Units/L [facility] AST 14 10 - 50 Units/L [facility] Blood 05/02/2024 5:21 AM FLOAT REMOVER 05/02/2024 6:02 AM FLOAT REMOVER us Vale Diaz NP LAB BLOOD ORDERABLES Fin al Result [facility] [address] Department [place] [address] * POCT glucose (05/02/2024 4:01 AM FLOAT REMOVER) Glucose, POC 174 70 - 199 mg/dL Comment: For Glucose values <35 mg/dl when Hematocrit is >60 mg/dl,the test may not accurately detect significant hypoglycemia,and testing in the Laboratory should be considered if clinically indicated. Blood 05/02/2024 4:01 AM FLOAT REMOVER 05/02/2024 4:01 AM FLOAT REMOVER us Dimitrios Mccrary MD LAB POCT ORDERABLES - DEVICE F inal Result Performing Organization Address [facility] de Phone Number [facility] [address] [facility] [employer] [place], [place] [phone] * (ABNORMAL) POCT glucose (05/02/2024 12:57 AM FLOAT REMOVER) Glucose, POC 279(H) 70 - 199 mg/dL Comment: For Glucose values <35 mg/dl when Hematocrit is >60 mg/dl,the test may not accurately detect significant hypoglycemia,and testing in the Laboratory should be considered if clinically indicated. Blood 05/02/2024 12:5 7 AM FLOAT REMOVER 05/02/2024 12:57 AM FLOAT REMOVER Result Sidra Mccrary MD LAB POCT ORDERABLES - DEVICE F inal Result Performing Organization Address [facility] de Phone Number [facility] [address] [facility] [place] [address] * (ABNORMAL) POCT glucose (05/01/2024 9:10 PM FLOAT REMOVER) Glucose, POC 298(H) 70 - 199 mg/dL Comment: For Glucose values <35 mg/dl when Hematocrit is >60 mg/dl,the test may not accurately detect significant hypoglycemia,and testing in the Laboratory should be considered if clinically indicated. Blood 05/01/2024 9:10 PM FLOAT REMOVER 05/01/2024 9:10 PM FLOAT REMOVER us Dimitrios Mccrary MD LAB POCT ORDERABLES - DEVICE F inal Result Performing Organization Address [facility] de Phone Number [facility] [address] [facility] [employer] [place], [place] [phone] * (ABNORMAL) POCT glucose (05/01/2024 6:30 PM FLOAT REMOVER) Glucose, POC 278(H) 70 - 199 mg/dL Comment: For Glucose values <35 mg/dl when Hematocrit is >60 mg/dl,the test may not accurately detect significant hypoglycemia,and testing in the Laboratory should be considered if clinically indicated. Blood 05/01/2024 6:30 PM FLOAT REMOVER 05/01/2024 6:30 PM FLOAT REMOVER Dimitrios Mccrary MD LAB POCT ORDERABLES - DEVICE F inal Result Performing Organization Address [facility] de Phone Number [facility] [address] [facility] [place] [address] * (ABNORMAL) POCT glucose (05/01/2024 4:34 PM FLOAT REMOVER) Glucose, POC 303(H) 70 - 199 mg/dL Comment: For Glucose values <35 mg/dl when Hematocrit is >60 mg/dl,the test may not accurately detect significant hypoglycemia,and testing in the Laboratory should be considered if clinically indicated. Blood 05/01/2024 4:34 PM FLOAT REMOVER 05/01/2024 4:34 PM FLOAT REMOVER us Dimitrios Mccrary MD LAB POCT ORDERABLES - DEVICE F inal Result Performing Organization Address [facility] de Phone Number [facility] [address] [facility] [place] [address] * (ABNORMAL) POCT glucose (05/01/2024 11:49 AM FLOAT REMOVER) Glucose, POC 274(H) 70 - 199 mg/dL Comment: For Glucose values <35 mg/dl when Hematocrit is >60 mg/dl,the test may not accurately detect significant hypoglycemia,and testing in the Laboratory should be considered if clinically indicated. Blood 05/01/2024 11:4 9 AM FLOAT REMOVER 05/01/2024 11:49 AM FLOAT REMOVER Result [facility] Dimitrios Mccrary MD LAB POCT ORDERABLES - DEVICE F inal Result Performing Organization Address [facility] Co de Phone Number [facility] [address] [facility] [place] [address] * (ABNORMAL) POCT glucose (05/01/2024 7:32 AM FLOAT REMOVER) [facility] Signature Glucose, POC 231(H) 70 - 199 mg/dL Comment: For Glucose values <35 mg/dl when Hematocrit is >60 mg/dl,the test may not accurately detect significant hypoglycemia,and testing in the Laboratory should be considered if clinically indicated. Blood 05/01/2024 7:32 AM FLOAT REMOVER 05/01/2024 7:32 AM FLOAT REMOVER Result [facility] Dimitrios Mccrary MD LAB POCT ORDERABLES - DEVICE F inal Result Performing Organization Address [facility] de Phone Number [facility] [address] [facility] [place] [address] * ECG 12 lead (05/01/2024 5:06 AM FLOAT REMOVER) 05/01/2024 5:06 AM FLOAT REMOVER Narrative [facility] - 05/01/2024 8:42 AM FLOAT REMOVER Vent Rate: 92 bpm RR Interval: 646 msec MT Interval: 154 msec QRS Duration: 108 msec QT Interval: 332 msec QTC Interval: 382 msec P-R-T [place]: 1 - -22 - 52 degrees IMPRESSION: SINUS RHYTHM WITH SINUS ARRHYTHMIA INFERIOR MYOCARDIAL INFARCTION , PROBABLY OLD ABNORMAL ECG Electronically Signed By: Lucas Truong MD PhD Result [facility] [place] KRAUSE ECG ORDERABLES Final Result Performing Organization Address [facility] Co de Phone Number [facility] [employer] [facility] * eGFR (05/01/2024 4:34 AM FLOAT REMOVER) [facility] eGFR >90 >=60 mL/min/1. 73 m2 [...] last reviewed 2021. Blood 05/01/2024 4:34 AM FLOAT REMOVER 05/01/2024 5:38 AM FLOAT REMOVER us Dimitrios Mccrary MD LAB BLOOD ORDERABLES Final Res ult [facility] [address] Department [place] [address] * (ABNORMAL) CBC without differential (05/01/2024 4:34 AM FLOAT REMOVER) [facility] WBC 9.5 3.8 - 9.9 K/cumm Hgb 12.5(L) 13.0 - 17.5 g/dL [facility] Hct 37.8(L) 38.9 - 50.3 % [facility] Plt 174 150 - 400 K/cumm [facility] MPV 11.7 9.1 - 12.3 fL [facility] RBC 4.11(L) 4.30 - 5.80 M/cumm [facility] MCV 92.0 81.3 - 96.4 fL [facility] MCH 30.4 27.1 - 33.3 pg [facility] MCHC 33.1 32.3 - 35.7 g/dL [facility] RDW CV 12.7 11.1 - 14.9 % [facility] RDW SD 43.3 35.7 - 48.1 fL [facility] NRBC abs 0.00 0.00 - 0.01 K/cumm [facility] Blood 05/01/2024 4:34 AM FLOAT REMOVER 05/01/2024 5:38 AM FLOAT REMOVER Dimitrios Mccrary MD LAB BLOOD ORDERABLES Final Res ult [facility] [address] Department [place] [address] * (ABNORMAL) Basic metabolic panel (05/01/2024 4:34 AM FLOAT REMOVER) Sodium 137 135 - 145 mmol/L Potassium, pl 4.2 3.3 - 4.9 mmol/L [facility] Chloride 103 97 - 110 mmol/L [facility] CO2 22 22 - 32 mmol/L [facility] Anion gap 12 2 - 15 mmol/L [facility] BUN 22 6 - 25 mg/dL [facility] Creatinine 0.86 0.80 - 1.30 mg/dL [facility] Glucose 298(H) 70 - 199 mg/dL [facility] Comment: Interpretive Data Fasting glucose [...] 2022. Calcium 8.6 8.5 - 10.3 mg/dL [facility] Blood 05/01/2024 4:34 AM FLOAT REMOVER 05/01/2024 5:38 AM FLOAT REMOVER us Dimitrios Mccrary MD LAB BLOOD ORDERABLES Final Res ult Performing Organization Address [facility] Co de Phone Number [facility] [address] [facility] [employer] [place], [place] [phone] * (ABNORMAL) POCT glucose (05/01/2024 3:50 AM FLOAT REMOVER) Glucose, POC 240(H) 70 - 199 mg/dL Comment: For Glucose values <35 mg/dl when Hematocrit is >60 mg/dl,the test may not accurately detect significant hypoglycemia,and testing in the Laboratory should be considered if clinically indicated. Blood 05/01/2024 3:50 AM FLOAT REMOVER 05/01/2024 3:50 AM FLOAT REMOVER Dimitrios Mccrary MD LAB POCT ORDERABLES - DEVICE F inal Result Performing Organization Address [facility] Co de Phone Number [facility] [address] [facility] [employer] [place], [place] [phone] * (ABNORMAL) POCT glucose (05/01/2024 12:37 AM FLOAT REMOVER) Glucose, POC 348(H) 70 - 199 mg/dL Comment: For Glucose values <35 mg/dl when Hematocrit is >60 mg/dl,the test may not accurately detect significant hypoglycemia,and testing in the Laboratory should be considered if clinically indicated. Blood 05/01/2024 12:3 7 AM FLOAT REMOVER 05/01/2024 12:37 AM FLOAT REMOVER Dimitrios Mccrary MD LAB POCT ORDERABLES - DEVICE F inal Result Performing Organization Address [facility] Co de Phone Number [facility] [address] [facility] [employer] [place], [place] [phone] * (ABNORMAL) POCT glucose (04/30/2024 9:24 PM FLOAT REMOVER) Glucose, POC 405(H) 70 - 199 mg/dL Comment: For Glucose values <35 mg/dl when Hematocrit is >60 mg/dl,the test may not accurately detect significant hypoglycemia,and testing in the Laboratory should be considered if clinically indicated. Blood 04/30/2024 9:24 PM FLOAT REMOVER 04/30/2024 9:24 PM FLOAT REMOVER Dimitrios Mccrary MD LAB POCT ORDERABLES - DEVICE F inal Result Performing Organization Address [facility] Co de Phone Number [facility] [address] [facility] [employer] [place], [place] [phone] * (ABNORMAL) POCT glucose (04/30/2024 4:21 PM FLOAT REMOVER) [facility] Glucose, POC 211(H) 70 - 199 mg/dL Comment: For Glucose values <35 mg/dl when Hematocrit is >60 mg/dl,the test may not accurately detect significant hypoglycemia,and testing in the Laboratory should be considered if clinically indicated. Blood 04/30/2024 4:21 PM FLOAT REMOVER 04/30/2024 4:21 PM FLOAT REMOVER Dimitrios Mccrary MD LAB POCT ORDERABLES - DEVICE F inal Result Performing Organization Address [facility] de Phone Number [facility] [address] [facility] [employer] [place], [place] [phone] * (ABNORMAL) CBC without differential (04/30/2024 12:08 PM FLOAT REMOVER) [facility] WBC 6.9 3.8 - 9.9 K/cumm Hgb 12.5(L) 13.0 - 17.5 g/dL [facility] Hct 37.4(L) 38.9 - 50.3 % [facility] Plt 164 150 - 400 K/cumm [facility] MPV 11.3 9.1 - 12.3 fL [facility] RBC 4.13(L) 4.30 - 5.80 M/cumm [facility] MCV 90.6 81.3 - 96.4 fL [facility] MCH 30.3 27.1 - 33.3 pg [facility] MCHC 33.4 32.3 - 35.7 g/dL [facility] RDW CV 12.5 11.1 - 14.9 % [facility] RDW SD 41.6 35.7 - 48.1 fL [facility] NRBC abs 0.00 0.00 - 0.01 K/cumm [facility] Blood 04/30/2024 12:0 8 PM FLOAT REMOVER 04/30/2024 12:27 PM FLOAT REMOVER us Dimitrios Mccrary MD LAB BLOOD ORDERABLES Final Res ult Performing Organization Address [facility] Co de Phone Number [facility] [address] Department of [employer] [place], [place] [phone] * (ABNORMAL) POCT glucose (04/30/2024 11:18 AM FLOAT REMOVER) [facility] Signature Glucose, POC 206(H) 70 - 199 mg/dL Comment: For Glucose values <35 mg/dl when Hematocrit is >60 mg/dl,the test may not accurately detect significant hypoglycemia,and testing in the Laboratory should be considered if clinically indicated. Blood 04/30/2024 11:1 8 AM FLOAT REMOVER 04/30/2024 11:18 AM FLOAT REMOVER Result Sidra Mccrary MD LAB POCT ORDERABLES - DEVICE F inal Result Performing Organization Address [facility] Co de Phone Number [facility] [address] Department of [employer] [place], [place] [phone] * IR Angiogram Lower Extremity Left (04/30/2024 10:45 AM FLOAT REMOVER) Narrative [facility] - 04/30/2024 10:45 AM FLOAT REMOVER The images from this study are not interpreted by Radiology. Please refer to the physician's procedure / OR operative note. us Dimitrios Mccrary MD IMG IR PROCEDURES Final Result Performing Organization Address [facility] Co de Phone Number [facility] * Surgical pathology (04/30/2024 10:44 AM FLOAT REMOVER) Tissue (Artery, plaque Atherosclerotic) 04/30/2024 10:44 AM FLOAT REMOVER Comment:Placed in formalin a t the end of case Narrative PATHOLOGY [facility] - 05/01/2024 9:07 AM FLOAT REMOVER [address] [id number] Tele: Ruth Juan MD - Media Account Executive Note to Patients: This report may contain [...] REPORT Patient Name: ALLY WISEMAN JRYao Address: [address] [place] [address] Gender: M : 1960 (Age: 63) Service: Vascular Location: [place] [address], Hospital #: [id number] Patient Type: [employer] [facility] [employer] INPATIENT Taken: 04/30/2024 Received 04/30/2024 Reported: 05/01/2024 Physician(s): Lisseth Robbins M.D. DIAGNOSIS: Artery, left femoral-endarterectomy: - Calcific arteriosclerosis esb/05/01/2024 09:07 Examining Pathologist: Greg Lam M.D. Report Reviewed and Electronically Signed By Greg Lam M.D. 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 The specimen is sectioned and claim service representative sections are submitted in A 1 following decalcification. jxi/04/30/2024 12:38 ,JXI MICROSCOPIC DESCRIPTION: Calcified plaque material is noted. Clerical Data Follows A; 11321 REPORT IMAGES AND/OR SCANNED DOCUMENTS ONLY VIEWABLE IN PDF FORMAT The immunohistochemical test(s) cited in this report, if any, was developed and its performance characteristics determined by [facility] Pathology Department. It has not been cleared or approved by the U.S. Food and Drug Administration. The FDA has determined that such clearance or approval is not necessary. This test is used for clinical purposes. It should not be regarded as investigational or for research. [facility] Laboratory is certified under the Clinical [...] part or completely in the following laboratories: [facility], [address] [place] [address], [address] [place] [address]. us Dimitrios Mccrary MD LAB PATHOLOGY ORDERABLES Final Result PATHOLOGY [facility] Laboratory Receiving [address] [place] [address] * MT AN ELECTIVE ENDOTRACHEAL AIRWAY, MT AN PROCEDURE PLACEHOLDER (04/30/2024 8:12 AM FLOAT REMOVER) Narrative Janis Belle CRNA - 04/30/2024 8:12 AM FLOAT REMOVER Janis Belle CRNA 04/30/2024 8:12 AM Airway Patient location: OR Urgency: elective Indications for airway management: anesthesia Difficult airway: no Staff: Placed by: VIDEO NETWORK ENGINEER: Janis Belle CRNA Airway prep: Preoxygenated: [...] * (ABNORMAL) POCT glucose (04/30/2024 7:43 AM FLOAT REMOVER) Glucose, POC 212(H) 70 - 199 mg/dL Comment: For Glucose values <35 mg/dl when Hematocrit is >60 mg/dl,the test may not accurately detect significant hypoglycemia,and testing in the Laboratory should be considered if clinically indicated. Blood 04/30/2024 7:43 AM FLOAT REMOVER 04/30/2024 7:43 AM FLOAT REMOVER us Dimitrios Mccrary MD LAB POCT ORDERABLES - DEVICE F inal Result Performing Organization Address City/[facility] Co de Phone Number [facility] [address] Department of [employer] [place], [place] [phone] * Check Sample (04/30/2024 6:25 AM FLOAT REMOVER) ABO Rh O Positive MBC HCLL OTHER 04/30/2024 6:25 AM FLOAT REMOVER 04/30/2024 7:08 AM FLOAT REMOVER us Gabriela Meneses NP LAB BLOOD ORDERABLES Fi nal Result Performing Organization Address City/[facility]/ZIP Co de Phone Number NICOLE [facility] [address] [place] [address] MBC * aPTT (04/09/2024 12:38 PM FLOAT REMOVER) Pathologist [facility] aPTT 34 28 - 38 sec Comment: Interpretive Data Heparin therapeutic range: 66.0 - 100.0 seconds. Range based on correlation with therapeutic heparin activity range of 0.3 - 0.7 Units/mL. Current interpretive data was last revised on 2023. Blood 04/09/2024 12:3 8 PM FLOAT REMOVER 04/09/2024 12:[address] [facility] Kriss Meneses NP LAB BLOOD ORDERABLES Fi nal Result Performing Organization Address [facility] de Phone Number [facility] [address] [place] [address] * Protime-INR (04/09/2024 12:38 PM FLOAT REMOVER) PT 11.7 9.7 - 13.0 sec INR 1.08 0.90 - 1.20 [facility] Comment: Interpretive data Oral anticoagulant therapeutic ranges: Venous thromboembolism prophylaxis or treatment: 2.0-3.0 CARDIOLOGY Standard range: 2.0-3.0 High-intensity range: 2.5-3.5 Refer to indication-specific guidelines for appropriate target ranges for prosthetic heart valve replacement. Current interpretive data was last revised on 2019. Blood 04/09/2024 12:3 8 PM FLOAT REMOVER 04/09/2024 12:38 PM FLOAT REMOVER [facility] LAB BLOOD ORDERABLES nal Result Performing Organization Address [facility] de Phone Number [facility] [address] [facility] [place] [place] [address] * (ABNORMAL) Hemoglobin A1c (04/09/2024 12:38 PM FLOAT REMOVER) Hgb A1C 8.9(H) 4.0 - 5.6 % Estimated Average Glucose 209 mg/dL [facility] Comment: The ADA recommends reporting an estimated Average Glucose (eAG) with all Hemoglobin A1c results using the equation derived from a study of 507 normal and diabetic adults. Minority populations were underrepresented and children were not included. (Diabetes Care 31:8524-1957, 2008). The eAG is not equivalent to a fasting glucose. Blood 04/09/2024 12:3 8 PM FLOAT REMOVER 04/09/2024 12:38 PM FLOAT REMOVER Gabriela Kriss Meneses GRAIN OILSEED OR PASTURE FARM MANAGER LAB BLOOD ORDERABLES Fi nal Result Performing Organization Address City/[facility]/ZIP Co de Phone Number [facility] [address] [place] [address] * eGFR (04/09/2024 12:37 PM FLOAT REMOVER) eGFR >90 >=60 mL/min/1. 73 m2 Comment: [...] reviewed 2021. Blood 04/09/2024 12:3 7 PM FLOAT REMOVER 04/09/2024 12:37 PM FLOAT REMOVER Gabriela Meneses NP LAB BLOOD ORDERABLES Fi nal Result Performing Organization Address City/[facility]/ZIP Co de Phone Number [facility] [address] Department of [employer] [place], [place] [id number] * Basic metabolic panel (04/09/2024 12:37 PM FLOAT REMOVER) Pathologist [facility] Sodium 140 135 - 145 mmol/L Potassium, pl 4.8 3.3 - 4.9 mmol/L [facility] Chloride 103 97 - 110 mmol/L [facility] CO2 26 22 - 32 mmol/L [facility] Anion gap 11 2 - 15 mmol/L [facility] BUN 17 6 - 25 mg/dL [facility] Creatinine 0.81 0.80 - 1.30 mg/dL [facility] Glucose 191 70 - 199 mg/dL [facility] Comment: Interpretive Data Fasting glucose [...] 2022. Calcium 9.6 8.5 - 10.3 mg/dL [facility] Blood 04/09/2024 12:3 7 PM FLOAT REMOVER 04/09/2024 12:37 PM FLOAT REMOVER Gabriela Meneses NP LAB BLOOD ORDERABLES Fi nal Result [facility] [address] Department [place] [address] * Type and screen (04/09/2024 12:25 PM FLOAT REMOVER) ABO Rh O Positive Simón, indirect Negative [facility] Blood 04/09/2024 12:2 5 PM FLOAT REMOVER 04/09/2024 12:40 PM FLOAT REMOVER Narrative [facility] - 04/09/2024 1:24 PM FLOAT REMOVER Is this test being ordered in advance for a procedure?->Yes Expected date of procedure:->04/30/24 Has the patient been transfused in the past 3 months?->No Gabriela Meneses NP LAB BLOOD BANK TEST ORD ERABLES Final Result [facility] [address] [place] [address] * (ABNORMAL) Urinalysis reflex to microscopic and culture Urine (04/07/2024 1:00 PM FLOAT REMOVER) Color, ur Yellow Yellow Clarity, ur Clear Clear [facility] Specific gravity, ur 1.022 1.003 - 1.030 [facility] pH, urine 6.5 [facility] Comment: Interpretive Data U rine pH is affected by diet, medications, systemic acid-base disturbances, and renal tubular function. pH may affect urinary stone formation. For example, urine pH below 6.0 may help reduce the tendency for calcium phosphate stones and pH greater than 6.0 may reduce the tendency for uric acid stone formation. Source: [facility] Current Interpretive Data was last revised on 2017 Protein, ur ql 2+(A) Negative [facility] Glucose, ur ql 4+(A) Negative [facility] Ketones, ur Negative Negative [facility] Bilirubin, ur Negative Negative [facility] Blood, ur 1+(A) Negative [facility] Urobilinogen, ur <2.0 <2.0 mg/dL [facility] Nitrite, ur Positive(A) Negative [facility] Leukocyte esterase, ur Negative Negative [facility] UA reflex comment Reflex to microscopic UA will be performed. [facility] Urine 04/07/2024 1:00 PM FLOAT REMOVER 04/07/2024 1:23 PM FLOAT REMOVER us Richard Armstrong MD LAB MICROBIOLOGY - GENERAL ORDERABLES Final Result [facility] [address] [place] [address] * (ABNORMAL) Urinalysis, microscopic only (04/07/2024 1:00 PM FLOAT REMOVER) WBC, ur 6-10(A) 0 - 5 /HPF RBC, ur 6-10(A) 0 - 2 /HPF [facility] Bacteria, ur Trace(A) [facility] Mucous, ur Present(A) [facility] Culture Reflex Comment Reflex conditions for urine culture (WBC >10) not met. [facility] Urine 04/07/2024 1:00 PM FLOAT REMOVER 04/07/2024 1:22 PM FLOAT REMOVER Richard Armstrong MD LAB URINE ORDERABLES Final Result [facility] [address] [place] Department [place] [address] * CT Head WO Contrast (04/07/2024 12:59 PM FLOAT REMOVER) Anatomical Region Laterality Modality Head and Neck N/A Computed Tomogra phy 04/07/2024 1:07 PM FLOAT REMOVER Impressions 04/07/2024 1:07 PM FLOAT REMOVER No CT evidence of acute intracranial abnormality. Electronically signed by: Porfirio De Paz M.D. Narrative 04/07/2024 1:07 PM FLOAT REMOVER EXAM:CT HEAD WO CONTRAST INDICATION: Dizziness, persistent/recurrent, [...] (baseline, 2hr, 4hr, 6hr) (04/07/2024 12:28 PM FLOAT REMOVER) Trop T hs 11 <=22 ng/L Comment: Interpretive Data For further hscTnT resources including the diagnostic algorithm and an aid in interpretation, copy and paste this link: https://nrl.testcatalog.org/show/hsTrop Current Interpretive Data last revised 2020. Blood 04/07/2024 12:2 8 PM FLOAT REMOVER 04/07/2024 12:41 PM FLOAT REMOVER Scott Wagner MD LAB BLOOD ORDERABLES Final R esult [facility] [address] Department [place] [address] * eGFR (04/07/2024 12:28 PM FLOAT REMOVER) eGFR >90 >=60 mL/min/1. 73 m2 Comment: [...] reviewed 2021. Blood 04/07/2024 12:2 8 PM FLOAT REMOVER 04/07/2024 12:41 PM FLOAT REMOVER us Scott Wagner MD LAB BLOOD ORDERABLES Final R esult [facility] [address] [place] [address] * Differential, auto (04/07/2024 12:28 PM FLOAT REMOVER) Neutrophil abs 3.6 1.5 - 6.5 K/cumm Imm gran abs 0.0 0.0 - 0.1 K/cumm [facility] Lymphocyte abs 1.4 0.8 - 3.3 K/cumm [facility] Monocyte abs 0.7 0.2 - 0.8 K/cumm [facility] Eosinophil abs 0.2 0.0 - 0.5 K/cumm [facility] Basophil abs 0.1 0.0 - 0.1 K/cumm [facility] Neutrophil pct 60.2 % [facility] Comment: Interpretive Data Percent cell count reference ranges are not reported, since discordance with absolute values may lead to misinterpretation of CBC data. Current Interpretive Data was last revised on 2017. Imm gran pct 0.3 % [facility] Comment: Interpretive Data Percent cell count reference ranges are not reported, since discordance with absolute values may lead to misinterpretation of CBC data. Current Interpretive Data was last revised on 2017. Lymphocyte pct 23.7 % [facility] Comment: Interpretive Data Percent cell count reference ranges are not reported, since discordance with absolute values may lead to misinterpretation of CBC data. Current Interpretive Data was last revised on 2017. Monocyte pct 12.0 % [facility] Comment: Interpretive Data Percent cell count reference ranges are not reported, since discordance with absolute values may lead to misinterpretation of CBC data. Current Interpretive Data was last revised on 2017. Eosinophil pct 3.0 % [facility] Comment: Interpretive Data Percent cell count reference ranges are not reported, since discordance with absolute values may lead to misinterpretation of CBC data. Current Interpretive Data was last revised on 2017. Basophil pct 0.8 % [facility] Comment: Interpretive Data Percent cell count reference ranges are not reported, since discordance with absolute values may lead to misinterpretation of CBC data. Current Interpretive Data was last revised on 2017. Blood 04/07/2024 12:2 8 PM FLOAT REMOVER 04/07/2024 12:41 PM FLOAT REMOVER us Scott Wagner MD LAB BLOOD ORDERABLES Final R esult [facility] [address] [place] [address] * CBC with auto differential (04/07/2024 12:28 PM FLOAT REMOVER) WBC 5.9 3.8 - 9.9 K/cumm Hgb 13.9 13.0 - 17.5 g/dL [facility] Hct 41.3 38.9 - 50.3 % [facility] Plt 171 150 - 400 K/cumm [facility] MPV 10.8 9.1 - 12.3 fL [facility] RBC 4.62 4.30 - 5.80 M/cumm [facility] MCV 89.4 81.3 - 96.4 fL [facility] MCH 30.1 27.1 - 33.3 pg [facility] MCHC 33.7 32.3 - 35.7 g/dL [facility] RDW CV 12.7 11.1 - 14.9 % [facility] RDW SD 41.5 35.7 - 48.1 fL [facility] NRBC abs 0.00 0.00 - 0.01 K/cumm [facility] Blood (Blood, Venous) 04/07/2024 12:28 PM FLOAT REMOVER 04/07/2024 12:41 PM FLOAT REMOVER us Scott Wagner MD LAB BLOOD ORDERABLES Final R esult [facility] [address] [place] Department [place] [address] * (ABNORMAL) Comprehensive metabolic panel (04/07/2024 12:28 PM FLOAT REMOVER) Sodium 136 135 - 145 mmol/L Potassium, pl 5.1(H) 3.3 - 4.9 mmol/L [facility] Comment:Hemolyzed; potassium value may be falsely elevated by as much as 0.3 - 0.5 mmol/L. Suggest redraw and reanalysis Chloride 102 97 - 110 mmol/L [facility] CO2 16(L) 22 - 32 mmol/L [facility] Anion gap 18(H) 2 - 15 mmol/L [facility] BUN 15 6 - 25 mg/dL [facility] Creatinine 0.70(L) 0.80 - 1.30 mg/dL [facility] Glucose 192 70 - 199 mg/dL [facility] Comment: Interpretive Data Fasting glucose [...] 2022. Calcium 9.2 8.5 - 10.3 mg/dL [facility] Bilirubin, total 0.6 0.1 - 1.2 mg/dL [facility] Protein, pl 7.2 6.5 - 8.5 g/dL [facility] Albumin 4.0 3.5 - 5.0 g/dL [facility] Alk phos 104 40 - 130 Units/L [facility] ALT 21 7 - 55 Units/L [facility] AST 29 10 - 50 Units/L [facility] Comment:Slightly Hemolyzed S pecimen Blood 04/07/2024 12:2 8 PM FLOAT REMOVER 04/07/2024 12:41 PM FLOAT REMOVER Scott Wagner MD LAB BLOOD ORDERABLES Final R esult Performing Organization Address City/[facility]/ZIP Co de Phone Number [facility] [address] [place] [address] * ECG 12 lead (04/07/2024 10:29 AM FLOAT REMOVER) 04/07/2024 10:2 9 AM FLOAT REMOVER Narrative [facility] - 04/07/2024 8:05 PM FLOAT REMOVER Vent Rate: 82 bpm RR Interval: 724 msec MT Interval: 158 msec QRS Duration: 103 msec QT Interval: 335 msec QTC Interval: 374 msec P-R-T [place]: 1 - -40 - 71 degrees IMPRESSION: SINUS RHYTHM LEFT AXIS DEVIATION [QRS AXIS < -30] POOR R WAVE PROGRESSION NONSPECIFIC T-WAVE ABNORMALITY ABNORMAL ECG Electronically Signed By: Caleb Roger MD Richard Armstrong MD ECG ORDERABLES Final Resu lt Performing Organization Address City/[facility]/ZIP Co de Phone Number [facility] * (ABNORMAL) POCT glucose (04/07/2024 9:52 AM FLOAT REMOVER) Glucose, POC 206(H) 70 - 199 mg/dL Comment: For Glucose values <35 mg/dl when Hematocrit is >60 mg/dl,the test may not accurately detect significant hypoglycemia,and testing in the Laboratory should be considered if clinically indicated. Blood 04/07/2024 9:52 AM FLOAT REMOVER 04/07/2024 9:52 AM FLOAT REMOVER us Reina Boyle NP LAB POCT ORDERABLES - DEVIC E Final Result Performing Organization Address [facility] Co de Phone Number [facility] [address] [facility] [employer] [place], [place] [id number] * (ABNORMAL) POCT glucose (04/07/2024 9:20 AM FLOAT REMOVER) Glucose, POC 268(H) 70 - 199 mg/dL Comment: For Glucose values <35 mg/dl when Hematocrit is >60 mg/dl,the test may not accurately detect significant hypoglycemia,and testing in the Laboratory should be considered if clinically indicated. Blood 04/07/2024 9:20 AM FLOAT REMOVER 04/07/2024 9:20 AM FLOAT REMOVER Reina Boyle NP LAB POCT ORDERABLES - DEVIC E Final Result Performing Organization Address [facility] de Phone Number [facility] [address] [facility] [place] [address] * (ABNORMAL) POCT glucose (04/06/2024 11:05 AM FLOAT REMOVER) Glucose, POC 202(H) 70 - 199 mg/dL Comment: For Glucose values <35 mg/dl when Hematocrit is >60 mg/dl,the test may not accurately detect significant hypoglycemia,and testing in the Laboratory should be considered if clinically indicated. Blood 04/06/2024 11:0 5 AM FLOAT REMOVER 04/06/2024 11:05 AM FLOAT REMOVER Reina Boyle NP LAB POCT ORDERABLES - DEVIC E Final Result Performing Organization Address [facility] de Phone Number [facility] [address] [facility] [employer] [place], [place] [id number] * US Vein Mapping Duplex Lower Extremity Bilateral (04/06/2024 10:17 AM FLOAT REMOVER) Anatomical Region Laterality Modality Vascular Bilateral Ultrasound 04/06/2024 8:03 AM FLOAT REMOVER Narrative 04/09/2024 6:57 PM FLOAT REMOVER [facility] - Department of Vascular Surgery, Vascular Laboratory [address] [place] [address] Lower Extremity Vein Mapping Report Patient Name: ALLY WISEMAN D : 1960 (63y 6m) Study Date: 04/06/2024 8:03:23 AM Gender: M Computer Methods Analyst: ARPAN Location: [facility] Provider: ELISEO HYDE Quality: Adequate Order [...] Distal 0.19; BRANCH cm - FINDINGS: Performing Computer Methods Analyst: Arpan Hernandez, RVT, RDMS, RDCS, ACS. Bilateral: [...] Dimitrios Mccrary MD FACS 04/09/2024 6:56:05 PM FLOAT REMOVER Procedure Note Dimitrios Mccrary MD - 04/09/2024 [facility] - Department of Vascular Surgery,Vascular Laboratory [address] [place] [address] Lower Extremity Vein Mapping Report Patient Name: ALLY WISEMAN D : 1960 (63y 6m) Study Date: 04/06/2024 8:03:23 AM Gender: M Computer Methods Analyst: ARPAN Location: [facility] Provider: ELISEO HYDE Quality: Adequate Order [...] Distal 0.19; BRANCH cm - FINDINGS: Performing Computer Methods Analyst: Arpan Hernandez, MELLT, RDMS, RDCS, ACS. Bilateral: [...] Dimitrios Mccrary MD FACS 04/09/2024 6:56:05 PM FLOAT REMOVER Eliseo KRAUSE IMG US PROCEDURES Fin al Result * (ABNORMAL) POCT glucose (04/06/2024 9:14 AM FLOAT REMOVER) [facility] Glucose, POC 235(H) 70 - 199 mg/dL Comment: For Glucose values <35 mg/dl when Hematocrit is >60 mg/dl,the test may not accurately detect significant hypoglycemia,and testing in the Laboratory should be considered if clinically indicated. Blood 04/06/2024 9:14 AM FLOAT REMOVER 04/06/2024 9:14 AM FLOAT REMOVER Reina Boyle NP LAB POCT ORDERABLES - DEVIC E Final Result Performing Organization Address [facility] Co de Phone Number [facility] [address] [place] [address] * POCT glucose (04/03/2024 11:13 AM FLOAT REMOVER) Glucose, POC 123 70 - 199 mg/dL Comment: For Glucose values <35 mg/dl when Hematocrit is >60 mg/dl,the test may not accurately detect significant hypoglycemia,and testing in the Laboratory should be considered if clinically indicated. Blood 04/03/2024 11:1 3 AM FLOAT REMOVER 04/03/2024 11:13 AM FLOAT REMOVER Reina Boyle NP LAB POCT ORDERABLES - DEVIC E Final Result Performing Organization Address [facility] de Phone Number [facility] [address] [place] [address] * (ABNORMAL) POCT glucose (04/03/2024 11:07 AM FLOAT REMOVER) Glucose, POC 212(H) 70 - 199 mg/dL Comment: For Glucose values <35 mg/dl when Hematocrit is >60 mg/dl,the test may not accurately detect significant hypoglycemia,and testing in the Laboratory should be considered if clinically indicated. Blood 04/03/2024 11:0 7 AM FLOAT REMOVER 04/03/2024 11:07 AM FLOAT REMOVER Reina Boyle NP LAB POCT ORDERABLES - DEVIC E Final Result Performing Organization Address [facility] Co de Phone Number [facility] [address] [place] [address] * (ABNORMAL) POCT glucose (04/03/2024 9:19 AM FLOAT REMOVER) Glucose, POC 317(H) 70 - 199 mg/dL Comment: For Glucose values <35 mg/dl when Hematocrit is >60 mg/dl,the test may not accurately detect significant hypoglycemia,and testing in the Laboratory should be considered if clinically indicated. Blood 04/03/2024 9:19 AM FLOAT REMOVER 04/03/2024 9:19 AM FLOAT REMOVER Reina Boyle NP LAB POCT ORDERABLES - DEVIC E Final Result Performing Organization Address [facility] Co de Phone Number [facility] [address] [facility] [employer] [place], [place] [id number] * (ABNORMAL) POCT glucose (04/03/2024 9:09 AM FLOAT REMOVER) Glucose, POC 222(H) 70 - 199 mg/dL Comment: For Glucose values <35 mg/dl when Hematocrit is >60 mg/dl,the test may not accurately detect significant hypoglycemia,and testing in the Laboratory should be considered if clinically indicated. Blood 04/03/2024 9:09 AM FLOAT REMOVER 04/03/2024 9:09 AM FLOAT REMOVER Reina Boyle NP LAB POCT ORDERABLES - DEVIC E Final Result Performing Organization Address [facility] de Phone Number [facility] [address] [facility] [place] [address] * CTA Abdominal Aorta And Bilateral Iliofemoral [...] calcified atherosclerosis and severe narrowing of the [place] vessel distally R. Popliteal artery: Multifocal severe [...] calcified atherosclerosis and severe narrowing of the [place] vessel distally R. Popliteal artery: Multifocal severe [...] PSA, total and free (04/13/2023 12:18 PM FLOAT REMOVER) PSA-free <0.1 ng/mL [facility] PSA-Total <0.10 <=4.5 ng/mL [facility] PSA-Free/Total Ratio See Footnote [facility] Comment: Ratio was not calculated [...] absence of malignant disease. Test Performed by: [address] [address] Supervisor [employer]: Goyo Ramirez M.D. Ph.D.; CLIA# [id number] Blood 04/13/2023 12:1 8 PM FLOAT REMOVER 04/13/2023 12:18 PM FLOAT REMOVER us Jay Bolanos MD PhD LAB BLOOD ORDERABLE S Final Result [facility] [address] [place] [address] from Last 3 Months or Most Recently Relevant to Health Maintenance Insurance [facility] CHOICE PLUS MEDICARE [facility] MEDICARE [facility] Advance Directives For more information, please contact: [phone] * Full Code (Latest Code Status on [...] 6:04 PM 05/10/2023 5:52 PM Care Teams Livestock Slaughterer Relationship Specialty [place] [address] [facility] [address] [place] [address] PCP - General Family Practice 12/18/21 Dev Burrell MD [address] [place] [address] Consulting Physician Radiation Oncology 04/24/18 [place] [address] [facility] [address] [place] [address] Urology 04/24/18 [place] [address] [facility] [address] [place] [address] Urology 04/24/18 [place] [address] [place] [address] Consulting Physician Urology 04/13/23 Dimitrios Mccrary MD [address] [facility] [address] [place] [address] Surgeon Vascular Surgery 11/01/23
--- OUTSIDE RECORDS SUMMARY | 2024-07-03 07:38 | XMS_ITS | Continuity of Care Document ---
Author Organization [facility] Address [address] [place] [address] Phone Care Team Providers Care Cigarette Stamper Name Role Phone Ryan Bowman PT Unavailable Unavailable Procedures Procedure Date Therapeutic Activities Neuromuscular Re-Ed Therapeutic Exercise Therapeutic Activities Neuromuscular Re-Ed Therapeutic Exercise Hot or Cold Pack Doc neg elder mal no plan PT Evaluation Low Complexity Therapeutic Activities Therapeutic Exercise Therapeutic Activities Therapeutic Exercise PT Evaluation Moderate Complexity Therapeutic Activities Advance Directives Directive Yes / No Effective Date File Name No Information Encounters Encounter Description Practice Location Reason(s) For Visit Diagnoses Date Provider Providers Copied on Encounter [facility], [place], [place], [id number], tel:[phone] [facility] No Information Gracie Davis. . Referring Provider: Dg Martins, [address] [place], [place] [address]les chacha [facility] [address], [place], [address]. tel:[phone] [facility], [place], [place], [address], tel:[phone] [facility] No Information Janay Lopez. [address] [facility], [address], [place], [address], [place]. tel:[phone] Referring Provider: Dg Martins, [address], [place], [address]. tel:[phone] [address], [place], [place], [address], tel:[phone] [facility] No Information Modglin Ryan. . Referring Provider: Dg Martins, [address], [place], [address]. tel:[phone] [address], [place], [place], [address], tel:[phone] [facility] No Information Yancy Beltran. . Referring Provider: Dg Martins, [address], [place], [address]. tel:[phone] [address], [place], [place], [id number], tel:[phone] [facility] No Information Yancy Beltran. . Referring Provider: Dg Martins, [address], [place], [address]. tel:[phone] Family History Family Member Type Diagnosis Age At Onset No Information Payers Payer name Insurance type Covered republican ID Authormarilynna joseph(s) [facility] CI [id number] Social History Type Description Quantity Date Captured Comments Sex Male Smoking Status No Information Chief Complaint And Reason For Visit No Information Reason For Referral Reason For Referral No Information History Of Present Illness Encounter Date Complaint History Of Prese nt Illness No Information Functional Status Date Functional Assessmen t No Information Instructions Date Instruction Additional Infor mation Giving encouragement to exercise Related to Overweight Giving encouragement to exercise Related to Overweight Giving encouragement to exercise Related to Overweight Giving encouragement to exercise Related to Overweight Giving encouragement to exercise Related to Overweight Giving encouragement to exercise Related to Overweight Giving encouragement to exercise Related to Overweight Giving encouragement to exercise Related to Overweight Giving encouragement to exercise Related to Overweight Giving encouragement to exercise Related to Overweight Assessments Type Assessment Date No Information Patient Care Teams Name Effective Dates (start - stop) Status Members No Information
--- OUTSIDE RECORDS SUMMARY | 2024-07-03 07:38 | XMS_ITS | Encounter Summary ---
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 (HCC) Atherosclerosis of [place] artery of right lower extremity with intermittent claudication (HCC) [I70.211] Procedures [place] REVSC OPN/PRQ FEM/POP W/STNT/ANGIOP SM VSL CHG ANGIOGRAPHY EXTREMITY UNILATERAL RS&I AIF Angiograma, possible Right Leg Intervention Referral ID Status Reason Start Date Expiration Date Visits Re quested Visits Authorized [id number] 1 1 Encounter Details Date Type Department Care Team (Latest Contact Info) Description 07/01/2024 1:11 PM WRAPPER SELECTOR - 07/02/2024 10:58 AM WRAPPER SELECTOR Hospital Encounter [address] [place] [address] Dimitrios Mccrary MD [address] [place] [address] Atherosclerosis of [place] artery of right lower extremity with intermittent [...] drink = 0.6 oz pur e alcohol) [facility] Utilities Answer Date Recorded In the past [...] often do you attend chur ch or scientologist services? More than 4 times per year 05/01/2024 Do you belong to any clubs o r organizations such as orthodox groups, unions, fraternal or athletic groups, or [...] any time in the past 12 [facility], were you homeless or living in a senior living (including now)? No 05/01/2024 Personal Safety Answer Date Recorded Have you ever been in or are you currently in a harmful physical or emotional relationship or is someone making you feel afraid or unsafe? Denies 07/01/2024 Sex and Gender Information Value Date Recorded Sex Assigned at Not on file Legal Sex Male 2:12 AM WRAPPER SELECTOR Gender Identity Not on file Sexual Orientation Not on file documented as of this encounter Last Filed Vital Signs Vital Sign Reading Time Taken Comments Blood Pressure 162/87 07/02/2024 8:27 AM WRAPPER SELECTOR Pulse 72 07/02/2024 8:27 AM WRAPPER SELECTOR Temperature 36.2 C (97.1 F) 07/02/2024 8:27 AM WRAPPER SELECTOR Respiratory Rate 15 07/02/2024 8:27 AM WRAPPER SELECTOR Oxygen Saturation 98% 07/02/2024 8:27 AM WRAPPER SELECTOR Inhaled Oxygen Concentration - - Weight 78.6 kg (173 lb 4.5 oz) 07/01/2024 1:20 P M WRAPPER SELECTOR Height 170.2 cm (5' 7 ) 07/01/2024 1:20 PM WRAPPER SELECTOR Body Mass Index 27.14 07/01/2024 1:20 PM WRAPPER SELECTOR documented in this encounter Functional Status * Audit-C Score Answer Date of Assessment Author 2 06/22/2024 12:41 PM WRAPPER SELECTOR Angelina Azevedo RN * Question Answer Date [...] Care Physician at Discharge: Nacho Mcghee MD [phone] Admission Date: 07/01/2024 Discharge Date: 07/02/2024 Admission Location: [facility] Hospital Problems/Diagnoses: Principal Problem: Atherosclerosis of [place] artery of right lower extremity with intermittent [...] Surgery, General Surgery Relationship: Surgeon [address] [address] Next Steps: Follow up Instructions: Follow up with Dr. Mccrary in 2-3 weeks, please call [phone] to make an appointment. Questions: Instructions for follow-up (appointment date and time): Follow up with Dr. Mccrary in 2-3 weeks, please call [phone] to make an appointment. To provider: DIMITRIOS MCCRARY PER SELECTOR documented in this encounter Medications at Time [...] Past Medical History: Diagnosis Date Atherosclerosis of [place] artery of both lower extremities with intermittent [...] of 4.76 m/s. In March 2024, the [place] right popliteal artery distal to the stent [...] to the procedure. Dimitrios Mccrary MD, FACS PER SELECTOR documented in this encounter Miscellaneous Notes * [...] L groin soft, clean, dry and intact PER SELECTOR * Op Note - Dimitrios Mccrary MD - 07/01/2024 3:00 PM CST OPERATIVE REPORT SURGEON Dimitrios Mccrary MD I was present for the entire operation. No surgical dressing maker was scrubbed on the case. Surgical Team: Surgeons and Role: * Dimitrios Mccrary MD - Primary Anesthesiologist: Venecia Hennessy DO; Catarina Larose MD MACHINE STAPLER: Gurwinder Villasenor CRNA; Lissette Guerra CRNA; David Paniagua CRNA Independent Consultant: Karyn Laguerre RN Scrub: Juan David Jimenez [facility] Independent Consultant: Poly Salazar RN PREOPERATIVE DIAGNOSIS Right leg [...] guidewire tract was dilated with a 5 [place] sheath and introducer. The angiogram catheter was [...] upsized the sheath to a long 5 [place] sheath was placed up and over the [...] pulled back and exchanged for short 5 [place] sheath. It was sewn in place. Sterile dressings were applied. The patient was transferred to recovery in good condition. DIMITRIOS MCCRARY MD PER SELECTOR documented in this encounter Plan of Treatment Not on file documented as of this encounter Procedures Procedure Name Priority Date/Time Associated Diagnosis Comments POCT GLUCOSE DEVICE Routine 07/02/2024 6 :18 AM WRAPPER SELECTOR EGFR Routine 07/02/2024 5:13 AM WRAPPER SELECTOR CBC WITHOUT DIFFERENTIAL Routine 07/02/2024 5:13 AM WRAPPER SELECTOR BASIC METABOLIC PANEL Routine 07/02/2024 5:13 AM WRAPPER SELECTOR POCT GLUCOSE DEVICE Routine 07/01/2024 9 :03 PM WRAPPER SELECTOR POCT ACTIVATED CLOTTING TIME, LOW RANGE Routine 07/01/2024 7:33 PM WRAPPER SELECTOR POCT ACTIVATED CLOTTING TIME, LOW RANGE Routine 07/01/2024 6:31 PM WRAPPER SELECTOR POCT ACTIVATED CLOTTING TIME, LOW RANGE Routine 07/01/2024 5:34 PM WRAPPER SELECTOR POCT ACTIVATED CLOTTING TIME, LOW RANGE Routine 07/01/2024 4:31 PM WRAPPER SELECTOR POCT GLUCOSE DEVICE Routine 07/01/2024 4 :27 PM WRAPPER SELECTOR ANGIOGRAM LOWER EXTREMITY RIGHT IP Routine 07/01/2024 4:24 PM WRAPPER SELECTOR ARTERIOGRAM AORTA ILIAC - FEMORAL 07/01/2024 3:09 PM WRAPPER SELECTOR Atherosclerosis of [place] artery of right lower extremity with intermittent claudication (HCC) POCT GLUCOSE DEVICE Routine 07/01/2024 1 :34 PM WRAPPER SELECTOR documented in this encounter Results * (ABNORMAL) POCT glucose (07/02/2024 6:18 AM WRAPPER SELECTOR) [facility] Signature Glucose, POC 221(H) 70 - 199 mg/dL Comment: For Glucose values <35 mg/dl when Hematocrit is >60 mg/dl,the test may not accurately detect significant hypoglycemia,and testing in the Laboratory should be considered if clinically indicated. Blood 07/02/2024 6:18 AM WRAPPER SELECTOR 07/02/2024 6:18 AM WRAPPER SELECTOR us Dimitrios Mccrary MD LAB POCT ORDERABLES - DEVICE F inal Result Performing Organization Address [facility] Co de Phone Number [facility] [address] [place] [address] * eGFR (07/02/2024 5:13 AM WRAPPER SELECTOR) eGFR >90 >=60 mL/min/1. 73 m2 Comment: [...] reviewed 2021. Blood 07/02/2024 5:1 3 AM WRAPPER SELECTOR 07/02/2024 5:28 AM WRAPPER SELECTOR us Dimitrios Mccrary MD LAB BLOOD ORDERABLES Final Res ult Performing Organization Address [facility]/ZIP Co de Phone Number [facility] [address] [place] [address] * (ABNORMAL) CBC without differential (07/02/2024 5:13 AM WRAPPER SELECTOR) Pathologist [facility] WBC 6.4 3.8 - [...] [facility] Blood 07/02/2024 5:13 AM WRAPPER SELECTOR 07/02/2024 5:29 AM WRAPPER SELECTOR us Dimitrios Mccrary MD LAB BLOOD ORDERABLES Final Res ult [facility] [address] [place] [address] * (ABNORMAL) Basic metabolic panel (07/02/2024 5:13 AM WRAPPER SELECTOR) Sodium 136 135 - 145 mmol/L Potassium, [...] Calcium 8.8 8.5 - 10.3 mg/dL [facility] Blood 07/02/2024 5:13 AM WRAPPER SELECTOR 07/02/2024 5:28 AM WRAPPER SELECTOR Dimitrios Mccrary MD LAB BLOOD ORDERABLES Final Res ult Performing Organization Address [facility] Co de Phone Number [facility] [address] [place], [place] [id number] * POCT glucose (07/01/2024 9:03 PM WRAPPER SELECTOR) [facility] Glucose, POC 193 70 - 199 mg/dL Comment: For Glucose values <35 mg/dl when Hematocrit is >60 mg/dl,the test may not accurately detect significant hypoglycemia,and testing in the Laboratory should be considered if clinically indicated. Blood 07/01/2024 9:03 PM WRAPPER SELECTOR 07/01/2024 9:03 PM WRAPPER SELECTOR Dimitrios Mccrary MD LAB POCT ORDERABLES - DEVICE F inal Result Performing Organization Address [facility] Co de Phone Number [facility] [address] [place], [place] [id number] * POCT Activated clotting time, low range (07/01/2024 7:33 PM WRAPPER SELECTOR) ACT 164 123 - 168 sec Blood 07/01/2024 7:33 PM WRAPPER SELECTOR 07/01/2024 7:33 PM WRAPPER SELECTOR Dimitrios Mccrary MD LAB POCT ORDERABLES - DEVICE F inal Result Performing Organization Address [facility] Co de Phone Number [facility] [address] [place], [place] [id number] * (ABNORMAL) POCT Activated clotting time, low range (07/01/2024 6:31 PM WRAPPER SELECTOR) ACT 181(H) 123 - 168 sec Blood 07/01/2024 6:31 PM WRAPPER SELECTOR 07/01/2024 6:31 PM WRAPPER SELECTOR us Dimitrios Mccrary MD LAB POCT ORDERABLES - DEVICE F inal Result Performing Organization Address [facility] de Phone Number [facility] [address] [facility] [place], [place] [id number] * (ABNORMAL) POCT Activated clotting time, low range (07/01/2024 5:34 PM WRAPPER SELECTOR) ACT 197(H) 123 - 168 sec Blood 07/01/2024 5:34 PM WRAPPER SELECTOR 07/01/2024 5:34 PM WRAPPER SELECTOR Result [facility] us Dimitrios Mccrary MD LAB POCT ORDERABLES - DEVICE F inal Result Performing Organization Address [facility] de Phone Number [facility] [address] [place] [address] * (ABNORMAL) POCT Activated clotting time, low range (07/01/2024 4:31 PM WRAPPER SELECTOR) [facility] Signature ACT 255(H) 123 - 168 sec Blood 07/01/2024 4:31 PM WRAPPER SELECTOR 07/01/2024 4:31 PM WRAPPER SELECTOR Result [facility] us Dimitrios Mccrary MD LAB POCT ORDERABLES - DEVICE F inal Result Performing Organization Address [facility] de Phone Number [facility] [address] [facility] [place], [place] [phone] * POCT glucose (07/01/2024 4:27 PM WRAPPER SELECTOR) [facility] Glucose, POC 97 70 - 199 mg/dL Comment: For Glucose values <35 mg/dl when Hematocrit is >60 mg/dl,the test may not accurately detect significant hypoglycemia,and testing in the Laboratory should be considered if clinically indicated. Blood 07/01/2024 4:27 PM WRAPPER SELECTOR 07/01/2024 4:27 PM WRAPPER SELECTOR Result [facility] us Dimitrios Mccrary MD LAB POCT ORDERABLES - DEVICE F inal Result Performing Organization Address [facility] Co de Phone Number [facility] [address] [place] [address] * IR Angiogram Lower Extremity Right (07/01/2024 4:24 PM WRAPPER SELECTOR) Narrative CONS SCIMAGE - 07/01/2024 4:25 PM WRAPPER SELECTOR The images from this study are not interpreted by Radiology. Please refer to the physician's procedure / OR operative note. us Dimitrios Mccrary MD IMG IR PROCEDURES Final Result Performing Organization Address [facility] Co in Phone Number [facility] SC[facility] * POCT glucose (07/01/2024 1:34 PM WRAPPER SELECTOR) [facility] Glucose, POC 129 70 - 199 mg/dL Comment: For Glucose values <35 mg/dl when Hematocrit is >60 mg/dl,the test may not accurately detect significant hypoglycemia,and testing in the Laboratory should be considered if clinically indicated. Blood 07/01/2024 1:34 PM WRAPPER SELECTOR 07/01/2024 1:34 PM WRAPPER SELECTOR Result [facility] us Dimitrios Mccrary MD LAB POCT ORDERABLES - DEVICE F inal Result Performing Organization Address [facility] Co de Phone Number [facility] [address] [place] [address] documented in this encounter Visit Diagnoses Diagnosis Atherosclerosis of [place] artery of right lower extremity with intermittent claudication (HCC)- Primary Atherosclerosis of [place] artery of right lower extremity with intermittent claudication (HCC) documented in this encounter Admitting Diagnoses Diagnosis Atherosclerosis of [place] artery of right lower extremity with intermittent claudication (HCC) documented in this encounter Administered Medications Inactive Administered Medications - up to 3 most recent administrations Medication Order MAR Action Action Date Dose Rate Site acetaminophen (TYLENOL) tablet 1,000 mg 1,000 mg, oral, Once, On Sat07/01/24 at 1400, For 1 dose, Pre-Op, Indications: Pre-Emptive AnalgesiaIndications:Pre-Em ptive Analgesia Given 07/01/2024 1:32 PM WRAPPER SELECTOR 1,000 mg aspirin enteric coated tablet 81 mg 81 mg, oral, Nightly, First dose on Sat07/01/24 at 2115, Do not crush, chew, cut, dissolve, open or otherwise manipulate tablet/capsule. Given 07/01/2024 9:00 PM WRAPPER SELECTOR 81 mg ceFAZolin (ANCEF) 1 gram/10 mL in sterile water (premix) 1,000 mg 1,000 mg, intravenous, at 200 mL/hr, Administer over 3 Minutes, Every 8 hours, First dose on Sat07/01/24 at 2200, For 2 doses, Start 8 hours after pre-op dose., Indications: Prophylaxis, SurgicalIndications:Prophyl axis, Surgical Given 07/02/2024 5:30 AM WRAPPER SELECTOR 1,000 mg 200 mL/hr Given 07/01/2024 9:15 PM WRAPPER SELECTOR 1,000 mg 200 mL/hr cilostazoL (PLETAL) tablet 100 mg 100 mg, oral, 2 times daily, First dose on Sat07/01/24 at 2115, Indications: Intermittent ClaudicationIndications:Intermittent Claudication Given 07/02/2024 9:23 AM WRAPPER SELECTOR 100 mg Given 07/01/2024 9:07 PM WRAPPER SELECTOR 100 mg clopidogreL (PLAVIX) tablet 75 mg 75 mg, oral, Every morning, First dose on Rosa 07/02/24 at 0900 Given 07/02/2024 9:23 AM WRAPPER SELECTOR 75 mg dextrose (D10W) 10% bolus 250 [...] Call MD for each episode of hypoglycemia. UNDERWATER HUNTER TRAPPER STATES GLUTOSE-15 CONTAINS GLUCOSE 40% W/W (50% W/V), Indications: hypoglycemic disorderIndications:hypogly cemic disorder dimenhyDRINATE (DRAMAMINE) tablet 25 mg 25 mg, oral, Once, On Sat07/01/24 at 1400, For 1 dose, Pre-Op, Indications: Prevention of Nausea and VomitingIndications:Prevent ion of Nausea and Vomiting Given 07/01/2024 1:32 PM WRAPPER SELECTOR 25 mg enoxaparin (LOVENOX) syringe 40 mg 40 mg, subcutaneous, Daily (for enoxaparin), First dose on Sat07/01/24 at 2114, Indications: Deep Vein Thrombosis PreventionIndications:Deep Vein Thrombosis Prevention Given 07/01/2024 9:00 PM WRAPPER SELECTOR 40 mg Left Lower Abdomen gabapentin (NEURONTIN) capsule 300 mg 300 mg, oral, Once, On Sat07/01/24 at 1400, For 1 dose, Pre-Op, Indications: Pre-Emptive AnalgesiaIndications:Pre-Em ptive Analgesia Given 07/01/2024 1:33 PM WRAPPER SELECTOR 300 mg insulin lispro (HumaLOG, ADMELOG) 100 [...] HyperglycemiaIndications:St ress Hyperglycemia Given 07/02/2024 6:22 AM WRAPPER SELECTOR 2 Units Left Lower Abdomen labetaloL (NORMODYNE,TRANDATE) injection 5 mg 5 mg, intravenous, at 30 mL/hr, Administer over 2 Minutes, Every 10 min PRN, high blood pressure, Starting on Sat07/01/24 at 1841, For 4 doses, Phase I, Max cumulative dose 20 mg. Dose if systolic blood pressure greater than 180 AND heart rate greater than 70. Given 07/01/2024 7:55 PM WRAPPER SELECTOR 5 mg 30 mL/hr Given 07/01/2024 7:40 PM WRAPPER SELECTOR 5 mg 30 mL/hr Given 07/01/2024 6:48 PM WRAPPER SELECTOR 5 mg 30 mL/hr oxyCODONE (ROXICODONE) tablet 5 mg 5 mg, oral, Every 4 hours PRN, 2nd line for pain, Starting on Sat07/01/24 at 2043, May administer 1 hour after 1st line analgesic agent for uncontrolled or increasing pain., Indications: PainIndications:Pain Given 07/02/2024 10:52 AM WRAPPER SELECTOR 5 mg Given 07/02/2024 4:20 AM WRAPPER SELECTOR 5 mg Given 07/02/2024 12:24 AM WRAPPER SELECTOR 5 mg oxyCODONE (ROXICODONE) tablet 5 mg 5 mg, oral, As needed, 1st line for pain, Starting on Sat07/01/24 at 1841, For 2 doses, Phase I, 1st ORAL choice for pain, when the patient is able to tolerate PO medications. May repeat in 1 hour if pain is uncontrolled or increasing after 1st dose., Indications: PainIndications:Pain Given 07/01/2024 6:48 PM WRAPPER SELECTOR 5 mg sodium chloride 0.9% flush 0.5-20 mL 0.5-20 mL, intra-catheter, Every 8 hours scheduled, First dose on Sat07/01/24 at 2200, Flush volume based on line type and size. , Indications: FlushingIndications:Flushing Given 07/02/2024 5:30 AM WRAPPER SELECTOR 10 mL Given 07/01/2024 9:01 PM WRAPPER SELECTOR 10 mL sodium chloride 0.9% infusion 100 mL/hr, intravenous, Continuous, Starting on Sat07/01/24 at 2115, Phase I & Post-op Floor, May discontinue when tolerating PO (more than 250 mL in 8 hours) New Bag 07/01/2024 9:00 PM WRAPPER SELECTOR 100 mL/hr 100 mL/hr tamsulosin (FLOMAX) extended release capsule 0.4 mg 0.4 mg, oral, Nightly, First dose on Sat07/01/24 at 2115, Do not crush, chew, cut, dissolve, open or otherwise manipulate tablet/capsule. Given 07/01/2024 9:00 PM WRAPPER SELECTOR 0.4 mg documented in this encounter Active and Recently Administered Medications Times are shown in WRAPPER SELECTOR. Scheduled Medication Order 06/30/2024 07/01/2024 07/02/2024 acetaminophen [...] Call MD for each episode of hypoglycemia. UNDERWATER HUNTER TRAPPER STATES GLUTOSE-15 CONTAINS GLUCOSE 40% W/W (50% [...] Call MD for each episode of hypoglycemia. UNDERWATER HUNTER TRAPPER STATES GLUTOSE-15 CONTAINS GLUCOSE 40% W/W (50% [...] 07/02/2024 documented in this encounter Care Teams Life Skills Coach Relationship Specialty [place] [id number] [address] PCP - General Family Practice 12/18/21 Dev Burrell MD [address] [place] [place] [address] Consulting Physician Radiation Oncology 04/24/18 [place] [address] [place] [address] Urology 04/24/18 [place] [address] [address] Urology 04/24/18 [place] [address] [address] Consulting Physician Urology 04/13/23 Dimitrios Mccrary MD [address] [facility] [address] [place] [address] Surgeon Vascular Surgery 11/01/23 documented as of this encounter
--- OUTSIDE RECORDS SUMMARY | 2024-07-03 07:38 | XMS_ITS | Encounter Summary ---
Author Organization [facility] Address [address] [place] [address] Care Team Providers Care Framing Inspector Name Role Phone Jay Alanis MD Primary Care Provider [phone] Nacho Mcghee MD Primary Care Provider [phone] Encounter Details Date Type Department Care Team (Late st Contact Info) Description 11/09/2019 Prep for Procedure [facility] [address] [place] [address] Duy Lopez MD [address] [id number] Social History Tobacco Use Types Packs/Day Years [...] DETECTED NOT DETECTED 11/13/2019 4:04 AM CDT [facility] Comment: A Not Detected (negative) test result [...] providers and patients using the following websites: https://[email or web address]/home/Covid-19/HCP/NAAT/fact-sheet2 [email or web address]://[email or web address].Dakim/home/Covid-19/Patients/NAAT/ fact-sheet2 This test has been authorized by the FDA under an Emergency Use Authorization (EUA) for use by authorized laboratories. Due to the current public health emergency, [facility] is receiving a high volume of samples [...] about COVID-19 can be found at the [facility] website: www.AuthorBee.Dakim/Covid19. Test performed at [facility] [place] [address] [place] [address] Director: NADYA HANDLEY DO,MPH NASOPHARYNGEAL SWAB / Unknown 11/11/2019 10:12 AM CDT us Duy Lopez MD MICROBIOLOGY - GENERAL ORDERABLE S Final Result [facility] [address] [place] [address], documented in this encounter Visit Diagnoses Diagnosis Preop testing- Primary Preoperative examination, unspecified documented in this encounter Additional Health Concerns Infection Onset Date Last Indicated Resolved Time COVID-19 Rule Out 11/11/2019 11/11/2019 11/13/2019 4:04 AM CDT documented as of this encounter Care Teams Framing Inspector Relationship Specialty Start Date End Date Jay Alanis MD PCP - General INTERNAL MEDICINE 08/27/18 08/17/21 [place] [address] [place] [address] PCP - General FAMILY PRACTICE 08/18/21 documented as of this encounter
--- OUTSIDE RECORDS SUMMARY | 2024-07-03 07:38 | XMS_ITS | Referral Summary ---
[facility] Organization [facility] B Address [address] [place] [address] Care Team Providers Care Special Education Resource Teacher Name Role Phone Dev Burrell MD Unavailable Phillip Schafer MD Unavailable [phone] Star Ellis MD Unavailable [phone] Ally Mcghee MD Primary Care Provider [phone] Mary Anne Rodriguez MD Unavailable [phone] Dimitrios Mccrary MD Unavailable [phone] Encounters Date Type Department Care Team Description 07/02/2024 Telephone [facility] Surgery [address] Floor 1 [place] [address] Dimitrios Mccrary MD 07/01/2024 1:11 PM CAN DOFFER - 07/02/2024 10:58 AM CAN DOFFER Hospital Encounter [facility] [address] [place] [address] Dimitrios Mccrary MD Atherosclerosis of [place] artery of right lower extremity with intermittent claudication (HCC) (Primary Dx) Discharge Disposition: Discharge to home or self care 07/01/2024 3:00 PM CAN DOFFER - 07/01/2024 5:30 PM CAN DOFFER Surgery [facility] Operating Room [facility] [place] [phone] Dimitrios Mccrary MD AIF Angiogram, Right Leg Run off, Angioplasty Right Popliteal Artery 07/01/2024 3:09 PM CAN DOFFER Anesthesia Event [facility] Operating Room [address] [place] [phone] Venecia Hennessy DO Devuono, Lauren Falvey, NP 06/22/2024 12:15 PM CAN DOFFER Pre-Admission Testing [facility] Pre Anesthesia Testing [address] [place] [phone] Preoperative testing (Primary Dx) 06/19/2024 Telephone [facility] Surgery [address] [place] [phone] Dimitrios Mccrary MD Med Management 06/16/2024 11:00 AM CAN DOFFER Ancillary Procedure [facility] Surgery [address] [place] [phone] Encounter for surgical aftercare following surgery on the circulatory system 06/16/2024 11:45 AM CAN DOFFER Office Visit [facility] Surgery [address] [place] [phone] Eliseo Hyde PA Atherosclerosis of [place] artery of right lower extremity with intermittent claudication (HCC); Claudication (HCC) 05/13/2024 Orders Only [facility] Surgery [address] [place] [phone] Dimitrios Mccrary MD Encounter for surgical aftercare following surgery on the circulatory system (Primary Dx) 05/13/2024 11:00 AM CAN DOFFER Office Visit [facility] Surgery [address] [place] [phone] Dimitrios Mccrary MD Atherosclerosis of [place] artery of left lower extremity with intermittent claudication (HCC) (Primary Dx) 04/30/2024 5:33 AM CAN DOFFER - 05/03/2024 2:15 PM CAN DOFFER Hospital Encounter [address] [place] [phone] Dimitrios Mccrary MD Atherosclerosis of [place] artery of left lower extremity with intermittent claudication (HCC) Discharge Disposition: Discharge to home or self care 04/30/2024 7:30 AM CAN DOFFER - 04/30/2024 12:00 PM CAN DOFFER Surgery [facility] Operating Room [address] [place] [phone] Dimitrios Mccrary MD Left Femoral Artery Endarterectomy, Left Iliac Artery Stent, Left AIF and Ateriogram 04/30/2024 7:48 AM CAN DOFFER Anesthesia Event [facility] Operating Room [address] [place] [phone] Wilma Manjarrez MD Czajkowski, Lesly June, NP 04/15/2024 Documentation [facility] Surgery [address] [place] [phone] Ligia Sun PA lower extremity vein mapping results 04/09/2024 11:45 AM CAN DOFFER Pre-Admission Testing [facility] Pre Anesthesia Testing [address] [place] [phone] Preop testing (Primary Dx) 04/07/2024 11:19 AM CAN DOFFER - 04/07/2024 5:13 PM CAN DOFFER Emergency [facility] Emergency Department [address] [place] [phone] Richard Armstrong MD Dizziness (Primary Dx); Episode of hypertension; Urine leukocytes Discharge Disposition: Discharge to home or self care 04/07/2024 9:30 AM CAN DOFFER Procedure visit [facility] [address] [place] [phone] Irradiation cystitis with hematuria; Soft tissue radionecrosis 04/06/2024 8:00 AM CAN DOFFER Ancillary Procedure [facility] Surgery [address] [phone] Claudication of lower extremity (HCC); Preop examination 04/06/2024 9:30 AM CAN DOFFER Procedure visit [facility] [address] [place] [phone] Irradiation cystitis with hematuria; Soft tissue radionecrosis 04/03/2024 9:30 AM CAN DOFFER Procedure visit [facility] [place] [phone] Irradiation cystitis with hematuria; Soft tissue radionecrosis [...] hypertension 04/07/2024 Urine leukocytes 04/07/2024 Atherosclerosis of tat[place]k ar eric of left lower extremity with intermittent claudication 03/26/2024 Preop examination 03/25/2024 Cystitis 01/04/2024 Hematuria 11/09/2023 History of prostate cancer 11/09/2023 Urinary retention 11/09/2023 Stricture of bulbous urethra in male 07/08/2023 Perineal lump 05/08/2023 Microscopic hematuria 05/08/2023 Claudication of lower extremity 04/08/2023 Assessment & Plan (03/25/2024 9:38 AM CAN DOFFER): Debilitating left calf claudication with evidence of [...] his Matute catheter as needed. Atherosclerosis of tatitlek ar eric of both lower extremities with [...] risk of limb loss and need for jail follow-up. Assessment & Plan (06/17/2024 11:05 AM CAN DOFFER): He has a progressive right in-stent popliteal [...] risk of limb loss and need for jail follow-up. He understands the potential need for lifelong Plavix therapy if stents are placed. Assessment & Plan (04/08/2023 12:58 PM CAN DOFFER): He has debilitating bilateral calf claudication and [...] risk of limb loss and need for exterminator follow-up. Atherosclerosis of [place] ar eric of right lower extremity with intermittent claudication 04/08/2023 Carpal tunnel syndrome on right 08/15/2021 Overview (08/15/2021): Added automatically from request for surgery [id number] Lesion of right ulnar nerve 08/15/2021 Overview (08/15/2021): Added automatically from request for surgery [id number] Cubital tunnel syndrome on left 07/21/2021 Overview (07/21/2021): Added automatically from request for surgery [id number] Carpal tunnel syndrome on left 07/21/2021 Overview (07/21/2021): Added automatically from request for surgery [id number] Vascular disease 06/25/2021 Overweight with body mass index (BMI) 25.0-29.9 10/13/2015 Type 2 diabetes mellitus wit hout complication, without long-term current use of insulin ([facility]) 07/11/2011 Overview (09/11/2023): DMII WO CMP [...] drink = 0.6 oz pur e alcohol) [facility] Utilities Answer Date Recorded In the past [...] often do you attend chur ch or nondenominational services? More than 4 times per year 05/01/2024 Do you belong to any clubs o r organizations such as zoroastrian groups, unions, fraternal or athletic groups, or [...] in the past 12 m [facility], were you homeless or living in a fpc (including now)? No 05/01/2024 Personal Safety Answer Date Recorded Have you ever been in or are you currently in a harmful physical or emotional relationship or is someone making you feel afraid or unsafe? Denies 07/01/2024 Sex and Gender Information Value Date Recorded Sex Assigned at Not on file Legal Sex Male 2:12 AM CAN DOFFER Gender Identity Not on file Sexual Orientation Not on file Last Filed Vital Signs Vital Sign Reading Time Taken Comments Blood Pressure 162/87 07/02/2024 8:27 AM CAN DOFFER Pulse 72 07/02/2024 8:27 AM CAN DOFFER Temperature 36.2 C (97.1 F) 07/02/2024 8:27 AM CAN DOFFER Respiratory Rate 15 07/02/2024 8:27 AM CAN DOFFER Oxygen Saturation 98% 07/02/2024 8:27 AM CAN DOFFER Inhaled Oxygen Concentration - - Weight 78.6 kg (173 lb 4.5 oz) 07/01/2024 1:20 P M CAN DOFFER Height 170.2 cm (5' 7 ) 07/01/2024 1:20 PM CAN DOFFER Body Mass Index 27.14 07/01/2024 1:20 PM CAN DOFFER Plan of Treatment Not on file Medical Devices Implanted Type Area Cvor Nurse Device Identifier Shelf Expiration Date Model / Serial / Lot [employer] Viabahn 6mm 25cm 120cm Flexible Self Expand Radiopaque Stent [id number] - [id number] - [id number] Implanted:Qty: 1 on 10/31/2023 by Dimitrios Mccrary MD at [facility] Stent Right: Superficial Femoral Artery [employer] 06/04/2025 [id number] / [id number] / [employer] Viabahn 6mm 6fr 10cm 120cm Delivery System Superficial Femoral [id number] - [id number] - [id number] Implanted:Qty: 1 on 10/31/2023 by Dimitrios Mccrary MD at [facility] Stent Right: Superficial Femoral Artery [employer] 01/05/2025 [id number] / [id number] / Med[employer] Protege Everflex 5mm .079in 40mm 120cm Otw Delivery System Self [id number] - [id number] Implanted:Qty: 1 on 10/31/2023 by Dimitrios Mccrary MD at [facility] Stent Right: Popleteal Artery [employer] Inc 12/19/2024 [id number] / / [id number] Ar[employer] Ar-2324 Bcm Swivelock 4.75mm 24.5mm Self Punch Vent Shoulder Tad Suture - [id number] Implanted:Qty: 1 on 04/18/2022 by Dg Martins MD at [facility] Left: Shoulder [employer] [id number] 04/04/2025 A [id number] CM / / [id number] [employer] Set Implant Arthrex Fibertak Biceps Sterile Latex Free Ar-3670 - [id number] Implanted:Qty: 1 on 04/18/2022 by Dg Martins MD at [facility] Left: Shoulder [employer] [id number] 08/03/2026 A R-3670 / / [id number] [employer]ife [employer] Graft Patch Patch Vascular Repair 0.8x8cm 0.8x8cm Pfp0.8x8 - [id number] Implanted:Qty: 1 on 04/30/2024 by Dimitrios Mccrary MD at [facility] Left: Femoral [employer] 11/01/2025 PFP0. 8X8 / / [id number] Description:Bovine pericardi um patch Bard Peripheral Vascular Lifestent 8mm 6fr 60mm 80cm Self Expand Catheter Helical [id number] - [id number] Implanted:Qty: 1 on 04/30/2024 by Dimitrios Mccrary MD at [facility] Left: Common Iliac Artery Bard Peripheral Vascular 08/26/2025 [id number] / / [id number] Procedures Procedure Name Priority Date/Time Associated Diagnosis Comments POCT GLUCOSE DEVICE Routine 07/02/2024 6 :18 AM CAN DOFFER EGFR Routine 07/02/2024 5:13 AM CAN DOFFER CBC WITHOUT DIFFERENTIAL Routine 07/02/2024 5:13 AM CAN DOFFER BASIC METABOLIC PANEL Routine 07/02/2024 5:13 AM CAN DOFFER POCT GLUCOSE DEVICE Routine 07/01/2024 9 :03 PM CAN DOFFER POCT ACTIVATED CLOTTING TIME, LOW RANGE Routine 07/01/2024 7:33 PM CAN DOFFER POCT ACTIVATED CLOTTING TIME, LOW RANGE Routine 07/01/2024 6:31 PM CAN DOFFER POCT ACTIVATED CLOTTING TIME, LOW RANGE Routine 07/01/2024 5:34 PM CAN DOFFER POCT ACTIVATED CLOTTING TIME, LOW RANGE Routine 07/01/2024 4:31 PM CAN DOFFER POCT GLUCOSE DEVICE Routine 07/01/2024 4 :27 PM CAN DOFFER ANGIOGRAM LOWER EXTREMITY RIGHT IP Routine 07/01/2024 4:24 PM CAN DOFFER GA AN PROCEDURE PLACEHOLDER Routine 07/01/2024 3:32 PM CAN DOFFER GA AN ELECTIVE SUPRAGLOTTIC AIRWAY Routine 07/01/2024 3:32 PM CAN DOFFER ARTERIOGRAM AORTA ILIAC - FEMORAL 07/01/2024 3:09 PM CAN DOFFER Atherosclerosis of [place] artery of right lower extremity with intermittent claudication (HCC) POCT GLUCOSE DEVICE Routine 07/01/2024 1 :34 PM CAN DOFFER EGFR Routine 06/22/2024 2:09 PM CAN DOFFER Preoperative testing BASIC METABOLIC PANEL Routine 06/22/2024 2:09 PM CAN DOFFER Preoperative testing DIFFERENTIAL AUTO Routine 06/22/2024 1:2 6 PM CAN DOFFER Preoperative testing CBC WITH AUTO DIFFERENTIAL Routine 06/22/2024 1:26 PM CAN DOFFER Preoperative testing TYPE AND SCREEN Routine 06/22/2024 1:26 PM CAN DOFFER Preoperative testing PROTIME-INR Routine 06/22/2024 1:26 PM CAN DOFFER Preoperative testing APTT Routine 06/22/2024 1:26 PM CAN DOFFER Preoperative testing HEMOGLOBIN A1C Routine 06/22/2024 1:26 PM CAN DOFFER Preoperative testing US ARTERIAL DUPLEX LOWER EXTREMITY RIGHT LIMITED Schedule Routine, Read Routine (OP Routine) 06/16/2024 12:05 PM CAN DOFFER Encounter for surgical aftercare following surgery on the circulatory system US ARTERIAL DOPPLER LOWER EXTREMITY BILATERAL Schedule Routine, Read Routine (OP Routine) 06/16/2024 12:05 PM CAN DOFFER Encounter for surgical aftercare following surgery on the circulatory system POCT GLUCOSE DEVICE Routine 05/03/2024 11:58 AM CAN DOFFER POCT GLUCOSE DEVICE Routine 05/03/2024 8 :09 AM CAN DOFFER POCT GLUCOSE DEVICE Routine 05/03/2024 3 :14 AM CAN DOFFER POCT GLUCOSE DEVICE Routine 05/02/2024 11:29 PM CAN DOFFER POCT GLUCOSE DEVICE Routine 05/02/2024 8 :17 PM CAN DOFFER POCT GLUCOSE DEVICE Routine 05/02/2024 4 :26 PM CAN DOFFER POCT GLUCOSE DEVICE Routine 05/02/2024 12:26 PM CAN DOFFER EGFR Routine 05/02/2024 11:13 AM CAN DOFFER DIFFERENTIAL AUTO Routine 05/02/2024 11:13 AM CAN DOFFER COMPREHENSIVE METABOLIC PANEL Routine 05/02/2024 11:13 AM CAN DOFFER CBC WITH AUTO DIFFERENTIAL Routine 05/02/2024 11:13 AM CAN DOFFER POCT GLUCOSE DEVICE Routine 05/02/2024 7 :45 AM CAN DOFFER EGFR Routine 05/02/2024 5:21 AM CAN DOFFER DIFFERENTIAL AUTO Routine 05/02/2024 5:2 1 AM CAN DOFFER COMPREHENSIVE METABOLIC PANEL Routine 05/02/2024 5:21 AM CAN DOFFER CBC WITH AUTO DIFFERENTIAL Routine 05/02/2024 5:21 AM CAN DOFFER POCT GLUCOSE DEVICE Routine 05/02/2024 4 :01 AM CAN DOFFER POCT GLUCOSE DEVICE Routine 05/02/2024 12:57 AM CAN DOFFER POCT GLUCOSE DEVICE Routine 05/01/2024 9 :10 PM CAN DOFFER POCT GLUCOSE DEVICE Routine 05/01/2024 6 :30 PM CAN DOFFER POCT GLUCOSE DEVICE Routine 05/01/2024 4 :34 PM CAN DOFFER POCT GLUCOSE DEVICE Routine 05/01/2024 11:49 AM CAN DOFFER POCT GLUCOSE DEVICE Routine 05/01/2024 7 :32 AM CAN DOFFER ECG 12-LEAD Routine 05/01/2024 5:06 AM CAN DOFFER EGFR Routine 05/01/2024 4:34 AM CAN DOFFER BASIC METABOLIC PANEL Routine 05/01/2024 4:34 AM CAN DOFFER CBC WITHOUT DIFFERENTIAL Routine 05/01/2024 4:34 AM CAN DOFFER POCT GLUCOSE DEVICE Routine 05/01/2024 3 :50 AM CAN DOFFER POCT GLUCOSE DEVICE Routine 05/01/2024 12:37 AM CAN DOFFER POCT GLUCOSE DEVICE Routine 04/30/2024 9 :24 PM CAN DOFFER POCT GLUCOSE DEVICE Routine 04/30/2024 4 :21 PM CAN DOFFER CBC WITHOUT DIFFERENTIAL STAT 04/30/2024 12:08 PM CAN DOFFER POCT GLUCOSE DEVICE Routine 04/30/2024 11:18 AM CAN DOFFER ANGIOGRAM LOWER EXTREMITY LEFT IP Routine 04/30/2024 10:45 AM CAN DOFFER SURGICAL PATHOLOGY Routine 04/30/2024 10:44 AM CAN DOFFER Atherosclerosis of [place] artery of left lower extremity with intermittent claudication (HCC) GA AN PROCEDURE PLACEHOLDER Routine 04/30/2024 8:12 AM CAN DOFFER GA AN ELECTIVE ENDOTRACHEAL AIRWAY Routine 04/30/2024 8:12 AM CAN DOFFER ENDARTERECTOMY WITH AIF INTERVENTION - FEMORAL ARTERY 04/30/2024 7:47 AM CAN DOFFER Atherosclerosis of [place] artery of left lower extremity with intermittent claudication (HCC) POCT GLUCOSE DEVICE Routine 04/30/2024 7 :43 AM CAN DOFFER B CHECK SAMPLE STAT 04/30/2024 6:25 AM CAN DOFFER PROTIME-INR Routine 04/09/2024 12:38 PM CAN DOFFER Preop testing APTT Routine 04/09/2024 12:38 PM CAN DOFFER Preop testing HEMOGLOBIN A1C Routine 04/09/2024 12:38 PM CAN DOFFER Preop testing EGFR Routine 04/09/2024 12:37 PM CAN DOFFER Preop testing BASIC METABOLIC PANEL Routine 04/09/2024 12:37 PM CAN DOFFER Preop testing TYPE AND SCREEN Routine 04/09/2024 12:25 PM CAN DOFFER Preop testing URINALYSIS, MICROSCOPIC ONLY STAT 04/07/2024 1:00 PM CAN DOFFER URINALYSIS AND REFLEX TO MICROSCOPIC AND CULTURE STAT 04/07/2024 1:[address] HEAD WO CONTRAST ED 04/07/2024 12:59 PM CAN DOFFER EGFR STAT 04/07/2024 12:28 PM CAN DOFFER DIFFERENTIAL AUTO STAT 04/07/2024 12:28 PM CAN DOFFER TROPONIN T HIGH-SENSITIVITY SERIES (BASELINE, 2HR, 4HR, 6HR) STAT 04/07/2024 12:28 PM CAN DOFFER COMPREHENSIVE METABOLIC PANEL STAT 04/07/2024 12:28 PM CAN DOFFER CBC WITH AUTO DIFFERENTIAL STAT 04/07/2024 12:28 PM CAN DOFFER ECG 12-LEAD STAT 04/07/2024 10:29 AM CAN DOFFER POCT GLUCOSE DEVICE Routine 04/07/2024 9 :52 AM CAN DOFFER POCT GLUCOSE DEVICE Routine 04/07/2024 9 :20 AM CAN DOFFER POCT GLUCOSE DEVICE Routine 04/06/2024 11:05 AM CAN DOFFER US VEIN MAPPING DUPLEX LOWER EXTREMITY BILATERAL Schedule Routine, Read Routine (OP Routine) 04/06/2024 10:17 AM CAN DOFFER Claudication of lower extremity (HCC) Preop examination POCT GLUCOSE DEVICE Routine 04/06/2024 9 :14 AM CAN DOFFER POCT GLUCOSE DEVICE Routine 04/03/2024 11:13 AM CAN DOFFER POCT GLUCOSE DEVICE Routine 04/03/2024 11:07 AM CAN DOFFER POCT GLUCOSE DEVICE Routine 04/03/2024 9 :19 AM CAN DOFFER POCT GLUCOSE DEVICE Routine 04/03/2024 9 :09 AM CAN DOFFER CTA ABDOMINAL AORTA AND BILATERAL ILIOFEMORAL RUNOFF Schedule Routine, Read Routine (OP Routine) 01/18/2024 10:50 AM CDT Atherosclerosis of [place] artery of left lower extremity with intermittent claudication (HCC) PSA, TOTAL AND FREE Routine 04/13/2023 12:18 PM CAN DOFFER from Last 3 Months or Most Recently Relevant to Health Maintenance Results * (ABNORMAL) POCT glucose (07/02/2024 6:18 AM CAN DOFFER) [facility] [address] Glucose, POC 221(H) 70 - 199 mg/dL Comment: For Glucose values <35 mg/dl when Hematocrit is >60 mg/dl,the test may not accurately detect significant hypoglycemia,and testing in the Laboratory should be considered if clinically indicated. Blood 07/02/2024 6:18 AM CAN DOFFER 07/02/2024 6:18 AM CAN DOFFER us Dimitrios Mccrary MD LAB POCT ORDERABLES - DEVICE F inal Result [facility] [address] Department [place] [address] * eGFR (07/02/2024 5:13 AM CAN DOFFER) [facility] [address] eGFR >90 >=60 mL/min/1. 73 m2 Comment: [...] last reviewed 2021. Blood 07/02/2024 5:13 AM CAN DOFFER 07/02/2024 5:28 AM CAN DOFFER us Dimitrios Mccrary MD LAB BLOOD ORDERABLES Final Res ult [facility] [address] Department [place] [address] * (ABNORMAL) CBC without differential (07/02/2024 5:13 AM CAN DOFFER) [facility] [address] WBC 6.4 3.8 - 9.9 K/cumm Hgb 12.0(L) 13.0 - 17.5 g/dL [facility] Hct 36.5(L) 38.9 - 50.3 % [facility] Plt 156 150 - 400 K/cumm [facility] MPV 11.5 9.1 - 12.3 fL [facility] RBC 4.11(L) 4.30 - 5.80 M/cumm [facility] MCV 88.8 81.3 - 96.4 fL [facility] MCH 29.2 27.1 - 33.3 pg [facility] MCHC 32.9 32.3 - 35.7 g/dL [facility] RDW CV 12.3 11.1 - 14.9 % [facility] RDW SD 40.4 35.7 - 48.1 fL [facility] NRBC abs 0.00 0.00 - 0.01 K/cumm [facility] Blood 07/02/2024 5:13 AM CAN DOFFER 07/02/2024 5:29 AM CAN DOFFER us Dimitrios Mccrary MD LAB BLOOD ORDERABLES Final Res ult [facility] [address] Department [place] [address] * (ABNORMAL) Basic metabolic panel (07/02/2024 5:13 AM CAN DOFFER) Sodium 136 135 - 145 mmol/L Potassium, pl 4.4 3.3 - 4.9 mmol/L [facility] Chloride 100 97 - 110 mmol/L [facility] CO2 24 22 - 32 mmol/L [facility] Anion gap 12 2 - 15 mmol/L [facility] BUN 14 6 - 25 mg/dL [facility] Creatinine 0.90 0.80 - 1.30 mg/dL [facility] Glucose 280(H) 70 - 199 mg/dL [facility] Comment: Interpretive Data Fasting glucose [...] 2022. Calcium 8.8 8.5 - 10.3 mg/dL [facility] Blood 07/02/2024 5:13 AM CAN DOFFER 07/02/2024 5:28 AM CAN DOFFER us Dimitrios Mccrary MD LAB BLOOD ORDERABLES Final Res ult Performing Organization Address [facility] [[email or web address]] de Phone Number [facility] [address] [facility] [employer] [place] [address] * POCT glucose (07/01/2024 9:03 PM CAN DOFFER) [facility] [address] Glucose, POC 193 70 - 199 mg/dL Comment: For Glucose values <35 mg/dl when Hematocrit is >60 mg/dl,the test may not accurately detect significant hypoglycemia,and testing in the Laboratory should be considered if clinically indicated. Blood 07/01/2024 9:03 PM CAN DOFFER 07/01/2024 9:03 PM CAN DOFFER Result Sidra Mccrary MD LAB POCT ORDERABLES - DEVICE F inal Result Performing Organization Address [facility] de Phone Number [facility] [address] [facility] [place] [place] [address] * POCT Activated clotting time, low range (07/01/2024 7:33 PM CAN DOFFER) ACT 164 123 - 168 sec Blood 07/01/2024 7:33 PM CAN DOFFER 07/01/2024 7:33 PM CAN DOFFER Result Sidra Mccrary MD LAB POCT ORDERABLES - DEVICE F inal Result Performing Organization Address [facility] [[email or web address]] de Phone Number [facility] [address] [facility] [place] [place] [address] * (ABNORMAL) POCT Activated clotting time, low range (07/01/2024 6:31 PM CAN DOFFER) ACT 181(H) 123 - 168 sec Blood 07/01/2024 6:31 PM CAN DOFFER 07/01/2024 6:31 PM CAN DOFFER Result Sidra Mccrary MD LAB POCT ORDERABLES - DEVICE F inal Result Performing Organization Address [facility] Co de Phone Number [facility] [address] [place], [place] [phone] * (ABNORMAL) POCT Activated clotting time, low range (07/01/2024 5:34 PM CAN DOFFER) ACT 197(H) 123 - 168 sec Blood 07/01/2024 5:34 PM CAN DOFFER 07/01/2024 5:34 PM CAN DOFFER us Dimitrios Mccrary MD LAB POCT ORDERABLES - DEVICE F inal Result Performing Organization Address [facility] Co de Phone Number [facility] [address] [facility] [place] [place] [address] * (ABNORMAL) POCT Activated clotting time, low range (07/01/2024 4:31 PM CAN DOFFER) ACT 255(H) 123 - 168 sec Blood 07/01/2024 4:31 PM CAN DOFFER 07/01/2024 4:31 PM CAN DOFFER us Dimitrios Mccrary MD LAB POCT ORDERABLES - DEVICE F inal Result Performing Organization Address [facility] Co de Phone Number [facility] [address] [place] [address] * POCT glucose (07/01/2024 4:27 PM CAN DOFFER) [facility] [address] Glucose, POC 97 70 - 199 mg/dL Comment: For Glucose values <35 mg/dl when Hematocrit is >60 mg/dl,the test may not accurately detect significant hypoglycemia,and testing in the Laboratory should be considered if clinically indicated. Blood 07/01/2024 4:27 PM CAN DOFFER 07/01/2024 4:27 PM CAN DOFFER us Dimitrios Mccrary MD LAB POCT ORDERABLES - DEVICE F inal Result [facility] [address] Department [place] [address] * IR Angiogram Lower Extremity Right (07/01/2024 4:24 PM CAN DOFFER) Narrative KATELYN BRAVOMAGE - 07/01/2024 4:25 PM CAN DOFFER The images from this study are not interpreted by Radiology. Please refer to the physician's procedure / OR operative note. us Dimitrios Mccrary MD IMG IR PROCEDURES Final Result Performing Organization Address [facility] Co de Phone Number [facility] THIERRY * GA AN ELECTIVE SUPRAGLOTTIC AIRWAY, GA AN PROCEDURE PLACEHOLDER (07/01/2024 3:32 PM CAN DOFFER) Narrative Gurwinder Villasenor CRNA - 07/01/2024 3:32 PM CAN DOFFER Gurwinder Villasenor CRNA 07/01/2024 3:33 PM Airway Patient location: OR Urgency: elective Date/time: 07/01/2024 3:16 PM Indications for airway management: anesthesia Difficult airway: no Staff: Supervising provider: Venecia Hennessy DO Placed by: STAFFING PROGRAM MANAGER: Gurwinder Villasenor CRNA Emergent airway documentation: Risks [...] Result * POCT glucose (07/01/2024 1:34 PM CAN DOFFER) Glucose, POC 129 70 - 199 mg/dL Comment: For Glucose values <35 mg/dl when Hematocrit is >60 mg/dl,the test may not accurately detect significant hypoglycemia,and testing in the Laboratory should be considered if clinically indicated. Blood 07/01/2024 1:34 PM CAN DOFFER 07/01/2024 1:34 PM CAN DOFFER us Dimitrios Mccrary MD LAB POCT ORDERABLES - DEVICE F inal Result Performing Organization Address [facility] Co de Phone Number [facility] [address] Department [place] [place] [address] * eGFR (06/22/2024 2:09 PM CAN DOFFER) eGFR 90 >=60 mL/min/1. 73 m2 Comment: [...] last reviewed 2021. Blood 06/22/2024 2:09 PM CAN DOFFER 06/22/2024 2:09 PM CAN DOFFER us Christy Macdonald SALESPERSON FURNITURE LAB BLOOD ORDERABLES Fi nal Result Performing Organization Address [facility]/ZIP Co de Phone Number [facility] [address] Department [employer] [place], [place] [phone] * (ABNORMAL) Basic metabolic panel (06/22/2024 2:09 PM CAN DOFFER) Pathologist [facility] Sodium 142 135 - 145 mmol/L Potassium, pl 5.4(H) 3.3 - 4.9 mmol/L [facility] Chloride 107 97 - 110 mmol/L [facility] CO2 24 22 - 32 mmol/L [facility] Anion gap 11 2 - 15 mmol/L [facility] BUN 15 6 - 25 mg/dL [facility] Creatinine 0.94 0.80 - 1.30 mg/dL [facility] Glucose 98 70 - 199 mg/dL [facility] Comment: Interpretive Data Fasting glucose [...] 2022. Calcium 9.6 8.5 - 10.3 mg/dL [facility] Blood 06/22/2024 2:09 PM CAN DOFFER 06/22/2024 2:09 PM CAN DOFFER us Christy Macdonald NP LAB BLOOD ORDERABLES Fi nal Result [facility] [address] Department [place] [address] * Differential, auto (06/22/2024 1:26 PM CAN DOFFER) Neutrophil abs 3.0 1.5 - 6.5 K/cumm Imm gran abs 0.0 0.0 - 0.1 K/cumm [facility] Lymphocyte abs 1.8 0.8 - 3.3 K/cumm [facility] Monocyte abs 0.5 0.2 - 0.8 K/cumm [facility] Eosinophil abs 0.3 0.0 - 0.5 K/cumm [facility] Basophil abs 0.1 0.0 - 0.1 K/cumm [facility] Neutrophil pct 52.8 % [facility] Comment: Interpretive Data Percent cell count reference ranges are not reported, since discordance with absolute values may lead to misinterpretation of CBC data. Current Interpretive Data was last revised on 2017. Imm gran pct 0.4 % [facility] Comment: Interpretive Data Percent cell count reference ranges are not reported, since discordance with absolute values may lead to misinterpretation of CBC data. Current Interpretive Data was last revised on 2017. Lymphocyte pct 31.9 % [facility] Comment: Interpretive Data Percent cell count reference ranges are not reported, since discordance with absolute values may lead to misinterpretation of CBC data. Current Interpretive Data was last revised on 2017. Monocyte pct 9.1 % [facility] Comment: Interpretive Data Percent cell count reference ranges are not reported, since discordance with absolute values may lead to misinterpretation of CBC data. Current Interpretive Data was last revised on 2017. Eosinophil pct 4.9 % [facility] Comment: Interpretive Data Percent cell count reference ranges are not reported, since discordance with absolute values may lead to misinterpretation of CBC data. Current Interpretive Data was last revised on 2017. Basophil pct 0.9 % [facility] Comment: Interpretive Data Percent cell count reference ranges are not reported, since discordance with absolute values may lead to misinterpretation of CBC data. Current Interpretive Data was last revised on 2017. Blood 06/22/2024 1:26 PM CAN DOFFER 06/22/2024 1:26 PM CAN DOFFER us Christy Macdonald NP LAB BLOOD ORDERABLES Fi nal Result [facility] [address] Department of Laboratories [place], [place] [phone] * CBC with auto differential (06/22/2024 1:26 PM CAN DOFFER) WBC 5.7 3.8 - 9.9 K/cumm Hgb 13.1 13.0 - 17.5 g/dL [facility] Hct 40.4 38.9 - 50.3 % [facility] Plt 192 150 - 400 K/cumm [facility] MPV 10.9 9.1 - 12.3 fL [facility] RBC 4.47 4.30 - 5.80 M/cumm [facility] MCV 90.4 81.3 - 96.4 fL [facility] MCH 29.3 27.1 - 33.3 pg [facility] MCHC 32.4 32.3 - 35.7 g/dL [facility] RDW CV 12.3 11.1 - 14.9 % [facility] RDW SD 40.4 35.7 - 48.1 fL [facility] NRBC abs 0.00 0.00 - 0.01 K/cumm [facility] Blood 06/22/2024 1:26 PM CAN DOFFER 06/22/2024 1:26 PM CAN DOFFER Christy Macdonald NP LAB BLOOD ORDERABLES Fi nal Result Performing Organization Address [facility] Co de Phone Number [facility] [address] Department [place] [place] [address] * aPTT (06/22/2024 1:26 PM CAN DOFFER) aPTT 37 28 - 38 sec Comment: Interpretive Data Heparin therapeutic range: 66.0 - 100.0 seconds. Range based on correlation with therapeutic heparin activity range of 0.3 - 0.7 Units/mL. Current interpretive data was last revised on 2023. Blood 06/22/2024 1:26 PM CAN DOFFER 06/22/2024 1:26 PM CAN DOFFER Christy Macdonald NP LAB BLOOD ORDERABLES Fi nal Result Performing Organization Address [facility] Co de Phone Number [facility] [address] Department [place] [place] [address] * Protime-INR (06/22/2024 1:26 PM CAN DOFFER) PT 11.6 9.7 - 13.0 sec INR 1.07 0.90 - 1.20 [facility] Comment: Interpretive data Oral anticoagulant therapeutic ranges: Venous thromboembolism prophylaxis or treatment: 2.0-3.0 CARDIOLOGY Standard range: 2.0-3.0 High-intensity range: 2.5-3.5 Refer to indication-specific guidelines for appropriate target ranges for prosthetic heart valve replacement. Current interpretive data was last revised on 2019. Blood 06/22/2024 1:26 PM CAN DOFFER 06/22/2024 1:26 PM CAN DOFFER Christy Macdonald NP LAB BLOOD ORDERABLES Fi nal Result Performing Organization Address [facility] Co de Phone Number [facility] [address] [facility] [employer] [place], [place] [phone] * Type and screen (06/22/2024 1:26 PM CAN DOFFER) Pathologist [facility] ABO Rh O Positive Simón, indirect Negative [facility] Blood 06/22/2024 1:26 PM CAN DOFFER 06/22/2024 1:49 PM CAN DOFFER Narrative [facility] - 06/22/2024 2:35 PM CAN DOFFER Is this test being ordered in advance for a procedure?->Yes Expected date of procedure:->07/01/24 Has the patient been transfused in the past 3 months?->No Christy Macdonald NP LAB BLOOD BANK TEST ORD ERABLES Final Result Performing Organization Address [facility] [[email or web address]] de Phone Number [facility] [address] [facility] [employer] [place], [place] [phone] * (ABNORMAL) Hemoglobin A1c (06/22/2024 1:26 PM CAN DOFFER) Pathologist [facility] Hgb A1C 8.2(H) 4.0 - 5.6 % Estimated Average Glucose 189 mg/dL [facility] Comment: The ADA recommends reporting an estimated Average Glucose (eAG) with all Hemoglobin A1c results using the equation derived from a study of 507 normal and diabetic adults. Minority populations were underrepresented and children were not included. (Diabetes Care 31:8195-2884, 2008). The eAG is not equivalent to a fasting glucose. Blood 06/22/2024 1:26 PM CAN DOFFER 06/22/2024 1:26 PM CAN DOFFER us Christy Macdonald SALESPERSON FURNITURE LAB BLOOD ORDERABLES Fi nal Result [facility] [address] Department [place] [address] * US Arterial Duplex Lower Extremity Right Limited (06/16/2024 12:05 PM CAN DOFFER) Anatomical Region Laterality Modality Vascular Right Ultrasound 06/16/2024 11:1 0 AM CAN DOFFER Narrative 06/19/2024 3:30 PM CAN DOFFER [facility] - Department of Vascular Surgery, Vascular Laboratory [address] [place] [address] [place] Lower Extremity Arterial Duplex Report Patient Name: ALLY WISEMAN D : 1960 Study Date: 06/16/2024 11:10:55 AM Gender: M Tech: [facility] Location: [facility] Provider: DIMITRIOS MCCRARY Quality: Adequate Order Provider: DIMITRIOS MCCRARY PROCEDURES: Arterial Report: Right Lower Extremity Arterial Duplex Exam. INDICATIONS: Z48.812 Encounter for surgical aftercare following surgery on the circulatory system. MEASUREMENTS: Right Value Units Rt HEALTH RECORD TECHNICIAN Dst PSV 175 cm/s Rt Profunda [...] 62 cm/s Right Value Units FINDINGS: Performing Standards Engineer: Dalila Hernandez, RVT, RDMS, RDCS, ACS. Right [...] stent 282 cm/s, RT SHEEBA 0.99, LT SALES COACH SHEEBA 0.48, LT MONTY SHEEBA 0.72. DISCLAIMER: [...] Dimitrios Mccrary MD FACS 06/19/2024 3:28:44 PM CAN DOFFER Procedure Note Dimitrios Mccrary MD - 06/19/2024 [facility] - Department of Vascular Surgery,Vascular Laboratory [address] [place], [place] [id number] [place] Lower Extremity Arterial Duplex Report Patient Name: ALLY WISEMAN D : 1960 Study Date: 06/16/2024 11:10:55 AM Gender: M Tech: DALILA Location: [facility] Provider: DIMITRIOS MCCRARY Quality: Adequate Order Provider: DIMITRIOS MCCRARY PROCEDURES: Arterial Report: Right Lower Extremity Arterial Duplex Exam. INDICATIONS: Z48.812 Encounter for surgical aftercare following surgery on thecirculatory system. MEASUREMENTS: Right Value Units Rt HEALTH RECORD TECHNICIAN Dst PSV 175 cm/s Rt Profunda [...] 62 cm/s Right Value Units FINDINGS: Performing Standards Engineer: Dalila Hernandez, RVT, RDMS, RDCS, ACS. Right [...] popliteal stent 282cm/s, RT SHEEBA 0.99, LT SALES COACH SHEEBA 0.48, LT MONTY SHEEBA 0.72. DISCLAIMER: [...] Dimitrios Mccrary MD FACS 06/19/2024 3:28:44 PM CAN DOFFER us Dimitrios Mccrary MD IMG US PROCEDURES Final Result * US Arterial Doppler Lower Extremity Bilateral (06/16/2024 12:05 PM CAN DOFFER) Anatomical Region Laterality Modality Vascular Bilateral Ultrasound 06/16/2024 11:2 8 AM CAN DOFFER Narrative 06/19/2024 3:35 PM CAN DOFFER [facility] - Department of Vascular Surgery, Vascular Laboratory [address] [place] [address] Lower Extremity Arterial Doppler Report Patient Name: ALLY WISEMAN D : 1960 Study Date: 06/16/2024 11:28:00 AM Gender: M Tech: Dalila Hernandez RVT, CHARY, RDM Location: [facility] Provider: DIMITRIOS MCCRARY Quality: Adequate Order Provider: DIMITRIOS MCCRARY PROCEDURES: Arterial Report: Bilateral lower extremity arterial Doppler exam at rest. INDICATIONS: Z48.812 Encounter for surgical aftercare following surgery on the circulatory system. MEASUREMENTS: Right Value Units Left Value Units Rt Brachial Pressure 184 mmHg Lt Brachial Pressure 196 mmHg Rt SALES COACH Pressure 164 mmHg Lt SALES COACH Pressure 162 mmHg Rt DPA Pressure 182 mmHg Lt DPA Pressure 157 mmHg Rt 1st Digit Pressure 94 mmHg Lt 1st Digit Pressure 104 mmHg Rt PT SHEEBA Resting 0.84 Lt PT SHEEBA Resting 0.83 Rt AT SHEEBA Resting 0.93 Lt AT SHEEBA Resting 0.8 Rt Digit/Arm Index 0.48 Lt Digit/Arm Index 0.53 Right Value Units Left Value Units FINDINGS: Performing Standards Engineer: Dalila Hernandez RVT, VANNESA, RDCS, ACS. Right [...] stent 282 cm/s, RT SHEEBA 0.99, LT SALES COACH SHEEBA 0.48, LT MONTY SHEEBA 0.72. DISCLAIMER: [...] Dimitrios Mccrary MD FACS 06/19/2024 3:35:21 PM CAN DOFFER Procedure Note Dimitrios Mccrary MD - 06/19/2024 [facility] - Department of Vascular Surgery,Vascular Laboratory [address] [place] [id number] Lower Extremity Arterial Doppler Report Patient Name: ALLY WISEMAN D : 1960 Study Date: 06/16/2024 11:28:00 AM Gender: M Tech: Dalila Hernandez RVT, CHARY, HARLEEN Location: [facility] Provider: DIMITRIOS MCCRARY Quality: Adequate Order Provider: DIMITRIOS MCCRARY PROCEDURES: Arterial Report: Bilateral lower extremity arterial Doppler exam at rest. INDICATIONS: Z48.812 Encounter for surgical aftercare following surgery on thecirculatory system. MEASUREMENTS: Right Value Units Left Value Units Rt Brachial Pressure 184 mmHg Lt Brachial Pressure 196 mmHg Rt SALES COACH Pressure 164 mmHg Lt SALES COACH Pressure 162 mmHg Rt DPA Pressure 182 mmHg Lt DPA Pressure 157 mmHg Rt 1st Digit Pressure 94 mmHg Lt 1st Digit Pressure 104 mmHg Rt PT SHEEBA Resting 0.84 Lt PT SHEEBA Resting 0.83 Rt AT SHEEBA Resting 0.93 Lt AT SHEEBA Resting 0.8 Rt Digit/Arm Index 0.48 Lt Digit/Arm Index 0.53 Right Value Units Left Value Units FINDINGS: Performing Standards Engineer: Dalila Hernandez RVT, VANNESA, RDCS, ACS. Right [...] popliteal stent 282cm/s, RT SHEEBA 0.99, LT SALES COACH SHEEBA 0.48, LT MONTY SHEEBA 0.72. DISCLAIMER: [...] above. Electronically Signed By: Dimitrios Mccrary MD [facility] 06/19/2024 3:35:21 PM CAN DOFFER Dimitrios Mccrary MD IMG US PROCEDURES Final Result * (ABNORMAL) POCT glucose (05/03/2024 11:58 AM CAN DOFFER) Glucose, POC 226(H) 70 - 199 mg/dL Comment: For Glucose values <35 mg/dl when Hematocrit is >60 mg/dl,the test may not accurately detect significant hypoglycemia,and testing in the Laboratory should be considered if clinically indicated. Glucose comment 1 RN/MD Notified [facility] Blood 05/03/2024 11:5 8 AM CAN DOFFER 05/03/2024 11:58 AM CAN DOFFER Dimitrios Mccrary MD LAB POCT ORDERABLES - DEVICE F inal Result Performing Organization Address [facility] Co de Phone Number [facility] [address] [place] [employer] [address] * POCT glucose (05/03/2024 8:09 AM CAN DOFFER) Glucose, POC 168 70 - 199 mg/dL Comment: For Glucose values <35 mg/dl when Hematocrit is >60 mg/dl,the test may not accurately detect significant hypoglycemia,and testing in the Laboratory should be considered if clinically indicated. Blood 05/03/2024 8:09 AM CAN DOFFER 05/03/2024 8:09 AM CAN DOFFER Dimitrios Mccrary MD LAB POCT ORDERABLES - DEVICE F inal Result Performing Organization Address City/[facility]/ZIP Co de Phone Number [facility] [address] [place] [address] * POCT glucose (05/03/2024 3:14 AM CAN DOFFER) Glucose, POC 196 70 - 199 mg/dL Comment: For Glucose values <35 mg/dl when Hematocrit is >60 mg/dl,the test may not accurately detect significant hypoglycemia,and testing in the Laboratory should be considered if clinically indicated. Blood 05/03/2024 3:14 AM CAN DOFFER 05/03/2024 3:14 AM CAN DOFFER Dimitrios Mccrary MD LAB POCT ORDERABLES - DEVICE F inal Result Performing Organization Address [facility] Co de Phone Number [facility] [address] Department [place] [place] [address] * POCT glucose (05/02/2024 11:29 PM CAN DOFFER) Glucose, POC 184 70 - 199 mg/dL Comment: For Glucose values <35 mg/dl when Hematocrit is >60 mg/dl,the test may not accurately detect significant hypoglycemia,and testing in the Laboratory should be considered if clinically indicated. Blood 05/02/2024 11:2 9 PM CAN DOFFER 05/02/2024 11:29 PM CAN DOFFER Dimitrios Mccrary MD LAB POCT ORDERABLES - DEVICE F inal Result Performing Organization Address [facility] de Phone Number [facility] [address] [facility] [employer] [place] [address] * (ABNORMAL) POCT glucose (05/02/2024 8:17 PM CAN DOFFER) Glucose, POC 215(H) 70 - 199 mg/dL Comment: For Glucose values <35 mg/dl when Hematocrit is >60 mg/dl,the test may not accurately detect significant hypoglycemia,and testing in the Laboratory should be considered if clinically indicated. Blood 05/02/2024 8:17 PM CAN DOFFER 05/02/2024 8:17 PM CAN DOFFER Dimitrios Mccrary MD LAB POCT ORDERABLES - DEVICE F inal Result Performing Organization Address [facility] Co de Phone Number [facility] [address] [facility] [employer] [place] [address] * (ABNORMAL) POCT glucose (05/02/2024 4:26 PM CAN DOFFER) Glucose, POC 307(H) 70 - 199 mg/dL Comment: For Glucose values <35 mg/dl when Hematocrit is >60 mg/dl,the test may not accurately detect significant hypoglycemia,and testing in the Laboratory should be considered if clinically indicated. Blood 05/02/2024 4:26 PM CAN DOFFER 05/02/2024 4:26 PM CAN DOFFER us Dimitrios Mccrary MD LAB POCT ORDERABLES - DEVICE F inal Result Performing Organization Address [facility] [[email or web address]] de Phone Number [facility] [address] Department of Laboratories [place], [place] [phone] * (ABNORMAL) POCT glucose (05/02/2024 12:26 PM CAN DOFFER) [facility] [address] Glucose, POC 317(H) 70 - 199 mg/dL Comment: For Glucose values <35 mg/dl when Hematocrit is >60 mg/dl,the test may not accurately detect significant hypoglycemia,and testing in the Laboratory should be considered if clinically indicated. Blood 05/02/2024 12:2 6 PM CAN DOFFER 05/02/2024 12:26 PM CAN DOFFER us Dimitrios Mccrayr MD LAB POCT ORDERABLES - DEVICE F inal Result Performing Organization Address [facility] [[email or web address]] de Phone Number [facility] [address] Department [place] [place] [address] * eGFR (05/02/2024 11:13 AM CAN DOFFER) [facility] [address] eGFR >90 >=60 mL/min/1. 73 m2 Comment: [...] reviewed 2021. Blood 05/02/2024 11:1 3 AM CAN DOFFER 05/02/2024 12:13 PM CAN DOFFER us Vale Diaz NP LAB BLOOD ORDERABLES Fin al Result [facility] [address] Department of Laboratories [place], [place] [phone] * (ABNORMAL) Differential, auto (05/02/2024 11:13 AM CAN DOFFER) Neutrophil abs 3.5 1.5 - 6.5 K/cumm Imm gran abs 0.0 0.0 - 0.1 K/cumm [facility] Lymphocyte abs 2.2 0.8 - 3.3 K/cumm [facility] Monocyte abs 0.9(H) 0.2 - 0.8 K/cumm [facility] Eosinophil abs 0.4 0.0 - 0.5 K/cumm [facility] Basophil abs 0.1 0.0 - 0.1 K/cumm [facility] Neutrophil pct 49.5 % [facility] Comment: Interpretive Data Percent cell count reference ranges are not reported, since discordance with absolute values may lead to misinterpretation of CBC data. Current Interpretive Data was last revised on 2017. Imm gran pct 0.3 % [facility] Comment: Interpretive Data Percent cell count reference ranges are not reported, since discordance with absolute values may lead to misinterpretation of CBC data. Current Interpretive Data was last revised on 2017. Lymphocyte pct 31.4 % [facility] Comment: Interpretive Data Percent cell count reference ranges are not reported, since discordance with absolute values may lead to misinterpretation of CBC data. Current Interpretive Data was last revised on 2017. Monocyte pct 13.1 % [facility] Comment: Interpretive Data Percent cell count reference ranges are not reported, since discordance with absolute values may lead to misinterpretation of CBC data. Current Interpretive Data was last revised on 2017. Eosinophil pct 5.0 % [facility] Comment: Interpretive Data Percent cell count reference ranges are not reported, since discordance with absolute values may lead to misinterpretation of CBC data. Current Interpretive Data was last revised on 2017. Basophil pct 0.7 % [facility] Comment: Interpretive Data Percent cell count reference ranges are not reported, since discordance with absolute values may lead to misinterpretation of CBC data. Current Interpretive Data was last revised on 2017. Blood 05/02/2024 11:1 3 AM CAN DOFFER 05/02/2024 12:13 PM CAN DOFFER us Vale Diaz NP LAB BLOOD ORDERABLES Fin al Result [facility] [address] Department [place] [address] * (ABNORMAL) CBC with auto differential (05/02/2024 11:13 AM CAN DOFFER) WBC 7.0 3.8 - 9.9 K/cumm Hgb 11.4(L) 13.0 - 17.5 g/dL [facility] Hct 34.8(L) 38.9 - 50.3 % [facility] Plt 144(L) 150 - 400 K/cumm [facility] MPV 11.8 9.1 - 12.3 fL [facility] RBC 3.75(L) 4.30 - 5.80 M/cumm [facility] MCV 92.8 81.3 - 96.4 fL [facility] MCH 30.4 27.1 - 33.3 pg [facility] MCHC 32.8 32.3 - 35.7 g/dL [facility] RDW CV 13.0 11.1 - 14.9 % [facility] RDW SD 44.1 35.7 - 48.1 fL [facility] NRBC abs 0.00 0.00 - 0.01 K/cumm [facility] Blood 05/02/2024 11:1 3 AM CAN DOFFER 05/02/2024 12:13 PM CAN DOFFER us Vale Diaz NP LAB BLOOD ORDERABLES Fin al Result [facility] [address] Department [place] [address] * (ABNORMAL) Comprehensive metabolic panel (05/02/2024 11:13 AM CAN DOFFER) Sodium 139 135 - 145 mmol/L Potassium, pl 4.4 3.3 - 4.9 mmol/L [facility] Chloride 105 97 - 110 mmol/L [facility] CO2 23 22 - 32 mmol/L [facility] Anion gap 11 2 - 15 mmol/L [facility] BUN 14 6 - 25 mg/dL [facility] Creatinine 0.80 0.80 - 1.30 mg/dL [facility] Glucose 276(H) 70 - 199 mg/dL [facility] Comment: Interpretive Data Fasting glucose [...] 2022. Calcium 8.4(L) 8.5 - 10.3 mg/dL [facility] Bilirubin, total 0.5 0.1 - 1.2 mg/dL [facility] Protein, pl 6.3(L) 6.5 - 8.5 g/dL [facility] Albumin 3.6 3.5 - 5.0 g/dL [facility] Alk phos 91 40 - 130 Units/L [facility] ALT 17 7 - 55 Units/L [facility] AST 16 10 - 50 Units/L [facility] Blood 05/02/2024 11:1 3 AM CAN DOFFER 05/02/2024 12:13 PM CAN DOFFER Vale Diaz NP LAB BLOOD ORDERABLES Fin al Result Performing Organization Address [facility] Co de Phone Number [facility] [address] Department [place] [address] * POCT glucose (05/02/2024 7:45 AM CAN DOFFER) Glucose, POC 136 70 - 199 mg/dL Comment: For Glucose values <35 mg/dl when Hematocrit is >60 mg/dl,the test may not accurately detect significant hypoglycemia,and testing in the Laboratory should be considered if clinically indicated. Blood 05/02/2024 7:45 AM CAN DOFFER 05/02/2024 7:45 AM CAN DOFFER Dimitrios Mccrary MD LAB POCT ORDERABLES - DEVICE F inal Result Performing Organization Address [facility] Co de Phone Number [facility] [address] Department [place] [address] * eGFR (05/02/2024 5:21 AM CAN DOFFER) eGFR >90 >=60 mL/min/1. 73 m2 Comment: [...] last reviewed 2021. Blood 05/02/2024 5:21 AM CAN DOFFER 05/02/2024 6:02 AM CAN DOFFER Vale Diaz SALESPERSON FURNITURE LAB BLOOD ORDERABLES Fin al Result [facility] [address] Department [place] [address] * Differential, auto (05/02/2024 5:21 AM CAN DOFFER) Neutrophil abs 3.8 1.5 - 6.5 K/cumm Imm gran abs 0.0 0.0 - 0.1 K/cumm [facility] Lymphocyte abs 2.3 0.8 - 3.3 K/cumm [facility] Monocyte abs 0.8 0.2 - 0.8 K/cumm [facility] Eosinophil abs 0.3 0.0 - 0.5 K/cumm [facility] Basophil abs 0.0 0.0 - 0.1 K/cumm [facility] Neutrophil pct 52.0 % [facility] Comment: Interpretive Data Percent cell count reference ranges are not reported, since discordance with absolute values may lead to misinterpretation of CBC data. Current Interpretive Data was last revised on 2017. Imm gran pct 0.3 % [facility] Comment: Interpretive Data Percent cell count reference ranges are not reported, since discordance with absolute values may lead to misinterpretation of CBC data. Current Interpretive Data was last revised on 2017. Lymphocyte pct 31.2 % [facility] Comment: Interpretive Data Percent cell count reference ranges are not reported, since discordance with absolute values may lead to misinterpretation of CBC data. Current Interpretive Data was last revised on 2017. Monocyte pct 11.6 % [facility] Comment: Interpretive Data Percent cell count reference ranges are not reported, since discordance with absolute values may lead to misinterpretation of CBC data. Current Interpretive Data was last revised on 2017. Eosinophil pct 4.3 % [facility] Comment: Interpretive Data Percent cell count reference ranges are not reported, since discordance with absolute values may lead to misinterpretation of CBC data. Current Interpretive Data was last revised on 2017. Basophil pct 0.6 % [facility] Comment: Interpretive Data Percent cell count reference ranges are not reported, since discordance with absolute values may lead to misinterpretation of CBC data. Current Interpretive Data was last revised on 2017. Blood 05/02/2024 5:21 AM CAN DOFFER 05/02/2024 6:02 AM CAN DOFFER Vale Diaz NP LAB BLOOD ORDERABLES Fin al Result [facility] [address] Department [place] [address] * (ABNORMAL) CBC with auto differential (05/02/2024 5:21 AM CAN DOFFER) WBC 7.3 3.8 - 9.9 K/cumm Hgb 11.1(L) 13.0 - 17.5 g/dL [facility] Hct 33.9(L) 38.9 - 50.3 % [facility] Plt 147(L) 150 - 400 K/cumm [facility] MPV 11.9 9.1 - 12.3 fL [facility] RBC 3.64(L) 4.30 - 5.80 M/cumm [facility] MCV 93.1 81.3 - 96.4 fL [facility] MCH 30.5 27.1 - 33.3 pg [facility] MCHC 32.7 32.3 - 35.7 g/dL [facility] RDW CV 12.8 11.1 - 14.9 % [facility] RDW SD 43.8 35.7 - 48.1 fL [facility] NRBC abs 0.00 0.00 - 0.01 K/cumm [facility] Blood 05/02/2024 5:21 AM CAN DOFFER 05/02/2024 6:02 AM CAN DOFFER Vale Diaz NP LAB BLOOD ORDERABLES Fin al Result [facility] [address] Department [place] [address] * (ABNORMAL) Comprehensive metabolic panel (05/02/2024 5:21 AM CAN DOFFER) Sodium 140 135 - 145 mmol/L Potassium, pl 3.9 3.3 - 4.9 mmol/L [facility] Chloride 106 97 - 110 mmol/L [facility] CO2 25 22 - 32 mmol/L [facility] Anion gap 9 2 - 15 mmol/L [facility] BUN 17 6 - 25 mg/dL [facility] Creatinine 0.87 0.80 - 1.30 mg/dL [facility] Glucose 186 70 - 199 mg/dL [facility] Comment: Interpretive Data Fasting glucose [...] 2022. Calcium 8.4(L) 8.5 - 10.3 mg/dL [facility] Bilirubin, total 0.3 0.1 - 1.2 mg/dL [facility] Protein, pl 6.3(L) 6.5 - 8.5 g/dL [facility] Albumin 3.6 3.5 - 5.0 g/dL [facility] Alk phos 96 40 - 130 Units/L [facility] ALT 17 7 - 55 Units/L [facility] AST 14 10 - 50 Units/L [facility] Blood 05/02/2024 5:21 AM CAN DOFFER 05/02/2024 6:02 AM CAN DOFFER Vale Diaz NP LAB BLOOD ORDERABLES Fin al Result Performing Organization Address [facility] Co de Phone Number [facility] [address] [facility] [employer] [place] [address] * POCT glucose (05/02/2024 4:01 AM CAN DOFFER) Glucose, POC 174 70 - 199 mg/dL Comment: For Glucose values <35 mg/dl when Hematocrit is >60 mg/dl,the test may not accurately detect significant hypoglycemia,and testing in the Laboratory should be considered if clinically indicated. Blood 05/02/2024 4:01 AM CAN DOFFER 05/02/2024 4:01 AM CAN DOFFER Dimitrios Mccrary MD LAB POCT ORDERABLES - DEVICE F inal Result Performing Organization Address [facility] Co de Phone Number [facility] [address] [facility] [place] [place] [address] * (ABNORMAL) POCT glucose (05/02/2024 12:57 AM CAN DOFFER) Glucose, POC 279(H) 70 - 199 mg/dL Comment: For Glucose values <35 mg/dl when Hematocrit is >60 mg/dl,the test may not accurately detect significant hypoglycemia,and testing in the Laboratory should be considered if clinically indicated. Blood 05/02/2024 12:5 7 AM CAN DOFFER 05/02/2024 12:57 AM CAN DOFFER Dimitrios Mccrary MD LAB POCT ORDERABLES - DEVICE F inal Result Performing Organization Address [facility] Co de Phone Number [facility] [address] [facility] [place] [place] [address] * (ABNORMAL) POCT glucose (05/01/2024 9:10 PM CAN DOFFER) Glucose, POC 298(H) 70 - 199 mg/dL Comment: For Glucose values <35 mg/dl when Hematocrit is >60 mg/dl,the test may not accurately detect significant hypoglycemia,and testing in the Laboratory should be considered if clinically indicated. Blood 05/01/2024 9:10 PM CAN DOFFER 05/01/2024 9:10 PM CAN DOFFER us Dimitrios Mccrary MD LAB POCT ORDERABLES - DEVICE F inal Result Performing Organization Address [facility] Co de Phone Number [facility] [address] [facility] [place] [address] * (ABNORMAL) POCT glucose (05/01/2024 6:30 PM CAN DOFFER) Glucose, POC 278(H) 70 - 199 mg/dL Comment: For Glucose values <35 mg/dl when Hematocrit is >60 mg/dl,the test may not accurately detect significant hypoglycemia,and testing in the Laboratory should be considered if clinically indicated. Blood 05/01/2024 6:30 PM CAN DOFFER 05/01/2024 6:30 PM CAN DOFFER us Dimitrios Mccrary MD LAB POCT ORDERABLES - DEVICE F inal Result Performing Organization Address [facility] [[email or web address]] de Phone Number [facility] [address] [facility] [place] [place] [address] * (ABNORMAL) POCT glucose (05/01/2024 4:34 PM CAN DOFFER) Glucose, POC 303(H) 70 - 199 mg/dL Comment: For Glucose values <35 mg/dl when Hematocrit is >60 mg/dl,the test may not accurately detect significant hypoglycemia,and testing in the Laboratory should be considered if clinically indicated. Blood 05/01/2024 4:34 PM CAN DOFFER 05/01/2024 4:34 PM CAN DOFFER us Dimitrios Mccrary MD LAB POCT ORDERABLES - DEVICE F inal Result Performing Organization Address [facility] Co de Phone Number [facility] [address] [place] [address] * (ABNORMAL) POCT glucose (05/01/2024 11:49 AM CAN DOFFER) Glucose, POC 274(H) 70 - 199 mg/dL Comment: For Glucose values <35 mg/dl when Hematocrit is >60 mg/dl,the test may not accurately detect significant hypoglycemia,and testing in the Laboratory should be considered if clinically indicated. Blood 05/01/2024 11:4 9 AM CAN DOFFER 05/01/2024 11:49 AM CAN DOFFER Dimitrios Mccrary MD LAB POCT ORDERABLES - DEVICE F inal Result Performing Organization Address [facility] Co de Phone Number [facility] [address] [facility] [employer] [place], [place] [id number] * (ABNORMAL) POCT glucose (05/01/2024 7:32 AM CAN DOFFER) Glucose, POC 231(H) 70 - 199 mg/dL Comment: For Glucose values <35 mg/dl when Hematocrit is >60 mg/dl,the test may not accurately detect significant hypoglycemia,and testing in the Laboratory should be considered if clinically indicated. Blood 05/01/2024 7:32 AM CAN DOFFER 05/01/2024 7:32 AM CAN DOFFER Dimitrios Mccrary MD LAB POCT ORDERABLES - DEVICE F inal Result Performing Organization Address [facility] Co de Phone Number [facility] [address] [facility] [place] [place] [address] * ECG 12 lead (05/01/2024 5:06 AM CAN DOFFER) 05/01/2024 5:06 AM CAN DOFFER Narrative [facility] - 05/01/2024 8:42 AM CAN DOFFER Vent Rate: 92 bpm RR Interval: 646 msec GA Interval: 154 msec QRS Duration: 108 msec QT Interval: 332 msec QTC Interval: 382 msec P-R-T [place]: 1 - -22 - 52 degrees IMPRESSION: SINUS RHYTHM WITH SINUS ARRHYTHMIA INFERIOR MYOCARDIAL INFARCTION , PROBABLY OLD ABNORMAL ECG Electronically Signed By: Lucas Truong MD PhD us Francisco KRAUSE ECG ORDERABLES Final Result Performing Organization Address City/[facility]/ZIP Co de Phone Number [facility] * eGFR (05/01/2024 4:34 AM CAN DOFFER) eGFR >90 >=60 mL/min/1. 73 m2 Comment: [...] last reviewed 2021. Blood 05/01/2024 4:34 AM CAN DOFFER 05/01/2024 5:38 AM CAN DOFFER us Dimitrios Mccrary MD LAB BLOOD ORDERABLES Final Res ult Performing Organization Address City/[facility]/ZIP Co de Phone Number [facility] [address] Department [place] [address] * (ABNORMAL) CBC without differential (05/01/2024 4:34 AM CAN DOFFER) Pathologist [facility] WBC 9.5 3.8 - 9.9 K/cumm Hgb 12.5(L) 13.0 - 17.5 g/dL [facility] Hct 37.8(L) 38.9 - 50.3 % [facility] Plt 174 150 - 400 K/cumm [facility] MPV 11.7 9.1 - 12.3 fL [facility] RBC 4.11(L) 4.30 - 5.80 M/cumm [facility] MCV 92.0 81.3 - 96.4 fL [facility] MCH 30.4 27.1 - 33.3 pg [facility] MCHC 33.1 32.3 - 35.7 g/dL [facility] RDW CV 12.7 11.1 - 14.9 % [facility] RDW SD 43.3 35.7 - 48.1 fL [facility] NRBC abs 0.00 0.00 - 0.01 K/cumm [facility] Blood 05/01/2024 4:34 AM CAN DOFFER 05/01/2024 5:38 AM CAN DOFFER us Dimitrios Mccrary MD LAB BLOOD ORDERABLES Final Res ult [facility] [address] Department [place] [address] * (ABNORMAL) Basic metabolic panel (05/01/2024 4:34 AM CAN DOFFER) Sodium 137 135 - 145 mmol/L Potassium, pl 4.2 3.3 - 4.9 mmol/L [facility] Chloride 103 97 - 110 mmol/L [facility] CO2 22 22 - 32 mmol/L [facility] Anion gap 12 2 - 15 mmol/L [facility] BUN 22 6 - 25 mg/dL [facility] Creatinine 0.86 0.80 - 1.30 mg/dL [facility] Glucose 298(H) 70 - 199 mg/dL [facility] Comment: Interpretive Data Fasting glucose [...] 2022. Calcium 8.6 8.5 - 10.3 mg/dL [facility] Blood 05/01/2024 4:34 AM CAN DOFFER 05/01/2024 5:38 AM CAN DOFFER Dimitrios Mccrary MD LAB BLOOD ORDERABLES Final Res ult Performing Organization Address [facility] Co de Phone Number [facility] [address] [facility] [place] [address] * (ABNORMAL) POCT glucose (05/01/2024 3:50 AM CAN DOFFER) Glucose, POC 240(H) 70 - 199 mg/dL Comment: For Glucose values <35 mg/dl when Hematocrit is >60 mg/dl,the test may not accurately detect significant hypoglycemia,and testing in the Laboratory should be considered if clinically indicated. Blood 05/01/2024 3:50 AM CAN DOFFER 05/01/2024 3:50 AM CAN DOFFER Dimitrios Mccrary MD LAB POCT ORDERABLES - DEVICE F inal Result Performing Organization Address [facility] [[email or web address]] de Phone Number [facility] [address] [facility] [employer] [place], [place] [id number] * (ABNORMAL) POCT glucose (05/01/2024 12:37 AM CAN DOFFER) Glucose, POC 348(H) 70 - 199 mg/dL Comment: For Glucose values <35 mg/dl when Hematocrit is >60 mg/dl,the test may not accurately detect significant hypoglycemia,and testing in the Laboratory should be considered if clinically indicated. Blood 05/01/2024 12:3 7 AM CAN DOFFER 05/01/2024 12:37 AM CAN DOFFER Dimitrios Mccrary MD LAB POCT ORDERABLES - DEVICE F inal Result Performing Organization Address [facility] Co de Phone Number [facility] [address] [facility] [place] [place] [address] * (ABNORMAL) POCT glucose (04/30/2024 9:24 PM CAN DOFFER) Glucose, POC 405(H) 70 - 199 mg/dL Comment: For Glucose values <35 mg/dl when Hematocrit is >60 mg/dl,the test may not accurately detect significant hypoglycemia,and testing in the Laboratory should be considered if clinically indicated. Blood 04/30/2024 9:24 PM CAN DOFFER 04/30/2024 9:24 PM CAN DOFFER us Dimitrios Mccrary MD LAB POCT ORDERABLES - DEVICE F inal Result Performing Organization Address [facility] Co de Phone Number [facility] [address] Department [place] [address] * (ABNORMAL) POCT glucose (04/30/2024 4:21 PM CAN DOFFER) [facility] [address] Glucose, POC 211(H) 70 - 199 mg/dL Comment: For Glucose values <35 mg/dl when Hematocrit is >60 mg/dl,the test may not accurately detect significant hypoglycemia,and testing in the Laboratory should be considered if clinically indicated. Blood 04/30/2024 4:21 PM CAN DOFFER 04/30/2024 4:21 PM CAN DOFFER us Dimitrios Mccrary MD LAB POCT ORDERABLES - DEVICE F inal Result Performing Organization Address [facility] Co de Phone Number [facility] [address] Department [place] [address] * (ABNORMAL) CBC without differential (04/30/2024 12:08 PM CAN DOFFER) [facility] [address] WBC 6.9 3.8 - 9.9 K/cumm Hgb 12.5(L) 13.0 - 17.5 g/dL [facility] Hct 37.4(L) 38.9 - 50.3 % [facility] Plt 164 150 - 400 K/cumm [facility] MPV 11.3 9.1 - 12.3 fL [facility] RBC 4.13(L) 4.30 - 5.80 M/cumm [facility] MCV 90.6 81.3 - 96.4 fL [facility] MCH 30.3 27.1 - 33.3 pg [facility] MCHC 33.4 32.3 - 35.7 g/dL [facility] RDW CV 12.5 11.1 - 14.9 % [facility] RDW SD 41.6 35.7 - 48.1 fL [facility] NRBC abs 0.00 0.00 - 0.01 K/cumm [facility] Blood 04/30/2024 12:0 8 PM CAN DOFFER 04/30/2024 12:27 PM CAN DOFFER Dimitrios Mccrary MD LAB BLOOD ORDERABLES Final Res ult Performing Organization Address [facility]/ZIP Co de Phone Number [facility] [address] [place] [address] * (ABNORMAL) POCT glucose (04/30/2024 11:18 AM CAN DOFFER) [facility] Signature Glucose, POC 206(H) 70 - 199 mg/dL Comment: For Glucose values <35 mg/dl when Hematocrit is >60 mg/dl,the test may not accurately detect significant hypoglycemia,and testing in the Laboratory should be considered if clinically indicated. Blood 04/30/2024 11:1 8 AM CAN DOFFER 04/30/2024 11:18 AM CAN DOFFER Dimitrios Mccrary MD LAB POCT ORDERABLES - DEVICE F inal Result Performing Organization Address [facility]/ZIP Co de Phone Number [facility] [address] Department [place] [place] [address] * IR Angiogram Lower Extremity Left (04/30/2024 10:45 AM CAN DOFFER) Narrative [facility] - 04/30/2024 10:45 AM CAN DOFFER The images from this study are not interpreted by Radiology. Please refer to the physician's procedure / OR operative note. us Dimitrios Mccrary MD IMG IR PROCEDURES Final Result [facility] * Surgical pathology (04/30/2024 10:44 AM CAN DOFFER) Tissue (Artery, plaque Atherosclerotic) 04/30/2024 10:44 AM CAN DOFFER Comment:Placed in formalin a t the end of case Narrative PATHOLOGY [facility] - 05/01/2024 9:07 AM CAN DOFFER [address] [address] Tele: Ruth Juan MD - Relay Repairer Note to Patients: This report may contain [...] REPORT Patient Name: ALLY WISEMAN JRYao [address]: [address] [place] [id number] Gender: M : 1960 (Age: 63) Service: Vascular Location: [place] [address], Hospital #: [id number] Patient [facility]: [facility] Taken: 04/30/2024 Received 04/30/2024 Reported: 05/01/2024 Physician(s): Lisseth Robbins M.D. DIAGNOSIS: Artery, left femoral-endarterectomy: - Calcific arteriosclerosis b/05/01/2024 09:07 Examining Pathologist: Greg Lam M.D. Report Reviewed and Electronically Signed By Greg Lam M.D. 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 The specimen is sectioned and financial services sales representative sections are submitted in A 1 following decalcification. jxi/04/30/2024 12:38 BARRY MICROSCOPIC DESCRIPTION: Calcified plaque material is noted. Clerical Data Follows A; 05600 REPORT IMAGES AND/OR SCANNED DOCUMENTS ONLY VIEWABLE IN PDF FORMAT The immunohistochemical test(s) cited in this report, if any, was developed and its performance characteristics determined by [facility] Pathology Department. It has not been cleared or approved by the U.S. Food and Drug Administration. The FDA has determined that such clearance or approval is not necessary. This test is used for clinical purposes. It should not be regarded as investigational or for research. [facility] Laboratory is certified under the Clinical Laboratory [...] part or completely in the following laboratories: [facility], [address] [place] [address], [address] [place] [id number]. us Dimitrios Mccrary MD LAB PATHOLOGY ORDERABLES Final Result PATHOLOGY [facility] Laboratory Receiving [address] [place] [address] * GA AN ELECTIVE ENDOTRACHEAL AIRWAY, GA AN PROCEDURE PLACEHOLDER (04/30/2024 8:12 AM CAN DOFFER) Narrative Janis Belle CRNA - 04/30/2024 8:12 AM CAN DOFFER Janis Belle CRNA 04/30/2024 8:12 AM Airway Patient location: OR Urgency: elective Indications for airway management: anesthesia Difficult airway: no Staff: Placed by: STAFFING PROGRAM MANAGER: Janis Belle CRNA Airway prep: Preoxygenated: yes [...] * (ABNORMAL) POCT glucose (04/30/2024 7:43 AM CAN DOFFER) [facility] [address] Glucose, POC 212(H) 70 - 199 mg/dL Comment: For Glucose values <35 mg/dl when Hematocrit is >60 mg/dl,the test may not accurately detect significant hypoglycemia,and testing in the Laboratory should be considered if clinically indicated. Blood 04/30/2024 7:43 AM CAN DOFFER 04/30/2024 7:43 AM CAN DOFFER us Dimitrios Mccrary MD LAB POCT ORDERABLES - DEVICE F inal Result Performing Organization Address City/[facility] Co de Phone Number [facility] [address] [place] [address] * Check Sample (04/30/2024 6:25 AM CAN DOFFER) ABO Rh O Positive MBC HCLL OTHER 04/30/2024 6:25 AM CAN DOFFER 04/30/2024 7:08 AM CAN DOFFER us Gabriela Menesse SALESPERSON FURNITURE LAB BLOOD ORDERABLES Fi nal Result Performing Organization Address City/State/[facility] Co de Phone Number [facility] [address] [facility] [place] [address] MBC * aPTT (04/09/2024 12:38 PM CAN DOFFER) aPTT 34 28 - 38 sec Comment: Interpretive Data Heparin therapeutic range: 66.0 - 100.0 seconds. Range based on correlation with therapeutic heparin activity range of 0.3 - 0.7 Units/mL. Current interpretive data was last revised on 2023. Blood 04/09/2024 12:3 8 PM CAN DOFFER 04/09/2024 12:38 PM CAN DOFFER Gabriela Meneses SALESPERSON FURNITURE LAB BLOOD ORDERABLES Fi nal Result Performing Organization Address [facility] [[email or web address]] de Phone Number [facility] [address] [facility] [place] [address] * Protime-INR (04/09/2024 12:38 PM CAN DOFFER) Pathologist [facility] PT 11.7 9.7 - 13.0 sec INR 1.08 0.90 - 1.20 [facility] Comment: Interpretive data Oral anticoagulant therapeutic ranges: Venous thromboembolism prophylaxis or treatment: 2.0-3.0 CARDIOLOGY Standard range: 2.0-3.0 High-intensity range: 2.5-3.5 Refer to indication-specific guidelines for appropriate target ranges for prosthetic heart valve replacement. Current interpretive data was last revised on 2019. Blood 04/09/2024 12:3 8 PM CAN DOFFER 04/09/2024 12:38 PM CAN DOFFER Gabriela Meneses SALESPERSON FURNITURE LAB BLOOD ORDERABLES Fi nal Result Performing Organization Address [facility] Co de Phone Number [facility] [address] [facility] [place] [address] * (ABNORMAL) Hemoglobin A1c (04/09/2024 12:38 PM CAN DOFFER) Hgb A1C 8.9(H) 4.0 - 5.6 % Estimated Average Glucose 209 mg/dL [facility] Comment: The ADA recommends reporting an estimated Average Glucose (eAG) with all Hemoglobin A1c results using the equation derived from a study of 507 normal and diabetic adults. Minority populations were underrepresented and children were not included. (Diabetes Care 31:3164-1021, 2008). The eAG is not equivalent to a fasting glucose. Blood 04/09/2024 12:3 8 PM CAN DOFFER 04/09/2024 12:38 PM CAN DOFFER us Gabriela Meneses NP LAB BLOOD ORDERABLES Fi nal Result Performing Organization Address City/[facility]/ZIP Co de Phone Number [facility] [address] Department [place] [address] * eGFR (04/09/2024 12:37 PM CAN DOFFER) eGFR >90 >=60 mL/min/1. 73 m2 Comment: [...] reviewed 2021. Blood 04/09/2024 12:3 7 PM CAN DOFFER 04/09/2024 12:37 PM CAN DOFFER us Gabriela Meneses NP LAB BLOOD ORDERABLES Fi nal Result [facility] [address] Department [place] [address] * Basic metabolic panel (04/09/2024 12:37 PM CAN DOFFER) Sodium 140 135 - 145 mmol/L Potassium, pl 4.8 3.3 - 4.9 mmol/L [facility] Chloride 103 97 - 110 mmol/L [facility] CO2 26 22 - 32 mmol/L [facility] Anion gap 11 2 - 15 mmol/L [facility] BUN 17 6 - 25 mg/dL [facility] Creatinine 0.81 0.80 - 1.30 mg/dL [facility] Glucose 191 70 - 199 mg/dL [facility] Comment: Interpretive Data Fasting glucose [...] 2022. Calcium 9.6 8.5 - 10.3 mg/dL [facility] Blood 04/09/2024 12:3 7 PM CAN DOFFER 04/09/2024 12:37 PM CAN DOFFER Gabriela Meneses NP LAB BLOOD ORDERABLES Fi nal Result [facility] [address] Department [place] [address] * Type and screen (04/09/2024 12:25 PM CAN DOFFER) ABO Rh O Positive Simón, indirect Negative [facility] Blood 04/09/2024 12:2 5 PM CAN DOFFER 04/09/2024 12:40 PM CAN DOFFER Narrative [facility] - 04/09/2024 1:24 PM CAN DOFFER Is this test being ordered in advance for a procedure?->Yes Expected date of procedure:->04/30/24 Has the patient been transfused in the past 3 months?->No Gabriela Monterroso Margarettemonsepatrick ESQUEDA LAB BLOOD BANK TEST ORD ERABLES Final Result Performing Organization Address City/[facility]/ZIP Co de Phone Number [facility] [address] Department [place] [address] * (ABNORMAL) Urinalysis reflex to microscopic and culture Urine (04/07/2024 1:00 PM CAN DOFFER) Color, ur Yellow Yellow Clarity, ur Clear Clear [facility] Specific gravity, ur 1.022 1.003 - 1.030 [facility] pH, urine 6.5 [facility] Comment: Interpretive Data U rine pH is affected by diet, medications, systemic acid-base disturbances, and renal tubular function. pH may affect urinary stone formation. For example, urine pH below 6.0 may help reduce the tendency for calcium phosphate stones and pH greater than 6.0 may reduce the tendency for uric acid stone formation. Source: [facility] Current Interpretive Data was last revised on 2017 Protein, ur ql 2+(A) Negative [facility] Glucose, ur ql 4+(A) Negative [facility] Ketones, ur Negative Negative [facility] Bilirubin, ur Negative Negative [facility] Blood, ur 1+(A) Negative [facility] Urobilinogen, ur <2.0 <2.0 mg/dL [facility] Nitrite, ur Positive(A) Negative [facility] Leukocyte esterase, ur Negative Negative [facility] UA reflex comment Reflex to microscopic UA will be performed. [facility] Urine 04/07/2024 1:00 PM CAN DOFFER 04/07/2024 1:23 PM CAN DOFFER Richard Armstrong MD LAB MICROBIOLOGY - GENERAL ORDERABLES Final Result Performing Organization Address City/[facility]/ZIP Co de Phone Number [facility] [address] Department [place] [address] * (ABNORMAL) Urinalysis, microscopic only (04/07/2024 1:00 PM CAN DOFFER) WBC, ur 6-10(A) 0 - 5 /HPF RBC, ur 6-10(A) 0 - 2 /HPF [facility] Bacteria, ur Trace(A) [facility] Mucous, ur Present(A) [facility] Culture Reflex Comment Reflex conditions for urine culture (WBC >10) not met. [facility] Urine 04/07/2024 1:00 PM CAN DOFFER 04/07/2024 1:22 PM CAN DOFFER us Richard Armstrong MD LAB URINE ORDERABLES Final Result [facility] [address] Department [place] [address] * CT Head WO Contrast (04/07/2024 12:59 PM CAN DOFFER) Anatomical Region Laterality Modality Head and Neck N/A Computed Tomogra phy 04/07/2024 1:07 PM CAN DOFFER Impressions 04/07/2024 1:07 [address] CAN DOFFER [address] CT evidence of acute intracranial abnormality. Electronically signed by: Porfirio De Paz M.D. Narrative 04/07/2024 1:07 PM CAN DOFFER EXAM:CT HEAD WO CONTRAST INDICATION: Dizziness, persistent/recurrent, [...] (baseline, 2hr, 4hr, 6hr) (04/07/2024 12:28 PM CAN DOFFER) [facility] [address] Trop T hs 11 <=22 ng/L Comment: Interpretive Data For further hscTnT resources including the diagnostic algorithm and an aid in interpretation, copy and paste this link: https://nrl.testcatalog.org/show/hsTrop Current Interpretive Data last revised 2020. Blood 04/07/2024 12:2 8 PM CAN DOFFER 04/07/2024 12:41 PM CAN DOFFER Scott Wagner MD LAB BLOOD ORDERABLES Final R esult [facility] [address] Department [place] [address] * eGFR (04/07/2024 12:28 PM CAN DOFFER) [facility] [address] eGFR >90 >=60 mL/min/1. 73 m2 Comment: [...] reviewed 2021. Blood 04/07/2024 12:2 8 PM CAN DOFFER 04/07/2024 12:41 PM CAN DOFFER us Scott Wagner MD LAB BLOOD ORDERABLES Final R esult [facility] [address] Department [place] [address] * Differential, auto (04/07/2024 12:28 PM CAN DOFFER) Neutrophil abs 3.6 1.5 - 6.5 K/cumm Imm gran abs 0.0 0.0 - 0.1 K/cumm [facility] Lymphocyte abs 1.4 0.8 - 3.3 K/cumm [facility] Monocyte abs 0.7 0.2 - 0.8 K/cumm [facility] Eosinophil abs 0.2 0.0 - 0.5 K/cumm [facility] Basophil abs 0.1 0.0 - 0.1 K/cumm [facility] Neutrophil pct 60.2 % [facility] Comment: Interpretive Data Percent cell count reference ranges are not reported, since discordance with absolute values may lead to misinterpretation of CBC data. Current Interpretive Data was last revised on 2017. Imm gran pct 0.3 % [facility] Comment: Interpretive Data Percent cell count reference ranges are not reported, since discordance with absolute values may lead to misinterpretation of CBC data. Current Interpretive Data was last revised on 2017. Lymphocyte pct 23.7 % [facility] Comment: Interpretive Data Percent cell count reference ranges are not reported, since discordance with absolute values may lead to misinterpretation of CBC data. Current Interpretive Data was last revised on 2017. Monocyte pct 12.0 % [facility] Comment: Interpretive Data Percent cell count reference ranges are not reported, since discordance with absolute values may lead to misinterpretation of CBC data. Current Interpretive Data was last revised on 2017. Eosinophil pct 3.0 % [facility] Comment: Interpretive Data Percent cell count reference ranges are not reported, since discordance with absolute values may lead to misinterpretation of CBC data. Current Interpretive Data was last revised on 2017. Basophil pct 0.8 % [facility] Comment: Interpretive Data Percent cell count reference ranges are not reported, since discordance with absolute values may lead to misinterpretation of CBC data. Current Interpretive Data was last revised on 2017. Blood 04/07/2024 12:2 8 PM CAN DOFFER 04/07/2024 12:41 PM CAN DOFFER us Scott Wagner MD LAB BLOOD ORDERABLES Final R esult [facility] [address] Department [place] [address] * CBC with auto differential (04/07/2024 12:28 PM CAN DOFFER) WBC 5.9 3.8 - 9.9 K/cumm Hgb 13.9 13.0 - 17.5 g/dL [facility] Hct 41.3 38.9 - 50.3 % [facility] Plt 171 150 - 400 K/cumm [facility] MPV 10.8 9.1 - 12.3 fL [facility] RBC 4.62 4.30 - 5.80 M/cumm [facility] MCV 89.4 81.3 - 96.4 fL [facility] MCH 30.1 27.1 - 33.3 pg [facility] MCHC 33.7 32.3 - 35.7 g/dL [facility] RDW CV 12.7 11.1 - 14.9 % [facility] RDW SD 41.5 35.7 - 48.1 fL [facility] NRBC abs 0.00 0.00 - 0.01 K/cumm [facility] Blood (Blood, Venous) 04/07/2024 12:28 PM CAN DOFFER 04/07/2024 12:41 PM CAN DOFFER us Scott Wagner MD LAB BLOOD ORDERABLES Final R esult [facility] [address] Department [place] [address] * (ABNORMAL) Comprehensive metabolic panel (04/07/2024 12:28 PM CAN DOFFER) Sodium 136 135 - 145 mmol/L Potassium, pl 5.1(H) 3.3 - 4.9 mmol/L [facility] Comment:Hemolyzed; potassium value may be falsely elevated by as much as 0.3 - 0.5 mmol/L. Suggest redraw and reanalysis Chloride 102 97 - 110 mmol/L [facility] CO2 16(L) 22 - 32 mmol/L [facility] Anion gap 18(H) 2 - 15 mmol/L [facility] BUN 15 6 - 25 mg/dL [facility] Creatinine 0.70(L) 0.80 - 1.30 mg/dL [facility] Glucose 192 70 - 199 mg/dL [facility] Comment: Interpretive Data Fasting glucose [...] 2022. Calcium 9.2 8.5 - 10.3 mg/dL [facility] Bilirubin, total 0.6 0.1 - 1.2 mg/dL [facility] Protein, pl 7.2 6.5 - 8.5 g/dL [facility] Albumin 4.0 3.5 - 5.0 g/dL [facility] Alk phos 104 40 - 130 Units/L [facility] ALT 21 7 - 55 Units/L [facility] AST 29 10 - 50 Units/L [facility] Comment:Slightly Hemolyzed S pecimen Blood 04/07/2024 12:2 8 PM CAN DOFFER 04/07/2024 12:41 PM CAN DOFFER us Scott Wagner MD LAB BLOOD ORDERABLES Final R esult Performing Organization Address City/[facility] Co de Phone Number [facility] [address] [place] [address] * ECG 12 lead (04/07/2024 10:29 AM CAN DOFFER) 04/07/2024 10:2 9 AM CAN DOFFER Narrative [facility] - 04/07/2024 8:05 PM CAN DOFFER Vent Rate: 82 bpm RR Interval: 724 msec GA Interval: 158 msec QRS Duration: 103 msec QT Interval: 335 msec QTC Interval: 374 msec P-R-T [place]: 1 - -40 - 71 degrees IMPRESSION: SINUS RHYTHM LEFT AXIS DEVIATION [QRS AXIS < -30] POOR R WAVE PROGRESSION NONSPECIFIC T-WAVE ABNORMALITY ABNORMAL ECG Electronically Signed By: Caleb Roger MD us Richard Armstrong MD ECG ORDERABLES Final Resu lt Performing Organization Address [facility] Co de Phone Number [facility] [employer] [facility] * (ABNORMAL) POCT glucose (04/07/2024 9:52 AM CAN DOFFER) Glucose, POC 206(H) 70 - 199 mg/dL Comment: For Glucose values <35 mg/dl when Hematocrit is >60 mg/dl,the test may not accurately detect significant hypoglycemia,and testing in the Laboratory should be considered if clinically indicated. Blood 04/07/2024 9:52 AM CAN DOFFER 04/07/2024 9:52 AM CAN DOFFER Reina Boyle NP LAB POCT ORDERABLES - DEVIC E Final Result Performing Organization Address [facility] [[email or web address]] de Phone Number [facility] [address] [place] [address] * (ABNORMAL) POCT glucose (04/07/2024 9:20 AM CAN DOFFER) Glucose, POC 268(H) 70 - 199 mg/dL Comment: For Glucose values <35 mg/dl when Hematocrit is >60 mg/dl,the test may not accurately detect significant hypoglycemia,and testing in the Laboratory should be considered if clinically indicated. Blood 04/07/2024 9:20 AM CAN DOFFER 04/07/2024 9:20 AM CAN DOFFER Reina Boyel NP LAB POCT ORDERABLES - DEVIC E Final Result Performing Organization Address [facility] de Phone Number [facility] [address] [place] [address] * (ABNORMAL) POCT glucose (04/06/2024 11:05 AM CAN DOFFER) Glucose, POC 202(H) 70 - 199 mg/dL Comment: For Glucose values <35 mg/dl when Hematocrit is >60 mg/dl,the test may not accurately detect significant hypoglycemia,and testing in the Laboratory should be considered if clinically indicated. Blood 04/06/2024 11:0 5 AM CAN DOFFER 04/06/2024 11:05 AM CAN DOFFER Reina Boyle NP LAB POCT ORDERABLES - DEVIC E Final Result Performing Organization Address [facility] [[email or web address]] de Phone Number [facility] [address] [place] [address] * US Vein Mapping Duplex Lower Extremity Bilateral (04/06/2024 10:17 AM CAN DOFFER) Anatomical Region Laterality Modality Vascular Bilateral Ultrasound 04/06/2024 8:03 AM CAN DOFFER Narrative 04/09/2024 6:57 PM CAN DOFFER [facility] - Department of Vascular Surgery, Vascular Laboratory [address] [place] [id number] Lower Extremity Vein Mapping Report Patient Name: ALLY WISEMAN D : 1960 (63y 6m) Study Date: 04/06/2024 8:03:23 AM Gender: M Standards Engineer: DALILA Location: [facility] Provider: ELISEO HYDE Quality: Adequate Order Provider: [...] Distal 0.19; BRANCH cm - FINDINGS: Performing Standards Engineer: Dalila Hernandez, MARLEY, RDMS, RDCS, ACS. Bilateral: [...] above. Electronically Signed By: Dimitrios Mccrary MD [facility] 04/09/2024 6:56:05 PM CAN DOFFER Procedure Note Dimitrios Mccrary MD - 04/09/2024 [facility] - Department of Vascular Surgery,Vascular Laboratory [address] [place] [address] Lower Extremity Vein Mapping Report Patient Name: ALLY WISEMAN D : 1960 (63y 6m) Study Date: 04/06/2024 8:03:23 AM Gender: M Standards Engineer: DALILA Location: [facility] Provider: ELISEO HYDE Quality: Adequate Order Provider: [...] Distal 0.19; BRANCH cm - FINDINGS: Performing Standards Engineer: Dalila Hernandez, RVT, RDMS, RDCS, ACS. Bilateral: [...] above. Electronically Signed By: Dimitrios Mccrary MD [facility] 04/09/2024 6:56:05 PM CAN DOFFER Eliseo KRAUSE IMG US PROCEDURES Fin al Result * (ABNORMAL) POCT glucose (04/06/2024 9:14 AM CAN DOFFER) Glucose, POC 235(H) 70 - 199 mg/dL Comment: For Glucose values <35 mg/dl when Hematocrit is >60 mg/dl,the test may not accurately detect significant hypoglycemia,and testing in the Laboratory should be considered if clinically indicated. Blood 04/06/2024 9:14 AM CAN DOFFER 04/06/2024 9:14 AM CAN DOFFER Reina Boyle NP LAB POCT ORDERABLES - DEVIC E Final Result Performing Organization Address [facility] Co de Phone Number [facility] [address] [facility] [employer] [place] [address] * POCT glucose (04/03/2024 11:13 AM CAN DOFFER) Glucose, POC 123 70 - 199 mg/dL Comment: For Glucose values <35 mg/dl when Hematocrit is >60 mg/dl,the test may not accurately detect significant hypoglycemia,and testing in the Laboratory should be considered if clinically indicated. Blood 04/03/2024 11:1 3 AM CAN DOFFER 04/03/2024 11:13 AM CAN DOFFER Reina Boyle NP LAB POCT ORDERABLES - DEVIC E Final Result Performing Organization Address City/[facility] Co de Phone Number [facility] [address] [facility] [employer] [place] [address] * (ABNORMAL) POCT glucose (04/03/2024 11:07 AM CAN DOFFER) Glucose, POC 212(H) 70 - 199 mg/dL Comment: For Glucose values <35 mg/dl when Hematocrit is >60 mg/dl,the test may not accurately detect significant hypoglycemia,and testing in the Laboratory should be considered if clinically indicated. Blood 04/03/2024 11:0 7 AM CAN DOFFER 04/03/2024 11:07 AM CAN DOFFER us Reina Boyle NP LAB POCT ORDERABLES - DEVIC E Final Result Performing Organization Address [facility] Co de Phone Number [facility] [address] [facility] [employer] [place], [place] [id number] * (ABNORMAL) POCT glucose (04/03/2024 9:19 AM CAN DOFFER) Glucose, POC 317(H) 70 - 199 mg/dL Comment: For Glucose values <35 mg/dl when Hematocrit is >60 mg/dl,the test may not accurately detect significant hypoglycemia,and testing in the Laboratory should be considered if clinically indicated. Blood 04/03/2024 9:19 AM CAN DOFFER 04/03/2024 9:19 AM CAN DOFFER Reina Boyle NP LAB POCT ORDERABLES - DEVIC E Final Result Performing Organization Address [facility] de Phone Number [facility] [address] [facility] [employer] [place] [address] * (ABNORMAL) POCT glucose (04/03/2024 9:09 AM CAN DOFFER) Glucose, POC 222(H) 70 - 199 mg/dL Comment: For Glucose values <35 mg/dl when Hematocrit is >60 mg/dl,the test may not accurately detect significant hypoglycemia,and testing in the Laboratory should be considered if clinically indicated. Blood 04/03/2024 9:09 AM CAN DOFFER 04/03/2024 9:09 AM CAN DOFFER Reina Boyle NP LAB POCT ORDERABLES - DEVIC E Final Result Performing Organization Address [facility] Co de Phone Number [facility] [address] [facility] [employer] [place], [place] [id number] * CTA Abdominal Aorta And Bilateral Iliofemoral [...] calcified atherosclerosis and severe narrowing of the [place] vessel distally R. Popliteal artery: Multifocal severe [...] calcified atherosclerosis and severe narrowing of the [place]k vessel distally R. Popliteal artery: Multifocal severe [...] PSA, total and free (04/13/2023 12:18 PM CAN DOFFER) PSA-free <0.1 ng/mL [facility] PSA-Total <0.10 <=4.5 ng/mL [facility] PSA-Free/Total Ratio See Footnote [facility] Comment: Ratio was not calculated because free PSA is less than 0.1 ng/mL. Ratio not calculated because clinical usefulness is not defined except in range of total PSA 4.0-10.0 ng/mL. ADDITIONAL INFORMATION The testing method is an electrochemiluminescence assay manufactured by [employer] and performed on the Modular or Senia system. Values obtained with different assay methods or kits may be different and cannot be used interchangeably. Test results cannot be interpreted as absolute evidence for the presence or absence of malignant disease. Test Performed by: [facility] [address] [place] [address] [employer]: Goyo Ramirez M.D. Ph.D.; CLIA# [id number] Blood 04/13/2023 12:1 8 PM CAN DOFFER 04/13/2023 12:18 PM CAN DOFFER us Jay Bolanos MD PhD LAB BLOOD ORDERABLE S Final Result [facility] [address] [place] [address] from Last 3 Months or Most Recently Relevant to Health Maintenance Insurance [facility] CHOICE PLUS MEDICARE [facility] MEDICARE [facility] Advance Directives For more information, please contact: [phone] * Full Code (Latest Code Status on [...] 6:04 PM 05/10/2023 5:52 PM Care Teams Special Education Resource Teacher Relationship Specialty [place] [address] [facility] [address] [place] [address] PCP - General Family Practice 12/18/21 Dev Burrell MD [address] [place] [address] Consulting Physician Radiation Oncology 04/24/18 [place] [address] [address] Urology 04/24/18 [place] [address] [address] [place] [address] Urology 04/24/18 [place] [address] [facility] [address] [place] [address] Consulting Physician Urology 04/13/23 Dimitrios Mccrary MD [address] [facility] [address] [place] [address] Surgeon Vascular Surgery 11/01/23
[2024-07-03 07:57] LABS: NT Pro B Type Natriuretic Pept 132 pg/mL (19.9-100)
[2024-07-03 08:28] LABS: D Dimer < 0.27 ug/mL (<0.48)
--- NOTE | 2024-07-03 08:36 | PC.NURSE ---
SPO2 87-88% on room air with ambulation.
[2024-07-03 09:05] LABS: Alveolar/Arterial O2 Gradient 29.5 mmHg; Base Excess ABG 0.1 mEq/l (+/-2.0); Fractional Inspired Oxygen 21 %; HCO3 ABG 24.7 mEq/l (22.0-26.0); Oxygen Content ABG 17.6 %vol (16.0-22.0); Oxygen Saturation ABG 94.6 % (95.0-100.0); Oxyhemoglobin 93.9 % THb (90.0-100.0); PCO2 ABG 40.3 mmHg (35.0-45.0); PO2 FiO2 Ratio Arterial Blood 3.43 %; Total Hemoglobin 13.3 g/dL (12.0-18.0); pH ABG 7.406 (7.350-7.450)
[2024-07-03 09:06] LABS: Device ROOM AIR; Modified Allen's Test Pass; Site Drawn LEFT RADIAL
--- NOTE | 2024-07-03 09:42 | ECG_ITS ---
Test Date: 2024-07-03 09:46:40 Measurements Intervals [place] Rate: 92 P: 43 [place]: 151 QRS: -35 QRSD: 102 T: 57 QT: 325 QTc: 403 Interpretive Statements SINUS RHYTHM LEFT AXIS DEVIATION ANTEROSEPTAL INFARCT, AGE INDETERMINATE INFERIOR INFARCT, AGE INDETERMINATE ABNORMAL ECG Compared to ECG 07/03/2024 05:56:11 HEART RATE HAS DECREASED Electronically Signed On 07-03-2024 10:33:09 [employer]OCKROOM KEEPER by Stiven Liao D.O.
[2024-07-03 09:46] LABS: Troponin I 0.035 ng/mL (0.000-0.034)
[2024-07-03 09:47] LABS: Influenza A QL RT-PCR Negative (Negative); Influenza B QL RT-PCR Negative (Negative); RSV RNA, RT-PCR Negative (Negative); SARS-CoV-2 RNA PCR Negative (Negative)
[2024-07-03] MEDS: METOPROLOL TARTRATE 25 MG TABLET PO (10:13)
[2024-07-03] MEDS: NITROGLYCERIN OINTMENT 1 INCH DOSE TRANSDERM (10:13)
--- NOTE | 2024-07-03 11:41 | ADMGEN ---
This patient, Nacho Moon Jr., was admitted to IMU Room 206-01 @ 1140 via wheelchair. Patient/family oriented to hospital policies and general routines including ID bracelet, bed and alarms, visiting hours, pain management, procedures, bathroom and other care routines, personal items, smoking policy, room service/diet, and visiting hours. Information on how to activate the Rapid Response Team has been discussed. Patient/Family are encouraged to report perceived risks to care and to ask questions if they do not understand what they are told or what they should do.
--- NOTE | 2024-07-03 11:59 | P.CONCA_ITS ---
Assessment and Plan Assessment and plan (1) Chest pain: Code(s): R07.9 - Chest pain, unspecified Status: Acute Assessment and Plan: -Chest pain is most likely secondary to recent intubation. It increases with deep breath. No anginal chest pain -Elevated troponin of 0.035 which is most likely secondary to stress of recent procedure under general anesthesia 2 days prior. Trend troponin to peak. If troponin rises further, start heparin drip -Continue aspirin 81 mg daily -Add atorvastatin 40 mg daily -EKG shows sinus rhythm, possible inferior and anteroseptal infarct age indeterminate, some ST depressions in leads V5 V6 which have resolved -TTE (2) PVD (peripheral vascular disease): Code(s): I73.9 - Peripheral vascular disease, unspecified Status: Acute Assessment and Plan: -Patient follows at [facility]. Patient had a recent procedure on right lower extremity at [facility] 2 days prior to presentation with stent placement for InStent restenosis (per patient report) -Patient reports some pain in his right lower extremity. Recommend Tylenol 650 mg q.6 hours for pain -Obtain records from outside hospital -Continue aspirin and Plavix History of Present Illness History of Present Illness Consult date/time: 07/03/24 11:59 Reason For Visit: Chest Pain/Dyspnea Narrative: 63-year-old male with past medical history of peripheral arterial disease status post multiple stents on aspirin and Plavix, diabetes presents today with chief complaints of chest pain. The patient states that he had a long procedure 2 days back at [facility] on his right lower extremity to open a stent that was occluded in this leg artery. The procedure lasted about 2-1/2 hours and was performed under general anaesthesia. He was discharged home from [facility] yesterday. Patient woke up at 4:30 a.m. this morning with anterior chest tightness that was associated with postnasal discharge, cough with clear phlegm. He states that taking deep breath worsens the chest pain and he is not able to get air in. He also feels his ears are full. He feels congested and his skin feels like he was in the swimming pool. He reports pain in his right lower extremity but nothing that is unbearable. He denies any anginal chest pain, lightheadedness, dizziness, palpitations, PND, orthopnea, presyncope, syncope, leg swelling, recent weight gain, fevers, chills, nausea, emesis, abdominal pain, headache, focal weakness. Workup: Troponin: 0.018, 0.035 Anti pro BNP: 132 Hemoglobin: 13.2 EKG: Sinus rhythm, lateral ST depressions, inferior and anteroseptal infarct age indeterminate Repeat EKG: Sinus rhythm, inferior and anteroseptal infarct age indeterminate Chest x-ray: No acute cardiopulmonary pathology Review of Systems 2 Review of Systems: A complete review of systems was performed and negative other than those mentioned in HPI [facility] Family History Family History Mother Family history of diabetes mellitus in first degree relative Other Diabetes mellitus Social History Social History Smoking status: Never smoker Alcohol intake: current Gender identity (if verbalized by the patient): Male Meds Home Medications and Allergies Home Medications ?Medication ?Instructions ?Recorded ?Confirmed ?Type blood sugar diagnostic (OneTouch 10/28/20 History Verio test strips) metformin 500 mg tablet 500 mg PO BID 10/28/20 History pen needle, diabetic 31 gauge x 10/28/20 History 1/4 (Unifine Pentips Plus) sildenafil 100 mg tablet 100 mg PO DAILY PRN 10/28/20 History glipizide 5 mg tablet 5 mg PO DAILY 11/09/20 History Allergies Allergy/AdvReac Type Severity Reaction Status Date / Time No Known Allergies Allergy Unverified 12/06/20 15:23 Vital Signs Vital Signs - 24 hr 07/03/24 05:50 07/03/24 05:55 07/03/24 05:55 Temperature Pulse Rate 106 H 103 H Respiratory Rate 18 Blood Pressure 225/93 H Pulse Oximetry 95 96 Oxygen Delivery Room Air Room Air Oxygen Flow Rate 07/03/24 06:08 07/03/24 06:15 07/03/24 06:16 Temperature Pulse Rate 94 91 91 Respiratory Rate 24 H 25 H 24 H Blood Pressure 167/68 H Pulse Oximetry 93 92 91 Oxygen Delivery Oxygen Flow Rate 07/03/24 06:29 07/03/24 06:29 07/03/24 06:40 Temperature Pulse Rate 90 Respiratory Rate 22 H Blood Pressure Pulse Oximetry 90 95 96 Oxygen Delivery Room Air Nasal Cannula Oxygen Flow Rate 2 07/03/24 06:41 07/03/24 06:41 07/03/24 06:52 Temperature Pulse Rate 91 89 Respiratory Rate 18 23 H Blood Pressure 169/77 H Pulse Oximetry 97 96 98 Oxygen Delivery Nasal Cannula Oxygen Flow Rate 2 07/03/24 07:00 07/03/24 07:01 07/03/24 07:15 Temperature Pulse Rate 87 85 82 Respiratory Rate 20 22 H 20 Blood Pressure 162/75 H Pulse Oximetry 98 97 98 Oxygen Delivery Oxygen Flow Rate 07/03/24 07:16 07/03/24 07:30 07/03/24 07:31 Temperature Pulse Rate 84 80 83 Respiratory Rate 19 24 H 21 H Blood Pressure 158/75 H 164/79 H Pulse Oximetry 98 99 99 Oxygen Delivery Oxygen Flow Rate 07/03/24 07:32 07/03/24 07:54 07/03/24 08:00 Temperature Pulse Rate 87 82 87 Respiratory Rate 22 H 20 20 Blood Pressure Pulse Oximetry 99 99 99 Oxygen Delivery Oxygen Flow Rate 07/03/24 08:01 07/03/24 08:15 07/03/24 08:16 Temperature Pulse Rate 86 82 83 Respiratory Rate 19 19 18 Blood Pressure 174/73 H 164/73 H Pulse Oximetry 99 98 98 Oxygen Delivery Oxygen Flow Rate 07/03/24 08:30 07/03/24 08:43 07/03/24 08:45 Temperature Pulse Rate 101 H 104 H Respiratory Rate 29 H Blood Pressure Pulse Oximetry 94 99 Oxygen Delivery Nasal Cannula Oxygen Flow Rate 2 07/03/24 09:00 07/03/24 09:15 07/03/24 09:30 Temperature Pulse Rate 97 92 89 Respiratory Rate 20 22 H 18 Blood Pressure Pulse Oximetry 96 95 93 Oxygen Delivery Oxygen Flow Rate 07/03/24 09:47 07/03/24 09:48 07/03/24 10:12 Temperature Pulse Rate 92 93 95 Respiratory Rate 17 17 15 Blood Pressure 156/74 H Pulse Oximetry 96 96 96 Oxygen Delivery Oxygen Flow Rate 07/03/24 10:13 07/03/24 10:29 07/03/24 10:30 Temperature Pulse Rate 95 94 95 Respiratory Rate 17 14 Blood Pressure Pulse Oximetry 98 98 Oxygen Delivery Oxygen Flow Rate 07/03/24 10:45 07/03/24 11:00 07/03/24 11:01 Temperature Pulse Rate 95 88 90 Respiratory Rate 17 22 H 21 H Blood Pressure 165/81 H Pulse Oximetry 96 99 98 Oxygen Delivery Oxygen Flow Rate 07/03/24 11:28 07/03/24 11:43 Temperature 36.9 C Pulse Rate 86 81 Respiratory Rate 20 14 Blood Pressure 165/81 H 178/79 H Pulse Oximetry 97 99 Oxygen Delivery Oxygen Flow Rate Exam 2 Narrative: General: Alert oriented x3, no acute distress Neck: Supple, no JVD Chest: Bilaterally clear to auscultation, no rales or rhonchi Cardiac: S1, S2 +, regular rate, regular rhythm, no murmurs or rubs Extremities: No pedal edema, no skin rash Neurologic: Alert and oriented x3, no focal neurological deficits Results Labs and Meds 07/03/24 05:56 07/03/24 05:56 Lab results: Cardiac Enzymes 07/03/24 07/03/24 Range/Units 05:56 08:58 AST 23 (17-59) U/L Troponin I 0.018 0.035 H* D (0.000-0.034) ng/mL Coagulation 07/03/24 Range/Units 05:56 PT 13.2 (11.1-14.7) Seconds APTT 31.4 (22.3-36.8) Seconds CBC 07/03/24 Range/Units 05:56 WBC 5.9 (4.5-10.0) K/mm3 RBC 4.45 L (4.6-6.20) M/mm3 Hgb 13.2 L (14.0-18.0) g/dL Hct 40.3 L (42.0-52.0) % Plt Count 159 (150-375) k/mm3 Lymph # (Auto) 2.18 (0.9-3.2) K/mm3 [place] # (Auto) 0.6 (0.1-0.6) K/mm3 Eos # (Auto) 0.3 (0-0.3) K/mm3 Baso # (Auto) 0.0 (0.0-0.1) K/mm3 Comprehensive Metabolic Panel 07/03/24 Range/Units 05:56 Sodium 141 (137-145) mmol/L Potassium 4.2 (3.4-5.0) mmol/L Chloride 102 (98-107) mmol/L Carbon Dioxide 29 (22-30) mmol/L BUN 18 (9-20) mg/dL Creatinine 0.88 (0.7-1.3) mg/dL Glucose 192 H (65-110) mg/dL Calcium 9.4 (8.4-10.2) mg/dL AST 23 (17-59) U/L ALT 20 (6-50) U/L Alkaline Phosphatase 108 (38-126) U/L Total Protein 8.0 (6.3-8.2) g/dL Albumin 4.4 (3.5-5.1) g/dL Patient Weight 07/03/24 23:59 Weight 82.2 kg EKG Interpretation EKG shows: sinus rhythm (Lateral ST depressions, Inferior and anteroseptal infarct age indeterminate)
[2024-07-03 12:50] LABS: Troponin I 0.063 ng/mL (0.000-0.034)
[2024-07-03 15:29] LABS: D Dimer 0.34 ug/mL (<0.48)
[2024-07-03] MEDS: predniSONE 20 MG TABLET PO (16:43)
[2024-07-03] MEDS: metFORMIN HCL 500 MG TABLET 1000 MG PO (17:32)
[2024-07-03] MEDS: CLOPIDOGREL BISULFATE 75 MG TABLET PO (17:32)
[2024-07-03] MEDS: cilostazoL 100 MG TABLET PO (17:33)
--- NOTE | 2024-07-03 18:10 | PM.IMHP ---
H&P: HPI History of Present Illness Date/Time: 07/03/24 18:10 Chief Complaint: Chest Narrative: ER-HPI narrative: 63 years old white male came to the ED with shortness of breath and and chest pain History of diabetes, peripheral vascular disorder, status post stent placement left lower extremity few days ago, status post open up old stent in the right lower extremity 2 days ago, was hospitalized for 1 day at [facility] and got discharged yesterday. At 4:30 a.m. this morning workup with shortness of breath and chest pain associated with postnasal discharge and productive cough of clear phlegm. He denies any fever or chills or nausea or vomiting Patient currently on aspirin and Plavix. Patient probably got intubated during anesethia for the lower extremity vascular management Patient with history of peripheral vascular disease status post right lower extremity stent removal and replaced during the procedure patient was intubated her name was discharged 2 days ago from [facility], prior to developed chest pain shortness of breath tightness of the chest and presented emergency department for further evaluation, patient was found to elevated tropes patient was seen by research environmental engineer suspect demand ischemia secondary to anesthesia and procedure unlikely acute coronary syndrome, patient and 's are concerned about pulmonary emboli however D-dimer is negative to further evaluate CTA of the chest ordered and will follow-up, patient respiratory viral profile is negative, patient does have a minimal wheezing will give a short course of prednisone. Review of Systems Review of Systems: All systems reviewed & are unremarkable except as noted in HPI and below [facility] Family History Family History Mother Family history of diabetes mellitus in first degree relative Other Diabetes mellitus Social History Social History Smoking status: Former smoker Tobacco type: cigarettes Smoking end date: 05/06/94 Alcohol intake: current Substance use: never Substance use type: does not use Do You Feel Safe in your Home?: Yes Lack of Transportation: No Lack of Food: Never True Current Housing: I Have Housing Concerned About Future Housing: Decline to Answer Difficulty Paying Gas/Electric Bills: No Difficulty Paying for Meds: No Currently Unemployed: No Education: Trade/Vocational Certificate Difficulty w/ Childcare or Family Care: No Gender identity (if verbalized by the patient): Male Spiritual care concerns: No Meds Home Medications and Allergies Home Medications ?Medication ?Instructions ?Recorded ?Confirmed ?Type blood sugar diagnostic (OneTouch 10/28/20 07/03/24 History Verio test strips) metformin 500 mg tablet 1,000 mg PO BID 10/28/20 07/03/24 History pen needle, diabetic 31 gauge x 10/28/20 07/03/24 History 1/4 (Unifine Pentips Plus) sildenafil 100 mg tablet 100 mg PO DAILY PRN erectile 10/28/20 07/03/24 History dysfunction glipizide 5 mg tablet 10 mg PO DAILY 11/09/20 07/03/24 History aspirin 81 mg tablet,delayed 81 mg PO HS 07/03/24 07/03/24 History release (Adult Aspirin Regimen) cilostazol 100 mg tablet 100 mg PO BID 07/03/24 07/03/24 History ciprofloxacin HCl 500 mg tablet 500 mg PO BID 07/03/24 07/03/24 History clopidogrel 75 mg tablet 75 mg PO .AM 07/03/24 07/03/24 History gabapentin 300 mg capsule 300 mg PO HS 07/03/24 07/03/24 History tamsulosin 0.4 mg capsule 0.4 mg PO HS 07/03/24 07/03/24 History Allergies Allergy/AdvReac Type Severity Reaction Status Date / Time No Known Allergies Allergy Verified 07/03/24 12:46 Vital Signs Vital Signs - 24 hr 07/03/24 05:50 07/03/24 05:55 07/03/24 05:55 Temperature Pulse Rate 106 H 103 H Respiratory Rate 18 Blood Pressure 225/93 H Pulse Oximetry 95 96 Oxygen Delivery Room Air Room Air Oxygen Flow Rate 07/03/24 06:08 07/03/24 06:15 07/03/24 06:16 Temperature Pulse Rate 94 91 91 Respiratory Rate 24 H 25 H 24 H Blood Pressure 167/68 H Pulse Oximetry 93 92 91 Oxygen Delivery Oxygen Flow Rate 07/03/24 06:29 07/03/24 06:29 07/03/24 06:40 Temperature Pulse Rate 90 Respiratory Rate 22 H Blood Pressure Pulse Oximetry 90 95 96 Oxygen Delivery Room Air Nasal Cannula Oxygen Flow Rate 2 07/03/24 06:41 07/03/24 06:41 07/03/24 06:52 Temperature Pulse Rate 91 89 Respiratory Rate 18 23 H Blood Pressure 169/77 H Pulse Oximetry 97 96 98 Oxygen Delivery Nasal Cannula Oxygen Flow Rate 2 07/03/24 07:00 07/03/24 07:01 07/03/24 07:15 Temperature Pulse Rate 87 85 82 Respiratory Rate 20 22 H 20 Blood Pressure 162/75 H Pulse Oximetry 98 97 98 Oxygen Delivery Oxygen Flow Rate 07/03/24 07:16 07/03/24 07:30 07/03/24 07:31 Temperature Pulse Rate 84 80 83 Respiratory Rate 19 24 H 21 H Blood Pressure 158/75 H 164/79 H Pulse Oximetry 98 99 99 Oxygen Delivery Oxygen Flow Rate 07/03/24 07:32 07/03/24 07:54 07/03/24 08:00 Temperature Pulse Rate 87 82 87 Respiratory Rate 22 H 20 20 Blood Pressure Pulse Oximetry 99 99 99 Oxygen Delivery Oxygen Flow Rate 07/03/24 08:01 07/03/24 08:15 07/03/24 08:16 Temperature Pulse Rate 86 82 83 Respiratory Rate 19 19 18 Blood Pressure 174/73 H 164/73 H Pulse Oximetry 99 98 98 Oxygen Delivery Oxygen Flow Rate 07/03/24 08:30 07/03/24 08:43 07/03/24 08:45 Temperature Pulse Rate 101 H 104 H Respiratory Rate 29 H Blood Pressure Pulse Oximetry 94 99 Oxygen Delivery Nasal Cannula Oxygen Flow Rate 2 07/03/24 09:00 07/03/24 09:15 07/03/24 09:30 Temperature Pulse Rate 97 92 89 Respiratory Rate 20 22 H 18 Blood Pressure Pulse Oximetry 96 95 93 Oxygen Delivery Oxygen Flow Rate 07/03/24 09:47 07/03/24 09:48 07/03/24 10:12 Temperature Pulse Rate 92 93 95 Respiratory Rate 17 17 15 Blood Pressure 156/74 H Pulse Oximetry 96 96 96 Oxygen Delivery Oxygen Flow Rate 07/03/24 10:13 07/03/24 10:29 07/03/24 10:30 Temperature Pulse Rate 95 94 95 Respiratory Rate 17 14 Blood Pressure Pulse Oximetry 98 98 Oxygen Delivery Oxygen Flow Rate 07/03/24 10:45 07/03/24 11:00 07/03/24 11:01 Temperature Pulse Rate 95 88 90 Respiratory Rate 17 22 H 21 H Blood Pressure 165/81 H Pulse Oximetry 96 99 98 Oxygen Delivery Oxygen Flow Rate 07/03/24 11:28 07/03/24 11:43 07/03/24 12:30 Temperature 36.9 C Pulse Rate 86 81 89 Respiratory Rate 20 14 Blood Pressure 165/81 H 178/79 H Pulse Oximetry 97 99 Oxygen Delivery Oxygen Flow Rate 07/03/24 16:00 Temperature 36.6 C Pulse Rate 79 Respiratory Rate 16 Blood Pressure 141/69 H Pulse Oximetry 96 Oxygen Delivery Oxygen Flow Rate Exam Narrative: Patient is comfortable, NAD HEENT: eyes are clear and none icteric LUNGS: Bilateral fair entry with minimal rhonchi and wheezing HEART: RR S1S2 ABD: BS+, Soft and nontender Lower extremities: no edema SKIN: nonjaundiced Neuro: grossly intact. H&P: Results Labs Labs: Short CBC 07/03/24 Range/Units 05:56 WBC 5.9 (4.5-10.0) K/mm3 Hgb 13.2 L (14.0-18.0) g/dL Hct 40.3 L (42.0-52.0) % Plt Count 159 (150-375) k/mm3 BMP 07/03/24 05:56 Sodium 141 Potassium 4.2 Chloride 102 Carbon Dioxide 29 BUN 18 Creatinine 0.88 Glucose 192 H Calcium 9.4 Cardiac Enzymes 07/03/24 07/03/24 07/03/24 Range/Units 05:56 08:58 11:46 Troponin I 0.018 0.035 H* D 0.063 H* D (0.000-0.034) ng/mL Liver Function 07/03/24 Range/Units 05:56 Total Bilirubin 0.6 (0.2-1.3) mg/dL AST 23 (17-59) U/L ALT 20 (6-50) U/L Alkaline Phosphatase 108 (38-126) U/L Albumin 4.4 (3.5-5.1) g/dL Assessment and Plan Assessment and plan (1) Chest pain: Code(s): R07.9 - Chest pain, unspecified Status: Acute (2) PVD (peripheral vascular disease): Code(s): I73.9 - Peripheral vascular disease, unspecified Status: Acute (3) Hypertension: Code(s): I10 - Essential (primary) hypertension Status: Acute (4) Hyperlipidemia: Code(s): E78.5 - Hyperlipidemia, unspecified Status: Acute (5) URI (upper respiratory infection): Code(s): J06.9 - Acute upper respiratory infection, unspecified Status: Acute Plan Patient with history of peripheral vascular disease status post right lower extremity stent removal and replaced during the procedure patient was intubated her name was discharged 2 days ago from [facility], prior to developed chest pain shortness of breath tightness of the chest and presented emergency department for further evaluation, patient was found to elevated tropes patient was seen by research environmental engineer suspect demand ischemia secondary to anesthesia and procedure unlikely acute coronary syndrome, patient and 's are concerned about pulmonary emboli however D-dimer is negative to further evaluate CTA of the chest ordered and will follow-up, patient respiratory viral profile is negative, patient does have a minimal wheezing will give a short course of prednisone.
[2024-07-03] MEDS: CIPROFLOXACIN 500 MG TAB PO (22:14)
[2024-07-03] MEDS: ASPIRIN 81 MG ENTERIC TABLET PO (22:14)
[2024-07-03] MEDS: TAMSULOSIN HCL 0.4 MG CAPSULE PO (22:15)
[2024-07-03] MEDS: GABAPENTIN 300 MG CAPSULE PO (22:15)
[2024-07-03] MEDS: ACETAMINOPHEN 325 MG TABLET 650 MG PO (22:15)
[2024-07-04] VITALS (12 sets, daily range): BP systolic 135–204; BP diastolic 63–83; PULSE 70–89; RESP 16–20; TEMP 36.4–36.6; O2SAT 96–98
[2024-07-04] MEDS: ACETAMINOPHEN 325 MG TABLET 650 MG PO ×2 (05:27→10:18)
[2024-07-04] MEDS: ASPIRIN 81 MG CHEWABLE TABLET PO (09:55)
[2024-07-04] MEDS: glipiZIDE 5 MG TABLET 10 MG PO (09:56)
[2024-07-04] MEDS: metFORMIN HCL 500 MG TABLET 1000 MG PO (09:57)
[2024-07-04] MEDS: CIPROFLOXACIN 500 MG TAB PO (09:58)
[2024-07-04] MEDS: CLOPIDOGREL BISULFATE 75 MG TABLET PO (09:59)
[2024-07-04] MEDS: cilostazoL 100 MG TABLET PO (09:59)
[2024-07-04] MEDS: predniSONE 20 MG TABLET PO (10:00)
[2024-07-04 11:10] LABS: Troponin I 0.026 ng/mL (0.000-0.034)
--- NOTE | 2024-07-04 11:36 | P.PNCA_ITS ---
Progress Note: A&P Assessment and Plan (1) Chest pain: Code(s): R07.9 - Chest pain, unspecified Status: Acute (2) PVD (peripheral vascular disease): Code(s): I73.9 - Peripheral vascular disease, unspecified Status: Acute (3) Hyperlipidemia: Code(s): E78.5 - Hyperlipidemia, unspecified Status: Acute (4) URI (upper respiratory infection): Code(s): J06.9 - Acute upper respiratory infection, unspecified Status: Acute (5) Hypertension: Code(s): I10 - Essential (primary) hypertension Status: Acute Plan NSTEMI-most likely type II, chest pain-atypical and increases with deep breath, elevated troponin-down trending, EKG shows sinus rhythm, possible inferior and anteroseptal infarct age indeterminate, lateral ST depressions that have resolved Peripheral vascular disease status post percutaneous intervention to InStent restenoses of right popliteal artery under general anaesthesia and [facility] URI Hyperlipidemia Hypertension Plan: -Chest pain is most likely secondary to recent intubation. It increases with deep breath. No anginal chest pain -Elevated troponin is most likely secondary to stress of recent procedure under general anesthesia 2 days prior to admission. Troponin has peaked and downtrending -Continue cilostazol and Plavix for given PVD -Start atorvastatin 40 mg daily -TTE -Patient has significant risk factors for CAD including male sex, age, hypertension, hyperlipidemia, known PVD. Though it is possible that the troponin release could be related to stress of recent procedure, underlying stable CAD cannot be ruled out without further cardiac workup. Recommend outpatient stress test once patient recovers from recent peripheral procedure an d URI Subjective Date/time seen: 07/04/24 11:36 Interval history: Reason for encounter: Chest pain Relevant history: 63-year-old male with past medical history of peripheral arterial disease percutaneous intervention to his right popliteal artery at [facility] under general anaesthesia 2 days prior to his presentation, diabetes was admitted with chest pain. Chest pain was worse with deep inspiration and constant in nature without any radiation to any other part of the body. He also complained of cough and congestion. Workup: Troponin: 0.018, 0.035, 0.063, 0.02 Anti pro BNP: 132 Hemoglobin: 13.2 EKG: Sinus rhythm, lateral ST depressions, inferior and anteroseptal infarct age indeterminate Repeat EKG: Sinus rhythm, inferior and anteroseptal infarct age indeterminate Chest x-ray: No acute cardiopulmonary pathology Interval history: Patient reports improved breathing and inability to move air. He continues to have some chest tightness across the front of his chest that increases with deep breath and which has been constant since yesterday morning. No diaphoresis, lightheadedness, dizziness, palpitations, emesis, nausea, abdominal pain, headache, focal weakness. Review of Systems Review of Systems: Complete review of systems was performed and negative other than those mentioned in HPI Exam Narrative: General: Alert oriented x3, no acute distress Neck: Supple, no JVD Chest: Bilaterally clear to auscultation, no rales or rhonchi Cardiac: S1, S2 +, regular rate, regular rhythm, no murmurs or rubs Extremities: No pedal edema, no skin rash Neurologic: Alert and oriented x3, no focal neurological deficits Objective Data Vital Signs Vital Signs: Vital Signs - 24 hr 07/03/24 11:43 07/03/24 12:30 07/03/24 16:00 Temperature 36.9 C 36.6 C Pulse Rate 81 89 79 Respiratory Rate 14 16 Blood Pressure 178/79 H 141/69 H Pulse Oximetry 99 96 Oxygen Delivery 07/03/24 16:00 07/03/24 18:36 07/03/24 20:00 Temperature 36.8 C Pulse Rate 79 87 76 Respiratory Rate 14 Blood Pressure 166/76 H Pulse Oximetry 96 Oxygen Delivery 07/03/24 21:20 07/03/24 22:00 07/03/24 22:02 Temperature 36.6 C Pulse Rate 87 77 78 Respiratory Rate 14 16 Blood Pressure 129/68 Pulse Oximetry 96 98 Oxygen Delivery Room Air 07/04/24 00:00 07/04/24 00:00 07/04/24 00:00 Temperature 36.5 C Pulse Rate 77 81 77 Respiratory Rate 16 16 Blood Pressure 135/64 Pulse Oximetry 96 96 Oxygen Delivery Room Air 07/04/24 02:00 07/04/24 04:00 07/04/24 04:00 Temperature 36.6 C Pulse Rate 78 89 83 Respiratory Rate 16 Blood Pressure 150/63 H Pulse Oximetry 97 Oxygen Delivery 07/04/24 05:00 07/04/24 06:00 07/04/24 07:52 Temperature 36.6 C Pulse Rate 83 86 79 Respiratory Rate 16 20 Blood Pressure 136/65 Pulse Oximetry 97 96 Oxygen Delivery Room Air 07/04/24 08:39 Temperature Pulse Rate Respiratory Rate Blood Pressure Pulse Oximetry 96 Oxygen Delivery Room Air Intake/Output Intake/Output: Intake & Output 07/01/24 07/02/24 07/03/24 07/04/24 23:59 23:59 23:59 23:59 Intake Total 1030 300 Output Total 260 280 Balance 770 20 Meds/Results Medications: Active Medications Generic Name Dose Route Start Last Admin Trade Name Freq PRN Reason Stop Dose Admin Acetaminophen 650 mg 07/03/24 10:05 07/04/24 10:18 Acetaminophen 325 Mg Tablet PO 650 mg Q4H PRN Administration Mild Pain (1-3) or Fever Aspirin 81 mg 07/04/24 08:00 07/04/24 09:55 Aspirin 81 Mg Chewable Tablet PO 81 mg DAILY@0800 ELIAS Administration Aspirin 81 mg 07/03/24 21:00 07/03/24 22:14 Aspirin 81 Mg Enteric Tablet PO 81 mg HS ELIAS Administration Cilostazol 100 mg 07/03/24 17:00 07/04/24 09:59 Cilostazol 100 Mg Tablet PO 100 mg BIDWM ELIAS Administration Ciprofloxacin 500 mg 07/03/24 21:00 07/04/24 09:58 Ciprofloxacin 500 Mg Tab PO 500 mg Q12HR ELIAS Administration Clopidogrel Bisulfate 75 mg 07/03/24 17:30 07/04/24 09:59 Clopidogrel Bisulfate 75 Mg Tablet PO 75 mg QAM ELIAS Administration Dextrose 12.5 gm 07/04/24 08:43 Dextrose 50% 25 Gm/50 Ml Syringe IV PUSH PRN PRN Hypoglycemia Protocol Dextrose 12.5 gm 07/04/24 08:57 Dextrose 50% 25 Gm/50 Ml Syringe IV PUSH PRN PRN Hypoglycemia Protocol Gabapentin 300 mg 07/03/24 21:00 07/03/24 22:15 Gabapentin 300 Mg Capsule PO 300 mg HS ELIAS Administration Glipizide 10 mg 07/04/24 08:00 07/04/24 09:56 Glipizide 5 Mg Tablet PO 10 mg DAILY@0800 ELIAS Administration Glucagon 1 mg 07/04/24 08:43 Glucagon For Inj 1 Mg Vial IM PRN PRN Hypoglycemia Protocol Glucagon 1 mg 07/04/24 08:57 Glucagon For Inj 1 Mg Vial IM PRN PRN Hypoglycemia Protocol Glucose 15 gm 07/04/24 08:43 Glucose Oral Gel 15 Gm Of Glucse In 37.5 Gm Tube PO PRN PRN Hypoglycemia Protocol Glucose 15 gm 07/04/24 08:57 Glucose Oral Gel 15 Gm Of Glucse In 37.5 Gm Tube PO PRN PRN Hypoglycemia Protocol Dextrose 1,000 mls @ 100 mls/hr 07/04/24 08:43 Dextrose 5% 1,000 Ml IVPB PRN PRN Hypoglycemia Protocol Dextrose 1,000 mls @ 100 mls/hr 07/04/24 08:57 Dextrose 5% 1,000 Ml IVPB PRN PRN Hypoglycemia Protocol Insulin Aspart 2 - 5 units 07/04/24 12:00 Insulin Aspart (*Bkc) 100 Units/Ml SUB-Q TIDWM ELIAS Protocol Metformin HCl 1,000 mg 07/03/24 17:00 07/04/24 09:57 Metformin Hcl 500 Mg Tablet PO 1,000 mg BID ELIAS Administration Prednisone 20 mg 07/03/24 15:45 07/04/24 10:00 Prednisone 20 Mg Tablet PO 20 mg DAILY@0800 ELIAS Administration Tamsulosin HCl 0.4 mg 07/03/24 21:00 07/03/24 22:15 Tamsulosin Hcl 0.4 Mg Capsule PO 0.4 mg HS ELIAS Administration Radiology Results: ITS Impressions Chest X-Ray 07/03/24 06:43 IMPRESSION: 1: NO ACUTE CARDIOPULMONARY DISEASE. Chest CTA 07/04/24 10:20 IMPRESSION: 1. Bilateral diffuse mild bronchial wall thickening which could be seen with bronchitis/bronchiolitis, reactive air disease/asthma or related to mild pulmonary edema. 2. Dependent predominant mosaic attenuation with mild groundglass opacities and would favor atelectasis over mild pulmonary edema or pneumonia. Labs Labs: Laboratory Results - last 24 hr 07/03/24 07/03/24 07/04/24 11:46 15:01 10:36 D-Dimer 0.34 Troponin I 0.063 H* D 0.026
--- NOTE | 2024-07-04 13:30 | P.DS_ITS ---
DS: Admitting Diagnosis Discharge Date 07/04/24 Admitting Diagnosis Chest pain DS: Discharge Diagnosis Discharge Diagnosis (1) Chest pain: Code(s): R07.9 - Chest pain, unspecified Status: Acute (2) PVD (peripheral vascular disease): Code(s): I73.9 - Peripheral vascular disease, unspecified Status: Acute (3) Hypertension: Code(s): I10 - Essential (primary) hypertension Status: Acute (4) Hyperlipidemia: Code(s): E78.5 - Hyperlipidemia, unspecified Status: Acute (5) URI (upper respiratory infection): Code(s): J06.9 - Acute upper respiratory infection, unspecified Status: Acute DS: Summary Hospital Course Hospital Course: 58-year-old male presented with chest pain patient was seen by Cardiology suspect non STEMI type 2 secondary to atypical chest with history of peripheral vascular disease and recently had percutaneous intervention to in-stent restenoses of right popliteal artery under general anesthesia, cartilage is does not suspect acute coronary syndrome most likely ischemia due to stressful sent surgery and anesthesia, patient is clinically stable will discharge the patient today may follow-up with his cardiology to further evaluate and may need stress test. Time Spent with Patient Time attestation: Total time spent providing and/or coordinating discharge services: DS: Data Data Completed and Pending Labs on day of discharge: Labs from last 24 hours 07/04/24 07/03/24 10:36 15:01 D-Dimer 0.34 Troponin I 0.026 Discharge Plan Discharge Attending physician on discharge: Lucas Krishnamurthy Consulting providers: Idalmis Villanueva; Stiven Liao; Mikey Tellez; Coleman Jo Discharging Clinician: Sadie Grace Patient Disposition: Home, Self-Care Activity: as tolerated Diet: heart healthy Patient Instructions: Antibiotic Form Patient Language: Bangladeshi Stand Alone Forms: General Discharge Information Follow-up/Referrals: Litzy,Nacho Bravo MD [Primary Care Provider] - Idalmis Villanueva MD [Physician] - Discharge Medications: New prednisone 20 mg Tablet 20 mg PO DAILY@0800 Qty: 3 0RF Continued glipizide 5 mg tablet 10 mg PO DAILY metformin 500 mg tablet 1,000 mg PO BID (DME) OneTouch Verio test strips Strip See Rx Instructions .ROUTE Rx Instructions: As directed sildenafil 100 mg tablet 100 mg PO DAILY PRN (Reason: erectile dysfunction) Rx Instructions: administer 30 minutes to 4 hours before activity (DME) pen needle, diabetic [Unifine Pentips Plus] 31 gauge x 1/4 needle See Rx Instructions .ROUTE Rx Instructions: As directed gabapentin 300 mg capsule 300 mg PO HS clopidogrel 75 mg tablet 75 mg PO .AM ciprofloxacin HCl 500 mg tablet 500 mg PO BID cilostazol 100 mg tablet 100 mg PO BID tamsulosin 0.4 mg capsule 0.4 mg PO HS aspirin [Adult Aspirin Regimen] 81 mg tablet,delayed release (DR/EC) 81 mg PO HS Date of admission: 07/03/24 10:15 Primary Care Provider: Litzy,Nacho Bravo Admitting Provider: Willy Butler Attending physician on admission: Sadie Grace Condition: Stable
== END 2024-07-04 14:38 | disposition home or self-care (01) ==
LOC: ANHED 10:26 → ANHIMU 18:53
PROVIDERS: Internal Medicine Interventional Cardiology; Student in an Organized Health Care Education/Training Program; Admitting Provider General Practice; Emergency Provider Emergency Medicine; PCP Family Medicine; Visit Provider Family Medicine
DX: R07.89 Other chest pain (principal); R79.89 Other specified abnormal findings of blood chemistry; E11.51 Type 2 diabetes mellitus with diabetic peripheral angiopathy without gangrene; I10 Essential (primary) hypertension; E78.5 Hyperlipidemia, unspecified; J06.9 Acute upper respiratory infection, unspecified; Z20.822 Contact with and (suspected) exposure to COVID-19; Z95.828 Presence of other vascular implants and grafts; Z87.891 Personal history of nicotine dependence; Z79.82 Long term (current) use of aspirin; Z79.02 Long term (current) use of antithrombotics/antiplatelets; Z79.899 Other long term (current) drug therapy
CPT/HCPCS: 36415; 36600; 71046; 71275; 80053; 82805; 83690; 83880; 84484; 85018; 85025; 85380; 85610; 85730; 87637; 93005; 99285; A9270; G0378; J7512; Q9967

== ENCOUNTER 2024-11-04 15:44 | Outpatient (CLI) | payer MEDICARE, OTHER, SELFPAY ==
--- NOTE | ~2024-11-04 | CT_ITS ---
Non-contrast CT scan of the Abdomen and Pelvis Clinical indication: Flank pain Technique: 2.5 mm axial scans were obtained through the abdomen and pelvis without intravenous or or al contrast. Dose reduction technique was used on this scan by utilizing automated exposure control a nd iterative reconstruction technique. The dose-length product (DLP) was 526.34 mGy-cm. COMPARISON: 04/11/2023 Findings: Images through the lung bases reveal no abnormalities. There is no evidence of renal or ureteral calculi. The kidneys and the ureters are nondilated. Probable minimally nodular contour of the liver. The spleen, pancreas, gallbladder, and adrenals appe ar normal. There are atherosclerotic calcifications of the aorta. . There is no evidence of bowel obstruction. Images through the pelvis were performed. There is no evidence of ascites or lymphadenopathy. Urinary bladder unremarkable. Prostate gland brachytherapy seeds are present. Impression: No acute abnormality seen. Mild cirrhotic morphology of liver. Reviewed, dictated and finalized at [facility]. Impression: No acute abnormality seen. Mild cirrhotic morphology of liver.
--- OUTSIDE RECORDS SUMMARY | 2024-11-04 15:49 | XMS_ITS | Encounter Summary ---
Author Organization [facility] Address [facility] [place] [address] Care Team Providers Care Puffer Tender Name Role Phone Nacho Mcghee MD Primary Care Provider [phone] Encounter Details Date Type Department Care Team (Latest Contact Info) Description 10/10/2024 Results Follow-Up [facility] Family & Internal Medicine [address] [address] [place] [id number] [place] [id number] URINALYSIS AUTO DIP, HEMOGLOBIN, GLYCOSYLATED Social History Tobacco Use Types Packs/Day Years [...] on file 07/2018 PHQ-2 Answer Date Recorded Patient Health Questionnaire-2 Score 0 08/31/2024 Sex and Gender Information Value Date Recorded Sex Assigned at Male 08/12/2023 8:04 AM CDT Legal Sex Male 1:42 AM CDT Gender Identity Male 08/12/2023 8:04 AM CDT Sexual Orientation Not on file documented as of this encounter Progress Notes * Nacho Mcghee MD - 10/10/2024 10:54 AM CDT Glucose and protein with small blood, negative LE and nitrate await culture documented in this encounter Plan of Treatment Not on file documented as of this encounter Visit Diagnoses Not on filedocumented in this encounter Care Teams Puffer Tender Relationship Specialty [place] [address] [place] [address] PCP - General FAMILY PRACTICE 08/18/21 documented as of this encounter
--- OUTSIDE RECORDS SUMMARY | 2024-11-04 15:49 | XMS_ITS ---
Author Organization [facility] Address [address] [place] [address] Care Team Providers Care Primer Waterproofing Machine Operator Name Role Phone Dev Burrell MD Unavailable [phone] Phillip Schafer MD Unavailable [phone] Star Ellis MD Unavailable Nacho Mcghee MD Primary Care Provider [phone] Mary Anne Rodriguez MD Unavailable [phone] Dimitrios Mccrary MD Unavailable [phone] Active Problems Problem Noted Date Diagnosed Date Dizziness 04/07/2024 Episode of hypertension 04/07/2024 Urine leukocytes 04/07/2024 Atherosclerosis of [place]ic of left lower extremity with intermittent claudication 03/26/2024 Preop examination 03/25/2024 Cystitis 01/04/2024 Hematuria 11/09/2023 History of prostate cancer 11/09/2023 Urinary retention 11/09/2023 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 Atherosclerosis of [place]ic of both lower extremities with [...] risk of limb loss and need for shelter follow-up. Assessment & Plan (06/17/2024 11:05 AM FUR MIXER): He has a progressive right in-stent popliteal [...] risk of limb loss and need for shelter follow-up. He understands the potential need for lifelong Plavix therapy if stents are placed. Assessment & Plan (04/08/2023 12:58 PM FUR MIXER): He has debilitating bilateral calf claudication and [...] risk of limb loss and need for shelter follow-up. Atherosclerosis of [place] of right lower extremity with intermittent claudication 04/08/2023 Carpal tunnel syndrome on right 08/15/2021 Overview (08/15/2021): Added automatically from request for surgery [id number] Lesion of right ulnar nerve 08/15/2021 Overview (08/15/2021): Added automatically from request for surgery [id number] Cubital tunnel syndrome on left 07/21/2021 Overview (07/21/2021): Added automatically from request for surgery [id number] Carpal tunnel syndrome on left 07/21/2021 Overview (07/21/2021): Added automatically from request for surgery [id number] Vascular disease 06/25/2021 Overweight with body mass index (BMI) 25.0-29.9 10/13/2015 Type 2 diabetes mellitus wit hout complication, without long-term current use of insulin 07/11/2011 Overview (09/11/2023): DMII WO CMP [id number] [...]
--- OUTSIDE RECORDS SUMMARY | 2024-11-04 15:49 | XMS_ITS | Clinical Summary ---
Author Organization [facility] Address [address] [place] [address] Care Team Providers Care Hand Paster Name Role Phone Nacho Mcghee MD Primary Care Provider [phone] Allergies No known active allergies Medications ONETOUCH VERIO test strip Use as directed 9 Active sildenafil (VIAGRA) 100 MG tabletIndicatio ns:Male erectile disorder of organic origin Take 1 tablet (100 mg total) by mouth daily as needed for Erectile Dysfunction. 30 tablet 5 1 Active aspirin EC (ECOTRIN) 81 MG tablet Take 1 tablet (81 mg total) by mouth daily. Active cilostazol 50 MG tablet Take 1 tablet (50 mg total) by mouth every 12 (twelve) hours. Active gabapentin 300 MG capsule Take 1 capsule (300 mg total) by mouth daily. 2 Active meloxicam (MOBIC) 15 MG tablet 2 Active LORazepam (ATIVAN) 1 MG tablet TAKE 1 TABLET BY MOUTH 1 HOUR BEFORE MRI DIRECTED 4 Active ondansetron (ZOFRAN) 4 MG tablet TAKE 1-2 TABLETS BY MOUTH EVERY 6 HOURS NEEDED FOR NAUSEA OR VOMITING 4 Active hyoscyamine (LEVSIN/SL) 0.125 MG SL tablet DISSOLVE 1 TABLET UNDER THE TONGUE EVERY 4 HOURS NEEDED FOR CRAMPING 4 Active HYDROcodone-jamie taminophen (NORCO) 5-325 MG tablet TAKE 1-2 TABLETS BY MOUTH EVERY 6 HOURS NEEDED FOR PAIN 4 Active metFORMIN (GLUCOPHAGE) 500 MG tabletIndicatio ns:Type 2 diabetes mellitus with hyperglycemia, without long-term current use of insulin ([facility]) TAKE 2 TABLETS TWICE A DAY WITH MEALS 360 tablet 5 Active nitrofurantoin, macrocrystal-mo nohydrate, (MACROBID) 100 MG capsule Take 1 capsule (100 mg total) by mouth 2 (two) times daily. 5 Active tamsulosin (FLOMAX) 0.4 MG Cap Take 1 capsule (0.4 mg total) by mouth daily. Active empagliflozin (JARDIANCE) 10 MG tabletIndicatio ns:Type 2 diabetes mellitus with hyperglycemia, without long-term current use of insulin ([facility]) Take 1 tablet (10 mg total) by mouth daily. 30 tablet 5 Active glipiZIDE XL (GLUCOTROL XL) 10 MG 24 hr tabletIndicatio ns:Type 2 diabetes mellitus with hyperglycemia, without long-term current use of insulin ([facility]) TAKE 1 TABLET DAILY WITH BREAKFAST, DO NOT BREAK OR CRUSH TABLET 90 tablet 1 5 Active clopidogrel (PLAVIX) 75 MG tablet Take 1 tablet (75 mg total) by mouth daily. 4 11/02/19 25 glipiZIDE XL (GLUCOTROL XL) 10 MG 24 hr tabletIndicatio ns:Type 2 diabetes mellitus with hyperglycemia, without long-term current use of insulin ([facility]) TAKE 1 TABLET DAILY WITH BREAKFAST, DO NOT BREAK OR CRUSH TABLET 90 tablet 1 4 10/10/19 25 Discontinue d(Reorder) empagliflozin (JARDIANCE) 10 MG tabletIndicatio ns:Type 2 diabetes mellitus with hyperglycemia, without long-term current use of insulin ([facility]) Take 1 tablet (10 mg total) by mouth daily. 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 Atherosclerosis of cachil dehe ar eric of right lower extremity with intermittent claudication 04/08/2023 Lesion of right ulnar nerve 08/15/2021 Overview (02/27/2022): Added automatically from request for surgery [id number] Carpal tunnel syndrome on left 07/21/2021 Overview (02/27/2022): Added automatically from request for surgery [id number] Cubital tunnel syndrome on left 07/21/2021 Overview (02/27/2022): Added automatically from request for surgery [id number] Vascular disease 06/25/2021 Claudication of both lower extremities 2 Abnormal ankle brachial index (SHEEBA) 05/24/2021 History of prostate cancer 09/30/2020 Chronic left shoulder pain 09/30/2020 Diabetic peripheral neuropathy ([facility]) 06/08/2019 Type 2 diabetes mellitus wit h hyperglycemia, without long-term current use of insulin ([facility]) 06/08/2019 BMI 26.0-26.9,adult 10/13/2015 Overview (08/27/2018): Transitioned From: BMI 29.0-29.9,adult Medication management 10/13/2015 Overview (08/27/2018): Transitioned From: intermodal dispatcher use of drug Lipoma of left lower extremity 03/16/2015 Osteopenia 03/23/2013 Male erectile disorder of organic origin 013 Essential hypertension 05/05/2012 Hypertriglyceridemia 03/18/2012 Resolved Problems Problem Noted Date Diagnosed Date Resolved Date Prostate cancer ([facility]) 10/30/2013 09/30/2020 Encounters Date Type Department Care Team Description 10/26/2024 Scan [facility] Scanned, [facility] 10/22/2024 8:31 AM CDT - 10/22/2024 11:59 PM CDT Hospital Encounter [facility] [address] [place] [address] Kathi Frank NP Discharge Disposition: Home or Self Care (Routine Discharge) 10/22/2024 Orders Only [facility] [address] [place] [address] Kathi Frank NP 10/22/2024 Travel 10/10/2024 Results Follow-Up [facility] Family & Internal Medicine [address] [phone] Nacho Mcghee MD URINALYSIS AUTO DIP, HEMOGLOBIN, GLYCOSYLATED 10/09/2024 4:40 PM CDT Office Visit [facility] Family & Internal [address] [phone] Nacho Mcghee MD Follow Up; Diabetes 10/09/2024 Travel 09/02/2024 Results Follow-Up [facility] Family & Internal Medicine [address] [phone] Nacho Mcghee MD HEMOGLOBIN, GLYCOSYLATED 08/31/2024 10:40 AM CDT Office Visit [facility] Family & Internal [address] [phone] Nacho Mcghee MD Follow Up; Diabetes 08/31/2024 Travel 08/27/2024 Telephone [facility] Family & Internal Medicine [facility] [address] [place] [phone] Nacho Mcghee MD Medication Problem 08/25/2024 2:15 PM CDT - 08/25/2024 11:59 PM CDT Hospital Encounter [facility] [address] [place] [address] Mary Anne Rodriguez MD Discharge Disposition: Home or Self Care (Routine Discharge) 08/25/2024 Orders Only [facility] [address] [place] [address] Mary Anne Rodriguez MD 08/25/2024 Travel 08/24/2024 Telephone [facility] Family & Internal [address] [phone] Nacho Mcghee MD Appointment Request from Last 3 Months Immunizations Immunization Administration Dates Next Due Influenza Adult (Generic) [...] Sign Reading Time Taken Comments Blood Pressure 164/88 10/09/2024 4:39 PM CDT Pulse 79 10/09/2024 4:39 PM CDT Temperature 36.7 C (98.1 F) 10/09/2024 4:39 PM CDT Respiratory Rate 16 10/09/2024 4:39 PM CDT Oxygen Saturation 97% 10/09/2024 4:39 PM CDT Inhaled Oxygen Concentration - - Weight 76.7 kg (169 lb) 10/09/2024 4:39 PM CDT Height 171.5 cm (5' 7.5) 10/09/2024 4:39 PM CDT Body Mass Index 26.08 10/09/2024 4:39 PM CDT Plan of Treatment Health Maintenance Due Date Last Done Comments ASCVD Statin 1960 Kidney Health Evaluation 1960 Hepatitis C 1976 Zoster Vaccines (1 of 2) 2008 RSV Immunization or 60+ Years (1 - Risk 60-74 years 1-dose series) 2018 Pneumococcal Vaccine: 50+ Years (2 of 2 - PPSV23) 03/09/2021 01/12/2021 ASCVD LDL 02/27/2023 02/27/2022, 09/04, 10/10/2015 Lipid Panel 02/27/2023 02/27/2022, 2020 Annual Medicare Wellness Visit 09/24/2023 COVID-19 Vaccine ( season) 2024 03/27/2021, 07/22/2020, 07/01/2020 Hemoglobin A1C 04/10/2025 10/09/2024, 08/05, 06/22/2024, Additional history exists Diabetes: Retinopathy Eye Exam 07/28/2025 07/28/2024 Colorectal Cancer Screening Colonoscopy (10 Years) 11/12/2029 11/13/2019, 11/13/2019 DTaP, Tdap and Td Vaccines (2 - Td or Tdap) 01/12/2031 01/12/2021 PHQ-2 (Physician [place]) Completed 08/31/2024 Meningococcal B Vaccine Aged Out No l onger eligible based on patient's age to complete this topic Meningococcal Vaccine Aged Out No shade jessica eligible based on patient's age to complete this topic RSV Immunizations Under 20 Months Aged Out No longer eligible based on patient's age to complete this topic Procedures Procedure Name Priority Date/Time Associated Diagnosis Comments URINE BACTERIA CULTURE Routine 10/22/2024 8:46 AM CDT Lower urinary tract symptoms COLLECT.CAPILLARY (FNGR,HEEL,EAR) Routine 10/09/2024 4:54 PM CDT Type 2 diabetes mellitus with hyperglycemia, without long-term current use of insulin ([facility]) HEMOGLOBIN, GLYCOSYLATED Routine 10/09/2024 Type 2 diabetes mellitus with hyperglycemia, without long-term current use of insulin ([facility]) URINALYSIS AUTO DIP Routine 10/09/2024 Acute cystitis with hematuria COLLECT.CAPILLARY (FNGR,HEEL,EAR) Routine 08/31/2024 11:41 AM CDT Type 2 diabetes mellitus with hyperglycemia, without long-term current use of insulin ([facility]) HEMOGLOBIN, GLYCOSYLATED Routine 08/31/2024 Type 2 diabetes mellitus with hyperglycemia, without long-term current use of insulin ([facility]) URINE BACTERIA CULTURE Routine 08/25/2024 2:27 PM CDT UTI (urinary tract infection) URINALYSIS MICRO ONLY Routine 08/25/2024 2:27 PM CDT HC URINALYSIS AUTO W/O MICRO Routine 08/25/2024 2:27 PM CDT UTI (urinary tract infection) DIABETIC RETINOPATHY EXAM (POSITIVE)(SCAN ORDER) Routine 07/28/2024 LIPID PANEL Routine 02/27/2022 9:40 AM CDT Hypertriglyceridemia Essential hypertension COLONOSCOPY GENERIC (SCAN ORDER) Routine 11/13/2019 from Last 3 Months or Most Recently Relevant to Health Maintenance Results * URINE BACTERIA CULTURE (10/22/2024 8:46 AM CDT) Only the most recent of2 resultswithin the time period is included. SPEC DESCRIPTION URINE CLEAN CATCH 10/22/2024 8:46 AM CDT [facility] SPECIAL REQUESTS NO SPECIAL REQUEST 10/22/2024 8:46 AM CDT [facility] CULTURE RESULT NO GROWTH 2 DAYS 10/24/2024 8:11 AM CDT [facility] URINE SPECIMEN OBTAINED BY CLEAN CATCH PROCEDURE / Unknown 10/22/2024 8:46 AM CDT 10/22/2024 8:48 AM CDT Kathi Frank NP MICROBIOLOGY - GENERAL ORD ERABLES Final Result Performing Organization Address City/[facility]/ZIP Co de Phone Number [facility] [address] [place] [address], [place] [phone] [facility] [address] [place] [address], [place] [phone] * HEMOGLOBIN, GLYCOSYLATED (10/09/2024) Only the most recent of2 resultswithin the time period is included. HGB A1C 8.2 % [id number] [facility] 10/09/2024 Nacho Mcghee MD LABORATORY Final Resul t Performing Organization Address City/[facility]/ZIP Co de Phone Number [phone], [place] [address] [place] [address], [place] [phone] * (ABNORMAL) URINALYSIS AUTO DIP (10/09/2024) COLOR (U) YELLOW YELLOW [id number], [place] TRANSPARENCY CLEAR CLEAR MG-[id number], [place] GLUCOSE (U) 500 mg/dl(A) NEGATIVE MG/DL [id number], [place] BILIRUBIN (U) NEGATIVE NEGATIVE MG-[address], [place] KETONES MG/DL (U) NEGATIVE NEGATIVE MG/DL [id number], [place] SPECIFIC GRAVITY (U) 1.015 1.001 - 1.035 MG-[address], [place] BLOOD (U) SMALL (1+, Non Hemolyzed)(A ) NEGATIVE MG-[address], [place] U PH 6.0 5.0 - 9.0 MG-[address], [place] PROTEIN (U) 1+ (30)(A) NEGATIVE mg/dL MG-[id number], [place] UROBILINOGEN 0.2 0.2 - 1.0 EU/dL = mg/dL MG-[address], [place] NITRITES NEGATIVE NEGATIVE MG/DL MG-[id number], [place] LEUKOCYTES (U) NEGATIVE NEGATIVE MG-[address] [place] URINE SPECIMEN OBTAINED BY CLEAN CATCH PROCEDURE / Unknown 10/09/2024 us Nacho Mcghee MD URINE ORDERABLES Final Resu lt [id number], [place] [address] [place] [address], [place] [phone] * (ABNORMAL) URINALYSIS (08/25/2024 2:27 PM CDT) COLOR (U) YELLOW 08/25/2024 2:44 PM CDT [facility] TRANSPARENCY HAZY 08/25/2024 2:44 PM CDT [facility] SPECIFIC GRAVITY (U) 1.025 1.000 - 1.030 08/25/2024 2:44 PM CDT [facility] U PH 5.5 5.0 - 9.0 08/25/2024 2:44 PM CDT [facility] LEUKOCYTES (U) TRACE(A) NEGATIVE 08/25/2024 2:44 PM CDT [facility] NITRITES NEGATIVE NEGATIVE 08/25/2024 2:44 PM CDT [facility] PROTEIN RANDOM (U) 1+(A) NEGATIVE 08/25/2024 2:44 PM CDT [facility] GLUCOSE (U) 3+(A) NEGATIVE 08/25/2024 2:44 PM CDT [facility] KETONES MG/DL (U) NEGATIVE NEGATIVE 08/25/2024 2:44 PM CDT [facility] BILIRUBIN (U) NEGATIVE NEGATIVE 08/25/2024 2:44 PM CDT [facility] BLOOD (U) 2+(A) NEGATIVE 08/25/2024 2:44 PM CDT [facility] URINE SPECIMEN OBTAINED BY CLEAN CATCH PROCEDURE / Unknown 08/25/2024 2:27 PM CDT Mary Anne Rodriguez MD URINE ORDERABLES Final Result [facility] [address] [place] [address], [place] [phone] * URINALYSIS MICRO ONLY (08/25/2024 2:27 PM CDT) WBC/HPF 10-25 0 - 5 /HPF 08/25/2024 2:44 PM CDT [facility] RBC/HPF 5-10 0 - 5 /HPF 08/25/2024 2:44 PM CDT [facility] EPI/HPF FEW /HPF 08/25/2024 2:44 PM CDT [facility] BACTERIA (U) FEW /HPF 08/25/2024 2:44 PM CDT [facility] 08/25/2024 2:27 PM CDT Mary Anne Rodriguez MD URINE ORDERABLES Final Result [facility] [address] [place] [address], [place] [phone] * DIABETIC RETINOPATHY EXAM (POSITIVE) (07/28/2024) [facility] Scanned SCANNING Final Resu lt [facility] * (ABNORMAL) LIPID PANEL (02/27/2022 9:40 AM CDT) Pathologist [facility] CHOLESTEROL 178 <200 mg/dL [facility] [...] LDL-C. Ulisses SS et al. HUDSON. 2013;310(19): 7478-3474 (http://education.[employer]/faq/LNY158) CHOL/HDL RATIO 5.7(H) <5.0 (calc) [facility] NON HDL CHOLESTEROL 147(H) <130 mg/dL (calc) [facility] Comment: For patients with diabetes plus 1 major ASCVD risk factor, treating to a non-HDL-C goal of <100 mg/dL (LDL-C of <70 mg/dL) is considered a therapeutic option. 02/27/2022 9:40 AM CDT 02/28/2022 7:11 AM CDT Nacho Mcghee MD LABORATORY Final Resul t [facility] [address] [phone] * COLONOSCOPY (11/13/2019) us Documents Scanned SCANNING Final Result [facility] from Last 3 Months or Most Recently Relevant to Health Maintenance Insurance [facility] Care Teams Hand Paster Relationship Specialty [place] [address] [place] [address] PCP - General FAMILY PRACTICE 08/18/21
--- OUTSIDE RECORDS SUMMARY | 2024-11-04 15:49 | XMS_ITS | Encounter Summary ---
Author Organization [facility] Address [facility] [place] [address] Care Team Providers Care Supervisor Curing Room Name Role Phone Nacho Mcghee MD Primary Care Provider [phone] Encounter Details Date Type Department Care Team (Latest Contact Info) Description 09/02/2024 Results Follow-Up [facility] Family & Internal Medicine [address] [phone] [place]hee MD [id number] [place] [id number] HEMOGLOBIN, GLYCOSYLATED Social History Tobacco Use Types [...] Progress Notes * Nacho Mcghee MD - 09/02/2024 6:49 PM CDT Pt is aware of these results and plan documented in this encounter Plan of Treatment Not on file documented as of this encounter Visit Diagnoses Not on filedocumented in this encounter Care Teams Supervisor Curing Room Relationship Specialty [place] [address] [place] [address] PCP - General FAMILY PRACTICE 08/18/21 documented as of this encounter
--- OUTSIDE RECORDS SUMMARY | 2024-11-04 15:50 | XMS_ITS | Referral Summary ---
Author Organization [facility] Address [address] [place] [address] Care Team Providers Care Supervisory Investigative Specialist Name Role Phone Dev Burrell MD Unavailable [phone] Phillip Schafer MD Unavailable [phone] Star Ellis MD Unavailable Ally Mcghee MD Primary Care Provider [phone] Mary Anne Rodriguez MD Unavailable [phone] Dimitrios Mccrary MD Unavailable [phone] Encounters Date Type Department Care Team Description 11/04/2024 [facility] [address] [place] [phone] Shanice Willingham 10/29/2024 2:30 PM CDT [facility] [address] [place] [phone] Joleen Hernandes MD Diabetic peripheral neuropathy (HCC) (Primary Dx); Peripheral vascular disease; Carpal tunnel syndrome, bilateral; Cubital tunnel syndrome of both upper extremities 09/18/2024 Orders Only [facility] [address] [phone] Dimitrios Mccrary MD Encounter for surgical aftercare following surgery on the circulatory system (Primary Dx) 09/17/2024 Documentation [facility] [address] [phone] Eliseo Hyde PA Test Results 08/21/2024 11:00 AM CDT Ancillary Procedure [facility] [address] [place] [phone] PAD (peripheral artery disease) from Last 3 Months Allergies No known active allergies Medications metFORMIN (GLUCOPHAGE) 500 mg tablet Take 2 tablets (1,000 mg total) by mouth 2 (two) times a day with meals Active glipiZIDE (GLUCOTROL) 10 mg tabletIndicatio ns:type 2 diabetes mellitus Take 1 tablet (10 mg total) by mouth every morning Active aspirin 81 mg enteric coated tablet Take 1 tablet (81 mg total) by mouth nightly Active clopidogreL (PLAVIX) 75 mg tablet Take 1 tablet (75 mg total) by mouth every morning Active ciprofloxacin (CIPRO) 500 mg tablet Take 1 tablet (500 mg total) by mouth 2 (two) times a day Active tamsulosin (FLOMAX) 0.4 mg extended release capsule Take 1 capsule (0.4 mg total) by mouth nightly Active cilostazoL (PLETAL) 100 mg tablet Take 1 tablet (100 mg total) by mouth 2 (two) times a day 180 tablet 3 5 Active gabapentin (NEURONTIN) 300 mg capsule Take 1 capsule (300 mg total) by mouth 2 (two) times a day 180 capsule 3 5 Active gabapentin (NEURONTIN) 300 mg capsule Take 1 capsule (300 mg total) by mouth nightly 60 capsule 1 5 10/30/19 25 Discontinu ed(Reorder ) Active Problems Problem Noted Date Diagnosed Date Dizziness 04/07/2024 Episode of hypertension 04/07/2024 Urine leukocytes 04/07/2024 Atherosclerosis [place] ar eric of left lower extremity with intermittent claudication 03/26/2024 Preop examination 03/25/2024 Cystitis 01/04/2024 Hematuria 11/09/2023 History of prostate cancer 11/09/2023 Urinary retention 11/09/2023 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 Atherosclerosis [place]ic of both lower extremities with [...] risk of limb loss and need for custodial follow-up. Assessment & Plan (06/17/2024 11:05 AM FILE SYSTEM INSTALLER): He has a progressive right in-stent popliteal [...] risk of limb loss and need for rn long term care follow-up. He understands the potential need for lifelong Plavix therapy if stents are placed. Assessment & Plan (04/08/2023 12:58 PM FILE SYSTEM INSTALLER): He has debilitating bilateral calf claudication and [...] risk of limb loss and need for rn long term care follow-up. Atherosclerosis [place] ar eric of right lower extremity with intermittent claudication 04/08/2023 Carpal tunnel syndrome on right 08/15/2021 Overview (08/15/2021): Added automatically from request for surgery [id number] Lesion of right ulnar nerve 08/15/2021 Overview (08/15/2021): Added automatically from request for surgery [id number] Cubital tunnel syndrome on left 07/21/2021 Overview (07/21/2021): Added automatically from request for surgery [id number] Carpal tunnel syndrome on left 07/21/2021 Overview (07/21/2021): Added automatically from request for surgery [id number] Vascular disease 06/25/2021 Overweight with body mass [...] Used Date Smoking Tobacco: Former Cigarettes 2 12 S tarted: 1967 Passive Smoke Exposure: Past Smokeless Tobacco: Never Tobacco Cessation:Counseling Given: Not Answered Comments:Over 20 years ago Alcohol Use Standard Drinks/Week Comments No 0 (1 standard drink = 0.6 oz pur e alcohol) [facility] Utilities Answer Date Recorded In the past 12 months has [employer], gas, oil, or water company threatened to [...] any clubs o r organizations such as religious groups, unions, fraternal or athletic groups, or [...] on file Legal Sex Male 2:12 AM FILE SYSTEM INSTALLER Gender Identity Not on file Sexual Orientation Not on file Last Filed Vital Signs Vital Sign Reading Time Taken Comments Blood Pressure 138/62 10/29/2024 2:26 PM CDT Pulse 78 10/29/2024 2:26 PM CDT Temperature 36.7 C (98.1 F) 07/15/2024 10:38 AM CDT Respiratory Rate 15 07/02/2024 8:27 AM FILE SYSTEM INSTALLER Oxygen Saturation 97% 10/29/2024 2:26 PM CDT Inhaled Oxygen Concentration - - Weight 80.3 kg (177 lb) 10/29/2024 2:26 PM CDT Height 170.2 cm (5' 7) 10/29/2024 2:26 PM CDT Body Mass Index 27.72 10/29/2024 2:26 PM CDT Plan of Treatment Not on file Medical Devices Implanted Type Area Pier Master Assistant Device Identifier Shelf Expiration Date Model / Serial / Lot Wl [employer] Viabahn 6mm 25cm 120cm Flexible Self Expand Radiopaque Stent [id number] - [id number] - [id number] Implanted:Qty: 1 on 10/31/2023 by Dimitrios Mccrary MD at [facility] Stent Right: Superficial Femoral Artery [employer] 06/04/2025 [id number] / [id number] / Wl [employer] Viabahn 6mm 6fr 10cm 120cm Delivery System Superficial Femoral [id number] - [id number] - [id number] Implanted:Qty: 1 on 10/31/2023 by Dimitrios Mccrary MD at [facility] Stent Right: Superficial Femoral Artery [employer] 01/05/2025 [id number] / [id number] / Med[employer] Protege Everflex 5mm .079in 40mm 120cm Otw Delivery System Self [id number] - [id number] Implanted:Qty: 1 on 10/31/2023 by Dimitrios Mccrary MD at [facility] Stent Right: Popleteal Artery [employer] 12/19/2024 [id number] / / [id number] Ar[employer] Ar-2324 Bcm Swivelock 4.75mm 24.5mm Self Punch Vent Shoulder Sidney Suture - [id number] Implanted:Qty: 1 on 04/18/2022 by Dg Martins MD at [facility] Left: Shoulder [employer] [id number] 04/04/2025 A [id number] CM / / [id number] [employer] Set Implant Arthrex Fibertak Biceps Sterile Latex Free Ar-3670 - [id number] Implanted:Qty: 1 on 04/18/2022 by Dg Martins MD at [facility] Left: Shoulder [employer] [id number] 08/03/2026 A R-3670 / / [id number] [employer] Graft Patch Patch Vascular Repair 0.8x8cm 0.8x8cm Pfp0.8x8 - [id number] Implanted:Qty: 1 on 04/30/2024 by Dimitrios Mccrary MD at [facility] Left: Femoral [employer] 11/01/2025 PFP0. 8X8 / / [id number] Description:Bovine pericardi um patch Bard Peripheral Vascular Lifestent 8mm 6fr 60mm 80cm Self Expand Catheter Helical [id number] - [id number] Implanted:Qty: 1 on 04/30/2024 by Dimitrios Mccrary MD at [facility] Left: Common Iliac Artery Bard Peripheral Vascular 08/26/2025 [id number] / / [id number] Procedures Procedure Name Priority Date/Time Associated Diagnosis Comments US SHEEBA Schedule Routine, Read Routine (OP Routine) 08/21/2024 12:25 PM CDT PAD (peripheral artery disease) VL US ARTERIAL DUPLEX LOWER EXTREMITY BILATERAL Schedule Routine, Read Routine (OP Routine) 08/21/2024 12:25 PM CDT PAD (peripheral artery disease) EGFR Routine 07/02/2024 5:13 AM FILE SYSTEM INSTALLER HEMOGLOBIN A1C Routine 06/22/2024 1:26 PM FILE SYSTEM INSTALLER Preoperative testing CTA ABDOMINAL AORTA AND BILATERAL ILIOFEMORAL RUNOFF Schedule Routine, Read Routine (OP Routine) 01/18/2024 10:50 AM CDT Atherosclerosis [place] artery of left lower extremity with intermittent claudication PSA, TOTAL AND FREE Routine 04/13/2023 12:18 PM FILE SYSTEM INSTALLER from Last 3 Months or Most Recently Relevant to Health Maintenance Results * US Arterial Duplex Lower Extremity Bilateral (08/21/2024 12:25 PM CDT) Anatomical Region Laterality Modality Vascular Bilateral Ultrasound 08/21/2024 11:0 3 AM CDT Narrative 08/22/2024 10:31 AM CDT [facility] - Department of Vascular Surgery, Vascular Laboratory [address] [place] [address] [place] Lower Extremity Arterial Duplex Report Patient Name: ALLY WISEMAN : 1960 Study Date: 08/21/2024 11:03:55 AM Gender: M Tech: Location: [facility] Provider: ELISEO HYDE Quality: Adequate Order Provider: ELISEO HYDE PROCEDURES: Arterial Report: Bilateral Lower Extremity Arterial Duplex Exam. INDICATIONS: s/p right popliteal angioplasty; left femoral endart Dx: PAD (peripheral artery disease) [I73.9 (ICD-10-CM)]. MEASUREMENTS: Right Value Units Left Value Units Rt PHOTOCOPYING EQUIPMENT MECHANIC Dst PSV 202 cm/s Lt PHOTOCOPYING EQUIPMENT MECHANIC Dst PSV 149 cm/s Rt Profunda Prx PSV 445 cm/s Lt Profunda Prx PSV 480 cm/s Rt Superficial Femoral Prx PSV 155 cm/s Lt Proximal Superficial Femoral Artery Above Stenosis 48 cm/s Rt Superficial Femoral Mid PSV 77 cm/s Lt Proximal Superficial Femoral Artery At Stenosis 261 cm/s Rt Superficial Femoral Dst PSV 66 cm/s Lt Distal Superficial Femoral Artery Above Stenosis 102 cm/s Rt Pop Dst PSV 148 cm/s Lt Distal Superficial Femoral Artery At Stenosis 357 cm/s Rt Pop Prx PSV 244 cm/s Lt Pop Dst PSV 103 cm/s Rt Tibio-Peroneal Trunk 171 cm/s Lt Pop Prx PSV 109 cm/s Rt Post Tibial Prx PSV 54 cm/s Lt Tibio-Peroneal Trunk 104 cm/s Rt Post Tibial Mid PSV 25 cm/s Lt Post Tibial Prx PSV 28 cm/s Rt Post Tibial Dst PSV 14 cm/s Lt Post Tibial Mid PSV 68 cm/s Rt Ant Tibial Prx PSV 75 cm/s Lt Post Tibial Dst PSV 40 cm/s Rt Ant Tibial Mid PSV 85 cm/s Lt Ant Tibial Prx PSV 369 cm/s Rt Ant Tibial Dst PSV 89 cm/s Lt Ant Tibial Mid PSV 58 cm/s Rt Peroneal Prx PSV 107 cm/s Lt Ant Tibial Dst PSV 86 cm/s Rt Peroneal Mid PSV 100 cm/s Lt Peroneal Prx PSV 38 cm/s Rt Peroneal Dst PSV 48 cm/s Lt Peroneal Mid PSV 33 cm/s Rt Dorsalis Pedis Artery 96 cm/s Lt Peroneal Dst PSV 23 cm/s Lt Dorsalis Pedis Artery 90 cm/s Right Value Units Left Value Units FINDINGS: Performing Cloth Pattern Maker: Slime Iglesisa RVT, RDMS. Right Common Femoral: The right common femoral waveform is multiphasic. Elevated velocity in the right common femoral artery, consistent with a 50-75% stenosis BY PSV (VR cannot be determined due to length of lesion). Right Profunda: The right profunda waveform is multiphasic. Systolic velocity ratio in the right profunda femoral artery is 2.2, which is consistent with a 50-75% stenosis. Right Proximal Superficial Femoral Artery: The right proximal femoral artery waveform is multiphasic. Patent stent. Right Mid Superficial Femoral Artery: The right mid femoral artery waveform is multiphasic. Patent stent. Right Distal Superficial Femoral Artery: The right distal femoral artery waveform is multiphasic. Patent stent. Right Popliteal: The right popliteal waveform is multiphasic with elevated velocity (280 cm/s). Cannot evaluate 1.67 cm of proximal vessel due to atherosclerotic disease. Visualized segments of stent are patent. Right Posterior Tibial: The right posterior tibial waveform is monophasic. Distally, there is a short- segment region of RETROGRADE flow- may be consistent with more proximal obstruction. Right Anterior Tibial: The right anterior tibial waveform is hyperemic. Right Peroneal: The right peroneal artery waveform is monophasic with preserved sharp upstroke. Right Dorsalis Pedis: The right dorsalis pedis artery waveform is monophasic. Left Common Femoral: The left common femoral waveform is multiphasic. Left Profunda: The left profunda waveform is multiphasic. Systolic velocity ratio in the left profunda femoral artery is 3.22, which is consistent with a 50-75% stenosis. Left Proximal Superficial Femoral Artery: The left proximal femoral artery waveform is multiphasic. Systolic velocity ratio in the left proximal superficial femoral artery PROXIMAL STENT ATTACHMENT is 5.4, which is consistent with a >75% IN-STENT stenosis. Otherwise patent stent. Left Mid Superficial Femoral Artery: The left mid femoral artery waveform is multiphasic. Patent stent. Left Distal Superficial Femoral Artery: The left distal femoral artery waveform is multiphasic. Systolic velocity ratio in the left distal superficial femoral artery is 3.5, which is consistent with a 50-75% stenosis. Difficult to determine if this is in-stent or distal to stent due to atherosclerotic disease. Left Popliteal: The left popliteal waveform is monophasic. Left Posterior Tibial: The left posterior tibial waveform is monophasic. Left Anterior Tibial: The left anterior tibial waveform is monophasic. There is an elevated velocity proximally, consistent with a 50-75% stenosis BY PSV (cannot determine VR due to non-visualization of vessel origin). Left Peroneal: The left peroneal artery waveform is monophasic. Left Dorsalis Pedis: The left dorsalis pedis artery waveform is monophasic. Provider Notification: Results sent via JRapid on the above date to JIMI Russell at 12:19pm. Message receipt confirmation at 12:21pm. CONCLUSIONS: 1. A 50-75% stenosis is noted on the right: common femoral artery (BY PSV) and profunda femoral artery. 2. Patent right SFA stent. 3. The right popliteal waveform is multiphasic with elevated velocity (280 cm/s). Cannot evaluate 1.67 cm of proximal vessel due to atherosclerotic disease. Visualized segments of stent are patent. 4. A >75% stenosis is noted on the left: proximal superficial femoral artery STENT. Otherwise patent SFA stent. 5. A 50-75% stenosis is noted on the left: profunda femoral artery, distal superficial femoral artery (difficult to determine if this is in-stent or distal to stent due to atherosclerotic disease) and PROXIMAL anterior tibial artery (BY PSV- (cannot determine VR due to non-visualization of vessel origin). 6. See Ankle/ Brachial Index report. HISTORY: claudication, HTN, DM2, hx prostate ca, hx dizziness 10-31-23 angioplasty and stent RT SFA and popliteal artery 04-30-24 LT femoral endarterectomy, LT iliac stent 07-01-24 RT popliteal artery angioplasty. PREVIOUS STUDIES: Previous study on 06-16-24 RLEA duplex revealed 50-75% stenosis RT profunda artery, >50% stenosis RT popliteal artery mid stent. RT SHEEBA 0.93, LT SHEEBA 0.83 No LLEA duplex prevs in [facility]. DISCLAIMER: The study images and the final [...] Electronically Signed By: Dimitrios Mccrary MD FACS 08/22/2024 10:21:13 AM CDT Procedure Note Dimitrios Mccrary MD - 08/22/2024 [facility] - Department of Vascular Surgery,Vascular Laboratory [address] [place] [address] [place] Lower Extremity Arterial Duplex Report Patient Name: ALLY WISEMAN : 1960 Study Date: 08/21/2024 11:03:55 AM Gender: M Tech: Location: [facility] Provider: ELISEO HYDE Quality: Adequate Order Provider: ELISEO HYDE PROCEDURES: Arterial Report: Bilateral Lower Extremity Arterial Duplex Exam. INDICATIONS: s/p right popliteal angioplasty; left femoral endart Dx: PAD (peripheral artery disease) [I73.9 (ICD-10-CM)]. MEASUREMENTS: Right Value Units Left Value Units Rt PHOTOCOPYING EQUIPMENT MECHANIC Dst PSV 202 cm/s Lt PHOTOCOPYING EQUIPMENT MECHANIC Dst PSV 149 cm/s Rt Profunda Prx PSV 445 cm/s Lt Profunda Prx PSV 480 cm/s Rt Superficial Femoral Prx PSV 155 cm/s Lt Proximal Superficial FemoralArtery Above Stenosis 48 cm/s Rt Superficial Femoral Mid PSV 77 cm/s Lt Proximal Superficial FemoralArtery At Stenosis 261 cm/s Rt Superficial Femoral Dst PSV 66 cm/s Lt Distal Superficial FemoralArtery Above Stenosis 102 cm/s Rt Pop Dst PSV 148 cm/s Lt Distal Superficial Femoral Artery At [id number] cm/s Rt Pop Prx PSV 244 cm/s Lt Pop Dst PSV 103 cm/s Rt Tibio-Peroneal Trunk 171 cm/s Lt Pop Prx PSV 109 cm/s Rt Post Tibial Prx PSV 54 cm/s Lt Tibio-Peroneal Trunk 104 cm/s Rt Post Tibial Mid PSV 25 cm/s Lt Post Tibial Prx PSV 28 cm/s Rt Post Tibial Dst PSV 14 cm/s Lt Post Tibial Mid PSV 68 cm/s Rt Ant Tibial Prx PSV 75 cm/s Lt Post Tibial Dst PSV 40 cm/s Rt Ant Tibial Mid PSV 85 cm/s Lt Ant Tibial Prx PSV 369 cm/s Rt Ant Tibial Dst PSV 89 cm/s Lt Ant Tibial Mid PSV 58 cm/s Rt Peroneal Prx PSV 107 cm/s Lt Ant Tibial Dst PSV 86 cm/s Rt Peroneal Mid PSV 100 cm/s Lt Peroneal Prx PSV 38 cm/s Rt Peroneal Dst PSV 48 cm/s Lt Peroneal Mid PSV 33 cm/s Rt Dorsalis Pedis Artery 96 cm/s Lt Peroneal Dst PSV 23 cm/s Lt Dorsalis Pedis Artery 90 cm/s Right Value Units Left Value Units FINDINGS: Performing Cloth Pattern Maker: Slime Iglesias RVT, VANNESA. Right Common Femoral: The right common femoral waveform is multiphasic. Elevated velocity in theright common femoral artery, consistent with a 50-75% stenosis BY PSV (VR cannot bedetermined due to length of lesion). Right Profunda: The right profunda waveform is multiphasic. Systolic velocity ratio in theright profunda femoral artery is 2.2, which is consistent with a 50-75% stenosis. Right Proximal Superficial Femoral Artery: The right proximal femoral artery waveform is multiphasic. Patent stent. Right Mid Superficial Femoral Artery: The right mid femoral artery waveform is multiphasic. Patent stent. Right Distal Superficial Femoral Artery: The right distal femoral artery waveform is multiphasic. Patent stent. Right Popliteal: The right popliteal waveform is multiphasic with elevated velocity (280cm/s). Cannot evaluate 1.67 cm of proximal vessel due to atherosclerotic disease.Visualized segments of stent are patent. Right Posterior Tibial: The right posterior tibial waveform is monophasic. Distally, there is ashort- segment region of RETROGRADE flow- may be consistent with more proximalobstruction. Right Anterior Tibial: The right anterior tibial waveform is hyperemic. Right Peroneal: The right peroneal artery waveform is monophasic with preserved sharpupstroke. Right Dorsalis Pedis: The right dorsalis pedis artery waveform is monophasic. Left Common Femoral: The left common femoral waveform is multiphasic. Left Profunda: The left profunda waveform is multiphasic. Systolic velocity ratio in theleft profunda femoral artery is 3.22, which is consistent with a 50-75% stenosis. Left Proximal Superficial Femoral Artery: The left proximal femoral artery waveform is multiphasic. Systolicvelocity ratio in the left proximal superficial femoral artery PROXIMAL STENT ATTACHMENT is 5.4,which is consistent with a >75% IN-STENT stenosis. Otherwise patent stent. Left Mid Superficial Femoral Artery: The left mid femoral artery waveform is multiphasic. Patent stent. Left Distal Superficial Femoral Artery: The left distal femoral artery waveform is multiphasic. Systolic velocityratio in the left distal superficial femoral artery is 3.5, which is consistent with a50-75% stenosis. Difficult to determine if this is in-stent or distal to stentdue to atherosclerotic disease. Left Popliteal: The left popliteal waveform is monophasic. Left Posterior Tibial: The left posterior tibial waveform is monophasic. Left Anterior Tibial: The left anterior tibial waveform is monophasic. There is an elevatedvelocity proximally, consistent with a 50-75% stenosis BY PSV (cannot determine VRdue to non-visualization of vessel origin). Left Peroneal: The left peroneal artery waveform is monophasic. Left Dorsalis Pedis: The left dorsalis pedis artery waveform is monophasic. Provider Notification: Results sent via JRapid on the above date to Chema Russell 12:19pm. Message receipt confirmation at 12:21pm. CONCLUSIONS: 1. A 50-75% stenosis is noted on the right: common femoral artery (BY PSV)and profunda femoral artery. 2. Patent right SFA stent. 3. The right popliteal waveform is multiphasic with elevated velocity (280cm/s). Cannot evaluate 1.67 cm of proximal vessel due to atherosclerotic disease.Visualized segments of stent are patent. 4. A >75% stenosis is noted on the left: proximal superficial femoralartery STENT. Otherwise patent SFA stent. 5. A 50-75% stenosis is noted on the left: profunda femoral artery, distalsuperficial femoral artery (difficult to determine if this is in-stent or distal tostent due to atherosclerotic disease) and PROXIMAL anterior tibial artery (BY PSV-(cannot determine VR due to non-visualization of vessel origin). 6. See Ankle/ Brachial Index report. HISTORY: claudication, HTN, DM2, hx prostate ca, hx dizziness 10-31-23 angioplasty and stent RT SFA and popliteal artery 04-30-24 LT femoral endarterectomy, LT iliac stent 07-01-24 RT popliteal artery angioplasty. PREVIOUS STUDIES: Previous study on 06-16-24 RLEA duplex revealed 50-75% stenosis RT profundaartery, >50% stenosis RT popliteal artery mid stent. RT SHEEBA 0.93, LT SHEEBA 0.83 No LLEA duplex prevs in [facility]. DISCLAIMER: The study images and the final [...] above. Electronically Signed By: Dimitrios Mccrary MD [facility] 08/22/2024 10:21:13 AM CDT Eliseo KRAUSE IMG US PROCEDURES Fin al Result * US SHEEBA (08/21/2024 12:25 PM CDT) Anatomical Region Laterality Modality Vascular N/A Ultrasound 08/21/2024 11:0 3 AM CDT Narrative 08/22/2024 10:31 AM CDT [facility] - Department of Vascular Surgery, Vascular Laboratory [address] [place] [address] Lower Extremity Arterial Doppler Report Patient Name: ALLY WISEMAN : 1960 Study Date: 08/21/2024 11:03:00 AM Gender: M Tech: Slime Iglesias Rdnc, t Location: [facility] Provider: ELISEO HYDE Quality: Adequate Order Provider: ELISEO HYDE PROCEDURES: Arterial Report: Ankle - Brachial Index Doppler exam. INDICATIONS: s/p right popliteal angioplasty; left femoral endart Dx: PAD (peripheral artery disease) [I73.9 (ICD-10-CM)]. MEASUREMENTS: Right Value Units Left Value Units Rt Brachial Pressure 166 mmHg Lt Brachial Pressure 177 mmHg Rt TELEVISION REPORTER Pressure 159 mmHg Lt TELEVISION REPORTER Pressure >255 mmHg Rt DPA Pressure 205 mmHg Lt DPA Pressure 150 mmHg Rt 1st Digit Pressure 105 mmHg Lt 1st Digit Pressure 57 mmHg Rt PT SHEEBA Resting 0.9 Lt PT SHEEBA Resting NC Rt AT SHEEBA Resting 1.16 Lt AT SHEEBA Resting 0.85 Rt Digit/Arm Index 0.59 Lt Digit/Arm Index 0.32 Right Value Units Left Value Units FINDINGS: Performing Cloth Pattern Maker: Slime Iglesias RVT, RDMS. Right Posterior Tibial Artery Analysis: The posterior tibial waveform is HYPEREMIC. Right Anterior Tibial Artery Analysis: The anterior tibial waveform is HYPEREMIC. Right Digits: The right digit waveform is dampened. Left Posterior Tibial Artery Analysis: The posterior tibial waveform is monophasic. Left Anterior Tibial Artery Analysis: The anterior tibial waveform is monophasic. Left Digits: The left digit waveform is dampened. CONCLUSIONS: 1. The above listed right ankle pressures and Ankle/Brachial Index are artifactually elevated due to limited vessel compressibility. The finding is consistent with arterial calcification thus right SHEEBA is not diagnostic. WAVEFORMS ARE HYPEREMIC. 2. The left TELEVISION REPORTER is non-compressible which is consistent with arterial calcification thus the Ankle/Brachial Index on the left is not obtainable. The above listed left MONTY Ankle/Brachial Index at rest is consistent with moderate peripheral arterial disease - claudication, (for reference, claudication range is 0.50 -0.89). 3. Bilateral Digit/Arm Indices are abnormal (for reference, abnormal CHRISTIANO is <0.6). 4. Cannot determine level of right leg arterial insufficiency due to hyperemic waveforms. 5. There is evidence of left leg arterial insufficiency at the level of posterior tibial and anterior tibial arteries. HISTORY: History of _ stent on _. PREVIOUS STUDIES: Previous study on 06-16-24 RLEA duplex revealed 50-75% stenosis RT profunda artery, >50% stenosis RT popliteal artery mid stent. RT SHEEBA 0.93, LT SHEEBA 0.83. DISCLAIMER: The study images and the final [...] Electronically Signed By: Dimitrios Mccrary MD FACS 08/22/2024 10:22:23 AM CDT Procedure Note Dimitrios Mccrary MD - 08/22/2024 [facility] - Department of Vascular Surgery,Vascular Laboratory [address] [place] [address] Lower Extremity Arterial Doppler Report Patient Name: ALLY WISEMAN : 1960 Study Date: 08/21/2024 11:03:00 AM Gender: M Tech: Slime Iglesias [facility], t Location: [facility] Provider: ELISEO HYDE Quality: Adequate Order Provider: ELISEO HYDE PROCEDURES: Arterial Report: Ankle - Brachial Index Doppler exam. INDICATIONS: s/p right popliteal angioplasty; left femoral endart Dx: PAD (peripheral artery disease) [I73.9 (ICD-10-CM)]. MEASUREMENTS: Right Value Units Left Value Units Rt Brachial Pressure 166 mmHg Lt Brachial Pressure 177 mmHg Rt TELEVISION REPORTER Pressure 159 mmHg Lt TELEVISION REPORTER Pressure >255 mmHg Rt DPA Pressure 205 mmHg Lt DPA Pressure 150 mmHg Rt 1st Digit Pressure 105 mmHg Lt 1st Digit Pressure 57 mmHg Rt PT SHEEBA Resting 0.9 Lt PT SHEEBA Resting NC Rt AT SHEEBA Resting 1.16 Lt AT SHEEBA Resting 0.85 Rt Digit/Arm Index 0.59 Lt Digit/Arm Index 0.32 Right Value Units Left Value Units FINDINGS: Performing Cloth Pattern Maker: Slime Iglesias RVT, CHIND. Right Posterior Tibial Artery Analysis: The posterior tibial waveform is HYPEREMIC. Right Anterior Tibial Artery Analysis: The anterior tibial waveform is HYPEREMIC. Right Digits: The right digit waveform is dampened. Left Posterior Tibial Artery Analysis: The posterior tibial waveform is monophasic. Left Anterior Tibial Artery Analysis: The anterior tibial waveform is monophasic. Left Digits: The left digit waveform is dampened. CONCLUSIONS: 1. The above listed right ankle pressures and Ankle/Brachial Index areartifactually elevated due to limited vessel compressibility. The finding is consistentwith arterial calcification thus right SHEEBA is not diagnostic. WAVEFORMS ARE HYPEREMIC. 2. The left TELEVISION REPORTER is non-compressible which is consistent with arterialcalcification thus the Ankle/Brachial Index on the left is not obtainable. The above listed left MONTY Ankle/Brachial Index at rest is consistent withmoderate peripheral arterial disease - claudication, (for reference, claudicationrange is 0.50 -0.89). 3. Bilateral Digit/Arm Indices are abnormal (for reference, abnormal DAIis <0.6). 4. Cannot determine level of right leg arterial insufficiency due tohyperemic waveforms. 5. There is evidence of left leg arterial insufficiency at the level ofposterior tibial and anterior tibial arteries. HISTORY: History of _ stent on _. PREVIOUS STUDIES: Previous study on 06-16-24 RLEA duplex revealed 50-75% stenosis RT profundaartery, >50% stenosis RT popliteal artery mid stent. RT SHEEBA 0.93, LT SHEEBA 0.83. DISCLAIMER: The study images and the final [...] above. Electronically Signed By: Dimitrios Mccrary MD [facility] 08/22/2024 10:22:23 AM CDT us Eliseo KRAUSE IMG US PROCEDURES Fin al Result * eGFR (07/02/2024 5:13 AM FILE SYSTEM INSTALLER) eGFR >90 >=60 mL/min/1. 73 m2 Comment: [...] last reviewed 2021. Blood 07/02/2024 5:13 AM FILE SYSTEM INSTALLER 07/02/2024 5:28 AM FILE SYSTEM INSTALLER us Dimitrios Mccrary MD LAB BLOOD ORDERABLES Final Res ult [facility] [address] [place] [address] * (ABNORMAL) Hemoglobin A1c (06/22/2024 1:26 PM FILE SYSTEM INSTALLER) Hgb A1C 8.2(H) 4.0 - 5.6 % Estimated Average Glucose 189 mg/dL [facility] Comment: The ADA recommends reporting an estimated Average Glucose (eAG) with all Hemoglobin A1c results using the equation derived from a study of 507 normal and diabetic adults. Minority populations were underrepresented and children were not included. (Diabetes Care 31:4336-2655, 2008). The eAG is not equivalent to a fasting glucose. Blood 06/22/2024 1:26 PM FILE SYSTEM INSTALLER 06/22/2024 1:26 PM FILE SYSTEM INSTALLER us Christy Macdonald NP LAB BLOOD ORDERABLES Fi nal Result [facility] [address] Department [place] [address] * CTA Abdominal Aorta And Bilateral Iliofemoral [...] calcified atherosclerosis and severe narrowing of the [place] vessel distally R. Popliteal artery: Multifocal severe [...] calcified atherosclerosis and severe narrowing of the [place] vessel distally R. Popliteal artery: Multifocal severe [...] it. Electronically signed by: Jodi Gregory M.D. us Dimitrios Mccrary MD IMG CT PROCEDURES Final Result * PSA, total and free (04/13/2023 12:18 PM FILE SYSTEM INSTALLER) PSA-free <0.1 ng/mL [facility] PSA-Total <0.10 <=4.5 ng/mL [facility] PSA-Free/Total Ratio See Footnote [facility] Comment: Ratio was not calculated because free PSA is less than 0.1 ng/mL. Ratio not calculated because clinical usefulness is not defined except in range of total PSA 4.0-10.0 ng/mL. ADDITIONAL INFORMATION The testing method is an electrochemiluminescence assay manufactured by [employer] and performed on the Modular or Senia system. Values obtained with different assay methods or kits may be different and cannot be used interchangeably. Test results cannot be interpreted as absolute evidence for the presence or absence of malignant disease. Test Performed by: [place] [address] Outdoor Emergency Care Technician: Goyo Ramirez M.D. Ph.D.; CLIA# [id number] Blood 04/13/2023 12:1 8 PM FILE SYSTEM INSTALLER 04/13/2023 12:18 PM FILE SYSTEM INSTALLER us Jay Bolanos MD PhD LAB BLOOD ORDERABLE S Final Result [facility] [address] Department of [facility] [place] [address] from Last 3 Months or Most Recently Relevant to Health Maintenance Insurance [facility] CHOICE [facility]US [facility] HMO/PPO Address: [address] [address] [place] [address] MEDICARE [facility] MEDICARE [facility] Advance Directives For more information, please contact: [phone] * Full Code (Latest Code Status on [...] 6:04 PM 05/10/2023 5:52 PM Care Teams Supervisory Investigative Specialist Relationship Specialty [place] [address] [address] PCP - General Family Practice 12/18/21 Dev Burrell MD [address] [place] [address] Consulting Physician Radiation Oncology 04/24/18 [place] [address] [place] [address] Urology 04/24/18 [place] [address] [place] [address] Urology 04/24/18 [place] [address] [address] Consulting Physician Urology 04/13/23 Dimitrios Mccrary MD [address] [facility] [address] [place] [address] Surgeon Vascular Surgery 11/01/23
--- OUTSIDE RECORDS SUMMARY | 2024-11-04 15:50 | XMS_ITS | Encounter Summary ---
Author Organization [facility] Healthcare Address [address] [place] [address] Care Team Providers Care Kennel Technician Name Role Phone Dev Burrell MD Unavailable [phone] Phillip Schafer MD Unavailable [phone] Star Ellis MD Unavailable Nacho Mcghee MD Primary Care Provider [phone] Mary Anne Rodriguez MD Unavailable [phone] Dimitrios Mccrary MD Unavailable [phone] Reason for Referral * Consultation (Routine) - Authorized Specialty Diagnoses / Procedures Referred By Judah martinez Referred To Contact Physical Therapy Diagnoses Carpal tunnel syndrome, bilateral Cubital tunnel syndrome of both upper extremities Joleen Hernandes MD [address] [facility] [address] [place] [address] Phone: tel: fax: External Order Referral ID Status Reason Start Date Expiration Date Visits Requested Visits Authorized [id number] Authorized Evaluate and Treat 11/04/2024 12/04/2025 24 24 Question Answer PTRFR PT Evaluate and Treat Therapy options discussed with patient? Yes Location provided for therapy services is: Patient requested/Patient preferred Please select the performing region: External Order [171] # of visits: 24 Comments [facility] fax: [phone] Encounter Details Date Type Department Care Team (Late st Contact Info) Description 11/04/2024 [facility] [address] [facility] [address] [place] [id number] Shanice Willingham Social History Tobacco Use Types Packs/Day Years [...] week 05/01/2024 How often do you attend the medical center ch or taoist services? More than 4 times per year 05/01/2024 Do you belong to any clubs o r organizations such as baptist groups, unions, fraternal or athletic groups, or [...] any time in the past [address] [facility], were you homeless or living in a mcc (including now)? No 05/01/2024 Personal Safety Answer Date Recorded Have you ever been in or are you currently in a harmful physical or emotional relationship or is someone making you feel afraid or unsafe? Denies 07/01/2024 Sex and Gender Information Value Date Recorded Sex Assigned at Not on file Legal Sex Male 2:12 AM COMMERCIAL COORDINATOR Gender Identity Not on file Sexual Orientation Not on file documented as of this encounter Miscellaneous Notes * Telephone Encounter - Kyra Ferrari RN - 11/04/2024 1:46 PM CDT Order placed and faxed * Telephone Encounter - Shanice Willingham - 11/04/2024 1:29 PM CDT [facility]ana from [facility] Physical therapy needs a hand PT referral faxed over. Dayana: [phone] documented in this encounter Plan of Treatment Scheduled Referrals Name Type Priority Associated Diagnoses Order Schedule Ambulatory referral order to Physical Therapy - Outpatient Referral Routine Carpal tunnel syndrome, bilateral Cubital tunnel syndrome of both upper extremities 1 Occurrences starting 11/04/2024 until 11/04/2025 documented as of this encounter Visit Diagnoses Diagnosis Carpal tunnel syndrome, bilateral- Primary Carpal tunnel syndrome Cubital tunnel syndrome of both upper extremities documented in this encounter Care Teams Kennel Technician Relationship Specialty [place] [address] [facility] [address] [place] [address] PCP - General Family Practice 12/18/21 Dev Burrell MD [address] [place] [address] Consulting Physician Radiation Oncology 04/24/18 [place] [address] [place] [address] Urology 04/24/18 [place] [address] [place] [address] Urology 04/24/18 [place] [address] [facility] [address] [place] [address] Consulting Physician Urology 04/13/23 Dimitrios Mccrary MD [address] [facility] [address] [place] [address] Surgeon Vascular Surgery 11/01/23 documented as of this encounter
--- OUTSIDE RECORDS SUMMARY | 2024-11-04 15:50 | XMS_ITS | Encounter Summary ---
Author Organization [facility] Address [address] [place] [address] Care Team Providers Care Special Effects Designer Name Role Phone Nacho Mcghee MD Primary Care Provider [phone] Encounter Details Date Type Department Care Team (Latest Contact Info) Description 10/26/2024 Scan HEALTH INFO [facility] Scanned, Doc [facility] [...] on filedocumented in this encounter Care Teams Special Effects Designer Relationship Specialty [place] [address] [place] [address] PCP - General FAMILY PRACTICE 08/18/21 documented as of this encounter
--- OUTSIDE RECORDS SUMMARY | 2024-11-04 15:50 | XMS_ITS | Encounter Summary ---
Author Organization [facility] Address [address] [place] [address] Care Team Providers Care Senior Bioinformatics Specialist Name Role Phone Jay Alanis MD Primary Care Provider [phone] Nacho Mcghee MD Primary Care Provider [phone] Encounter Details Date Type Department Care Team (Late st Contact Info) Description 11/09/2019 Prep for Procedure [facility] [address] [place], [place] [id number] Duy Lopez MD [address] [place] [address] Social History Tobacco Use Types Packs/Day Years [...] DETECTED NOT DETECTED 11/13/2019 4:04 AM CDT [facility] Comment: A Not Detected (negative) test result [...] providers and patients using the following websites: https://[email or web address]/home/Covid-19/HCP/NAAT/fact-sheet2 https://www.[employer]/home/Covid-19/Patients/NAAT/ fact-sheet2 This test has been authorized by the FDA under an Emergency Use Authorization (EUA) for use by authorized laboratories. Due to the current public health emergency, [facility] is receiving a high volume of samples [...] about COVID-19 can be found at the [facility] website: www.[employer]/Covid19. Test performed at [facility] [address] [address] Director: NADYA HANDLEY DO,MPH NASOPHARYNGEAL SWAB / Unknown 11/11/2019 10:12 AM CDT us Duy Lopez MD MICROBIOLOGY - GENERAL ORDERABLE S Final Result [facility] [address] [place], [place] [address] documented in this encounter Visit Diagnoses Diagnosis Preop testing- Primary Preoperative examination, unspecified documented in this encounter Additional Health Concerns Infection Onset Date Last Indicated Resolved Time COVID-19 Rule Out 11/11/2019 11/11/2019 11/13/2019 4:04 AM CDT documented as of this encounter Care Teams Senior Bioinformatics Specialist Relationship Specialty Start Date End Date Jay Alanis MD PCP - General INTERNAL MEDICINE 08/27/18 08/17/21 [place] [address] [place] [address] PCP - General FAMILY PRACTICE 08/18/21 documented as of this encounter
--- OUTSIDE RECORDS SUMMARY | 2024-11-04 15:50 | XMS_ITS | Clinical Summary ---
[facility] Address [address] [place] [address] Care Team Providers Care Gun Tester Name Role Phone Dev Burrell MD Unavailable [phone] Phillip Schafer MD Unavailable [phone] Star Ellis MD Unavailable [phone] Ally Mcghee MD Primary Care Provider [phone] Mary Anne Rodriguez MD Unavailable [phone] Dimitrios Mccrary MD Unavailable [phone] Allergies No known active allergies Medications [...] hypertension 04/07/2024 Urine leukocytes 04/07/2024 Atherosclerosis of stockbridge ar eric of left lower extremity with intermittent claudication 03/26/2024 Preop examination 03/25/2024 Cystitis 01/04/2024 Hematuria 11/09/2023 History of prostate cancer 11/09/2023 Urinary retention 11/09/2023 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 Atherosclerosis of stockbridge ar eric of both lower extremities with [...] risk of limb loss and need for race relations adviser follow-up. Assessment & Plan (06/17/2024 11:05 AM DEVELOPER DESIGNER): He has a progressive right in-stent popliteal [...] limb loss and need for fpc follow-up. He understands the potential need for lifelong Plavix therapy if stents are placed. Assessment & Plan (04/08/2023 12:58 PM DEVELOPER DESIGNER): He has debilitating bilateral calf claudication and [...] risk of limb loss and need for race relations adviser follow-up. Atherosclerosis of stockbridge ar eric of right lower extremity with intermittent claudication 04/08/2023 Carpal tunnel syndrome on right 08/15/2021 Overview (08/15/2021): Added automatically from request for surgery [id number] Lesion of right ulnar nerve 08/15/2021 Overview (08/15/2021): Added automatically from request for surgery [id number] Cubital tunnel syndrome on left 07/21/2021 Overview (07/21/2021): Added automatically from request for surgery [id number] Carpal tunnel syndrome on left 07/21/2021 Overview (07/21/2021): Added automatically from request for surgery [id number] Vascular disease 06/25/2021 Overweight with body mass index (BMI) 25.0-29.9 10/13/2015 Type 2 diabetes mellitus wit hout complication, without long-term current use of insulin 07/11/2011 Overview (09/11/2023): DMII WO CMP UNCNTRLD Prostate cancer 01/26/2009 Cancer Staging:Clinical stage from 01/26/2009:Stage III(T3a, N0, M0, G3-G4) - Signed by Dev Burrell MD on 04/23/2018 Encounters Date Type Department Care Team Description 11/04/2024 [facility] [address] [place] [phone] Shanice Willingham 10/29/2024 2:30 PM CDT Office Visit [facility] [address] [place] [phone] Joleen Hernandes MD Diabetic peripheral neuropathy (HCC) (Primary Dx); Peripheral vascular disease; Carpal tunnel syndrome, bilateral; Cubital tunnel syndrome of both upper extremities 09/18/2024 Orders Only [facility] [address] [place] [phone] Dimitrios Mccrary MD Encounter for surgical aftercare following surgery on the circulatory system (Primary Dx) 09/17/2024 Documentation [facility] [address] [place] [phone] Eliseo Hyde PA Test Results 08/21/2024 11:00 AM CDT Ancillary Procedure [facility] [address] [place] [address] [place] [address] PAD (peripheral artery disease) from Last 3 Months Immunizations Immunization Administration [...] Type 2 diabetes mellitus (HCC) Atherosclerosis of stockbridge ar eric of both lower extremities with intermittent claudication IBS (irritable bowel syndrome) Social History Tobacco Use Types Packs/Day Years Used Date Smoking Tobacco: Former Cigarettes 2 12 S tarted: 1967 Passive Smoke Exposure: Past Smokeless Tobacco: Never Tobacco Cessation:Counseling Given: Not Answered Comments:Over 20 years ago Alcohol Use Standard Drinks/Week Comments No 0 (1 standard drink = 0.6 oz pur e alcohol) [employer] Answer Date Recorded In the past 12 months has tracx, gas, oil, or water [employer] threatened to shut off services in your [...] week 05/01/2024 How often do you attend [facility] or voodoo services? More than 4 times per year 05/01/2024 Do you belong to any clubs o r organizations such as catholic groups, unions, fraternal or athletic groups, or [...] were you homeless or living in a fci (including now)? No 05/01/2024 Personal Safety Answer Date Recorded Have you ever been in or are you currently in a harmful physical or emotional relationship or is someone making you feel afraid or unsafe? Denies 07/01/2024 Sex and Gender Information Value Date Recorded Sex Assigned at Not on file Legal Sex Male 2:12 AM DEVELOPER DESIGNER Gender Identity Not on file Sexual Orientation Not on file Obstetrics History Last Filed Vital Signs Vital Sign Reading Time Taken Comments Blood Pressure 138/62 10/29/2024 2:26 PM CDT Pulse 78 10/29/2024 2:26 PM CDT Temperature 36.7 C (98.1 F) 07/15/2024 10:38 AM CDT Respiratory Rate 15 07/02/2024 8:27 AM DEVELOPER DESIGNER Oxygen Saturation 97% 10/29/2024 2:26 PM CDT Inhaled Oxygen Concentration - - Weight 80.3 kg (177 lb) 10/29/2024 2:26 PM CDT Height 170.2 cm (5' 7) 10/29/2024 2:26 PM CDT Body Mass Index 27.72 10/29/2024 2:26 PM CDT Plan of Treatment Health Maintenance [...] 2023-2 5 season) 2024 03/27/2021, 07/22/2020, 07/01/2020 Hemoglobin A1C 12/20/2024 06/22/2024, 12/0 09/2023, 10/24/2023 Influenza Vaccine (#1) 2025 03/01/2022 Prostate Cancer Screening-PSA 04/13/2025 04/13/2023, 04/24/2018 Fall Risk Assessment 07/02/2025 07/02/2024 eGFR 07/02/2025 07/02/2024, 0211/2024, 05/02/2024, Additional history exists DTaP/Tdap/Td Vaccine (2 - Td or Tdap) 01/12/2031 01/12/2021 Abdominal Aortic Aneurysm (A AA) Screen Completed 01/18/2024, 01/04/2024 Medical Devices Implanted Type Area Maintenance Analyst Device Identifier Shelf Expiration Date Model / Serial / Lot [employer] Viabahn 6mm 25cm 120cm Flexible Self Expand Radiopaque Stent [id number] - [id number] - [id number] Implanted:Qty: 1 on 10/31/2023 by Dimitrios Mccrary MD at [facility] Stent Right: Superficial Femoral Artery [employer] 06/04/2025 [id number] / [id number] / [employer] Viabahn 6mm 6fr 10cm 120cm Delivery System Superficial Femoral [id number] - [id number] - [id number] Implanted:Qty: 1 on 10/31/2023 by Dimitrios Mccrary MD at [facility] Stent Right: Superficial Femoral Artery [employer] 01/05/2025 [id number] / [id number] / Medtronic [employer] Protege Everflex 5mm .079in 40mm 120cm Otw Delivery System Self [id number] - [id number] Implanted:Qty: 1 on 10/31/2023 by Dimitrios Mccrary MD at [facility] Stent Right: Popleteal Artery [employer] 12/19/2024 [id number] / / [id number] Ar[employer]rex [employer] Ar-2324 Bcm Swivelock 4.75mm 24.5mm Self Punch Vent Shoulder [place] Suture - [id number] Implanted:Qty: 1 on 04/18/2022 by Dg Martins MD at [facility] Left: Shoulder [employer] [id number] 04/04/2025 A [id number] CM / / [id number] [employer] Set Implant Arthrex Fibertak Biceps Sterile Latex Free Ar-3670 - [id number] Implanted:Qty: 1 on 04/18/2022 by Dg Martins MD at [facility] Left: Shoulder [employer] [id number] 08/03/2026 A R-3670 / / [id number] [employer]ife Inc Graft Patch Patch Vascular Repair 0.8x8cm 0.8x8cm Pfp0.8x8 - [id number] Implanted:Qty: 1 on 04/30/2024 by Dimitrios Mccrary MD at [facility] Left: Femoral [employer] 11/01/2025 PFP0. 8X8 / / [id number] Description:Bovine pericardi um patch Bard Peripheral Vascular Lifestent 8mm 6fr 60mm 80cm Self Expand Catheter Helical [id number] - [id number] Implanted:Qty: 1 on 04/30/2024 by Dimitrios Mccrary MD at [facility] Left: Common Iliac Artery Bard Peripheral Vascular 08/26/2025 [id number] / / [id number] Procedures Procedure Name Priority Date/Time Associated Diagnosis Comments US SHEEBA Schedule Routine, Read Routine (OP Routine) 08/21/2024 12:25 PM CDT PAD (peripheral artery disease) VL US ARTERIAL DUPLEX LOWER EXTREMITY BILATERAL Schedule Routine, Read Routine (OP Routine) 08/21/2024 12:25 PM CDT PAD (peripheral artery disease) EGFR Routine 07/02/2024 5:13 AM DEVELOPER DESIGNER HEMOGLOBIN A1C Routine 06/22/2024 1:26 PM DEVELOPER DESIGNER Preoperative testing CTA ABDOMINAL AORTA AND BILATERAL ILIOFEMORAL RUNOFF Schedule Routine, Read Routine (OP Routine) 01/18/2024 10:50 AM CDT Atherosclerosis of stockbridge artery of left lower extremity with intermittent claudication PSA, TOTAL AND FREE Routine 04/13/2023 12:18 PM DEVELOPER DESIGNER from Last 3 Months or Most Recently Relevant to Health Maintenance Results * US Arterial Duplex Lower Extremity Bilateral (08/21/2024 12:25 PM CDT) Anatomical Region Laterality Modality Vascular Bilateral Ultrasound 08/21/2024 11:0 3 AM CDT Narrative 08/22/2024 10:31 AM CDT [employer] [facility] - Department of Vascular Surgery, Vascular Laboratory [address] [place] [id number] [place] Lower Extremity Arterial Duplex Report Patient Name: ALLY WISEMAN : 1960 Study Date: 08/21/2024 11:03:55 AM Gender: M Tech: CG Location: [facility] Provider: ELISEO HYDE Quality: Adequate Order Provider: ELISEO HYDE PROCEDURES: Arterial Report: Bilateral Lower Extremity Arterial Duplex Exam. INDICATIONS: s/p right popliteal angioplasty; left femoral endart Dx: PAD (peripheral artery disease) [I73.9 (ICD-10-CM)]. MEASUREMENTS: Right Value Units Left Value Units Rt DEPUTY CORONER INVESTIGATOR Dst PSV 202 cm/s Lt DEPUTY CORONER INVESTIGATOR Dst PSV 149 cm/s Rt Profunda Prx [...] Value Units Left Value Units FINDINGS: Performing Tank Insulator Rubber: Slime Iglesias RVT, VANNESA. Right Common Femoral: [...] is monophasic. Provider Notification: Results sent via [employer] on the above date to JIMI Russell [...] SHEEBA 0.83 No LLEA duplex prevs in [facility]. DISCLAIMER: The study images and the [...] Procedure Note Dimitrios Mccrary MD - 08/22/2024 [facility] - Department of Vascular Surgery,Vascular Laboratory [address] [place] [address] Saxman Lower Extremity Arterial Duplex Report Patient Name: ALLY WISEMAN : 1960 Study Date: 08/21/2024 11:03:55 AM Gender: M Tech: Location: [facility] Provider: ELISEO HYDE Quality: Adequate Order Provider: ELISEO HYDE PROCEDURES: Arterial Report: Bilateral Lower Extremity Arterial Duplex Exam. INDICATIONS: s/p right popliteal angioplasty; left femoral endart Dx: PAD (peripheral artery disease) [I73.9 (ICD-10-CM)]. MEASUREMENTS: Right Value Units Left Value Units Rt DEPUTY CORONER INVESTIGATOR Dst PSV 202 cm/s Lt DEPUTY CORONER INVESTIGATOR Dst PSV 149 cm/s Rt Profunda Prx [...] cm/s Lt Distal Superficial Femoral Artery At [id number] cm/s Rt Pop Prx PSV 244 cm/s [...] Value Units Left Value Units FINDINGS: Performing Tank Insulator Rubber: Slime Iglesias RVT, RDMS. Right Common Femoral: The right [...] is monophasic. Provider Notification: Results sent via [employer] on the above date to Chema Russell [...] SHEEBA 0.83 No LLEA duplex prevs in [facility]. DISCLAIMER: The study images and the [...] above. Electronically Signed By: Dimitrios Mccrary MD [facility] 08/22/2024 10:21:13 AM CDT Eliseo KRAUSE IMG US PROCEDURES Fin al Result * US SHEEBA (08/21/2024 12:25 PM CDT) Anatomical Region Laterality Modality Vascular N/A Ultrasound 08/21/2024 11:0 3 AM CDT Narrative 08/22/2024 10:31 AM CDT [facility] - Department of Vascular Surgery, Vascular Laboratory [address] [place] [address] Lower Extremity Arterial Doppler Report Patient Name: ALLY WISEMAN : 1960 Study Date: 08/21/2024 11:03:00 AM Gender: M Tech: Slime Iglesias Rdid, [facility] Location: [facility] Provider: ELISEO HYDE Quality: Adequate Order Provider: ELISEO HYDE PROCEDURES: Arterial Report: Ankle - Brachial Index Doppler exam. INDICATIONS: s/p right popliteal angioplasty; left femoral endart Dx: PAD (peripheral artery disease) [I73.9 (ICD-10-CM)]. MEASUREMENTS: Right Value Units Left Value Units Rt Brachial Pressure 166 mmHg Lt Brachial Pressure 177 mmHg Rt RESTAURANT ASSISTANT Pressure 159 mmHg Lt RESTAURANT ASSISTANT Pressure >255 mmHg Rt DPA Pressure 205 mmHg Lt DPA Pressure 150 mmHg Rt 1st Digit Pressure 105 mmHg Lt 1st Digit Pressure 57 mmHg Rt PT SHEEBA Resting 0.9 Lt PT SHEEBA Resting NC Rt AT SHEEBA Resting 1.16 Lt AT SHEEBA Resting 0.85 Rt Digit/Arm Index 0.59 Lt Digit/Arm Index 0.32 Right Value Units Left Value Units FINDINGS: Performing Tank Insulator Rubber: Slime Iglesias RVT, RDMS. Right Posterior Tibial [...] diagnostic. WAVEFORMS ARE HYPEREMIC. 2. The left RESTAURANT ASSISTANT is non-compressible which is consistent with arterial [...] _. PREVIOUS STUDIES: Previous study on 06-16-24 [facility] duplex revealed 50-75% stenosis RT profunda artery, [...] Procedure Note Dimitrios Mccrary MD - 08/22/2024 [facility] - Department of Vascular Surgery,Vascular Laboratory [address] [place] [address] Lower Extremity Arterial Doppler Report Patient Name: ALLY WISEMAN : 1960 Study Date: 08/21/2024 11:03:00 AM Gender: M Tech: Slime Iglesias [facility], t Location: [facility] Provider: ELISEO HYDE Quality: Adequate Order Provider: ELISEO HYDE PROCEDURES: Arterial Report: Ankle - Brachial Index Doppler exam. INDICATIONS: s/p right popliteal angioplasty; left femoral endart Dx: PAD (peripheral artery disease) [I73.9 (ICD-10-CM)]. MEASUREMENTS: Right Value Units Left Value Units Rt Brachial Pressure 166 mmHg Lt Brachial Pressure 177 mmHg Rt RESTAURANT ASSISTANT Pressure 159 mmHg Lt RESTAURANT ASSISTANT Pressure >255 mmHg Rt DPA Pressure 205 mmHg Lt DPA Pressure 150 mmHg Rt 1st Digit Pressure 105 mmHg Lt 1st Digit Pressure 57 mmHg Rt PT SHEEBA Resting 0.9 Lt PT SHEEBA Resting NC Rt AT SHEEBA Resting 1.16 Lt AT SHEEBA Resting 0.85 Rt Digit/Arm Index 0.59 Lt Digit/Arm Index 0.32 Right Value Units Left Value Units FINDINGS: Performing Tank Insulator Rubber: Slime Iglesias RVT, VANNESA. Right Posterior Tibial Artery Analysis: The posterior [...] diagnostic. WAVEFORMS ARE HYPEREMIC. 2. The left RESTAURANT ASSISTANT is non-compressible which is consistent with arterialcalcification [...] _. PREVIOUS STUDIES: Previous study on 06-16-24 [facility] duplex revealed 50-75% stenosis RT profundaartery, >50% [...] Mccrary MD FACS 08/22/2024 10:22:23 AM CDT us Eliseo KRAUSE IMG US PROCEDURES Fin al Result * eGFR (07/02/2024 5:13 AM DEVELOPER DESIGNER) eGFR >90 >=60 mL/min/1. 73 m2 Comment: [...] last reviewed 2021. Blood 07/02/2024 5:13 AM DEVELOPER DESIGNER 07/02/2024 5:28 AM DEVELOPER DESIGNER us Dimitrios Mccrary MD LAB BLOOD ORDERABLES Final Res ult [facility] [address] Department [place] [address] * (ABNORMAL) Hemoglobin A1c (06/22/2024 1:26 PM DEVELOPER DESIGNER) Hgb A1C 8.2(H) 4.0 - 5.6 % Estimated Average Glucose 189 mg/dL [facility] Comment: The ADA recommends reporting an estimated Average Glucose (eAG) with all Hemoglobin A1c results using the equation derived from a study of 507 normal and diabetic adults. Minority populations were underrepresented and children were not included. (Diabetes Care 31:1479-1582, 2008). The eAG is not equivalent to a fasting glucose. Blood 06/22/2024 1:26 PM DEVELOPER DESIGNER 06/22/2024 1:26 PM DEVELOPER DESIGNER us Christy Macdonald NP LAB BLOOD ORDERABLES nal Result [facility] [address] [place] Department [place] [address] * CTA Abdominal Aorta And Bilateral Iliofemoral [...] calcified atherosclerosis and severe narrowing of the stockbridge vessel distally R. Popliteal artery: Multifocal severe [...] calcified atherosclerosis and severe narrowing of the stockbridge vessel distally R. Popliteal artery: Multifocal severe [...] PSA, total and free (04/13/2023 12:18 PM DEVELOPER DESIGNER) PSA-free <0.1 ng/mL [facility] PSA-Total <0.10 <=4.5 ng/mL [facility] PSA-Free/Total Ratio See Footnote [facility] Comment: Ratio was not calculated because free [...] absence of malignant disease. Test Performed by: [place] [address] Photo Lab Specialist: Goyo Ramirez M.D. Ph.D.; CLIA# [id number] Blood 04/13/2023 12:1 8 PM DEVELOPER DESIGNER 04/13/2023 12:18 PM DEVELOPER DESIGNER us Jay Bolanos MD PhD LAB BLOOD ORDERABLE S Final Result [facility] [address] Department [place] [address] from Last 3 Months or Most Recently Relevant to Health Maintenance Insurance [facility] CHOICE PLUS [facility] HMO/PPO Address: [address] [address] [place] [address] MEDICARE [facility] MEDICARE [facility] Advance Directives For more information, please contact: [phone] * Full Code (Latest Code Status on [...] 6:04 PM 05/10/2023 5:52 PM Care Teams Gun Tester Relationship Specialty [place] [id number] [address] PCP - General Family Practice 12/18/21 Dev Burrell MD [address] [place] [address] Consulting Physician Radiation Oncology 04/24/18 [place] [address] [place] [address] Urology 04/24/18 [place] [address] [place] [address] Urology 04/24/18 [place] [address] [facility] [address] [place] [address] Consulting Physician Urology 04/13/23 Dimitrios Mccrary MD [address] [facility] [address] [place] [address] Surgeon Vascular Surgery 11/01/23
== END 2024-11-04 15:45 | disposition home or self-care (01) ==
PROVIDERS: PCP Family Medicine; Visit Provider Urology
DX: R10.9 Unspecified abdominal pain (principal)
CPT/HCPCS: 74176